=== PATIENT | female | born 1965 | race Caucasian/White ===

== ENCOUNTER → 2017-06-02 | Outpatient (CLI) | payer MEDICARE, OTHER ==
--- NOTE | 2017-06-02 10:29 | US ---
EXAMINATION TYPE: US kidneys/renal and bladder DATE OF EXAM: 06/02/2017 COMPARISON: NONE CLINICAL HISTORY: N39.0 UTI. Patient stated prior renal stones with lithotripsy to right kidney; carmen rachna sleeve EXAM MEASUREMENTS: Right Kidney: 12.0 x 5.3 x 4.2 cm Left Kidney: 12.5 x 6.6 x 5.7 cm Post Void Residual Volume: 9.9 mL Right Kidney: hyperechoic cluster of calcifications with posterior shadowing seen mid medial = 0.5 x 0.4 x 0.4cm Left Kidney: No hydronephrosis or masses seen Bladder: wnl Bilateral Jets seen: Yes Normal Post Void Residual: Yes IMPRESSION: NONOBSTRUCTING RIGHT-SIDED NEPHROLITHIASIS.
== END | disposition home or self-care (01) ==
LOC: RADUSWWP 09:18
PROVIDERS: ATTEND Family Medicine
DX: N20.0 Calculus of kidney (principal); N39.0 Urinary tract infection, site not specified
CPT/HCPCS: 76770

== ENCOUNTER 2017-06-29 20:12 | Observation (INO) | payer MEDICARE, OTHER ==
[2017-06-29] MEDS ORDERED: SODIUM CHLORIDE 0.9% 1,000 ML IV STA ×2 (21:06)
--- NOTE | 2017-06-29 21:09 | ED ---
Syncope HPI - General Chief Complaint: Syncope Stated Complaint: Syncope Time Seen by Provider: 06/29/17 21:02 Source: patient Mode of arrival: ambulatory Limitations: no limitations - History of Present Illness Initial Comments: This 51-year-old white female presents with a complaint of 2 syncopal episodes. She apparently was at a meeting [employer]. She went to stand up and apparently fell back down. She did land on her sacrum and is complaining of some pain into this area. She was out for short period of time. There is no seizure activity. She denies any preceding symptoms. She denies any dizziness, palpitations, chest pain, or shortness of breath. She states that she may not be eating or drinking as much recently. She states that she had one similar incident last week. No other complaints or modifying factors. - Related Data Home Medications Medication Instructions Recorded Confirmed Acetaminophen-Codeine 300-30mg 1 tab PO BID 06/29/17 06/29/17 [Tylenol #3] Albuterol Inhaler [Ventolin Hfa 1 - 2 puff INHALATION RT-Q6H PRN 06/29/17 Inhaler] Amantadine HCl [Symmetrel] 100 mg PO BID 06/29/17 06/29/17 Brexpiprazole [Rexulti] 4 mg PO HS 06/29/17 06/29/17 Cariprazine HCl [Vraylar] 6 mg PO HS 06/29/17 06/29/17 Dextroamphetamine/Amphetamine 20 mg PO TID 06/29/17 06/29/17 [Adderall] Fluticasone/Salmeterol [Advair 1 puff INHALATION RT-BID 06/29/17 06/29/17 250-50 Diskus] Lidocaine 5% Patch [Lidoderm] 1 patch TRANSDERM BID 06/29/17 06/29/17 Lisinopril [Zestril] 20 mg PO DAILY 06/29/17 06/29/17 Oxybutynin Chloride 5 mg PO BID 06/29/17 06/29/17 Pantoprazole [Protonix] 40 mg PO DAILY 06/29/17 06/29/17 Pregabalin [Lyrica] 75 mg PO TID 06/29/17 06/29/17 clonazePAM [KlonoPIN] 1 mg PO DAILY 06/29/17 06/29/17 lamoTRIgine [LaMICtal] 200 mg PO DAILY 06/29/17 06/29/17 Allergies Allergy/AdvReac Type Severity Reaction Status Date / Time latex AdvReac Rash/Hives Verified 06/29/17 20:42 ziprasidone [From Geodon] AdvReac Swelling Verified 06/29/17 20:42 Review of Systems ROS Statement: Those systems with pertinent positive or pertinent negative responses have been documented in the HPI. ROS Other: All systems not noted in ROS Statement are negative. Past Medical History Past Medical History: Diabetes Mellitus, Hyperlipidemia, Hypertension History of Any Multi-Drug Resistant Organisms: None Reported Past Surgical History: Bariatric Surgery, Cholecystectomy, Tonsillectomy Additional Past Surgical History / Comment(s): three abortions, ortho surgery Past Psychological History: Anxiety, Bipolar, Schizoaffective Disorder Smoking Status: Current every day smoker Past Alcohol Use History: None Reported Past Drug Use History: None Reported General Exam - General Exam Comments Initial Comments: GENERAL: The patient is well nourished and well hydrated. VITAL SIGNS: Heart rate, blood pressure, respiratory rate reviewed as recorded in nurse's notes. EYES: Pupils are round and reactive. Extraocular movements are intact. No conjunctival / lid redness or swelling. ENT: No external evidence of injury, swelling, or ecchymosis. Airway is patent. Throat is clear. NECK: Nontender. No swelling or evidence of injury. No subcutaneous emphysema. Trachea is midline. No thyroid mass. HEART: Regular rate and rhythm. Good peripheral pulses. LUNGS/CHEST: Breath sounds clear and equal bilaterally. No rales, rhonchi, or wheezes. No ecchymosis, subcutaneous emphysema, or tenderness. ABDOMEN: Abdomen soft without tenderness. No palpable masses or organomegaly. No peritoneal signs. No abdominal wall swelling or ecchymosis. EXTREMITIES: No extremity tenderness. Normal muscle tone and function. There is mild tenderness over the sacrum and coccyx region. NEUROLOGIC: Sensation is grossly intact. Cranial nerve exam reveals face is symmetrical, tongue is midline, speech is clear. SKIN: No abrasions or ecchymosis is noted. No induration or masses noted. PSYCHIATRIC: Alert and oriented. Appropriate behavior and judgment. Limitations: no limitations Course Vital Signs 06/29/17 06/29/17 06/29/17 20:19 21:18 21:48 Temperature 97.9 F Pulse Rate 68 69 Pulse Rate [ 72 Sitting Brimmer Blocker] Pulse Rate [ 85 Standing Brimmer Blocker ] Pulse Rate [ 54 L Supine Brimmer Blocker] Respiratory 20 16 18 Rate Blood Pressure 94/54 102/62 Blood Pressure 90/51 [Left Arm Supine] Blood Pressure 113/62 [Sitting] Blood Pressure 119/67 [Standing] O2 Sat by Pulse 98 96 98 Oximetry Medical Decision Making - Medical Decision Making The patient was seen and examined. All diagnostics were reviewed. She is placed on rn cardiac rehab and no ectopy is identified. The EKG shows a normal sinus rhythm at a rate of [address]-T wave changes noted. The IN interval is 152, QRS duration is 86, and the QTc interval 399. She was given ample IV fluids. Her blood sugar was on the low end of normal and she does receive some food. The blood sugar was 71 on the labs. The remainder of labs are all essentially within normal limits except for mild leukocytosis. The patient had an x-ray of her sacrum and coccyx and this does not show any evidence of fracture. She was watched on the rn cardiac rehab and her heart rate did show a sinus bradycardia at times down to a heart rate of 44. The orthostatic vital signs were negative. The urinalysis does show evidence of a urinary tract infection. Overall, the cause of her syncope is not definitively determined. It certainly may be related to some dehydration, urinary tract infection, some mild hypoglycemia, and bradycardia. It is felt as though she would require admission to the hospital. The case is discussed with internal medicine and they're agreeable to admission. - Lab Data Result diagrams: 06/29/17 20:33 06/29/17 20:33 Lab Results 06/29/17 06/29/17 06/29/17 Range/Units 20:33 20:33 20:33 WBC 10.8 H (3.8-10.6) k/uL RBC 4.38 (3.80-5.40) m/uL Hgb 13.8 (11.4-16.0) gm/dL Hct 42.3 (34.0-46.0) % MCV 96.7 (80.0-100.0) fL MCH 31.6 (25.0-35.0) pg MCHC 32.7 (31.0-37.0) g/dL RDW 13.7 (11.5-15.5) % Plt Count 193 (150-450) k/uL Neutrophils % 62 % Lymphocytes % 27 % Monocytes % 6 % Eosinophils % 3 % Basophils % 1 % Neutrophils # 6.7 (1.3-7.7) k/uL Lymphocytes # 3.0 (1.0-4.8) k/uL Monocytes # 0.7 (0-1.0) k/uL Eosinophils # 0.3 (0-0.7) k/uL Basophils # 0.1 (0-0.2) k/uL PT (9.0-12.0) sec INR (<1.2) APTT (22.0-30.0) sec Sodium 142 (137-145) mmol/L Potassium 3.8 (3.5-5.1) mmol/L Chloride 106 (98-107) mmol/L Carbon Dioxide 26 (22-30) mmol/L Anion Gap 10 mmol/L BUN 10 (7-17) mg/dL Creatinine 0.95 (0.52-1.04) mg/dL Est GFR (MDRD) Af Amer >60 (>60 ml/min/1.73 sqM) Est GFR (MDRD) Non-Af >60 (>60 ml/min/1.73 sqM) Glucose 72 L (74-99) mg/dL POC Glucose (mg/dL) (75-99) mg/dL POC Glu Forest Aide ID Calcium 9.6 (8.4-10.2) mg/dL Total Bilirubin 0.5 (0.2-1.3) mg/dL AST 19 (14-36) U/L ALT 28 (9-52) U/L Alkaline Phosphatase 90 (38-126) U/L Total Creatine Kinase 65 (30-135) U/L CK-MB (CK-2) 1.2 (0.0-2.4) ng/mL CK-MB (CK-2) Rel Index 1.8 Troponin I <0.012 (0.000-0.034) ng/mL Total Protein 7.0 (6.3-8.2) g/dL Albumin 4.1 (3.5-5.0) g/dL Urine Color Urine Appearance (Clear) Urine pH (5.0-8.0) Ur Specific [place] (1.001-1.035) Urine Protein (Negative) Urine Glucose (UA) (Negative) Urine Ketones (Negative) Urine Blood (Negative) Urine Nitrite (Negative) Urine Bilirubin (Negative) Urine Urobilinogen (<2.0) mg/dL Ur Leukocyte Esterase (Negative) Urine RBC (0-5) /hpf Urine WBC (0-5) /hpf Ur Squamous Epith Cells (0-4) /hpf Urine Bacteria (None) /hpf Urine Mucus (None) /hpf 06/29/17 06/29/17 06/29/17 Range/Units 20:33 21:17 21:45 WBC (3.8-10.6) k/uL RBC (3.80-5.40) m/uL Hgb (11.4-16.0) gm/dL Hct (34.0-46.0) % MCV (80.0-100.0) fL MCH (25.0-35.0) pg MCHC (31.0-37.0) g/dL RDW (11.5-15.5) % Plt Count (150-450) k/uL Neutrophils % % Lymphocytes % % Monocytes % % Eosinophils % % Basophils % % Neutrophils # (1.3-7.7) k/uL Lymphocytes # (1.0-4.8) k/uL Monocytes # (0-1.0) k/uL Eosinophils # (0-0.7) k/uL Basophils # (0-0.2) k/uL PT 10.9 (9.0-12.0) sec INR 1.1 (<1.2) APTT 22.8 (22.0-30.0) sec Sodium (137-145) mmol/L Potassium (3.5-5.1) mmol/L Chloride (98-107) mmol/L Carbon Dioxide (22-30) mmol/L Anion Gap mmol/L BUN (7-17) mg/dL Creatinine (0.52-1.04) mg/dL Est GFR (MDRD) Af Amer (>60 ml/min/1.73 sqM) Est GFR (MDRD) Non-Af (>60 ml/min/1.73 sqM) Glucose (74-99) mg/dL POC Glucose (mg/dL) 81 (75-99) mg/dL POC Glu Forest Aide ID Teena, Susan Calcium (8.4-10.2) mg/dL Total Bilirubin (0.2-1.3) mg/dL AST (14-36) U/L ALT (9-52) U/L Alkaline Phosphatase (38-126) U/L Total Creatine Kinase (30-135) U/L CK-MB (CK-2) (0.0-2.4) ng/mL CK-MB (CK-2) Rel Index Troponin I (0.000-0.034) ng/mL Total Protein (6.3-8.2) g/dL Albumin (3.5-5.0) g/dL Urine Color Yellow Urine Appearance Cloudy H (Clear) Urine pH 7.0 (5.0-8.0) Ur Specific [place] 1.020 (1.001-1.035) Urine Protein Trace H (Negative) Urine Glucose (UA) Negative (Negative) Urine Ketones Negative (Negative) Urine Blood Negative (Negative) Urine Nitrite Positive H (Negative) Urine Bilirubin Negative (Negative) Urine Urobilinogen <2.0 (<2.0) mg/dL Ur Leukocyte Esterase Large H (Negative) Urine RBC 2 (0-5) /hpf Urine WBC 32 H (0-5) /hpf Ur Squamous Epith Cells 2 (0-4) /hpf Urine Bacteria Many H (None) /hpf Urine Mucus Moderate H (None) /hpf Disposition Clinical Impression: Syncope, Coccyx contusion, Leukocytosis, Dehydration, UTI (urinary tract infection), Bradycardia Disposition: ADMITTED IP TO THIS [facility] Condition: Fair Time of Disposition: 23:25 Decision Date: 06/29/17 Decision Time: 23:25
[2017-06-29 21:19] LABS: Glucose,Whole Blood 81 mg/dL (75-99)
--- NOTE | 2017-06-29 21:36 | XR ---
EXAMINATION TYPE: XR sacrum coccyx DATE OF EXAM: 06/29/2017 COMPARISON: NONE HISTORY: Pain TECHNIQUE: 3 views FINDINGS: IUD is noted. Sacrum and coccyx segments have normal alignment. I see no fracture. Sacroili ac joints appear normal. There are numerous phleboliths in the pelvis. IMPRESSION: Normal sacrum and coccyx.
[2017-06-29 21:40] LABS: Basophils # (A) 0.1 k/uL (0-0.2); Basophils % (A) 1 %; CH 32.8; CHCM 34.1; Eosinophils # (A) 0.3 k/uL (0-0.7); Eosinophils % (A) 3 %; HCT 42.3 % (34.0-46.0); HDW 2.16; HGB 13.8 gm/dL (11.4-16.0); Luc # (Auto) 0.13; Luc % (Auto) 1; Lymphocytes % (A) 27 %; MCH 31.6 pg (25.0-35.0); MCHC 32.7 g/dL (31.0-37.0); MCV 96.7 fL (80.0-100.0); Monocytes # (A) 0.7 k/uL (0-1.0); Monocytes % (A) 6 %; Neutrophils # (A) 6.7 k/uL (1.3-7.7); Neutrophils % (A) 62 %; RBC 4.38 m/uL (3.80-5.40); RDW 13.7 % (11.5-15.5); WBC 10.8 k/uL (3.8-10.6); WBC (Perox) 11.38
[2017-06-29 21:49] LABS: INR 1.1 (<1.2); Partial Thromboplastin Time 22.8 sec (22.0-30.0); Prothrombin Time 10.9 sec (9.0-12.0)
[2017-06-29 22:06] LABS: ALT 28 U/L (9-52); AST 19 U/L (14-36); Alkaline Phosphatase 90 U/L (38-126); Anion Gap 10 mmol/L; Blood Urea Nitrogen 10 mg/dL (7-17); Calcium 9.6 mg/dL (8.4-10.2); Carbon Dioxide 26 mmol/L (22-30); Chloride 106 mmol/L (98-107); Glucose 72 mg/dL (74-99); Non-African American GFR(MDRD) >60 (>60 ml/min/1.73 sqM); Potassium 3.8 mmol/L (3.5-5.1); Sodium 142 mmol/L (137-145); Total Bilirubin 0.5 mg/dL (0.2-1.3)
[2017-06-29 22:08] LABS: Appearance,Urine Cloudy (Clear); Bacteria,Urine Many /hpf; Bilirubin,Urine Negative (Negative); Glucose,Urine (UA) Negative (Negative); Ketones,Urine Negative (Negative); Leukocyte Esterase,Urine Large (Negative); Mucus,Urine Moderate /hpf; Nitrite,Urine Positive (Negative); Particle Count 148903; Protein,Urine Trace (Negative); RBC,Urine 2 /hpf (0-5); Squamous Epithelial Cell,Urine 2 /hpf (0-4); UA Billing (MACRO vs. MICRO) MICRO; Urobilinogen,Urine <2.0 mg/dL (<2.0); WBC,Urine 32 /hpf (0-5)
[2017-06-29 22:11] LABS: Creatine Kinase 65 U/L (30-135)
[2017-06-29 22:22] LABS: Creatine Kinase MB 1.2 ng/mL (0.0-2.4); Troponin I <0.012 ng/mL (0.000-0.034)
[2017-06-29] MEDS ORDERED: ACETAMINOPHEN TAB 325 MG TAB PO PRN (23:26)
[2017-06-29] MEDS ORDERED: NALOXONE 0.4 MG/ML 1 ML VIAL IV PRN (23:26)
[2017-06-29] MEDS ORDERED: ONDANSETRON 4 MG/2 ML VIAL IVP PRN (23:26)
[2017-06-29] MEDS ORDERED: ALBUTEROL NEBULIZED 2.5 MG/3 ML INHALATION PRN (23:30)
[2017-06-29] MEDS: KETOROLAC 30 MG/ML 1 ML VIAL IVP PRN (23:35)
[2017-06-30 00:45] VITALS: RESP 18
[2017-06-30 01:08] VITALS: BMI 34.7
[2017-06-30] MEDS ORDERED: Acetaminophen-Codeine 300-30mg TAB PO PRN (01:22)
[2017-06-30] MEDS ORDERED: clonazePAM 1 MG TAB PO SCH ×2 (01:27→09:00)
[2017-06-30 06:44] LABS: Glucose,Whole Blood 94 mg/dL (75-99)
[2017-06-30] MEDS ORDERED: SYMBICORT 80-4.5 MCG INHALER INHALATION SCH (08:00)
[2017-06-30 08:20] VITALS: BP 142/75; TEMP 97.7
[2017-06-30 08:44] VITALS: PULSE 76
[2017-06-30] MEDS ORDERED: NICOTINE 21MG/24HR PATCH TRANSDERM SCH (09:00)
[2017-06-30] MEDS ORDERED: LIDOCAINE 5% PATCH TOPICAL SCH (09:00)
[2017-06-30] MEDS ORDERED: LISINOPRIL 20 MG TAB PO SCH (09:00)
[2017-06-30] MEDS ORDERED: ENOXAPARIN 40 MG/0.4 ML SYRINGE SQ SCH (09:00)
[2017-06-30] MEDS ORDERED: PREGABALIN 75 MG CAP PO SCH (09:00)
[2017-06-30] MEDS ORDERED: OXYBUTYNIN CHLORIDE 5 MG TAB PO SCH (09:00)
[2017-06-30] MEDS ORDERED: AMANTADINE HCL 100 MG CAP PO SCH (09:00)
[2017-06-30] MEDS ORDERED: Acetaminophen-Codeine 300-30mg TAB PO SCH (09:00)
[2017-06-30] MEDS ORDERED: lamoTRIgine 100 MG TAB PO SCH (09:00)
[2017-06-30] MEDS ORDERED: NON-FORMULARY DRUG (Dextroamphetamine/Amphetamine [Adderall] 20 MG) PO SCH (09:00)
[2017-06-30] MEDS ORDERED: PANTOPRAZOLE 40 MG/10 ML VIAL IV SCH (09:00)
[2017-06-30] MEDS ORDERED: GABAPENTIN 400 MG CAP PO SCH (09:00)
[2017-06-30 09:14] LABS: Creatine Kinase 49 U/L (30-135)
[2017-06-30 09:28] LABS: Creatine Kinase MB 0.9 ng/mL (0.0-2.4); Troponin I <0.012 ng/mL (0.000-0.034)
--- NOTE | 2017-06-30 10:04 | P.CRDCN ---
History of Present Illness History of present illness: Patient admitted with 2 brief episodes of syncope consistent with vasovagal syncope. Very brief episodes. No preceding symptoms no chest discomfort. Following that she was a bit nauseous she has been worked up at [facility] in the past. She has had tilt table tests performed. In addition mild resting bradycardia while sleeping at 40 beats a minute is noted. 12-lead ECG is normal White count was mildly elevated. Left lites are normal. BUN/creatinine is normal. 2 troponins are normal. ECG shows normal ST segments normal DE narrow QRS Impression Likely vasovagal spells History of hypertension, on Zestril Plan TSH level Patient may go home from a cardiac standpoint once occurred cardiac enzymes normal Follow with Dr. Simms about 6 weeks Please see full dictation by nurse practitioner Past Medical History Past Medical History: Diabetes Mellitus, Hyperlipidemia, Hypertension History of Any Multi-Drug Resistant Organisms: None Reported Past Surgical History: Bariatric Surgery, Cholecystectomy, Tonsillectomy Additional Past Surgical History / Comment(s): three abortions, ortho surgery Past Psychological History: Anxiety, Bipolar, Schizoaffective Disorder Smoking Status: Current every day smoker Past Alcohol Use History: None Reported Past Drug Use History: None Reported Medications and Allergies Home Medications Medication Instructions Recorded Confirmed Type Acetaminophen-Codeine 300-30mg 1 tab PO BID 06/29/17 06/29/17 History [Tylenol #3] Albuterol Inhaler [Ventolin Hfa 1 - 2 puff INHALATION RT-Q6H PRN 06/29/17 History Inhaler] Amantadine HCl [Symmetrel] 100 mg PO BID 06/29/17 06/29/17 History Brexpiprazole [Rexulti] 4 mg PO HS 06/29/17 06/29/17 History Cariprazine HCl [Vraylar] 6 mg PO HS 06/29/17 06/29/17 History Dextroamphetamine/Amphetamine 20 mg PO TID 06/29/17 06/29/17 History [Adderall] Fluticasone/Salmeterol [Advair 1 puff INHALATION RT-BID 06/29/17 06/29/17 History 250-50 Diskus] Lidocaine 5% Patch [Lidoderm] 1 patch TRANSDERM BID 06/29/17 06/29/17 History Lisinopril [Zestril] 20 mg PO DAILY 06/29/17 06/29/17 History Oxybutynin Chloride 5 mg PO BID 06/29/17 06/29/17 History Pantoprazole [Protonix] 40 mg PO DAILY 06/29/17 06/29/17 History Pregabalin [Lyrica] 75 mg PO TID 06/29/17 06/29/17 History clonazePAM [KlonoPIN] 1 mg PO DAILY 06/29/17 06/29/17 History lamoTRIgine [LaMICtal] 200 mg PO DAILY 06/29/17 06/29/17 History Gabapentin [Neurontin] 400 mg PO TID 06/30/17 06/30/17 History Allergies Allergy/AdvReac Type Severity Reaction Status Date / Time latex AdvReac Rash/Hives Verified 06/29/17 20:42 ziprasidone [From Geodon] AdvReac Swelling Verified 06/29/17 20:42 Physical Exam Vitals: Vital Signs Temp Pulse Pulse Pulse Pulse Pulse Resp 06/30/17 08:43 76 06/30/17 08:35 68 06/30/17 08:00 97.7 F 65 18 06/30/17 04:06 98.1 F 68 18 06/30/17 04:00 68 18 06/30/17 01:41 18 06/30/17 00:41 97.8 F 69 18 06/29/17 23:31 69 16 06/29/17 21:48 72 85 54 L 18 06/29/17 21:18 69 16 06/29/17 20:19 97.9 F 68 20 BP BP BP BP BP Pulse Ox 06/30/17 08:43 06/30/17 08:35 06/30/17 08:00 142/75 95 06/30/17 04:06 119/59 96 06/30/17 04:00 06/30/17 01:41 06/30/17 00:41 144/76 99 06/29/17 23:31 119/51 99 06/29/17 21:48 90/51 113/62 119/67 98 06/29/17 21:18 102/62 96 06/29/17 20:19 94/54 98 Intake and Output 06/29/17 06/30/17 06/30/17 22:59 06:59 14:59 Other: # Voids 1 Weight 100.698 kg 100.7 kg Results 06/29/17 20:33 06/29/17 20:33 Cardiac Enzymes 06/29/17 06/29/17 06/30/17 Range/Units 20:33 20:33 07:53 AST 19 (14-36) U/L CK-MB (CK-2) 1.2 0.9 (0.0-2.4) ng/mL Troponin I <0.012 <0.012 (0.000-0.034) ng/mL Coagulation 06/29/17 Range/Units 20:33 PT 10.9 (9.0-12.0) sec APTT 22.8 (22.0-30.0) sec CBC 06/29/17 Range/Units 20:33 WBC 10.8 H (3.8-10.6) k/uL RBC 4.38 (3.80-5.40) m/uL Hgb 13.8 (11.4-16.0) gm/dL Hct 42.3 (34.0-46.0) % Plt Count 193 (150-450) k/uL Comprehensive Metabolic Panel 06/29/17 Range/Units 20:33 Sodium 142 (137-145) mmol/L Potassium 3.8 (3.5-5.1) mmol/L Chloride 106 (98-107) mmol/L Carbon Dioxide 26 (22-30) mmol/L BUN 10 (7-17) mg/dL Creatinine 0.95 (0.52-1.04) mg/dL Glucose 72 L (74-99) mg/dL Calcium 9.6 (8.4-10.2) mg/dL AST 19 (14-36) U/L ALT 28 (9-52) U/L Alkaline Phosphatase 90 (38-126) U/L Total Protein 7.0 (6.3-8.2) g/dL Albumin 4.1 (3.5-5.0) g/dL Current Medications Generic Name Dose Route Start Last Admin Trade Name Freq PRN Reason Stop Dose Admin Acetaminophen 650 mg 06/29/17 23:26 Tylenol Tab PO Q6HR PRN Mild Pain or Fever > 100.5 Acetaminophen/Codeine Phosphate 1 each 06/30/17 01:22 06/30/17 02:19 Tylenol #3 PO 1 each BID PRN Administration Pain Albuterol Sulfate 2.5 mg 06/29/17 23:30 06/30/17 08:34 Ventolin Nebulized INHALATION 2.5 mg RT-Q6H PRN Administration Shortness Of Breath Amantadine HCl 100 mg 06/30/17 09:00 Symmetrel PO BID [facility] Budesonide/Formoterol Fumarate 2 puff 06/30/17 08:00 06/30/17 08:37 Symbicort 80-4.5 Mcg Inhaler INHALATION 2 puff RT-BID [facility] Administration Clonazepam 1 mg 06/30/17 01:27 06/30/17 02:19 Klonopin PO 1 mg HS [facility] Administration Enoxaparin Sodium 40 mg 06/30/17 09:00 Lovenox SQ DAILY [facility] Gabapentin 400 mg 06/30/17 09:00 Neurontin PO TID [facility] Ceftriaxone Sodium 1,000 mg/ 50 mls @ 100 mls/hr 06/30/17 22:00 Sodium Chloride IVPB Q24H [facility] Ketorolac Tromethamine 30 mg 06/29/17 23:26 06/29/17 23:35 Toradol IVP 07/04/17 23:27 30 mg Q6HR PRN Administration Moderate Pain Lamotrigine 200 mg 06/30/17 09:00 Lamictal PO DAILY [facility] Lidocaine 1 patch 06/30/17 09:00 Lidoderm TOPICAL BID [facility] Lisinopril 20 mg 06/30/17 09:00 Zestril PO DAILY [facility] Naloxone HCl 0.2 mg 06/29/17 23:26 Narcan IV Q2M PRN Opioid Reversal Nicotine 1 patch 06/30/17 09:00 Habitrol 21mg/24hr Patch TRANSDERM DAILY [facility] Non-Formulary Medication 4 mg 06/30/17 21:00 Brexpiprazole [Rexulti] PO HS [facility] Non-Formulary Medication 6 mg 06/30/17 21:00 Cariprazine Hcl [Vraylar] PO HS [facility] Ondansetron HCl 4 mg 06/29/17 23:26 Zofran IVP Q8HR PRN Nausea And Vomiting Oxybutynin Chloride 5 mg 06/30/17 09:00 Ditropan PO BID [facility] Pantoprazole Sodium 40 mg 06/30/17 09:00 Protonix IV DAILY [facility] Pregabalin 75 mg 06/30/17 09:00 Lyrica PO TID PATRICK Intake and Output 06/29/17 06/30/17 06/30/17 22:59 06:59 14:59 Other: # Voids 1 Weight 100.698 kg 100.7 kg 06/29/17 20:33 06/29/17 20:33
--- NOTE | 2017-06-30 10:44 | P.CRDCN ---
History of Present Illness Consult date: 06/30/17 History of present illness: This is a 51-year-old female. Past medical history significant for hypertension. Patient presents to the hospital status post syncopal episode. She states she was standing up to give a speech at [facility]. She became very anxious and jittery. She also states she hadn't eaten or drank anything all day. Upon finishing her speech she was trying to sit down and she momentarily lost consciousness. This episode was very brief in nature she had no preceding symptoms of chest discomfort, shortness of breath, dizziness, palpitations, diaphoresis or nausea. Once she woke up she was mildly diaphoretic and nauseous. She states she's been worked up for similar episodes at [facility] in the past with a tilt table test. Telemetry tracings overnight reveal sinus mechanism with heart rate between 50s and 70s. Blood pressure on admission 94/ 54 with heart rate 68. Orthostatics in ED positive for postural changes with blood pressure increasing with movement to standing. Blood pressure this morning 142/75 prior to medication administration. Troponin negative 2. She is a current every day smoker approximately 6-10 cigarettes per day 30 years. 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 She denies alcohol use. She has never seen a immigration attorney for any reason , denies CAD or DE. Review of Systems Extensive review of systems performed, negative except mentioned in HPI. Past Medical History Past Medical History: Diabetes Mellitus, Hyperlipidemia, Hypertension History of Any Multi-Drug Resistant Organisms: None Reported Past Surgical History: Bariatric Surgery, Cholecystectomy, Tonsillectomy Additional Past Surgical History / Comment(s): three abortions, ortho surgery Past Psychological History: Anxiety, Bipolar, Schizoaffective Disorder Smoking Status: Current every day smoker Past Alcohol Use History: None Reported Past Drug Use History: None Reported Medications and Allergies Home Medications Medication Instructions Recorded Confirmed Type Acetaminophen-Codeine 300-30mg 1 tab PO BID 06/29/17 06/29/17 History [Tylenol #3] Albuterol Inhaler [Ventolin Hfa 1 - 2 puff INHALATION RT-Q6H PRN 06/29/17 History Inhaler] Amantadine HCl [Symmetrel] 100 mg PO BID 06/29/17 06/29/17 History Brexpiprazole [Rexulti] 4 mg PO HS 06/29/17 06/29/17 History Cariprazine HCl [Vraylar] 6 mg PO HS 06/29/17 06/29/17 History Dextroamphetamine/Amphetamine 20 mg PO TID 06/29/17 06/29/17 History [Adderall] Fluticasone/Salmeterol [Advair 1 puff INHALATION RT-BID 06/29/17 06/29/17 History 250-50 Diskus] Lidocaine 5% Patch [Lidoderm] 1 patch TRANSDERM BID 06/29/17 06/29/17 History Lisinopril [Zestril] 20 mg PO DAILY 06/29/17 06/29/17 History Oxybutynin Chloride 5 mg PO BID 06/29/17 06/29/17 History Pantoprazole [Protonix] 40 mg PO DAILY 06/29/17 06/29/17 History Pregabalin [Lyrica] 75 mg PO TID 06/29/17 06/29/17 History clonazePAM [KlonoPIN] 1 mg PO DAILY 06/29/17 06/29/17 History lamoTRIgine [LaMICtal] 200 mg PO DAILY 06/29/17 06/29/17 History Gabapentin [Neurontin] 400 mg PO TID 06/30/17 06/30/17 History Allergies Allergy/AdvReac Type Severity Reaction Status Date / Time latex AdvReac Rash/Hives Verified 06/29/17 20:42 ziprasidone [From Geodon] AdvReac Swelling Verified 06/29/17 20:42 Physical Exam Vitals: Vital Signs Temp Pulse Pulse Pulse Pulse Pulse Resp 06/30/17 08:43 76 06/30/17 08:35 68 06/30/17 08:00 97.7 F 65 18 06/30/17 04:06 98.1 F 68 18 06/30/17 04:00 68 18 06/30/17 01:41 18 06/30/17 00:41 97.8 F 69 18 06/29/17 23:31 69 16 06/29/17 21:48 72 85 54 L 18 06/29/17 21:18 69 16 06/29/17 20:19 97.9 F 68 20 BP BP BP BP BP Pulse Ox 06/30/17 08:43 06/30/17 08:35 06/30/17 08:00 142/75 95 06/30/17 04:06 119/59 96 06/30/17 04:00 06/30/17 01:41 06/30/17 00:41 144/76 99 06/29/17 23:31 119/51 99 06/29/17 21:48 90/51 113/62 119/67 98 06/29/17 21:18 102/62 96 06/29/17 20:19 94/54 98 Intake and Output 06/29/17 06/30/17 06/30/17 22:59 06:59 14:59 Other: # Voids 1 Weight 100.698 kg 100.7 kg GENERAL: This is a 51-year-old female in no apparent distress at the time of my examination. HEENT: Head is atraumatic, normocephalic. Pupils are equal, round. Sclerae anicteric. Conjunctivae are clear. Mucous membranes of the mouth are moist. Neck is supple. There is no jugular venous distention. No carotid bruit is heard. LUNGS: Clear to auscultation no wheezes, rales or rhonchi. No chest wall tenderness is noted on palpation or with deep breathing. HEART: Regular rate and rhythm without murmurs, rubs or gallops. S1 and S2 heard. ABDOMEN: Soft, nontender. Bowel sounds are heard. No organomegaly noted. EXTREMITIES: 2+ peripheral pulses with no evidence of peripheral edema and no calf tenderness noted. NEUROLOGIC: Patient is awake, alert and oriented x3. Results 06/29/17 20:33 06/29/17 20:33 Cardiac Enzymes 06/29/17 06/29/17 06/30/17 Range/Units 20:33 20:33 07:53 AST 19 (14-36) U/L CK-MB (CK-2) 1.2 0.9 (0.0-2.4) ng/mL Troponin I <0.012 <0.012 (0.000-0.034) ng/mL Coagulation 06/29/17 Range/Units 20:33 PT 10.9 (9.0-12.0) sec APTT 22.8 (22.0-30.0) sec CBC 06/29/17 Range/Units 20:33 WBC 10.8 H (3.8-10.6) k/uL RBC 4.38 (3.80-5.40) m/uL Hgb 13.8 (11.4-16.0) gm/dL Hct 42.3 (34.0-46.0) % Plt Count 193 (150-450) k/uL Comprehensive Metabolic Panel 06/29/17 Range/Units 20:33 Sodium 142 (137-145) mmol/L Potassium 3.8 (3.5-5.1) mmol/L Chloride 106 (98-107) mmol/L Carbon Dioxide 26 (22-30) mmol/L BUN 10 (7-17) mg/dL Creatinine 0.95 (0.52-1.04) mg/dL Glucose 72 L (74-99) mg/dL Calcium 9.6 (8.4-10.2) mg/dL AST 19 (14-36) U/L ALT 28 (9-52) U/L Alkaline Phosphatase 90 (38-126) U/L Total Protein 7.0 (6.3-8.2) g/dL Albumin 4.1 (3.5-5.0) g/dL Current Medications Generic Name Dose Route Start Last Admin Trade Name Freq PRN Reason Stop Dose Admin Acetaminophen 650 mg 06/29/17 23:26 Tylenol Tab PO Q6HR PRN Mild Pain or Fever > 100.5 Acetaminophen/Codeine Phosphate 1 each 06/30/17 01:22 06/30/17 02:19 Tylenol #3 PO 1 each BID PRN Administration Pain Albuterol Sulfate 2.5 mg 06/29/17 23:30 06/30/17 08:34 Ventolin Nebulized INHALATION 2.5 mg RT-Q6H PRN Administration Shortness Of Breath Amantadine HCl 100 mg 06/30/17 09:00 Symmetrel PO BID PATRICK Budesonide/Formoterol Fumarate 2 puff 06/30/17 08:00 06/30/17 08:37 Symbicort 80-4.5 Mcg Inhaler INHALATION 2 puff RT-BID PATRICK Administration Clonazepam 1 mg 06/30/17 01:27 06/30/17 02:19 Klonopin PO 1 mg HS PATRICK Administration Enoxaparin Sodium 40 mg 06/30/17 09:00 Lovenox SQ DAILY [facility] Gabapentin 400 mg 06/30/17 09:00 Neurontin PO TID PATRICK Ceftriaxone Sodium 1,000 mg/ 50 mls @ 100 mls/hr 06/30/17 22:00 Sodium Chloride IVPB Q24H PATRICK Ketorolac Tromethamine 30 mg 06/29/17 23:26 06/29/17 23:35 Toradol IVP 07/04/17 23:27 30 mg Q6HR PRN Administration Moderate Pain Lamotrigine 200 mg 06/30/17 09:00 Lamictal PO DAILY [facility] Lidocaine 1 patch 06/30/17 09:00 Lidoderm TOPICAL BID PATRICK Lisinopril 20 mg 06/30/17 09:00 Zestril PO DAILY PATRICK Naloxone HCl 0.2 mg 06/29/17 23:26 Narcan IV Q2M PRN Opioid Reversal Nicotine 1 patch 06/30/17 09:00 Habitrol 21mg/24hr Patch TRANSDERM DAILY PATRICK Non-Formulary Medication 4 mg 06/30/17 21:00 Brexpiprazole [Rexulti] PO HS PATRICK Non-Formulary Medication 6 mg 06/30/17 21:00 Cariprazine Hcl [Vraylar] PO HS PATRICK Ondansetron HCl 4 mg 06/29/17 23:26 Zofran IVP Q8HR PRN Nausea And Vomiting Oxybutynin Chloride 5 mg 06/30/17 09:00 Ditropan PO BID PATRICK Pantoprazole Sodium 40 mg 06/30/17 09:00 Protonix IV DAILY PATRICK Pregabalin 75 mg 06/30/17 09:00 Lyrica PO TID PATRICK Intake and Output 06/29/17 06/30/17 06/30/17 22:59 06:59 14:59 Other: # Voids 1 Weight 100.698 kg 100.7 kg 06/29/17 20:33 06/29/17 20:33 EKG Interpretations (text) EKG reveals sinus mechanism with nonspecific T-wave abnormality. Assessment and Plan Plan: ASSESSMENT 1. Vasovagal episode 2. Essential hypertension PLAN Check TSH; From cardiac perspective she may go home wto follow up with Dr. Roy in 6 weeks. Nurse Practitioner note has been reviewed, I agree with a documented findings and plan of care. Patient was seen and examined.
[2017-06-30] MEDS: KETOROLAC 30 MG/ML 1 ML VIAL IVP PRN (11:03)
--- NOTE | 2017-06-30 11:55 | P.DS ---
Providers Date of admission: 06/29/17 23:26 Attending physician: Jamil Geller Consults: 06/29/17 23:27 Consult Physician Urgent Consulting Provider: Chato Larson Consult Reason/Comments: bradycardia Do you want consulting provider notified?: Yes Primary care physician: Lexy Munozrecht [facility] Course: Please refer to my HPI Patient Condition at Discharge: Fair Plan - Discharge Summary New Discharge Prescriptions: New Ciprofloxacin HCl [Cipro] 500 mg PO Q12HR #6 tablet Continue lamoTRIgine [LaMICtal] 200 mg PO DAILY Dextroamphetamine/Amphetamine [Adderall] 20 mg PO TID Brexpiprazole [Rexulti] 4 mg PO HS Pantoprazole [Protonix] 40 mg PO DAILY Oxybutynin Chloride 5 mg PO BID Acetaminophen-Codeine 300-30mg [Tylenol w/codeine #3] 1 tab PO BID Pregabalin [Lyrica] 75 mg PO TID Lidocaine 5% Patch [Lidoderm 5% Patch] 1 patch TRANSDERM BID Amantadine HCl [Symmetrel] 100 mg PO BID clonazePAM [KlonoPIN] 1 mg PO DAILY Fluticasone/Salmeterol [Advair 250-50 Diskus] 1 puff INHALATION RT-BID Albuterol Inhaler [Ventolin Hfa Inhaler] 1 - 2 puff INHALATION RT-Q6H PRN PRN Reason: Shortness Of Breath Cariprazine HCl [Vraylar] 6 mg PO HS Gabapentin [Neurontin] 400 mg PO TID Changed Lisinopril [Zestril] 10 mg PO DAILY #0 Discharge Medication List Acetaminophen-Codeine 300-30mg [Tylenol w/codeine #3] 1 tab PO BID 06/29/17 [ History] Albuterol Inhaler [Ventolin Hfa Inhaler] 1 - 2 puff INHALATION RT-Q6H PRN [History] Amantadine HCl [Symmetrel] 100 mg PO BID 06/29/17 [History] Brexpiprazole [Rexulti] 4 mg PO HS 06/29/17 [History] Cariprazine HCl [Vraylar] 6 mg PO HS 06/29/17 [History] Dextroamphetamine/Amphetamine [Adderall] 20 mg PO TID 06/29/17 [History] Fluticasone/Salmeterol [Advair 250-50 Diskus] 1 puff INHALATION RT-BID 06/29/17 [History] Lidocaine 5% Patch [Lidoderm 5% Patch] 1 patch TRANSDERM BID 06/29/17 [History] Oxybutynin Chloride 5 mg PO BID 06/29/17 [History] Pantoprazole [Protonix] 40 mg PO DAILY 06/29/17 [History] Pregabalin [Lyrica] 75 mg PO TID 06/29/17 [History] clonazePAM [KlonoPIN] 1 mg PO DAILY 06/29/17 [History] lamoTRIgine [LaMICtal] 200 mg PO DAILY 06/29/17 [History] Ciprofloxacin HCl [Cipro] 500 mg PO Q12HR #6 tablet 06/30/17 [Rx] Gabapentin [Neurontin] 400 mg PO TID 06/30/17 [History] Lisinopril [Zestril] 10 mg PO DAILY #0 06/30/17 [Rx]
--- NOTE | 2017-06-30 11:55 | P.HPIM ---
History of Present Illness This is a 51-year-old female. Past medical history significant for hypertension. Patient presents to the hospital status post syncopal episode. She states she was standing up to give a speech at [facility]. She became very anxious and jittery. She also states she hadn't eaten or drank anything all day. Upon finishing her speech she was trying to sit down and she momentarily lost consciousness. This episode was very brief in nature she had no preceding symptoms of chest discomfort, shortness of breath, dizziness, palpitations, diaphoresis or nausea. Once she woke up she was mildly diaphoretic and nauseous. She states she's been worked up for similar episodes at [facility] in the past with a tilt table test. Telemetry tracings overnight reveal sinus mechanism with heart rate between 50s and 70s. Patient had positive orthostatic vitals. Considering her low blood pressure and positive orthostatic vitals and cutting down his lisinopril. Patient is not clear in her history of dysuria or urinary frequency though she does have abnormal uterine because of which I am discharging her on 3 more days of ciprofloxacin patient received a couple days of ceftriaxone here. Review of Systems REVIEW OF SYSTEMS: CONSTITUTIONAL: No fever, no malaise, no fatigue. HEENT: No recent visual problems or hearing problems. Denied any sore throat. CARDIOVASCULAR: No chest pain, orthopnea, PND, no palpitations. PULMONARY: No shortness of breath, no cough, no hemoptysis. GASTROINTESTINAL: No diarrhea, no nausea, no vomiting, no abdominal pain. Normoactive bowel sounds. NEUROLOGICAL: No headaches, no weakness, no numbness. HEMATOLOGICAL: Denies any bleeding or petechiae. GENITOURINARY: Denies any burning micturition, frequency, or urgency. MUSCULOSKELETAL/RHEUMATOLOGICAL: Denies any joint pain, swelling, or any muscle pain. ENDOCRINE: Denies any polyuria or polydipsia. The rest of the 14-point review of systems is negative. Past Medical History Past Medical History: Diabetes Mellitus, Hyperlipidemia, Hypertension History of Any Multi-Drug Resistant Organisms: None Reported Past Surgical History: Bariatric Surgery, Cholecystectomy, Tonsillectomy Additional Past Surgical History / Comment(s): three abortions, ortho surgery Past Psychological History: Anxiety, Bipolar, Schizoaffective Disorder Smoking Status: Current every day smoker Past Alcohol Use History: None Reported Past Drug Use History: None Reported Medications and Allergies Home Medications Medication Instructions Recorded Confirmed Type Acetaminophen-Codeine 300-30mg 1 tab PO BID 06/29/17 06/29/17 History [Tylenol #3] Albuterol Inhaler [Ventolin Hfa 1 - 2 puff INHALATION RT-Q6H PRN 06/29/17 History Inhaler] Amantadine HCl [Symmetrel] 100 mg PO BID 06/29/17 06/29/17 History Brexpiprazole [Rexulti] 4 mg PO HS 06/29/17 06/29/17 History Cariprazine HCl [Vraylar] 6 mg PO HS 06/29/17 06/29/17 History Dextroamphetamine/Amphetamine 20 mg PO TID 06/29/17 06/29/17 History [Adderall] Fluticasone/Salmeterol [Advair 1 puff INHALATION RT-BID 06/29/17 06/29/17 History 250-50 Diskus] Lidocaine 5% Patch [Lidoderm] 1 patch TRANSDERM BID 06/29/17 06/29/17 History Lisinopril [Zestril] 20 mg PO DAILY 06/29/17 06/29/17 History Oxybutynin Chloride 5 mg PO BID 06/29/17 06/29/17 History Pantoprazole [Protonix] 40 mg PO DAILY 06/29/17 06/29/17 History Pregabalin [Lyrica] 75 mg PO TID 06/29/17 06/29/17 History clonazePAM [KlonoPIN] 1 mg PO DAILY 06/29/17 06/29/17 History lamoTRIgine [LaMICtal] 200 mg PO DAILY 06/29/17 06/29/17 History Gabapentin [Neurontin] 400 mg PO TID 06/30/17 06/30/17 History Allergies Allergy/AdvReac Type Severity Reaction Status Date / Time latex AdvReac Rash/Hives Verified 06/29/17 20:42 ziprasidone [From Geodon] AdvReac Swelling Verified 06/29/17 20:42 Physical Exam Vitals: Vital Signs Temp Pulse Pulse Pulse Pulse Pulse Resp 06/30/17 08:43 76 06/30/17 08:35 68 06/30/17 08:00 97.7 F 65 18 06/30/17 04:06 98.1 F 68 18 06/30/17 04:00 68 18 06/30/17 01:41 18 06/30/17 00:41 97.8 F 69 18 06/29/17 23:31 69 16 06/29/17 21:48 72 85 54 L 18 06/29/17 21:18 69 16 06/29/17 20:19 97.9 F 68 20 BP BP BP BP BP Pulse Ox 06/30/17 08:43 06/30/17 08:35 06/30/17 08:00 142/75 95 06/30/17 04:06 119/59 96 06/30/17 04:00 06/30/17 01:41 06/30/17 00:41 144/76 99 06/29/17 23:31 119/51 99 06/29/17 21:48 90/51 113/62 119/67 98 06/29/17 21:18 102/62 96 06/29/17 20:19 94/54 98 Intake and Output 06/29/17 06/30/17 06/30/17 22:59 06:59 14:59 Other: # Voids 1 Weight 100.698 kg 100.7 kg PHYSICAL EXAMINATION: GENERAL: The patient is alert and oriented x3, not in any acute distress. Well developed, well nourished. HEENT: Pupils are round and equally reacting to light. EOMI. No scleral icterus. No conjunctival pallor. Normocephalic, atraumatic. No pharyngeal erythema. No thyromegaly. CARDIOVASCULAR: S1 and S2 present. No murmurs, rubs, or gallops. PULMONARY: Chest is clear to auscultation, no wheezing or crackles. ABDOMEN: Soft, nontender, nondistended, normoactive bowel sounds. No palpable organomegaly. MUSCULOSKELETAL: No joint swelling or deformity. EXTREMITIES: No cyanosis, clubbing, or pedal edema. NEUROLOGICAL: Gross neurological examination did not reveal any focal deficits. SKIN: No rashes. Results CBC & Chem 7: 06/29/17 20:33 06/29/17 20:33 Labs: Abnormal Lab Results - Last 24 Hours (Table) 06/29/17 06/29/17 06/29/17 Range/Units 20:33 20:33 21:45 WBC 10.8 H (3.8-10.6) k/uL Glucose 72 L (74-99) mg/dL Urine Appearance Cloudy H (Clear) Urine Protein Trace H (Negative) Urine Nitrite Positive H (Negative) Ur Leukocyte Esterase Large H (Negative) Urine WBC 32 H (0-5) /hpf Urine Bacteria Many H (None) /hpf Urine Mucus Moderate H (None) /hpf Thrombosis Risk Factor Assmnt - Choose All That Apply Each Factor Represents 1 point: Age 41-60 years Thrombosis Risk Factor Assessment Total Risk Factor Score: 1 Thrombosis Risk Factor Assessment Level: Low Risk Assessment and Plan Plan: #1 syncope: Possibly vasovagal patient was evaluated in the past with tilt table testing. And the patient's has positive orthostatic vitals and low blood pressure during the hospital physician because of which I'm cutting down the lisinopril to half. #2 possibility of urinary tract infection: Patient received 2 days of ceftriaxone will be discharged on 3 more days of ciprofloxacin and blood urine cultures are still pending. #3 type 2 diabetes mellitus: Patient can you her home regimen #4 hyperlipidemia #5 hypertension
--- NOTE | 2017-06-30 12:34 | ECHOF ---
Referral Reason:syncope MEASUREMENTS -------- HEIGHT: 170.2 cm WEIGHT: 100.7 kg BP: 119/50 RVIDd: 2.5 cm (< 3.3) IVSd: 1.1 cm (0.6 - 1.1) LVIDd: 4.5 cm (3.9 - 5.3) LVPWd: 1.1 cm (0.6 - 1.1) IVSs: 1.2 cm LVIDs: 3.9 cm LVPWs: 1.4 cm Ao Diam: 3.2 cm (2.0 - 3.7) AV Cusp: 2.1 cm (1.5 - 2.6) LA Diam: 3.3 cm (2.7 - 3.8) MV EXCURSION: 15.618 mm (> 18.000) MV EF SLOPE: 91 mm/s (70 - 150) EPSS: 0.3 cm MV E Mino: 0.92 m/s MV DecT: 176 ms MV A Mino: 0.72 m/s MV E/A Ratio: 1.28 FINDINGS -------- Sinus rhythm. This was a technically adequate study. The left ventricular size is normal. Left ventricular wall thickness is normal. Overall left ventricular systolic function is normal with, an EF between 55 - 60 %. The right ventricle is normal in size. Normal LA size by volume 22+/-6 ml/m2. The right atrial size is normal. The aortic valve is trileaflet, and appears structurally normal. No aortic stenosis or regurgitation. Mild mitral regurgitation is present. Mild tricuspid regurgitation present. There is no evidence of pulmonary hypertension. The right ventricular systolic pressure, as measured by Doppler, is {RVSP}. There is no pulmonic regurgitation present. The aortic root size is normal. There is no pericardial effusion. CONCLUSIONS -------- 1. The left ventricular size is normal. 2. The aortic root size is normal. 3. There is no pericardial effusion. 4. Left ventricular wall thickness is normal. 5. Overall left ventricular systolic function is normal with, an EF between 55 - 60 %. 6. The aortic valve is trileaflet, and appears structurally normal. No aortic stenosis or regurgitation. 7. Mild mitral regurgitation is present. 8. Mild tricuspid regurgitation present. 9. There is no evidence of pulmonary hypertension. 10. The right ventricular systolic pressure, as measured by Doppler, is {RVSP}. 11. There is no pulmonic regurgitation present. FLUE CLEANER: Elva Damon RDCS
[2017-06-30] MEDS ORDERED: CARIPRAZINE HCL 6 MG PO SCH (21:00)
[2017-06-30] MEDS ORDERED: BREXPIPRAZOLE 4 MG PO SCH (21:00)
== END 2017-06-30 12:05 | disposition left against medical advice (07) ==
LOC: EC 20:12 → 3OBS 23:26
PROVIDERS: ADMIT Hospitalist; ATTEND Hospitalist
DX: R55 Syncope and collapse (principal); E11.9 Type 2 diabetes mellitus without complications; E78.5 Hyperlipidemia, unspecified; I10 Essential (primary) hypertension; R11.0 Nausea; R61 Generalized hyperhidrosis; E16.2 Hypoglycemia, unspecified; R00.1 Bradycardia, unspecified; D72.829 Elevated white blood cell count, unspecified; S30.0XXA Contusion of lower back and pelvis, initial encounter; E86.0 Dehydration; F25.9 Schizoaffective disorder, unspecified; F31.9 Bipolar disorder, unspecified; F41.9 Anxiety disorder, unspecified; Z79.899 Other long term (current) drug therapy; Z79.891 Long term (current) use of opiate analgesic; Z88.8 Allergy status to other drugs, medicaments and biological substances; Z91.040 Latex allergy status; F17.210 Nicotine dependence, cigarettes, uncomplicated; W18.30XA Fall on same level, unspecified, initial encounter
CPT/HCPCS: 36415; 72220; 80053; 81001; 82550; 82553; 84443; 84484; 85025; 85610; 85730; 87040; 93005; 93306; 94640; 96361; 96365; 96372; 96375; 96376; 99285

== ENCOUNTER 2017-12-12 10:56 | Emergency (ER) | payer MEDICARE, OTHER ==
[2017-12-12 11:00] VITALS: TEMP 98
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
--- NOTE | 2017-12-12 11:22 | XR ---
EXAMINATION TYPE: XR foot complete RT DATE OF EXAM: 12/12/2017 CLINICAL HISTORY: Stopping injury with pain. TECHNIQUE: Frontal, lateral, and oblique images of the right foot are obtained. COMPARISON: None FINDINGS: There is no acute fracture/dislocation evident in the right foot. Marked flexion in the t oes limits evaluation at this level. The joint spaces in the right foot appear within normal limits. There is tiny superior spur and moderate size inferior calcaneal spur. The overlying soft tissue appe ars unremarkable. IMPRESSION: There is no acute fracture or dislocation in the right foot.
[2017-12-12] MEDS ORDERED: ACET/COD 300 MG/30 MG STARTER PACK 6 TAB BTL PO STA (12:10)
[2017-12-12] MEDS ORDERED: FLUCONAZOLE 150 MG TAB PO STA (13:00)
[2017-12-12 13:12] VITALS: BP 127/81; PULSE 76; RESP 16
== END 2017-12-12 13:13 | disposition home or self-care (01) ==
LOC: EC 10:56
DX: M79.671 Pain in right foot (principal); I10 Essential (primary) hypertension; F25.0 Schizoaffective disorder, bipolar type; F17.200 Nicotine dependence, unspecified, uncomplicated; Z79.52 Long term (current) use of systemic steroids; Z79.899 Other long term (current) drug therapy; Z91.040 Latex allergy status; Z88.8 Allergy status to other drugs, medicaments and biological substances
CPT/HCPCS: 99283

== ENCOUNTER → 2018-04-22 | Outpatient (CLI) | payer MEDICARE, OTHER ==
--- NOTE | 2018-04-22 09:02 | MR ---
EXAMINATION TYPE: MR lumbar spine wo con DATE OF EXAM: 04/22/2018 COMPARISON: None HISTORY: Low back pain TECHNIQUE: Multiplanar, multisequence images of the lumbar spine were acquired. FINDINGS: The vertebral bodies of the lumbar spine maintain normal vertebral body heights. There is a very mild anterolisthesis of L4 on L5 without appreciable pars interarticularis defects. There is a T1/T2 hyperintense vertebral body hemangioma of L1, a benign finding. Conus medullaris terminates at L1-L2 and is unremarkable. No suspicious epidural fluid collection is seen. L1-L2: Normal disc appearance without desiccation. No herniation, protrusion or disc bulging. No ca nal stenosis is present. Foramina are patent bilaterally. L2-L3: There is disc desiccation and a right eccentric broad-based disc bulge. This results in mild r ight-sided neural foraminal narrowing. Spinal canal and left neural foramen are patent. L3-L4: There is a small broad-based disc bulge resulting in minimal bilateral neural foraminal narrow ing in combination with very mild facet arthropathy. No spinal canal stenosis. L4-L5: Again there is a very mild anterolisthesis of L4 on L5 (grade 1) that results in disc uncoveri ng. There is also a broad-based disc bulge, facet arthropathy and ligamentum flavum buckling resultin g in mild bilateral neural foraminal narrowing and mild spinal canal stenosis. L5-S1: There is a broad-based disc bulge, slightly right eccentric creating minimal bilateral neural foraminal narrowing without spinal canal stenosis. IMPRESSION: 1. Very mild anterolisthesis of L4 on L5 (grade 1) in combination with degenerative disc disease and facet arthropathy creating mild bilateral neural foraminal narrowing. These findings in combination w ith focal ligamentum flavum buckling create mild spinal canal stenosis. 2. Multilevel mild degenerative disc disease resulting in multilevel mild in minimal neural foraminal narrowing as described above. No other levels of spinal canal stenosis.
[2018-04-22 10:31] LABS: Calcium 9.2 mg/dL (8.4-10.2); Magnesium 1.8 mg/dL (1.6-2.3)
[2018-04-22 17:22] LABS: Hemoglobin A1C 5.3 % (4.0-6.0)
[2018-04-24 10:06] LABS: Vitamin B1 46 ug/L (38-122)
[2018-04-26 08:43] LABS: Vitamin E (Alpha Tocopherol) 929 ug/dL (500-1800)
[2018-04-28 12:26] LABS: Nicotinuric Acid None Detected
== END | disposition home or self-care (01) ==
LOC: RADMRIMAIN 06:54
PROVIDERS: ATTEND Psychiatry & Neurology Neurology
DX: M48.061 Spinal stenosis, lumbar region without neurogenic claudication (principal); M99.73 Connective tissue and disc stenosis of intervertebral foramina of lumbar region; M43.16 Spondylolisthesis, lumbar region; M51.36 Other intervertebral disc degeneration, lumbar region; M46.86 Other specified inflammatory spondylopathies, lumbar region; M24.28 Disorder of ligament, vertebrae; Z88.8 Allergy status to other drugs, medicaments and biological substances; Z79.899 Other long term (current) drug therapy; Z91.040 Latex allergy status
CPT/HCPCS: 36415; 72148; 82306; 82310; 82550; 83036; 83519; 83735; 84207; 84425; 84446; 84590; 84591; 84597

== ENCOUNTER 2018-04-24 14:06 | Emergency (ER) | payer MEDICARE, OTHER ==
[2018-04-24 14:12] VITALS: RESP 16
[2018-04-24] MEDS ORDERED: SODIUM CHLORIDE 0.9% 1,000 ML IV STA (15:16)
[2018-04-24] MEDS ORDERED: ONDANSETRON 4 MG/2 ML VIAL IVP STA (15:16)
[2018-04-24 15:17] LABS: Amphetamine Screen,Urine Not Detected (NotDetected); Barbiturate Screen,Urine Not Detected (NotDetected); Benzodiazepines Screen,Urine Not Detected (NotDetected); Cocaine Screen,Urine Not Detected (NotDetected); Methadone Screen, Urine Not Detected (NotDetected); Opiate Screen,Urine Not Detected (NotDetected); Oxycodone Screen, Urine Not Detected (NotDetected); Phencyclidine Screen,Urine Not Detected (NotDetected); Tricyclic Antidepressant,Urine Not Detected (NotDetected); Urn Cannabinoid Scrn Detected (NotDetected)
[2018-04-24 16:33] LABS: Basophils # (A) 0.1 k/uL (0-0.2); Basophils % (A) 1 %; Eosinophils # (A) 0.3 k/uL (0-0.7); Eosinophils % (A) 3 %; HCT 41.9 % (34.0-46.0); HGB 13.9 gm/dL (11.4-16.0); Lymphocytes # (A) 2.4 k/uL (1.0-4.8); Lymphocytes % (A) 21 %; MCH 31.7 pg (25.0-35.0); MCHC 33.3 g/dL (31.0-37.0); MCV 95.1 fL (80.0-100.0); Mean Platelet Volume 7.5; Monocytes # (A) 0.5 k/uL (0-1.0); Monocytes % (A) 5 %; Neutrophils # (A) 8.2 k/uL (1.3-7.7); Neutrophils % (A) 70 %; Platelet Count 214 k/uL (150-450); RDW 12.5 % (11.5-15.5); WBC 11.6 k/uL (3.8-10.6)
[2018-04-24 16:48] LABS: ALT 26 U/L (9-52); AST 21 U/L (14-36); Alkaline Phosphatase 75 U/L (38-126); Amylase 47 U/L (30-110); Anion Gap 6 mmol/L; Blood Urea Nitrogen 15 mg/dL (7-17); Calcium 9.4 mg/dL (8.4-10.2); Carbon Dioxide 26 mmol/L (22-30); Chloride 112 mmol/L (98-107); Glucose 79 mg/dL (74-99); Lipase 22 U/L (23-300); Potassium 4.4 mmol/L (3.5-5.1); Sodium 144 mmol/L (137-145); Total Bilirubin 0.3 mg/dL (0.2-1.3); Total Protein 6.5 g/dL (6.3-8.2)
[2018-04-24 16:48] LABS: Appearance,Urine Cloudy (Clear); Bacteria,Urine Occasional /hpf; Bilirubin,Urine Negative (Negative); Blood,Urine Negative (Negative); Color,Urine Yellow; Glucose,Urine (UA) Negative (Negative); Ketones,Urine Negative (Negative); Leukocyte Esterase,Urine Large (Negative); Mucus,Urine Rare /hpf; Nitrite,Urine Positive (Negative); PH, Urine 6.5 (5.0-8.0); Protein,Urine Negative (Negative); RBC,Urine 4 /hpf (0-5); Specific Gravity,Urine 1.015 (1.001-1.035); Squamous Epithelial Cell,Urine 1 /hpf (0-4); Urobilinogen,Urine <2.0 mg/dL (<2.0); WBC,Urine 53 /hpf (0-5)
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
[2018-04-24] MEDS ORDERED: SULFAMETH-TMP DS STARTER PACK 2 TAB BTL PO STA (17:22)
[2018-04-24 17:33] VITALS: BP 138/94; PULSE 78; TEMP 98
== END 2018-04-24 17:32 | disposition home or self-care (01) ==
LOC: EC 14:06
DX: N39.0 Urinary tract infection, site not specified (principal); R11.10 Vomiting, unspecified; F12.90 Cannabis use, unspecified, uncomplicated; R53.83 Other fatigue; I10 Essential (primary) hypertension; F31.9 Bipolar disorder, unspecified; F41.9 Anxiety disorder, unspecified; F17.200 Nicotine dependence, unspecified, uncomplicated; Z79.899 Other long term (current) drug therapy; Z88.8 Allergy status to other drugs, medicaments and biological substances; Z91.040 Latex allergy status; Z90.49 Acquired absence of other specified parts of digestive tract; Z98.84 Bariatric surgery status
CPT/HCPCS: 36415; 80053; 82150; 83690; 85025; 81001; 80306; 87086; 99284; 96374; 96361; J2405; 87077; 87186

== ENCOUNTER 2018-04-30 20:34 | Emergency (ER) | payer MEDICARE, OTHER ==
[2018-04-30 20:58] VITALS: RESP 18
[2018-04-30 22:21] VITALS: BP 138/82; PULSE 77; TEMP 98.6
--- NOTE | 2018-04-30 22:24 | ED ---
General Adult HPI - General Chief complaint: Recheck/Abnormal Lab/Rx Stated complaint: Back Pain Time Seen by Provider: 04/30/18 21:00 Source: EMS Mode of arrival: EMS Limitations: no limitations - History of Present Illness Initial comments: This patient is a 52-year-old woman who presents to be evaluated for pain at her postsurgical site. She states that yesterday she had a nerve stimulator implanted at her low back. She is not able to recall the name of the physician. She states that today the upper portion of the dressing became nonadherent and when she touched the area she was feeling some sharp poking pain. She phoned the behavioral health consultant coverage and was told to try turning the nerve stimulator off. She did that and did not notice difference. She then was advised to come here to be evaluated. The patient describes sharp pain when she touches the area like she is being poked with something. The patient denies any systemic symptoms, including no fever or chills, no dyspnea or pain almost touching the area area she has not noticed any palpitations. -: hour(s) Location: back Radiation: non-radiation Quality: sharp Consistency: intermittent Improves with: none Worsens with: other (Palpation) Associated Symptoms: denies other symptoms Treatments Prior to Arrival: none - Related Data Home Medications Medication Instructions Recorded Confirmed Albuterol Inhaler [Ventolin Hfa 1 - 2 puff INHALATION RT-Q6H PRN 06/29/17 Inhaler] Brexpiprazole [Rexulti] 4 mg PO HS 06/29/17 04/30/18 Cariprazine HCl [Vraylar] 6 mg PO HS 06/29/17 04/30/18 Pantoprazole [Protonix] 40 mg PO HS 06/29/17 04/30/18 Pregabalin [Lyrica] 75 mg PO TID 06/29/17 04/30/18 clonazePAM [KlonoPIN] 1 mg PO HS 06/29/17 04/30/18 lamoTRIgine [LaMICtal] 200 mg PO HS 06/29/17 04/30/18 Lisinopril [Zestril] 10 mg PO HS 12/12/17 04/30/18 Acetaminophen-Codeine 300-30mg 1 tab PO BID PRN 04/30/18 04/30/18 [Tylenol #3] Amantadine HCl [Symmetrel] 100 mg PO BID 04/30/18 04/30/18 Budesonide [Pulmicort Flexhaler] 1 puff INHALATION RT-BID 04/30/18 04/30/18 Dextroamphetamine/Amphetamine 20 mg PO TID 04/30/18 04/30/18 [Adderall] Fenofibrate 54 mg PO DAILY 04/30/18 04/30/18 Lidocaine [Lidoderm 5% Patch] 1 patch TRANSDERM DAILY 04/30/18 04/30/18 Oxybutynin Chloride [Ditropan] 5 mg PO BID 04/30/18 04/30/18 Vitamin D 00131u Liq 50,000 units PO Q7D 04/30/18 04/30/18 Allergies Allergy/AdvReac Type Severity Reaction Status Date / Time latex AdvReac Rash/Hives Verified 04/30/18 21:01 ziprasidone [From Geodon] AdvReac Swelling Verified 04/30/18 21:01 Review of Systems ROS Statement: Those systems with pertinent positive or pertinent negative responses have been documented in the HPI. ROS Other: All systems not noted in ROS Statement are negative. Constitutional: Denies: fever, chills, weakness Respiratory: Denies: cough, dyspnea Cardiovascular: Denies: chest pain, palpitations Gastrointestinal: Denies: abdominal pain, vomiting, diarrhea Genitourinary: Denies: dysuria Musculoskeletal: Reports: as per HPI, back pain (Chronic low back pain) Skin: Denies: rash, lesions Neurological: Denies: headache, weakness, numbness, paresthesias Past Medical History Past Medical History: Diabetes Mellitus, Hyperlipidemia, Hypertension Additional Past Medical History / Comment(s): chronic back pain History of Any Multi-Drug Resistant Organisms: None Reported Past Surgical History: Bariatric Surgery, Cholecystectomy, Tonsillectomy Additional Past Surgical History / Comment(s): three abortions, ortho surgery Past Psychological History: Anxiety, Bipolar, Schizoaffective Disorder Smoking Status: Current every day smoker Past Alcohol Use History: None Reported Past Drug Use History: None Reported General Exam Limitations: no limitations General appearance: alert, in no apparent distress Head exam: Present: atraumatic, normocephalic Respiratory exam: Present: normal lung sounds bilaterally. Absent: respiratory distress, wheezes, rales, rhonchi, stridor Cardiovascular Exam: Present: regular rate, normal rhythm Back exam: Absent: CVA tenderness (R), CVA tenderness (L), vertebral tenderness Neurological exam: Present: alert, normal gait, reflexes normal. Absent: motor sensory deficit Skin exam: Present: warm, dry, intact, normal color, other (Inspection of the patient's postsurgical site does reveal that there appears to be the end of the suture that is causing the sharp poking sensation patient touches that area. There does not appear to be any evidence of infection at the postsurgical site.) . Absent: rash Course Vital Signs 04/30/18 04/30/18 20:49 22:20 Temperature 98.7 F 98.6 F Pulse Rate 83 77 Respiratory 18 18 Rate Blood Pressure 155/80 138/82 O2 Sat by Pulse 97 99 Oximetry Medical Decision Making - Medical Decision Making Given that the patient has occlusive postsurgical dressing, that we are not able to supply here in the emergency department, the existing dressing was reinforced with our tape, and the patient was given Velcro binder to wear over the dressing to further secure it. Patient given post surgical infection warnings. Disposition Clinical Impression: Encounter for post surgical wound check Disposition: HOME SELF-CARE Condition: Good Instructions: Surgical Site Infections (ED) Is patient prescribed a controlled substance at d/c from ED?: No Referrals: [facility] [Primary Care Provider] - 1-2 days
== END 2018-04-30 22:51 | disposition home or self-care (01) ==
LOC: EC 20:34
DX: Z47.89 Encounter for other orthopedic aftercare (principal); E78.5 Hyperlipidemia, unspecified; I10 Essential (primary) hypertension; F41.9 Anxiety disorder, unspecified; F31.9 Bipolar disorder, unspecified; F25.9 Schizoaffective disorder, unspecified; F17.200 Nicotine dependence, unspecified, uncomplicated; Z79.51 Long term (current) use of inhaled steroids; Z79.899 Other long term (current) drug therapy; Z88.8 Allergy status to other drugs, medicaments and biological substances; Z91.040 Latex allergy status
CPT/HCPCS: 99283

== ENCOUNTER 2018-05-02 11:43 | Emergency (ER) | payer MEDICARE, OTHER ==
[2018-05-02 11:53] VITALS: BP 114/56; PULSE 70; RESP 20; TEMP 98.2
[2018-05-02] MEDS ORDERED: KETOROLAC 30 MG/ML 1 ML VIAL IVP STA (12:16)
--- NOTE | 2018-05-02 12:19 | ED ---
Back Pain HPI - General Chief Complaint: Back Pain/Injury Stated Complaint: back pain-post op Time Seen by Provider: 05/02/18 12:04 Source: patient Limitations: no limitations - History of Present Illness Initial Comments: 52-year-old female patient presented to the emergency department today for evaluation of left-sided low back pain. Patient does have a history of chronic low back pain and did have a spine stimulator surgically placed on 04/29/2018. Patient states the stimulator is working well on the right side however does not working on the left side. Patient denies any change to her usual back pain. Denies any radiation of the pain down her leg. Denies any numbness or tingling. Denies any loss of bowel or bladder control. Denies any saddle anesthesia. Patient denies any fever or chills. Patient denies any recent rash , shortness breath, chest pain, abdominal pain, nausea, vomiting, diarrhea, constipation, dizziness, weakness, hematuria, dysuria, urinary urgency, urinary frequency, headache, visual changes, or any other complaints. - Related Data Home Medications Medication Instructions Recorded Confirmed Albuterol Inhaler [Ventolin Hfa 1 - 2 puff INHALATION RT-Q6H PRN 06/29/17 Inhaler] Brexpiprazole [Rexulti] 4 mg PO HS 06/29/17 04/30/18 Cariprazine HCl [Vraylar] 6 mg PO HS 06/29/17 04/30/18 Pantoprazole [Protonix] 40 mg PO HS 06/29/17 04/30/18 Pregabalin [Lyrica] 75 mg PO TID 06/29/17 04/30/18 clonazePAM [KlonoPIN] 1 mg PO HS 06/29/17 04/30/18 lamoTRIgine [LaMICtal] 200 mg PO HS 06/29/17 04/30/18 Lisinopril [Zestril] 10 mg PO HS 12/12/17 04/30/18 Acetaminophen-Codeine 300-30mg 1 tab PO BID PRN 04/30/18 04/30/18 [Tylenol #3] Amantadine HCl [Symmetrel] 100 mg PO BID 04/30/18 04/30/18 Budesonide [Pulmicort Flexhaler] 1 puff INHALATION RT-BID 04/30/18 04/30/18 Dextroamphetamine/Amphetamine 20 mg PO TID 04/30/18 04/30/18 [Adderall] Fenofibrate 54 mg PO DAILY 04/30/18 04/30/18 Lidocaine [Lidoderm 5% Patch] 1 patch TRANSDERM DAILY 04/30/18 04/30/18 Oxybutynin Chloride [Ditropan] 5 mg PO BID 04/30/18 04/30/18 Vitamin D [id number] Liq 50,000 units PO Q7D 04/30/18 04/30/18 Previous Rx's Medication Instructions Recorded Ibuprofen [Motrin] 600 mg PO Q8HR PRN #30 tab 05/02/18 Allergies Allergy/AdvReac Type Severity Reaction Status Date / Time latex AdvReac Rash/Hives Verified 05/02/18 11:53 ziprasidone [From Geodon] AdvReac Swelling Verified 05/02/18 11:53 Review of Systems ROS Statement: Those systems with pertinent positive or pertinent negative responses have been documented in the HPI. ROS Other: All systems not noted in ROS Statement are negative. Past Medical History Past Medical History: Diabetes Mellitus, Hyperlipidemia, Hypertension Additional Past Medical History / Comment(s): chronic back pain History of Any Multi-Drug Resistant Organisms: None Reported Past Surgical History: Back Surgery, Bariatric Surgery, Cholecystectomy, Tonsillectomy Additional Past Surgical History / Comment(s): three abortions, ortho surgery Past Psychological History: Anxiety, Bipolar, Schizoaffective Disorder Smoking Status: Current every day smoker Past Alcohol Use History: None Reported Past Drug Use History: None Reported General Exam Limitations: no limitations General appearance: alert, in no apparent distress, other (This is a well- developed, well-nourished adult female patient in no acute distress. Vital signs upon presentation are temperature 98.2F, pulse 70, respirations 20, blood pressure 114/56, pulse ox 96% on room air.) Eye exam: Present: normal appearance, PERRL, EOMI. Absent: scleral icterus, conjunctival injection, periorbital swelling ENT exam: Present: normal exam, normal oropharynx, mucous membranes moist Respiratory exam: Present: normal lung sounds bilaterally. Absent: respiratory distress, wheezes, rales, rhonchi, stridor Cardiovascular Exam: Present: regular rate, normal rhythm, normal heart sounds. Absent: systolic murmur, diastolic murmur, rubs, gallop, clicks GI/Abdominal exam: Present: soft, normal bowel sounds. Absent: distended, tenderness, guarding, rebound, rigid Back exam: Present: normal inspection, other (Patient has dressing noted to low back. No drainage noted.) Neurological exam: Present: alert, oriented X3, CN II-XII intact Psychiatric exam: Present: normal affect, normal mood Skin exam: Present: warm, dry, intact, normal color. Absent: rash Course Vital Signs 05/02/18 11:50 Temperature 98.2 F Pulse Rate 70 Respiratory 20 Rate Blood Pressure 114/56 O2 Sat by Pulse 96 Oximetry Medical Decision Making - Medical Decision Making 52-year-old female patient who underwent implantation of a spine stimulator on 04/29/2018 presented to the emergency department stay for complaints of left lower back pain. Physical examination is unremarkable. Patient is neurologically intact. She does have an appointment with Dr. Byrd tomorrow to discuss her pain symptoms and her concerns about her stimulator. She is urinating without difficulty having normal bowel movements. She has no numbness or tingling in the lower extremities. She was given 4 mg of morphine via EMS and did have a slight improvement of her symptoms. We will administer Toradol here in the department. She'll be given a prescription for ibuprofen. Return parameters discussed in detail. She verbalizes understanding and agrees with this plan. Disposition Clinical Impression: Low back pain Disposition: HOME SELF-CARE Condition: Good Instructions: Acute Low Back Pain (ED) Additional Instructions: Follow-up with Dr. Byrd for recheck as soon as possible. Take medications as directed. Return here immediately for any new, worsening, or concerning symptoms. Prescriptions: Ibuprofen [Motrin] 600 mg PO Q8HR PRN #30 tab PRN Reason: Pain Is patient prescribed a controlled substance at d/c from ED?: No Referrals: [facility] [Primary Care Provider] - 1-2 days Time of Disposition: 12:18
== END 2018-05-02 12:35 | disposition home or self-care (01) ==
LOC: EC 11:43
DX: M54.5 Low back pain (principal); E78.5 Hyperlipidemia, unspecified; I10 Essential (primary) hypertension; F31.9 Bipolar disorder, unspecified; F41.9 Anxiety disorder, unspecified; F17.200 Nicotine dependence, unspecified, uncomplicated; Z79.51 Long term (current) use of inhaled steroids; Z79.899 Other long term (current) drug therapy; Z88.8 Allergy status to other drugs, medicaments and biological substances; Z91.040 Latex allergy status; Z96.89 Presence of other specified functional implants
CPT/HCPCS: 99284; 96374; J1885

== ENCOUNTER 2018-07-17 10:05 | Emergency (ER) | payer MEDICARE, OTHER ==
[2018-07-17 10:18] VITALS: TEMP 98.1
--- NOTE | 2018-07-17 10:48 | ED ---
General Adult HPI - General Chief complaint: Psychiatric Symptoms Stated complaint: Depression Time Seen by Provider: 07/17/18 10:20 Source: patient, RN notes reviewed, old records reviewed Mode of arrival: ambulatory Limitations: no limitations - History of Present Illness Initial comments: 52-year-old female with known psychiatric disease presents for evaluation of suicidal ideation and hallucination. Patient plans to overdose on pills or alcohol. She has history of bipolar disease and falls with psychiatry out of town. She is quite tearful during my initial history and physical exam. She denies any ingestion this morning, no self-harm. She has been admitted for psychiatric reasons in the past. No physical complaints. - Related Data Home Medications Medication Instructions Recorded Confirmed Albuterol Inhaler [Ventolin Hfa 1 - 2 puff INHALATION RT-Q6H PRN 06/29/17 Inhaler] Brexpiprazole [Rexulti] 4 mg PO HS 06/29/17 07/17/18 Cariprazine HCl [Vraylar] 6 mg PO HS 06/29/17 07/17/18 Pregabalin [Lyrica] 75 mg PO TID 06/29/17 07/17/18 clonazePAM [KlonoPIN] 1 mg PO DAILY 06/29/17 07/17/18 lamoTRIgine [LaMICtal] 200 mg PO DAILY 06/29/17 07/17/18 Lisinopril [Zestril] 10 mg PO DAILY 12/12/17 07/17/18 Acetaminophen-Codeine 300-30mg 1 tab PO BID PRN 04/30/18 07/17/18 [Tylenol #3] Amantadine HCl [Symmetrel] 100 mg PO BID 04/30/18 07/17/18 Budesonide [Pulmicort Flexhaler] 1 puff INHALATION RT-BID 04/30/18 07/17/18 Dextroamphetamine/Amphetamine 20 mg PO TID 04/30/18 07/17/18 [Adderall] Fenofibrate 54 mg PO DAILY 04/30/18 07/17/18 Lidocaine [Lidoderm 5% Patch] 1 patch TRANSDERM DAILY 04/30/18 07/17/18 Oxybutynin Chloride [Ditropan] 5 mg PO BID 04/30/18 07/17/18 Beclomethasone Dipropionate [Qvar 1 puff INHALATION RT-DAILY 07/17/18 07/17/18 80 mcg] Ergocalciferol (Vitamin D2) 50,000 unit PO Q14D 07/17/18 07/17/18 [Vitamin D2] Allergies Allergy/AdvReac Type Severity Reaction Status Date / Time latex AdvReac Rash/Hives Verified 07/17/18 11:44 ziprasidone [From Geodon] AdvReac Swelling Verified 07/17/18 11:44 Review of Systems ROS Statement: Those systems with pertinent positive or pertinent negative responses have been documented in the HPI. ROS Other: All systems not noted in ROS Statement are negative. Past Medical History Past Medical History: Diabetes Mellitus, Hyperlipidemia, Hypertension Additional Past Medical History / Comment(s): chronic back pain History of Any Multi-Drug Resistant Organisms: None Reported Past Surgical History: Back Surgery, Bariatric Surgery, Section, Cholecystectomy, Tonsillectomy Additional Past Surgical History / Comment(s): three abortions, ortho surgery Past Psychological History: ADD/ADHD, Anxiety, Bipolar, Schizoaffective Disorder Smoking Status: Current every day smoker Past Alcohol Use History: None Reported Past Drug Use History: Marijuana General Exam Limitations: no limitations General appearance: alert, in no apparent distress Head exam: Present: atraumatic, normocephalic Eye exam: Present: normal appearance, PERRL ENT exam: Present: normal exam Neck exam: Present: normal inspection. Absent: tenderness, meningismus Respiratory exam: Present: normal lung sounds bilaterally. Absent: respiratory distress, wheezes Cardiovascular Exam: Present: regular rate, normal rhythm GI/Abdominal exam: Present: soft. Absent: distended, tenderness Extremities exam: Present: normal inspection, normal capillary refill. Absent: pedal edema Neurological exam: Present: alert, oriented X3, CN II-XII intact. Absent: motor sensory deficit Psychiatric exam: Present: depressed, suicidal ideation Skin exam: Present: warm, dry, intact. Absent: cyanosis, diaphoretic Course Vital Signs 07/17/18 10:15 Temperature 98.1 F Pulse Rate 81 Respiratory 16 Rate Blood Pressure 117/69 O2 Sat by Pulse 99 Oximetry Medical Decision Making - Medical Decision Making Patient presenting with suicidal ideation. Patient does have long history of both psychiatric illness as well as substance abuse. She is medically cleared and evaluated by EPS in the emergency department. On reevaluation she is denying any suicidal ideation. She states she just had a meltdown and needed to talk. She has good outpatient follow-up with [facility] and an appointment on the of this month. She is no longer suicidal and is eager for discharge. - Lab Data Lab Results 07/17/18 Range/Units 10:55 Urine Opiates Screen Not Detected (NotDetected) Ur Oxycodone Screen Not Detected (NotDetected) Urine Methadone Screen Not Detected (NotDetected) Ur Propoxyphene Screen Not Detected (NotDetected) Ur Barbiturates Screen Not Detected (NotDetected) U Tricyclic Antidepress Not Detected (NotDetected) Ur Phencyclidine Scrn Not Detected (NotDetected) Ur Amphetamines Screen Not Detected (NotDetected) U Methamphetamines Scrn Not Detected (NotDetected) U Benzodiazepines Scrn Not Detected (NotDetected) Urine Cocaine Screen Not Detected (NotDetected) U Marijuana (THC) Screen Detected H (NotDetected) Disposition Clinical Impression: Depression Disposition: HOME SELF-CARE Condition: Good Instructions: Depression (ED) Additional Instructions: Please follow up with community mental health. Is patient prescribed a controlled substance at d/c from ED?: No Referrals: None,Stated [Primary Care Provider] - 1-2 days Time of Disposition: 12:30
[2018-07-17 11:17] LABS: Cocaine Screen,Urine Not Detected (NotDetected); Opiate Screen,Urine Not Detected (NotDetected); Phencyclidine Screen,Urine Not Detected (NotDetected); Urn Cannabinoid Scrn Detected (NotDetected)
[2018-07-17 11:18] LABS: Amphetamine Screen,Urine Not Detected (NotDetected); Barbiturate Screen,Urine Not Detected (NotDetected); Benzodiazepines Screen,Urine Not Detected (NotDetected); Methadone Screen, Urine Not Detected (NotDetected); Oxycodone Screen, Urine Not Detected (NotDetected); Tricyclic Antidepressant,Urine Not Detected (NotDetected)
[2018-07-17 12:48] VITALS: BP 153/79; PULSE 68; RESP 18
== END 2018-07-17 12:48 | disposition home or self-care (01) ==
LOC: EC 10:05
DX: F32.9 Major depressive disorder, single episode, unspecified (principal); R45.851 Suicidal ideations; E78.5 Hyperlipidemia, unspecified; I10 Essential (primary) hypertension; F90.9 Attention-deficit hyperactivity disorder, unspecified type; F41.9 Anxiety disorder, unspecified; F25.0 Schizoaffective disorder, bipolar type; F17.200 Nicotine dependence, unspecified, uncomplicated; Z79.51 Long term (current) use of inhaled steroids; Z79.899 Other long term (current) drug therapy; Z91.040 Latex allergy status; Z88.8 Allergy status to other drugs, medicaments and biological substances
CPT/HCPCS: 80306; 82075; 99284

== ENCOUNTER 2018-09-01 14:00 | Emergency (ER) | payer MEDICARE, OTHER ==
[2018-09-01 14:09] VITALS: RESP 18
[2018-09-01] MEDS ORDERED: KETOROLAC 60 MG/2 ML VIAL IM STA (14:25)
--- NOTE | 2018-09-01 14:25 | ED ---
General Adult HPI - General Chief complaint: Extremity Injury, Lower Stated complaint: injury toes Time Seen by Provider: 09/01/18 14:11 Source: patient, RN notes reviewed Mode of arrival: ambulatory Limitations: no limitations - History of Present Illness Initial comments: Patient is a 52-year-old female with history of hammer toes who presents the emergency department with complaints of right foot pain that started 2 days ago after she stubbed her toes (right foot). Patient denies any recent head trauma, loss of consciousness, fever, chills, shortness of breath, chest pain, back pain , abdominal pain, nausea or vomiting, numbness or tingling, headaches or visual changes, or any other complaints. - Related Data Home Medications Medication Instructions Recorded Confirmed Albuterol Inhaler [Ventolin Hfa 1 - 2 puff INHALATION RT-Q6H PRN 06/29/17 Inhaler] Brexpiprazole [Rexulti] 4 mg PO HS 06/29/17 07/17/18 Cariprazine HCl [Vraylar] 6 mg PO HS 06/29/17 07/17/18 Pregabalin [Lyrica] 75 mg PO TID 06/29/17 07/17/18 clonazePAM [KlonoPIN] 1 mg PO DAILY 06/29/17 07/17/18 lamoTRIgine [LaMICtal] 200 mg PO DAILY 06/29/17 07/17/18 Lisinopril [Zestril] 10 mg PO DAILY 12/12/17 07/17/18 Acetaminophen-Codeine 300-30mg 1 tab PO BID PRN 04/30/18 07/17/18 [Tylenol #3] Amantadine HCl [Symmetrel] 100 mg PO BID 04/30/18 07/17/18 Budesonide [Pulmicort Flexhaler] 1 puff INHALATION RT-BID 04/30/18 07/17/18 Dextroamphetamine/Amphetamine 20 mg PO TID 04/30/18 07/17/18 [Adderall] Fenofibrate 54 mg PO DAILY 04/30/18 07/17/18 Lidocaine [Lidoderm 5% Patch] 1 patch TRANSDERM DAILY 04/30/18 07/17/18 Oxybutynin Chloride [Ditropan] 5 mg PO BID 04/30/18 07/17/18 Beclomethasone Dipropionate [Qvar 1 puff INHALATION RT-DAILY 07/17/18 07/17/18 80 mcg] Ergocalciferol (Vitamin D2) 50,000 unit PO Q14D 07/17/18 07/17/18 [Vitamin D2] Previous Rx's Medication Instructions Recorded Acetaminophen Tab [Tylenol] 1,000 mg PO TID 5 Days tablet 09/01/18 Ibuprofen [Motrin] 600 mg PO Q6HR PRN #40 day 09/01/18 Allergies Allergy/AdvReac Type Severity Reaction Status Date / Time latex AdvReac Rash/Hives Verified 09/01/18 14:09 ziprasidone [From Geodon] AdvReac Swelling Verified 09/01/18 14:09 Review of Systems ROS Statement: Those systems with pertinent positive or pertinent negative responses have been documented in the HPI. ROS Other: All systems not noted in ROS Statement are negative. Past Medical History Past Medical History: Diabetes Mellitus, Hyperlipidemia, Hypertension Additional Past Medical History / Comment(s): chronic back pain History of Any Multi-Drug Resistant Organisms: None Reported Past Surgical History: Back Surgery, Bariatric Surgery, Section, Cholecystectomy, Tonsillectomy Additional Past Surgical History / Comment(s): three abortions, ortho surgery Past Psychological History: ADD/ADHD, Anxiety, Bipolar, Schizoaffective Disorder Smoking Status: Current every day smoker Past Alcohol Use History: None Reported Past Drug Use History: Marijuana General Exam Limitations: no limitations General appearance: alert, in no apparent distress Head exam: Present: atraumatic, normocephalic Eye exam: Present: normal appearance Respiratory exam: Present: normal lung sounds bilaterally Cardiovascular Exam: Present: regular rate, normal rhythm Extremities exam: Present: normal capillary refill, other (Small amount of bruising over dorsum of foot just proximal to toes. Limitation of right toes' range of motion. Tenderness over right toes.) Neurological exam: Present: alert, oriented X3 Skin exam: Present: warm, dry Course Vital Signs 09/01/18 09/01/18 14:07 15:51 Temperature 98.1 F 98.0 F Pulse Rate 70 78 Respiratory 18 18 Rate Blood Pressure 148/80 126/77 O2 Sat by Pulse 98 98 Oximetry Medical Decision Making - Medical Decision Making X-ray of the right foot reveals mildly displaced fracture at the neck of the proximal phalanx right fourth digit displacement estimated at 2 mm. Toes will be jose f taped. Orthopedic referral given. Case discussed in detail with attending physician Dr. Larose. Disposition Clinical Impression: Toe fracture, right Disposition: HOME SELF-CARE Condition: Good Instructions: Toe Fracture (ED) Additional Instructions: Follow-up with PCP in 2 days. Follow-up with orthopedics in 2 days. Return to emergency department if symptoms worsen or any other concerns. Prescriptions: Acetaminophen Tab [Tylenol] 1,000 mg PO TID 5 Days tablet Ibuprofen [Motrin] 600 mg PO Q6HR PRN #40 day PRN Reason: Pain Is patient prescribed a controlled substance at d/c from ED?: No Referrals: None,Stated [Primary Care Provider] - 1-2 days Angel Arguelles MD [STAFF PHYSICIAN] - 1-2 days Time of Disposition: 15:46
--- NOTE | 2018-09-01 14:59 | XR ---
EXAMINATION TYPE: XR foot complete RT DATE OF EXAM: 09/01/2018 CLINICAL HISTORY: pain TECHNIQUE: Frontal, lateral and oblique images of the right foot are obtained. COMPARISON: None. FINDINGS: Mildly displaced fracture at the neck of the proximal phalanx right fourth digit displaceme nt estimated at 2 mm. Mild soft tissue swelling. No additional fractures identified with certainty. T he joint spaces appear within normal limits. The overlying soft tissue appears unremarkable. IMPRESSION: Mildly displaced fracture at the neck of the proximal phalanx right fourth digit displacement estimat ed at 2 mm. ICD 10 closed FRACTURE, INITIAL EVALUATION
[2018-09-01 15:52] VITALS: BP 126/77; PULSE 78; TEMP 98
== END 2018-09-01 15:52 | disposition home or self-care (01) ==
LOC: EC 14:00
DX: S92.511A Displaced fracture of proximal phalanx of right lesser toe(s), initial encounter for closed fracture (principal); E78.5 Hyperlipidemia, unspecified; I10 Essential (primary) hypertension; E11.9 Type 2 diabetes mellitus without complications; G89.29 Other chronic pain; M20.40 Other hammer toe(s) (acquired), unspecified foot; F90.9 Attention-deficit hyperactivity disorder, unspecified type; F31.9 Bipolar disorder, unspecified; F41.9 Anxiety disorder, unspecified; F17.200 Nicotine dependence, unspecified, uncomplicated; Z88.8 Allergy status to other drugs, medicaments and biological substances; Z91.040 Latex allergy status; Z79.51 Long term (current) use of inhaled steroids; Z79.899 Other long term (current) drug therapy; X58.XXXA Exposure to other specified factors, initial encounter
CPT/HCPCS: 73630; 99283; J1885

== ENCOUNTER 2018-10-20 09:21 | Inpatient (IN) | payer MEDICARE, OTHER ==
--- NOTE | 2018-10-20 10:31 | ED ---
General Adult HPI - General Source: patient, RN notes reviewed Mode of arrival: wheelchair Limitations: no limitations <Arian Dolan - Last Filed: 10/20/18 13:46> <Darrell Pena - Last Filed: 10/20/18 13:50> - General Chief complaint: Fall Stated complaint: Fall-Hip Pain Time Seen by Provider: 10/20/18 09:43 - History of Present Illness Initial comments: Patient's a 53-year-old female presented to the emergency room today with a chief complaint of a slip and fall on the ice that occurred just prior to arrival. She states that she was walking outside when she slipped falling down landing on the left hip. She does admit to pain locally to this area. Denies any other injuries. Denies any head injury or loss conscious. Patient states that she is not on any blood thinners. Patient denies any recent fever, chills, shortness of breath, chest pain, back pain, abdominal pain, nausea or vomiting, numbness or tingling, headaches or visual changes, or any other complaints. ( Arian Dolan) - Related Data Home Medications Medication Instructions Recorded Confirmed Albuterol Inhaler [Ventolin Hfa 1 - 2 puff INHALATION RT-Q4H PRN 06/29/17 Inhaler] Brexpiprazole [Rexulti] 4 mg PO HS 06/29/17 10/20/18 Cariprazine HCl [Vraylar] 6 mg PO HS 06/29/17 10/20/18 Pregabalin [Lyrica] 75 mg PO BID 06/29/17 10/20/18 clonazePAM [KlonoPIN] 1 mg PO DAILY 06/29/17 10/20/18 lamoTRIgine [LaMICtal] 200 mg PO DAILY 06/29/17 10/20/18 Lisinopril [Zestril] 10 mg PO DAILY 12/12/17 10/20/18 Acetaminophen-Codeine 300-30mg 1 tab PO BID PRN 04/30/18 10/20/18 [Tylenol #3] Amantadine HCl [Symmetrel] 100 mg PO BID 04/30/18 10/20/18 Budesonide [Pulmicort Flexhaler] 1 puff INHALATION RT-BID 04/30/18 10/20/18 Dextroamphetamine/Amphetamine 20 mg PO TID 04/30/18 10/20/18 [Adderall] Fenofibrate 54 mg PO DAILY 04/30/18 10/20/18 Lidocaine [Lidoderm 5% Patch] 1 patch TRANSDERM DAILY 04/30/18 10/20/18 Oxybutynin Chloride [Ditropan] 5 mg PO BID 04/30/18 10/20/18 Beclomethasone Dipropionate [Qvar 1 puff INHALATION RT-DAILY 07/17/18 10/20/18 80 mcg] Ergocalciferol (Vitamin D2) 50,000 unit PO Q14D 07/17/18 10/20/18 [Vitamin D2] Acetaminophen with Codeine 1 tab PO BID PRN 10/20/18 10/20/18 [Tylenol w/codeine #4] Pantoprazole Sodium [Protonix] 40 mg PO DAILY 10/20/18 10/20/18 Allergies Allergy/AdvReac Type Severity Reaction Status Date / Time latex AdvReac Rash/Hives Verified 10/20/18 09:27 ziprasidone [From Geodon] AdvReac Swelling Verified 10/20/18 09:27 Review of Systems ROS Other: All systems not noted in ROS Statement are negative. <Arian Dolan - Last Filed: 10/20/18 13:46> ROS Other: All systems not noted in ROS Statement are negative. <Darrell Pena - Last Filed: 10/20/18 13:50> ROS Statement: Those systems with pertinent positive or pertinent negative responses have been documented in the HPI. Past Medical History Past Medical History: Diabetes Mellitus, Hyperlipidemia, Hypertension Additional Past Medical History / Comment(s): chronic back pain History of Any Multi-Drug Resistant Organisms: None Reported Past Surgical History: Bariatric Surgery, Section, Cholecystectomy, Tonsillectomy Additional Past Surgical History / Comment(s): three abortions, ortho surgery Past Psychological History: ADD/ADHD, Anxiety, Bipolar, Schizoaffective Disorder Smoking Status: Current every day smoker Past Alcohol Use History: None Reported Past Drug Use History: Marijuana <Arian Dolan - Last Filed: 10/20/18 13:46> General Exam Limitations: no limitations <Arian Dolan - Last Filed: 10/20/18 13:46> <Darrell Pena - Last Filed: 10/20/18 13:50> - General Exam Comments Initial Comments: General: The patient is awake and alert, in no distress, and does not appear acutely ill. Eye: Pupils are equal, round and reactive to light, extra-ocular movements are intact. No nystagmus. There is normal conjunctiva bilaterally. No signs of icterus. Ears, nose, mouth and throat: There are moist mucous membranes and no oral lesions. Neck: The neck is supple, there is no tenderness or JVD. Musculoskeletal: Patient has normal appearance of the left hip no obvious deformity. He is tender over the lateral aspect. Pain reproduced with movements. Sensation intact. Pulses equal bilaterally 2+. Neurological: A&O x 3. CN II-XII intact, There are no obvious motor or sensory deficits. Coordination appears grossly intact. Speech is normal. Skin: Skin is warm and dry and no rashes or lesions are noted. Psychiatric: Cooperative, appropriate mood & affect, normal judgment. (Arian Dolan) Course <Arian Dolan - Last Filed: 10/20/18 13:46> <Darrell Pena - Last Filed: 10/20/18 13:50> Vital Signs 10/20/18 09:23 Temperature 97.8 F Pulse Rate 89 Respiratory 18 Rate Blood Pressure 133/74 O2 Sat by Pulse 99 Oximetry - Reevaluation(s) Reevaluation #1: 10/20/18 13:49 PA supervision: I personally evaluate this case and did review the imaging. Patient did have evidence of a left hip fracture. I do agree with the assessment and plan. Patient will be admitted. (Darrell Pena) Medical Decision Making <Arian Dolan - Last Filed: 10/20/18 13:46> <Darrell Pena - Last Filed: 10/20/18 13:50> - Medical Decision Making Patient x-ray was reviewed and patient unable to bear weight head CT is obtained which did reveal possible fracture of the femoral head. Case discussed with orthopedic physician social worker assistant Simone bolye on-call who has reviewed the films and states they will accept admission under Dr. [place]. Request ordering MRI for better evaluation of the left hip. Patient is aware of the plan at this time. (Arian Dolan) Disposition Is patient prescribed a controlled substance at d/c from ED?: No Time of Disposition: 13:47 <Arian Dolan - Last Filed: 10/20/18 13:46> <Darrell Pena - Last Filed: 10/20/18 13:50> Clinical Impression: Hip fracture Disposition: ADMITTED IP TO THIS HOSP Condition: Good Referrals: [facility] [Primary Care Provider] - 1-2 days
[2018-10-20] MEDS ORDERED: KETOROLAC 60 MG/2 ML VIAL IM STA (10:57)
--- NOTE | 2018-10-20 11:05 | XR ---
EXAMINATION TYPE: XR Hip LT and AP Pelvis DATE OF EXAM: 10/20/2018 COMPARISON: None HISTORY: Left hip buttocks pain following slip and fall on ice TECHNIQUE: AP pelvis and 2 views left hip FINDINGS: Femoral heads articulate with the acetabulum. Symphysis pubis and sacroiliac joints are nor mal. No acute fractures are evident. Normal bowel gas is present. Femoral head articulates with the acetabulum. No acute fractures are evident. IMPRESSION: 1. Normal left hip and AP pelvis
--- NOTE | 2018-10-20 11:56 | CT ---
EXAMINATION TYPE: CT hip LT wo con DATE OF EXAM: 10/20/2018 COMPARISON: Plain film same date HISTORY: Fall, left hip pain CT DLP: 725.1 mGycm Automated exposure control for dose reduction was used. Helical acquisition through the left hip. Cor onal and sagittal reconstructions, three-dimensional reconstructions on an alternate workstation FINDINGS: Joint spaces and alignment are maintained. There is a lucency seen on coronal image 35 along the phys is, Sclerotic focus within the acetabular roof likely represents bone island. No evident joint effusi on. Air noted within the endometrium, punctate focus. No free fluid within the pelvis. IMPRESSION: CANNOT EXCLUDE A NONDISPLACED FRACTURE, RECOMMEND CORRELATION WITH MRI
[2018-10-20] MEDS ORDERED: NALOXONE 0.4 MG/ML 1 ML VIAL IV PRN (13:48)
[2018-10-20] MEDS ORDERED: ONDANSETRON 4 MG/2 ML VIAL IVP PRN (13:48)
[2018-10-20] MEDS ORDERED: SODIUM CHLORIDE 0.9% 1,000 ML IV ONE (13:48)
[2018-10-20 14:48] LABS: Basophils % (A) 1 %; Eosinophils # (A) 0.5 k/uL (0-0.7); Eosinophils % (A) 6 %; HCT 38.3 % (34.0-46.0); Lymphocytes # (A) 2.1 k/uL (1.0-4.8); Lymphocytes % (A) 28 %; MCH 32.2 pg (25.0-35.0); MCV 94.6 fL (80.0-100.0); Mean Platelet Volume 7.2; Monocytes # (A) 0.3 k/uL (0-1.0); Monocytes % (A) 5 %; Neutrophils # (A) 4.5 k/uL (1.3-7.7); Neutrophils % (A) 60 %; Platelet Count 182 k/uL (150-450); RBC 4.05 m/uL (3.80-5.40); RDW 12.5 % (11.5-15.5); WBC 7.6 k/uL (3.8-10.6)
[2018-10-20 14:50] LABS: Amorphous Sediment,Urine Rare /hpf; Appearance,Urine Cloudy (Clear); Bacteria,Urine Many /hpf; Bilirubin,Urine Negative (Negative); Blood,Urine Small (Negative); Calcium Oxalate Crystals,Urine Moderate /hpf; Color,Urine Yellow; Glucose,Urine (UA) Negative (Negative); Ketones,Urine Trace (Negative); Leukocyte Esterase,Urine Moderate (Negative); Mucus,Urine Moderate /hpf; Nitrite,Urine Positive (Negative); PH, Urine 5.5 (5.0-8.0); Protein,Urine 1+ (Negative); RBC,Urine 4 /hpf (0-5); Specific Gravity,Urine 1.027 (1.001-1.035); Squamous Epithelial Cell,Urine 19 /hpf (0-4); Urobilinogen,Urine <2.0 mg/dL (<2.0)
[2018-10-20] MEDS: LORazepam 2 MG/ML INJ IV PRN ×2 (14:53→23:44)
[2018-10-20 14:55] LABS: INR 0.9 (<1.2); Prothrombin Time 10.2 sec (9.0-12.0)
[2018-10-20 14:57] LABS: Anion Gap 4 mmol/L; Blood Urea Nitrogen 18 mg/dL (7-17); Calcium 9.4 mg/dL (8.4-10.2); Carbon Dioxide 26 mmol/L (22-30); Chloride 115 mmol/L (98-107); Glucose 87 mg/dL (74-99); Potassium 3.9 mmol/L (3.5-5.1); Sodium 145 mmol/L (137-145)
--- NOTE | 2018-10-20 15:46 | P.HPIM ---
History of Present Illness H&P Date: 10/20/18 Chief Complaint: left femoral fracture 53-year-old female with PMH of diabetes mellitus, hypertension, hyperlipidemia, ADHD, bipolar and schizoaffective disorder presents the ED after suffering a mechanical fall. Patient states that she had a slip and fall near her [employer], landing on her left hip. Patient complains of pain over the lateral aspect of the left buttock. Patient reports the pain to be 10 out of 10 in severity, relieved with Toradol given in the ED. She denies any numbness, bladder or bowel incontinence, saddle anesthesia. She denies any headaches, lower extremity edema, nausea, vomiting, fever, chest pain , shortness of breath, changes in urination or bowel habits. Patient reports good exercise tolerance. She swims 4 times a week and goes to the gym 3 times a week. Patient reports being able to walk 2 miles before feeling short of breath. She denies any orthopnea or PND. Of note, patient does report a chronic cough, associated with smoking cigarettes. Patient reports smoking 1 pack of cigarettes daily since the age of 14. She admits to smoking marijuana 1 week ago, denies any other illicit drug use. She denies alcohol use. In the ED, CBC was unremarkable. Coagulation panel was negative. CMP showed a chloride of 115, BUN of 18. Urinalysis was dirty. CT of the hip cannot exclude a nondisplaced fracture. Patient is admitted for further workup of left hip pain, orthopedic surgeries on consult. Review of Systems All systems: negative Past Medical History Past Medical History: Diabetes Mellitus, Hyperlipidemia, Hypertension Additional Past Medical History / Comment(s): Chronic back pain, pt states she is no longer diabetic since wt loss, has hepatitis C antibodies, UTI. History of Any Multi-Drug Resistant Organisms: None Reported Past Surgical History: Bariatric Surgery, Section, Cholecystectomy, Tonsillectomy Additional Past Surgical History / Comment(s): three abortions, ortho surgery Past Anesthesia/Blood Transfusion Reactions: No Reported Reaction Smoking Status: Current every day smoker - Past Family History Father History Unknown: Yes Additional Family Medical History / Comment(s): Patient is adopted Mother History Unknown: Yes Additional Family Medical History / Comment(s): Pt is adopted. Medications and Allergies Home Medications Medication Instructions Recorded Confirmed Type Albuterol Inhaler [Ventolin Hfa 1 - 2 puff INHALATION RT-Q4H PRN 06/29/17 History Inhaler] Brexpiprazole [Rexulti] 4 mg PO HS 06/29/17 10/20/18 History Cariprazine HCl [Vraylar] 6 mg PO HS 06/29/17 10/20/18 History Pregabalin [Lyrica] 75 mg PO BID 06/29/17 10/20/18 History clonazePAM [KlonoPIN] 1 mg PO DAILY 06/29/17 10/20/18 History lamoTRIgine [LaMICtal] 200 mg PO DAILY 06/29/17 10/20/18 History Lisinopril [Zestril] 10 mg PO DAILY 12/12/17 10/20/18 History Acetaminophen-Codeine 300-30mg 1 tab PO BID PRN 04/30/18 10/20/18 History [Tylenol #3] Amantadine HCl [Symmetrel] 100 mg PO BID 04/30/18 10/20/18 History Budesonide [Pulmicort Flexhaler] 1 puff INHALATION RT-BID 04/30/18 10/20/18 History Dextroamphetamine/Amphetamine 20 mg PO TID 04/30/18 10/20/18 History [Adderall] Fenofibrate 54 mg PO DAILY 04/30/18 10/20/18 History Lidocaine [Lidoderm 5% Patch] 1 patch TRANSDERM DAILY 04/30/18 10/20/18 History Oxybutynin Chloride [Ditropan] 5 mg PO BID 04/30/18 10/20/18 History Beclomethasone Dipropionate [Qvar 1 puff INHALATION RT-DAILY 07/17/18 10/20/18 History 80 mcg] Ergocalciferol (Vitamin D2) 50,000 unit PO Q14D 07/17/18 10/20/18 History [Vitamin D2] Acetaminophen with Codeine 1 tab PO BID PRN 10/20/18 10/20/18 History [Tylenol w/codeine #4] Pantoprazole Sodium [Protonix] 40 mg PO DAILY 10/20/18 10/20/18 History Allergies Allergy/AdvReac Type Severity Reaction Status Date / Time latex AdvReac Rash/Hives Verified 10/20/18 09:27 ziprasidone [From Geodon] AdvReac Swelling Verified 10/20/18 09:27 Physical Exam Vitals: Vital Signs Temp Pulse Pulse Resp BP BP Pulse Ox 10/20/18 15:05 98.2 F 66 18 158/97 98 10/20/18 14:38 72 18 154/72 100 10/20/18 09:23 97.8 F 89 18 133/74 99 Intake and Output 10/20/18 10/20/18 10/20/18 06:59 14:59 22:59 Other: Weight 88.451 kg General: [non toxic], [no distress], [appears at stated age] Derm: [warm], [dry] Head: [atraumatic], [normocephalic], [symmetric] Eyes: [EOMI], [no lid lag], [anicteric sclera] Mouth: [no lip lesion], [mucus membranes moist] Cardiovascular: [S1S2 reg], [no murmur], [2+ DP pulses bilaterally] Lungs: [CTA bilateral], [no rhonchi, no rales] , [no accessory muscle use] Abdominal: [soft], [ nontender to palpation], [no guarding], [no appreciable organomegaly] Ext: [no gross muscle atrophy], [no edema], [no contractures], [left hip lateral tenderness to palpation with limited range of motion due to pain] Neuro: [no focal neuro deficits], [strength and sensation intact in bilateral lower extremities] Psych: [Alert], [oriented], [appropriate affect] Results CBC & Chem 7: 10/20/18 14:35 10/20/18 14:35 Labs: Abnormal Lab Results - Last 24 Hours (Table) 10/20/18 10/20/18 Range/Units 14:35 14:35 Chloride 115 H (98-107) mmol/L BUN 18 H (7-17) mg/dL Urine Appearance Cloudy H (Clear) Urine Protein 1+ H (Negative) Urine Ketones Trace H (Negative) Urine Blood Small H (Negative) Urine Nitrite Positive H (Negative) Ur Leukocyte Esterase Moderate H (Negative) Urine WBC 67 H (0-5) /hpf Ur Squamous Epith Cells 19 H (0-4) /hpf Calcium Oxalate Crystal Moderate H (None) /hpf Amorphous Sediment Rare H (None) /hpf Urine Bacteria Many H (None) /hpf Urine Mucus Moderate H (None) /hpf Thrombosis Risk Factor Assmnt - Choose All That Apply Any of the Below Risk Factors Present?: Yes Each Factor Represents 1 point: Age 41-60 years, Medical pt on bed rest, Obesity (BMI >25) Other Risk Factors: Yes Each Risk Factor Represents 2 Points: Patient confined to bed Other congenital or acquired thrombophilia - If yes, enter type in comment: No Each Risk Factor Represents 5 Points: Hip, pelvis, or leg fracture (< 1 month) Thrombosis Risk Factor Assessment Total Risk Factor Score: 10 Thrombosis Risk Factor Assessment Level: High Risk Assessment and Plan Assessment: Assessment and Plan 1. Left hip pain 2. Presumed COPD 3. Hypertension 4. Hyperlipidemia 5. ADHD/bipolar/schizoaffective/anxiety 1. Given history of physical exam, likely fracture of the femoral head. CT of the left hip cannot exclude fracture.pain management with Toradol 30 mg IV every 6 hours as needed, morphine 4 mg IV every 4 hours as needed for severe pain. Weight bearing as per Ortho recommendations. Plans for OR tomorrow, nothing by mouth after midnight. We will follow orthopedic, PT and OT recommendations. Follow-up MRI of the hip. 2. DuoNeb 4 times a day as needed for shortness of breath or wheezing. 3. BP 158/97. We will resume lisinopril 10 mg by mouth daily. HEART healthy diet. Monitor vitals, adjust medications as necessary. 4. Resume home medication Fenofibrate 54 mg by mouth daily. 5. Resume home medications Brexpiprazole, Cariprazine, Dextroamphetamine and Ativan as needed for anxiety. Patient has good exercise tolerance, recent echo from 2017 shows EF of 55-60% with normal wall motion. She does have some risk of surgery due to her history of smoking. Escamilla score is 0. Patient is cleared for surgery from a medical perspective. Thank you for the consult, please call with additional questions. We'll continue to follow patient.
--- NOTE | 2018-10-20 16:02 | P.CNOR ---
History of Present Illness - [facility] Consult date: 10/20/18 Consult reason: joint pain (Left lateral/posterior hip pain) History of present illness: The patient's a 53-year-old female who is a community ambulator presents after falling today slipping in a [employer] parking lot landing on her left side. She was brought to the hospital with severe pain. She denies loss of consciousness. Review of Systems Musculoskeletal: left: hip pain Past Medical History Past Medical History: Diabetes Mellitus, Hyperlipidemia, Hypertension Additional Past Medical History / Comment(s): Chronic back pain, pt states she is no longer diabetic since wt loss, has hepatitis C antibodies, UTI. History of Any Multi-Drug Resistant Organisms: None Reported Past Surgical History: Bariatric Surgery, Section, Cholecystectomy, Tonsillectomy Additional Past Surgical History / Comment(s): three abortions, ortho surgery Past Anesthesia/Blood Transfusion Reactions: No Reported Reaction Smoking Status: Current every day smoker - Past Family History Father History Unknown: Yes Additional Family Medical History / Comment(s): Patient is adopted Mother History Unknown: Yes Additional Family Medical History / Comment(s): Pt is adopted. Medications and Allergies Home Medications Medication Instructions Recorded Confirmed Type Albuterol Inhaler [Ventolin Hfa 1 - 2 puff INHALATION RT-Q4H PRN 06/29/17 History Inhaler] Brexpiprazole [Rexulti] 4 mg PO HS 06/29/17 10/20/18 History Cariprazine HCl [Vraylar] 6 mg PO HS 06/29/17 10/20/18 History Pregabalin [Lyrica] 75 mg PO BID 06/29/17 10/20/18 History clonazePAM [KlonoPIN] 1 mg PO DAILY 06/29/17 10/20/18 History lamoTRIgine [LaMICtal] 200 mg PO DAILY 06/29/17 10/20/18 History Lisinopril [Zestril] 10 mg PO DAILY 12/12/17 10/20/18 History Acetaminophen-Codeine 300-30mg 1 tab PO BID PRN 04/30/18 10/20/18 History [Tylenol #3] Amantadine HCl [Symmetrel] 100 mg PO BID 04/30/18 10/20/18 History Budesonide [Pulmicort Flexhaler] 1 puff INHALATION RT-BID 04/30/18 10/20/18 History Dextroamphetamine/Amphetamine 20 mg PO TID 04/30/18 10/20/18 History [Adderall] Fenofibrate 54 mg PO DAILY 04/30/18 10/20/18 History Lidocaine [Lidoderm 5% Patch] 1 patch TRANSDERM DAILY 04/30/18 10/20/18 History Oxybutynin Chloride [Ditropan] 5 mg PO BID 04/30/18 10/20/18 History Beclomethasone Dipropionate [Qvar 1 puff INHALATION RT-DAILY 07/17/18 10/20/18 History 80 mcg] Ergocalciferol (Vitamin D2) 50,000 unit PO Q14D 07/17/18 10/20/18 History [Vitamin D2] Acetaminophen with Codeine 1 tab PO BID PRN 10/20/18 10/20/18 History [Tylenol w/codeine #4] Pantoprazole Sodium [Protonix] 40 mg PO DAILY 10/20/18 10/20/18 History Allergies Allergy/AdvReac Type Severity Reaction Status Date / Time latex AdvReac Rash/Hives Verified 10/20/18 09:27 ziprasidone [From Geodon] AdvReac Swelling Verified 10/20/18 09:27 Physical Examination - Hip left Gait: other Tenderness with palpation: posterior, lateral ROM: extension: 0 degrees ROM: flexion: 90 degrees ROM: abduction: 45 degrees ROM: adduction: 20 degrees ROM: internal rotation: 15 degrees ROM: external rotation: 60 degrees Crepitus with motion: No Strength: extension: 5/5 Strength: flexion: 5/5 Strength: abduction: 5/5 Tests: impingement tests: negative (Painless logroll left hip, tender lower lumbar spine) Results - Labs Labs: Abnormal Lab Results - Last 24 Hours (Table) 10/20/18 10/20/18 Range/Units 14:35 14:35 Chloride 115 H (98-107) mmol/L BUN 18 H (7-17) mg/dL Urine Appearance Cloudy H (Clear) Urine Protein 1+ H (Negative) Urine Ketones Trace H (Negative) Urine Blood Small H (Negative) Urine Nitrite Positive H (Negative) Ur Leukocyte Esterase Moderate H (Negative) Urine WBC 67 H (0-5) /hpf Ur Squamous Epith Cells 19 H (0-4) /hpf Calcium Oxalate Crystal Moderate H (None) /hpf Amorphous Sediment Rare H (None) /hpf Urine Bacteria Many H (None) /hpf Urine Mucus Moderate H (None) /hpf H & H 10/20/18 Range/Units 14:35 Hgb 13.0 (11.4-16.0) gm/dL Hct 38.3 (34.0-46.0) % Coagulation 10/20/18 Range/Units 14:35 INR 0.9 (<1.2) Result Diagrams: 10/20/18 14:35 10/20/18 14:35 - Diagnostic results Hip x-ray: image reviewed (No definite displaced fracture) Hip CT: image reviewed (Questionable lucency femoral head, no displaced fracture ) Assessment and Plan Assessment: Status post fall with left hip contusion, possible occult femoral head fracture Plan: We will obtain an MRI to clearly define the osseous abnormality. We'll make further recommendations pending those results.
[2018-10-20] MEDS: NON-FORMULARY DRUG (Dextroamphetamine/Amphetamine [Adderall] 20 MG) PO SCH ×2 (16:42→20:17)
[2018-10-20] MEDS: KETOROLAC 30 MG/ML 1 ML VIAL IVP SCH ×2 (17:30→23:31)
--- NOTE | 2018-10-20 18:24 | MR ---
EXAMINATION TYPE: MR hip LT wo con DATE OF EXAM: 10/20/2018 COMPARISON: None HISTORY: Lt hip pain S/P fall this morning Standard multiplanar, multisequence MRI departmental protocol Multiplanar, multisequence images of the left hip were acquired. FINDINGS: The pelvic ring appears intact. Proximal femurs and hip joints are intact. There is no sign of hip dysplasia. There is normal amount of synovial fluid at the hip joints. Sacroiliac joints appe ar intact. There is no evidence of a pelvic mass. I see no free fluid in the pelvis. I see no evidenc e of bone edema. The acetabula appear intact. IMPRESSION: Negative MR scan of the pelvis and left hip. No evidence of hip dysplasia or avascular necrosis. No f racture.
[2018-10-20] MEDS: MORPHINE SULFATE 4 MG/ML SYRINGE IV PRN ×2 (18:26→23:31)
[2018-10-20] MEDS: OXYBUTYNIN CHLORIDE 5 MG TAB PO SCH (20:13)
[2018-10-20] MEDS: AMANTADINE HCL 100 MG CAP PO SCH (20:13)
[2018-10-20 20:21] VITALS: RESP 16
[2018-10-20] MEDS: IPRATROPIUM-ALBUTEROL 3 ML NEB INHALATION PRN (20:50)
[2018-10-20] MEDS ORDERED: CARIPRAZINE HCL 6 MG PO SCH (21:00)
[2018-10-20] MEDS ORDERED: clonazePAM 1 MG TAB PO SCH (21:00)
[2018-10-20] MEDS ORDERED: BREXPIPRAZOLE 4 MG PO SCH (21:00)
[2018-10-20] MEDS ORDERED: MELATONIN 3 MG TABLET PO SCH (23:30)
[2018-10-21] MEDS: MORPHINE SULFATE 4 MG/ML SYRINGE IV PRN ×2 (03:31→08:36)
[2018-10-21] MEDS: IPRATROPIUM-ALBUTEROL 3 ML NEB INHALATION PRN ×2 (03:53→07:14)
[2018-10-21] MEDS: LORazepam 2 MG/ML INJ IV PRN ×2 (04:57→11:53)
[2018-10-21] MEDS: KETOROLAC 30 MG/ML 1 ML VIAL IVP SCH ×2 (05:29→11:53)
[2018-10-21 07:25] VITALS: PULSE 68
[2018-10-21] MEDS ORDERED: PANTOPRAZOLE 40 MG TABLET PO SCH (07:30)
[2018-10-21 07:49] LABS: Basophils % (A) 1 %; Eosinophils # (A) 0.4 k/uL (0-0.7); Eosinophils % (A) 7 %; HCT 35.1 % (34.0-46.0); HGB 10.8 gm/dL (11.4-16.0); Lymphocytes # (A) 1.9 k/uL (1.0-4.8); Lymphocytes % (A) 37 %; MCHC 30.9 g/dL (31.0-37.0); MCV 97.2 fL (80.0-100.0); Mean Platelet Volume 6.8; Monocytes # (A) 0.3 k/uL (0-1.0); Monocytes % (A) 6 %; Neutrophils # (A) 2.4 k/uL (1.3-7.7); Neutrophils % (A) 48 %; Platelet Count 155 k/uL (150-450); RBC 3.61 m/uL (3.80-5.40); RDW 12.5 % (11.5-15.5); WBC 5.1 k/uL (3.8-10.6)
[2018-10-21 08:05] LABS: Anion Gap 6 mmol/L; Blood Urea Nitrogen 17 mg/dL (7-17); Calcium 8.9 mg/dL (8.4-10.2); Carbon Dioxide 26 mmol/L (22-30); Chloride 113 mmol/L (98-107); Glucose 87 mg/dL (74-99); Potassium 3.6 mmol/L (3.5-5.1); Sodium 145 mmol/L (137-145)
[2018-10-21] MEDS: NON-FORMULARY DRUG (Dextroamphetamine/Amphetamine [Adderall] 20 MG) PO SCH (08:28)
[2018-10-21] MEDS: OXYBUTYNIN CHLORIDE 5 MG TAB PO SCH (08:36)
[2018-10-21] MEDS: AMANTADINE HCL 100 MG CAP PO SCH (08:36)
[2018-10-21 08:49] VITALS: BP 140/76; TEMP 98
[2018-10-21] MEDS ORDERED: FENOFIBRATE 54 MG TAB PO SCH (09:00)
[2018-10-21] MEDS ORDERED: lamoTRIgine 100 MG TAB PO SCH (09:00)
[2018-10-21] MEDS ORDERED: LISINOPRIL 10 MG TAB PO SCH (09:00)
--- NOTE | 2018-10-21 10:42 | P.PN ---
Subjective Progress Note Date: 10/21/18 Principal diagnosis: Left hip contusion, s/p fall Patient evaluated today at bedside, resting comfortably. She has no new acute complaints. Objective - Vital Signs Vital signs: Vital Signs Temp 98.0 F 10/21/18 08:48 Pulse 68 10/21/18 08:48 Resp 16 10/21/18 08:48 BP 140/76 10/21/18 08:48 Pulse Ox 100 10/21/18 08:48 Intake & Output 10/20/18 10/21/18 10/21/18 18:59 06:59 18:59 Intake Total 600 1200 Balance 600 1200 Weight 88.451 kg Intake: Intake, IV Titration 1200 Amount Sodium Chloride 0.9% 1, 1200 000 ml @ 75 mls/hr IV . [id number] Rx#:[id number] Oral 600 Other: # Voids 1 3 - Exam Left lower extremity: No obvious open lesions, areas of ecchymosis or soft tissue swelling present around the left hip region She's tender over the greater trochanter with palpation Internal and external rotation of the hip reproduces no pain She is able to straight leg raise Sensory exam light touch extremities intact, dorsal pedis pulses 2+. - Labs CBC & Chem 7: 10/21/18 07:08 10/21/18 07:08 Labs: Abnormal Lab Results - Last 24 Hours (Table) 10/20/18 10/20/18 10/21/18 Range/Units 14:35 14:35 07:08 RBC 3.61 L (3.80-5.40) m/uL Hgb 10.8 L (11.4-16.0) gm/dL MCHC 30.9 L (31.0-37.0) g/dL Chloride 115 H (98-107) mmol/L BUN 18 H (7-17) mg/dL Urine Appearance Cloudy H (Clear) Urine Protein 1+ H (Negative) Urine Ketones Trace H (Negative) Urine Blood Small H (Negative) Urine Nitrite Positive H (Negative) Ur Leukocyte Esterase Moderate H (Negative) Urine WBC 67 H (0-5) /hpf Ur Squamous Epith Cells 19 H (0-4) /hpf Calcium Oxalate Crystal Moderate H (None) /hpf Amorphous Sediment Rare H (None) /hpf Urine Bacteria Many H (None) /hpf Urine Mucus Moderate H (None) /hpf 10/21/18 Range/Units 07:08 RBC (3.80-5.40) m/uL Hgb (11.4-16.0) gm/dL MCHC (31.0-37.0) g/dL Chloride 113 H (98-107) mmol/L BUN (7-17) mg/dL Urine Appearance (Clear) Urine Protein (Negative) Urine Ketones (Negative) Urine Blood (Negative) Urine Nitrite (Negative) Ur Leukocyte Esterase (Negative) Urine WBC (0-5) /hpf Ur Squamous Epith Cells (0-4) /hpf Calcium Oxalate Crystal (None) /hpf Amorphous Sediment (None) /hpf Urine Bacteria (None) /hpf Urine Mucus (None) /hpf Microbiology - Last 24 Hours (Table) 10/20/18 14:35 Urine Culture - Preliminary Urine,Voided Assessment and Plan Plan: Assessment: 1. Left hip contusion 2. Status post fall Plan: I was able to discuss the MRI results and other imaging studies might 10 Dr. [place], no evidence of fracture involving the left hip at this time. No orthopedic surgical intervention needed Recommend conservative management, anti-inflammatory medication as needed Physical therapy evaluation, utilize a walker for aid Medical recommendations Discharge planning: An orthopedic standpoint patient is stable for discharge, we will be signing outpatient at this time Time with Patient: Less than 30
--- NOTE | 2018-10-21 10:55 | P.DS ---
Providers Date of admission: 10/20/18 13:49 Expected date of discharge: 10/21/18 Attending physician: Anibal Canada Consults: 10/20/18 13:51 Consult Physician Stat Consulting Provider: Jessica Mac Consult Reason/Comments: Medical clearance Do you want consulting provider notified?: Yes Primary care physician: [facility] Hospital Course: 53-year-old female with PMH of diabetes mellitus, hypertension, hyperlipidemia, ADHD, bipolar and schizoaffective disorder presents the ED after suffering a mechanical fall. Patient states that she had a slip and fall near her mus[employer], landing on her left hip. Patient complains of pain over the lateral aspect of the left buttock. Patient reports the pain to be 10 out of 10 in severity, relieved with Toradol given in the ED. She denies any numbness, bladder or bowel incontinence, saddle anesthesia. She denies any headaches, lower extremity edema, nausea, vomiting, fever, chest pain , shortness of breath, changes in urination or bowel habits. Patient reports good exercise tolerance. She swims 4 times a week and goes to the gym 3 times a week. Patient reports being able to walk 2 miles before feeling short of breath. She denies any orthopnea or PND. Of note, patient does report a chronic cough, associated with smoking cigarettes. Patient reports smoking 1 pack of cigarettes daily since the age of 14. She admits to smoking marijuana 1 week ago, denies any other illicit drug use. She denies alcohol use. In the ED, CBC was unremarkable. Coagulation panel was negative. CMP showed a chloride of 115, BUN of 18. Urinalysis was dirty. CT of the hip cannot exclude a nondisplaced fracture. Patient is admitted for further workup of left hip pain, orthopedic surgeries on consult. Her hip pain was treated with Toradol 30 iv every 6 hours as needed. Orthopedic surgery was consulted and recommended MRI of the hip. MRI of the hip excluded fracture. PT and OT evaluated the patient and cleared her for discharge. Otherwise, her home medications were resumed for hypertension, hyperlipidemia, ADHD, bipolar disorder, schizoaffective disorder and anxiety disorder. Patient seen and examined prior to discharge. No acute events overnight. Patient continues to report left hip pain. Pain is alleviated with Toradol injections. Seen ambulating with PT with assist of a walker. General: [non toxic], [no distress], [appears at stated age] Derm: [warm], [dry] Head: [atraumatic], [normocephalic], [symmetric] Eyes: [EOMI], [no lid lag], [anicteric sclera] Mouth: [no lip lesion], [mucus membranes moist] Cardiovascular: [S1S2 reg], [no murmur], [2+ DP pulses bilaterally] Lungs: [CTA bilateral], [no rhonchi, no rales] , [no accessory muscle use] Abdominal: [soft], [ nontender to palpation], [no guarding], [no appreciable organomegaly] Ext: [no gross muscle atrophy], [no edema], [no contractures], [left hip lateral tenderness to palpation with limited range of motion due to pain] Neuro: [no focal neuro deficits], [strength and sensation intact in bilateral lower extremities] Psych: [Alert], [oriented], [appropriate affect] Assessment and Plan 1. Left hip pain 2. Presumed COPD 3. Hypertension 4. Hyperlipidemia 5. ADHD/bipolar/schizoaffective/anxiety 1. Given history of physical exam, likely fracture of the femoral head. CT of the left hip cannot exclude fracture.pain management with Toradol 30 mg IV every 6 hours as needed, morphine 4 mg IV every 4 hours as needed for severe pain. Weight bearing as per Ortho recommendations. MRI of the hip excluded fracture. We will follow orthopedic, PT and OT recommendations. 2. DuoNeb 4 times a day as needed for shortness of breath or wheezing. 3. BP 140/76. We will resume lisinopril 10 mg by mouth daily. HEART healthy diet. Monitor vitals, adjust medications as necessary. 4. Resume home medication Fenofibrate 54 mg by mouth daily. 5. Resume home medications Brexpiprazole, Cariprazine, Dextroamphetamine and Ativan as needed for anxiety. MRI of the hip excludes fracture as a cause of left hip pain. She is being evaluated by orthopedic surgery and cleared for discharge. She has been evaluated by physical therapy and seen ambulating with assist for rolling walker. She is likely to be discharged today. Pertinent Studies: Hip CT MRI at Patient Condition at Discharge: Good Plan - Discharge Summary Discharge Rx Participant: No New Discharge Prescriptions: New Acetaminophen with Codeine [Tylenol w/codeine #3] 1 tab PO Q6H PRN #8 tab PRN Reason: Pain Continue lamoTRIgine [LaMICtal] 200 mg PO DAILY Brexpiprazole [Rexulti] 4 mg PO HS Pregabalin [Lyrica] 75 mg PO BID clonazePAM [KlonoPIN] 1 mg PO DAILY Albuterol Inhaler [Ventolin Hfa Inhaler] 1 - 2 puff INHALATION RT-Q4H PRN PRN Reason: Shortness Of Breath Cariprazine HCl [Vraylar] 6 mg PO HS Lisinopril [Zestril] 10 mg PO DAILY Dextroamphetamine/Amphetamine [Adderall] 20 mg PO TID Amantadine HCl [Symmetrel] 100 mg PO BID Oxybutynin Chloride [Ditropan] 5 mg PO BID Budesonide [Pulmicort Flexhaler] 1 puff INHALATION RT-BID Lidocaine [Lidoderm 5% Patch] 1 patch TRANSDERM DAILY Fenofibrate 54 mg PO DAILY Acetaminophen-Codeine 300-30mg [Tylenol w/codeine #3] 1 tab PO BID PRN PRN Reason: Pain Beclomethasone Dipropionate [Qvar 80 mcg] 1 puff INHALATION RT-DAILY Ergocalciferol (Vitamin D2) [Vitamin D2] 50,000 unit PO Q14D Acetaminophen with Codeine [Tylenol w/codeine #4] 1 tab PO BID PRN PRN Reason: Pain Pantoprazole Sodium [Protonix] 40 mg PO DAILY Discharge Medication List Albuterol Inhaler [Ventolin Hfa Inhaler] 1 - 2 puff INHALATION RT-Q4H PRN [History] Brexpiprazole [Rexulti] 4 mg PO HS 06/29/17 [History] Cariprazine HCl [Vraylar] 6 mg PO HS 06/29/17 [History] Pregabalin [Lyrica] 75 mg PO BID 06/29/17 [History] clonazePAM [KlonoPIN] 1 mg PO DAILY 06/29/17 [History] lamoTRIgine [LaMICtal] 200 mg PO DAILY 06/29/17 [History] Lisinopril [Zestril] 10 mg PO DAILY 12/12/17 [History] Acetaminophen-Codeine 300-30mg [Tylenol w/codeine #3] 1 tab PO BID PRN 04/30/18 [History] Amantadine HCl [Symmetrel] 100 mg PO BID 04/30/18 [History] Budesonide [Pulmicort Flexhaler] 1 puff INHALATION RT-BID 04/30/18 [History] Dextroamphetamine/Amphetamine [Adderall] 20 mg PO TID 04/30/18 [History] Fenofibrate 54 mg PO DAILY 04/30/18 [History] Lidocaine [Lidoderm 5% Patch] 1 patch TRANSDERM DAILY 04/30/18 [History] Oxybutynin Chloride [Ditropan] 5 mg PO BID 04/30/18 [History] Beclomethasone Dipropionate [Qvar 80 mcg] 1 puff INHALATION RT-DAILY 07/17/18 [ History] Ergocalciferol (Vitamin D2) [Vitamin D2] 50,000 unit PO Q14D 07/17/18 [History] Acetaminophen with Codeine [Tylenol w/codeine #4] 1 tab PO BID PRN 10/20/18 [ History] Pantoprazole Sodium [Protonix] 40 mg PO DAILY 10/20/18 [History] Acetaminophen with Codeine [Tylenol w/codeine #3] 1 tab PO Q6H PRN #8 tab [Rx] Follow up Appointment(s)/Referral(s): [facility] [Primary Care Provider] - 1-2 days Anibal Canada MD [STAFF PHYSICIAN] - 1 Week Activity/Diet/Wound Care/Special Instructions: Diet: Diabetic diet. Patient was advised follow-up with her primary care provider within 1-2 days of discharge. Patient was advised follow-up with orthopedic surgery within 1 week of discharge. Discharge Disposition: HOME SELF-CARE
--- NOTE | 2018-10-22 12:01 | CDI ---
Documentation Clarification Form Date: 10/22/18 From: Mare Rodney Dayana Aruna, Practice Business Asst Hours-8:30 am & 5 pm Emma Admit Date: 10/20/2018 1:49:00 PM Patient Name: Sarah Medellin Visit Number: [id number] Discharge Date: 10/21/2018 2:38:00 PM ATTENTION: The Clinical Documentation Specialists (CDI) and [facility] Coding Staff appreciate your assistance in clarifying documentation. Please respond to the clarification below the line at the bottom and electronically sign. The CDI & [facility] Coding staff will review the response and follow-up if needed. Please note: Queries are made part of the Legal Health Record. If you have any questions, please contact the author of this message via ITS. Dr. Eduar Alvarez Documentation states: urinalyysis dirty History/Risk Factors: Hx of UTI's Clinical indicators: Abnormal UA & C/S): UA- cloudy, 1+ protein, trace ketones, nitrite positive, moderate leukocyte esterase, WBC 67, many bacteria; preliminary urine culture - gram neg bacilli >100,000 cfu/ml Treatment: no antibiotics prescribed Clinical significance of diagnostic testing and treatment CANNOT be assumed or coded without physician documentation of significance if any. Please clarify what abnormal laboratory signifies: Infectious process, please specify Abnormal Lab Value Unable to determine Other, please specify This is asymptomatic bacteruria. Patient was not symptomatic. No treatment necessary. MTDD
== END 2018-10-21 14:38 | disposition home or self-care (01) | DRG 605 ==
LOC: EC 09:21 → 4SSUR 13:49
PROVIDERS: ADMIT Orthopaedic Surgery; ATTEND Orthopaedic Surgery
DX: S70.02XA Contusion of left hip, initial encounter (principal); F25.9 Schizoaffective disorder, unspecified; E11.9 Type 2 diabetes mellitus without complications; I10 Essential (primary) hypertension; J44.9 Chronic obstructive pulmonary disease, unspecified; F31.9 Bipolar disorder, unspecified; F41.9 Anxiety disorder, unspecified; F90.9 Attention-deficit hyperactivity disorder, unspecified type; E78.5 Hyperlipidemia, unspecified; M54.9 Dorsalgia, unspecified; G89.29 Other chronic pain; R82.71 Bacteriuria; F17.210 Nicotine dependence, cigarettes, uncomplicated; Z71.6 Tobacco abuse counseling; Z79.51 Long term (current) use of inhaled steroids; Z79.899 Other long term (current) drug therapy; Z90.49 Acquired absence of other specified parts of digestive tract; Z98.84 Bariatric surgery status; Z87.440 Personal history of urinary (tract) infections; Z98.891 History of uterine scar from previous surgery; Z88.8 Allergy status to other drugs, medicaments and biological substances; Z91.040 Latex allergy status; W00.0XXA Fall on same level due to ice and snow, initial encounter; Y93.01 Activity, walking, marching and hiking; Y92.480 Sidewalk as the place of occurrence of the external cause
CPT/HCPCS: 73502; 80048; 81001; 85025; 85610; 87077; 87086; 87186; 93005; 94640; 96372; 96374; 99285

== ENCOUNTER 2019-03-05 04:45 | Emergency (ER) | payer MEDICARE, OTHER ==
[2019-03-05 04:59] VITALS: RESP 18; TEMP 97.7
[2019-03-05] MEDS ORDERED: AZITHROMYCIN 250 MG TAB PO STA (05:47)
[2019-03-05] MEDS ORDERED: cefTRIAXone 250 MG VIAL IM STA (05:47)
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
[2019-03-05] MEDS ORDERED: FLUCONAZOLE 150 MG TAB PO STA (06:37)
[2019-03-05 07:10] VITALS: BP 125/100; PULSE 66
--- NOTE | 2019-03-07 06:13 | CDI ---
Documentation Clarification OP Dear Adair PALOMINO MD Please do addendum to ED report for missing HPI and Physical examination. Thank you, Rebecca Najera Math And Science Division Chair If you have any questions, please contact Gasoline Engine Inspector at [phone] [facility]
[2019-03-07 13:11] LABS: HIV 1 AB Non-Reactive (Non-Reactive); HIV AB P24 Non-Reactive (Non-Reactive); HIV P24 AG Non-Reactive (Non-Reactive)
[2019-03-07 14:09] LABS: C. trachomatis,PCR Negative (Neg,Equiv); Chlamydia trachomatis Source Vagina; N. gonorrhoeae,PCR Negative (Neg,Equiv); Neisseria Source Vagina
== END 2019-03-05 07:09 | disposition home or self-care (01) ==
LOC: EC 04:45
DX: N89.8 Other specified noninflammatory disorders of vagina (principal); R30.0 Dysuria; L29.8 Other pruritus; R10.2 Pelvic and perineal pain; E78.5 Hyperlipidemia, unspecified; I10 Essential (primary) hypertension; F90.9 Attention-deficit hyperactivity disorder, unspecified type; F25.0 Schizoaffective disorder, bipolar type; F41.9 Anxiety disorder, unspecified; F17.200 Nicotine dependence, unspecified, uncomplicated; Z87.440 Personal history of urinary (tract) infections; Z90.49 Acquired absence of other specified parts of digestive tract; Z98.84 Bariatric surgery status; Z79.51 Long term (current) use of inhaled steroids; Z79.899 Other long term (current) drug therapy; Z91.040 Latex allergy status; Z88.8 Allergy status to other drugs, medicaments and biological substances
CPT/HCPCS: 36415; 87491; 87591; 87390; 99284; 96372; J0696

== ENCOUNTER 2019-03-12 18:39 | Emergency (ER) | payer MEDICARE, OTHER ==
[2019-03-12 18:53] VITALS: BP 116/57; PULSE 69; RESP 16; TEMP 97.5
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
--- NOTE | 2019-03-12 19:39 | XR ---
EXAMINATION TYPE: XR wrist complete LT DATE OF EXAM: 03/12/2019 COMPARISON: NONE HISTORY: Pain TECHNIQUE: 4 views FINDINGS: I see no fracture nor dislocation. Joint spaces are normal. Carpal bones are intact. IMPRESSION: Negative left wrist exam.
== END 2019-03-12 20:06 | disposition home or self-care (01) ==
LOC: EC 18:39
DX: S60.212A Contusion of left wrist, initial encounter (principal); I10 Essential (primary) hypertension; F90.9 Attention-deficit hyperactivity disorder, unspecified type; F41.9 Anxiety disorder, unspecified; F25.0 Schizoaffective disorder, bipolar type; F17.200 Nicotine dependence, unspecified, uncomplicated; Z79.51 Long term (current) use of inhaled steroids; Z79.899 Other long term (current) drug therapy; Z88.8 Allergy status to other drugs, medicaments and biological substances; Z91.040 Latex allergy status; Z98.84 Bariatric surgery status; Y08.89XA Assault by other specified means, initial encounter
CPT/HCPCS: 99283

== ENCOUNTER 2019-06-03 11:52 | Emergency (ER) | payer MEDICARE, OTHER ==
[2019-06-03 12:08] VITALS: BP 111/75; PULSE 61; RESP 18; TEMP 98.6
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
--- NOTE | 2019-06-03 13:15 | XR ---
EXAMINATION TYPE: XR foot complete RT DATE OF EXAM: 06/03/2019 COMPARISON: NONE HISTORY: Pain TECHNIQUE: Three views are submitted. FINDINGS: The osseous structures are intact. There is no acute fracture or dislocation. Arthropathy of the f irst MTP. Large plantar calcaneal spur. IMPRESSION: 1. No acute fracture or dislocation. If symptoms persist, follow-up exam in 7 to 10 days could be ob tained.
== END 2019-06-03 13:29 | disposition home or self-care (01) ==
LOC: EC 11:52
DX: S90.31XA Contusion of right foot, initial encounter (principal); E78.5 Hyperlipidemia, unspecified; I10 Essential (primary) hypertension; F31.9 Bipolar disorder, unspecified; F25.9 Schizoaffective disorder, unspecified; G89.29 Other chronic pain; M54.9 Dorsalgia, unspecified; F41.9 Anxiety disorder, unspecified; F17.200 Nicotine dependence, unspecified, uncomplicated; Z79.899 Other long term (current) drug therapy; Z88.8 Allergy status to other drugs, medicaments and biological substances; Z91.040 Latex allergy status; W31.89XA Contact with other specified machinery, initial encounter
CPT/HCPCS: 99283

== ENCOUNTER 2019-10-20 13:38 | Emergency (ER) | payer MEDICARE, OTHER ==
[2019-10-20] MEDS ORDERED: ALPRAZolam 0.25 MG TAB PO STA ×2 (14:14→20:41)
[2019-10-20 14:26] LABS: Appearance,Urine Cloudy (Clear); Bacteria,Urine Moderate /hpf; Bilirubin,Urine Negative (Negative); Blood,Urine Negative (Negative); Color,Urine Yellow; Glucose,Urine (UA) Negative (Negative); Ketones,Urine Trace (Negative); Leukocyte Esterase,Urine Moderate (Negative); Mucus,Urine Moderate /hpf; Nitrite,Urine Negative (Negative); Protein,Urine 1+ (Negative); Specific Gravity,Urine 1.024 (1.001-1.035); Squamous Epithelial Cell,Urine 27 /hpf (0-4); WBC,Urine 30 /hpf (0-5)
[2019-10-20 14:32] LABS: Amphetamine Screen,Urine Not Detected (NotDetected); Barbiturate Screen,Urine Not Detected (NotDetected); Benzodiazepines Screen,Urine Detected (NotDetected); Cocaine Screen,Urine Not Detected (NotDetected); Methadone Screen, Urine Not Detected (NotDetected); Opiate Screen,Urine Not Detected (NotDetected); Oxycodone Screen, Urine Not Detected (NotDetected); Phencyclidine Screen,Urine Not Detected (NotDetected); Tricyclic Antidepressant,Urine Detected (NotDetected); Urn Cannabinoid Scrn Detected (NotDetected)
--- NOTE | 2019-10-20 15:06 | ED ---
Psych HPI - General Source: patient, RN notes reviewed Mode of arrival: ambulatory - History of Present Illness MD Complaint: suicidal ideation, feels depressed, other <Darrell Pena - Last Filed: 10/20/19 16:59> <Ulises Caro - Last Filed: 10/20/19 19:44> - General Chief Complaint: Psychiatric Symptoms Stated Complaint: Mental health Time Seen by Provider: 10/20/19 13:57 - History of Present Illness Initial Comments: Subjective 54-year-old female history depression and anxiety who presents today with complaints of feeling suicidal and feeling very depressed especially over last couple days. She also is very anxious. She has no specific plan that she admits to me. This time she is afraid that she will hurt herself. No drugs or alcohol since she has used marijuana last couple days. (Darrell Pena) - Related Data Home Medications Medication Instructions Recorded Confirmed Albuterol Inhaler [Ventolin Hfa 2 puff INHALATION RT-QID 06/29/17 10/20/19 Inhaler] Lisinopril [Zestril] 10 mg PO DAILY 12/12/17 10/20/19 Dextroamphetamine/Amphetamine 20 mg PO TID 04/30/18 10/20/19 [Adderall] Lidocaine [Lidoderm 5% Patch] 1 patch TRANSDERM DAILY 04/30/18 10/20/19 Brexpiprazole [Rexulti] 4 mg PO HS 10/20/19 10/20/19 Doxepin HCl [SINEquan] 100 mg PO HS 10/20/19 10/20/19 Fenofibrate Nanocrystallized 145 mg PO DAILY 10/20/19 10/20/19 [Tricor] Naltrexone HCl [Revia] 25 mg PO DAILY 10/20/19 10/20/19 OXcarbazepine [Trileptal] 600 mg PO HS 10/20/19 10/20/19 Sertraline [Zoloft] 50 mg PO DAILY 10/20/19 10/20/19 Umeclidinium [employer] [Incruse 1 puff INHALATION RT-DAILY 10/20/19 10/20/19 Ellipta] clonazePAM 0.5 mg PO TID 10/20/19 10/20/19 lamoTRIgine [LaMICtal Xr] 600 mg PO HS 10/20/19 10/20/19 Allergies Allergy/AdvReac Type Severity Reaction Status Date / Time latex AdvReac Rash/Hives Verified 10/20/19 16:55 ziprasidone [From Geodon] AdvReac Swelling Verified 10/20/19 16:55 Review of Systems ROS Other: All systems not noted in ROS Statement are negative. <Darrell Pena - Last Filed: 10/20/19 16:59> ROS Other: All systems not noted in ROS Statement are negative. <Ulises Caro - Last Filed: 10/20/19 19:44> ROS Statement: Those systems with pertinent positive or pertinent negative responses have been documented in the HPI. Past Medical History Past Medical History: Diabetes Mellitus, Hyperlipidemia, Hypertension Additional Past Medical History / Comment(s): Chronic back pain, pt states she is no longer diabetic since wt loss, has hepatitis C antibodies, UTI. History of Any Multi-Drug Resistant Organisms: None Reported Past Surgical History: Bariatric Surgery, Section, Cholecystectomy, Tonsillectomy Additional Past Surgical History / Comment(s): three abortions, ortho surgery Past Anesthesia/Blood Transfusion Reactions: No Reported Reaction Past Psychological History: ADD/ADHD, Anxiety, Bipolar, Schizoaffective Disorder Smoking Status: Current every day smoker Past Alcohol Use History: None Reported Past Drug Use History: Marijuana - Past Family History Father History Unknown: Yes Additional Family Medical History / Comment(s): Patient is adopted Mother History Unknown: Yes Additional Family Medical History / Comment(s): Pt is adopted. <Darrell Pena - Last Filed: 10/20/19 16:59> General Exam Limitations: no limitations General appearance: alert, anxious, in distress Head exam: Present: atraumatic, normocephalic, normal inspection Eye exam: Present: PERRL, EOMI, other (Injected conjunctiva). Absent: scleral icterus, conjunctival injection, periorbital swelling ENT exam: Present: normal exam, mucous membranes moist Neck exam: Present: normal inspection. Absent: tenderness, meningismus, lymphadenopathy Respiratory exam: Present: normal lung sounds bilaterally. Absent: respiratory distress, wheezes, rales, rhonchi, stridor Cardiovascular Exam: Present: regular rate, normal rhythm, normal heart sounds. Absent: systolic murmur, diastolic murmur, rubs, gallop, clicks GI/Abdominal exam: Present: soft, normal bowel sounds. Absent: distended, tenderness, guarding, rebound, rigid Extremities exam: Present: normal inspection, full ROM, normal capillary refill. Absent: tenderness, pedal edema, joint swelling, calf tenderness Back exam: Present: normal inspection Neurological exam: Present: alert, oriented X3, CN II-XII intact Psychiatric exam: Present: depressed, anxious, suicidal ideation Skin exam: Present: warm, dry, intact, normal color. Absent: rash <Darrell Pena - Last Filed: 10/20/19 16:59> - General Exam Comments Initial Comments: This a well-developed well-nourished awake alert oriented 3 female who is tear ful during the examination. (Darrell Pena) Course <Darrell Pena - Last Filed: 10/20/19 16:59> Vital Signs 10/20/19 13:40 Temperature 97.9 F Pulse Rate 85 Respiratory 20 Rate Blood Pressure 143/99 O2 Sat by Pulse 99 Oximetry - Reevaluation(s) Reevaluation #1: 10/20/19 16:59 The patient's care is endorsed to Dr. Caro and her shift change. Patient is evaluation is pending (Darrell Pena) Medical Decision Making - Lab Data Lab Results 10/20/19 10/20/19 Range/Units 13:54 13:54 Urine Color Yellow Urine Appearance Cloudy H (Clear) Urine pH 6.0 (5.0-8.0) Ur Specific [place] 1.024 (1.001-1.035) Urine Protein 1+ H (Negative) Urine Glucose (UA) Negative (Negative) Urine Ketones Trace H (Negative) Urine Blood Negative (Negative) Urine Nitrite Negative (Negative) Urine Bilirubin Negative (Negative) Urine Urobilinogen 2.0 (<2.0) mg/dL Ur Leukocyte Esterase Moderate H (Negative) Urine WBC 30 H (0-5) /hpf Ur Squamous Epith Cells 27 H (0-4) /hpf Urine Bacteria Moderate H (None) /hpf Urine Mucus Moderate H (None) /hpf Urine HCG, Qual Not Detected (Not Detectd) Urine Opiates Screen Not Detected (NotDetected) Ur Oxycodone Screen Not Detected (NotDetected) Urine Methadone Screen Not Detected (NotDetected) Ur Propoxyphene Screen Not Detected (NotDetected) Ur Barbiturates Screen Not Detected (NotDetected) U Tricyclic Antidepress Detected H (NotDetected) Ur Phencyclidine Scrn Not Detected (NotDetected) Ur Amphetamines Screen Not Detected (NotDetected) U Methamphetamines Scrn Not Detected (NotDetected) U Benzodiazepines Scrn Detected H (NotDetected) Urine Cocaine Screen Not Detected (NotDetected) U Marijuana (THC) Screen Detected H (NotDetected) Disposition <Darrell Pena - Last Filed: 10/20/19 16:59> Time of Disposition: 19:43 <Ulises Caro - Last Filed: 10/20/19 19:44> Clinical Impression: Psychosis Disposition: TRANSFER TO PSYCH HOSP/UNIT Condition: Fair Referrals: [facility] [Primary Care Provider] - 1-2 days
[2019-10-20 20:52] VITALS: RESP 16
[2019-10-20 20:57] VITALS: BP 136/69; PULSE 81; TEMP 98
== END 2019-10-20 20:56 ==
LOC: EC 13:38
DX: F29 Unspecified psychosis not due to a substance or known physiological condition (principal); E11.9 Type 2 diabetes mellitus without complications; I10 Essential (primary) hypertension; E78.5 Hyperlipidemia, unspecified; F90.9 Attention-deficit hyperactivity disorder, unspecified type; F41.9 Anxiety disorder, unspecified; F31.9 Bipolar disorder, unspecified; F17.200 Nicotine dependence, unspecified, uncomplicated; Z79.899 Other long term (current) drug therapy; Z91.040 Latex allergy status; Z88.8 Allergy status to other drugs, medicaments and biological substances; Z98.84 Bariatric surgery status
CPT/HCPCS: 80306; 81001; 81025; 82075; 99285

== ENCOUNTER 2020-01-21 12:04 | Emergency (ER) | payer MEDICARE, OTHER ==
[2020-01-21 12:08] VITALS: BP 109/77; PULSE 99; RESP 18; TEMP 97.9
[2020-01-21] MEDS ORDERED: IBUPROFEN 600 MG TAB PO STA (12:32)
--- NOTE | 2020-01-21 12:39 | ED ---
Lower Extremity Injury HPI - General Chief Complaint: Extremity Injury, Lower Stated Complaint: knee pain Time Seen by Provider: 01/21/20 12:17 Source: patient Mode of arrival: wheelchair Limitations: physical limitation - History of Present Illness Initial Comments: Patient is a 54-year-old female, well-known to the ER, presenting to the emergency Department with complaints of right knee pain 3 weeks. Patient states she does not remember a particular injury. Patient states that she no she did not fall. She denies any previous surgeries or injuries to this right knee. Patient states it hurts on the front and the back of her knee and increases pain with knee flexion. She does have a knee brace on right now. She denies any numbness and tingling into her extremity. She denies fever, chills. She denies history of blood clots. She has no other complaints at this time. Upon arrival to the ER her vitals are stable. - Related Data Home Medications Medication Instructions Recorded Confirmed Albuterol Inhaler (Bulk) [Ventolin 2 puff INHALATION RT-QID 06/29/17 10/20/19 Hfa Inhaler (Bulk)] Lisinopril [Zestril] 10 mg PO DAILY 12/12/17 10/20/19 Dextroamphetamine/Amphetamine 20 mg PO TID 04/30/18 10/20/19 [Adderall] Lidocaine [Lidoderm 5% Patch] 1 patch TRANSDERM DAILY 04/30/18 10/20/19 Brexpiprazole [Rexulti] 4 mg PO HS 10/20/19 10/20/19 Doxepin HCl [SINEquan] 100 mg PO HS 10/20/19 10/20/19 Fenofibrate Nanocrystallized 145 mg PO DAILY 10/20/19 10/20/19 [Tricor] Naltrexone HCl [Revia] 25 mg PO DAILY 10/20/19 10/20/19 OXcarbazepine [Trileptal] 600 mg PO HS 10/20/19 10/20/19 Sertraline [Zoloft] 50 mg PO DAILY 10/20/19 10/20/19 Umeclidinium [place] [Incruse 1 puff INHALATION RT-DAILY 10/20/19 10/20/19 Ellipta] clonazePAM 0.5 mg PO TID 10/20/19 10/20/19 lamoTRIgine [LaMICtal Xr] 600 mg PO HS 10/20/19 10/20/19 Previous Rx's Medication Instructions Recorded Ibuprofen [Motrin] 600 mg PO Q8HR PRN #30 tab 01/21/20 Allergies Allergy/AdvReac Type Severity Reaction Status Date / Time latex AdvReac Rash/Hives Verified 01/21/20 12:08 ziprasidone [From Geodon] AdvReac Swelling Verified 01/21/20 12:08 Review of Systems ROS Statement: Those systems with pertinent positive or pertinent negative responses have been documented in the HPI. ROS Other: All systems not noted in ROS Statement are negative. Past Medical History Past Medical History: Diabetes Mellitus, Hyperlipidemia, Hypertension Additional Past Medical History / Comment(s): Chronic back pain, pt states she is no longer diabetic since wt loss, has hepatitis C antibodies, UTI. History of Any Multi-Drug Resistant Organisms: None Reported Past Surgical History: Bariatric Surgery, Section, Cholecystectomy, Tonsillectomy Additional Past Surgical History / Comment(s): three abortions, ortho surgery Past Anesthesia/Blood Transfusion Reactions: No Reported Reaction Past Psychological History: ADD/ADHD, Anxiety, Bipolar, Schizoaffective Disorder Smoking Status: Current every day smoker Past Alcohol Use History: None Reported Past Drug Use History: Marijuana - Past Family History Father History Unknown: Yes Additional Family Medical History / Comment(s): Patient is adopted Mother History Unknown: Yes Additional Family Medical History / Comment(s): Pt is adopted. General Exam - General Exam Comments Initial Comments: GENERAL: Well-appearing, well-nourished and in no acute distress. HEAD: Atraumatic, normocephalic. EYES: Pupils equal round and reactive to light, extraocular movements intact, sclera anicteric, conjunctiva are normal. ENT: TMs normal, nares patent, oropharynx clear without exudates. Moist mucous membranes. NECK: Normal range of motion, supple without lymphadenopathy or JVD. LUNGS: Breath sounds clear to auscultation bilaterally and equal. No wheezes rales or rhonchi. HEART: Regular rate and rhythm without murmurs, rubs or gallops. ABDOMEN: Soft, nontender, normoactive bowel sounds. No guarding, no rebound. No masses appreciated. : Deferred EXTREMITIES: Patient has pain with palpation of the anterior and posterior right knee. She is increased pain with knee flexion. There is no erythema or pain into her calf. She is neurovascular intact. No clubbing or cyanosis. NEUROLOGICAL: Normal speech, PSYCH: Normal mood, normal affect. SKIN: Warm, Dry, normal turgor, no rashes or lesions noted. Limitations: physical limitation Course Vital Signs 01/21/20 12:05 Temperature 97.9 F Pulse Rate 99 Respiratory 18 Rate Blood Pressure 109/77 O2 Sat by Pulse 98 Oximetry Medical Decision Making - Medical Decision Making Patient is a 54-year-old female presenting with right knee pain 3 weeks. She does not recall certain injury. She does have some mild tenderness and swelling on exam. No signs of infection, no concern for blood clot. X-rays of the right knee reveal osteoarthritic changes, small effusion suprapatella. No other acute findings. I discussed with patient that she is to continue with ice, elevation. She may follow up with orthopedics if this is not improved. Patient is in agreement with this plan of care. She is requesting a prescription for ibuprofen. She is stable for discharge. Return parameters as with the patient and she verbalized understanding. Disposition Clinical Impression: Right knee pain Disposition: HOME SELF-CARE Condition: Stable Instructions (If sedation given, give patient instructions): Knee Pain (ED) Additional Instructions: Please return to the Emergency Department if symptoms worsen or any other concerns. Continue with anti-inflammatory, ice, elevation for swelling and pain control. Follow up with orthopedics if symptoms persist. Prescriptions: Ibuprofen [Motrin] 600 mg PO Q8HR PRN #30 tab PRN Reason: Pain Is patient prescribed a controlled substance at d/c from ED?: No Referrals: [facility] [Primary Care Provider] - 1-2 days
--- NOTE | 2020-01-21 12:53 | XR ---
EXAMINATION TYPE: XR knee complete RT , 3 VIEWS DATE OF EXAM ORDERED: 01/21/2020 HISTORY: pain, swelling. COMPARISON: None. FINDINGS: There is mild medial joint space loss. There is minor peaking of intercondylar spines. The re is remodeling change in the patellofemoral joint. Fullness in the suprapatellar region is suggesti ve of pleural effusion. No fracture or dislocation is seen. IMPRESSION: 1. NO ACUTE OSSEOUS LESION. 2. MILD CHANGES OF OSTEOARTHRITIS. 3. I CANNOT EXCLUDE A SMALL JOINT EFFUSION.
== END 2020-01-21 13:07 | disposition home or self-care (01) ==
LOC: EC 12:04
DX: M17.11 Unilateral primary osteoarthritis, right knee (principal); E78.5 Hyperlipidemia, unspecified; I10 Essential (primary) hypertension; F90.9 Attention-deficit hyperactivity disorder, unspecified type; F41.9 Anxiety disorder, unspecified; F25.0 Schizoaffective disorder, bipolar type; F17.200 Nicotine dependence, unspecified, uncomplicated; Z79.899 Other long term (current) drug therapy; Z91.040 Latex allergy status; Z88.8 Allergy status to other drugs, medicaments and biological substances
CPT/HCPCS: 99283

== ENCOUNTER 2020-07-04 15:20 | Emergency (ER) | payer MEDICARE, OTHER ==
[2020-07-04] MEDS ORDERED: KETOROLAC 15 MG/ML 1 ML VIAL IM STA (16:01)
[2020-07-04] MEDS ORDERED: ORPHENADRINE 30 MG/ML 2 ML VIAL IM STA (16:01)
--- NOTE | 2020-07-04 16:28 | ED ---
Upper Extremity HPI - General Source: patient, RN notes reviewed, old records reviewed Mode of arrival: ambulatory Limitations: no limitations <Lyn Gonzales - Last Filed: 07/04/20 17:35> <Soledad Castro - Last Filed: 07/05/20 00:02> - General Chief Complaint: Extremity Injury, Upper Stated Complaint: RIGHT ARM PAIN Time Seen by Provider: 07/04/20 15:43 - History of Present Illness Initial Comments: 54-year-old female presents today with right shoulder pain. She reports she's had chronic shoulder pain is present and steroid shots. Patient states that the pain today with after receiving a flu shot in the arm.Patient denies any recent fever, chills, shortness of breath, chest pain, back pain, abdominal pain, nausea vomiting, numbness or tingling, dysuria or hematuria, constipation or diarrhea, headaches or visual changes, or any other current symptoms (Lyn Gonzales) - Related Data Home Medications Medication Instructions Recorded Confirmed Albuterol Inhaler (Mhu) [Ventolin 2 puff INHALATION RT-QID 06/29/17 10/20/19 Hfa Inhaler (Mhu)] lisinopriL [Zestril] 10 mg PO DAILY 12/12/17 10/20/19 Dextroamphetamine/Amphetamine 20 mg PO TID 04/30/18 10/20/19 [Adderall] Lidocaine [Lidoderm 5% Patch] 1 patch TRANSDERM DAILY 04/30/18 10/20/19 Brexpiprazole [Rexulti] 4 mg PO HS 10/20/19 10/20/19 Doxepin HCl [SINEquan] 100 mg PO HS 10/20/19 10/20/19 Fenofibrate Nanocrystallized 145 mg PO DAILY 10/20/19 10/20/19 [Tricor] Naltrexone HCl [Revia] 25 mg PO DAILY 10/20/19 10/20/19 OXcarbazepine [Trileptal] 600 mg PO HS 10/20/19 10/20/19 Sertraline [Zoloft] 50 mg PO DAILY 10/20/19 10/20/19 Umeclidinium [place] [Incruse 1 puff INHALATION RT-DAILY 10/20/19 10/20/19 Ellipta] clonazePAM 0.5 mg PO TID 10/20/19 10/20/19 lamoTRIgine [LaMICtal Xr] 600 mg PO HS 10/20/19 10/20/19 Previous Rx's Medication Instructions Recorded Ibuprofen [Motrin] 600 mg PO Q8HR PRN #30 tab 01/21/20 Orphenadrine [Norflex] 100 mg PO Q12H #10 tablet.er 07/04/20 Allergies Allergy/AdvReac Type Severity Reaction Status Date / Time latex AdvReac Rash/Hives Verified 07/04/20 15:24 ziprasidone [From Geodon] AdvReac Swelling Verified 07/04/20 15:24 Review of Systems ROS Other: All systems not noted in ROS Statement are negative. <Lyn Gonzales - Last Filed: 07/04/20 17:35> ROS Other: All systems not noted in ROS Statement are negative. <Soledad Castro - Last Filed: 07/05/20 00:02> ROS Statement: Those systems with pertinent positive or pertinent negative responses have been documented in the HPI. Past Medical History Past Medical History: Diabetes Mellitus, Hyperlipidemia, Hypertension Additional Past Medical History / Comment(s): Chronic back pain, pt states she is no longer diabetic since wt loss, has hepatitis C antibodies, UTI. History of Any Multi-Drug Resistant Organisms: None Reported Past Surgical History: Bariatric Surgery, Section, Cholecystectomy, Tonsillectomy Additional Past Surgical History / Comment(s): three abortions, ortho surgery Past Anesthesia/Blood Transfusion Reactions: No Reported Reaction Past Psychological History: ADD/ADHD, Anxiety, Bipolar, Schizoaffective Disorder Smoking Status: Current every day smoker Past Alcohol Use History: None Reported Past Drug Use History: Marijuana - Past Family History Father History Unknown: Yes Additional Family Medical History / Comment(s): Patient is adopted Mother History Unknown: Yes Additional Family Medical History / Comment(s): Pt is adopted. <Lyn Gonzales - Last Filed: 07/04/20 17:35> General Exam Limitations: no limitations General appearance: alert, in no apparent distress Head exam: Present: atraumatic, normocephalic, normal inspection Eye exam: Present: normal appearance, PERRL, EOMI. Absent: scleral icterus, conjunctival injection, periorbital swelling ENT exam: Present: normal exam, mucous membranes moist Neck exam: Present: normal inspection. Absent: tenderness, meningismus, lymphadenopathy Respiratory exam: Present: normal lung sounds bilaterally. Absent: respiratory distress, wheezes, rales, rhonchi, stridor Cardiovascular Exam: Present: regular rate, normal rhythm, normal heart sounds. Absent: systolic murmur, diastolic murmur, rubs, gallop, clicks GI/Abdominal exam: Present: soft, normal bowel sounds. Absent: distended, tenderness, guarding, rebound, rigid Extremities exam: Present: normal inspection, other (Right shoulder is reviewed and shows no erythemaand swelling. Patient has pain with range motion of abduction of the arm. No elbow or wrist pain. Capillary refills less than 2 seconds.) Back exam: Present: normal inspection Neurological exam: Present: alert, oriented X3, CN II-XII intact <Lyn Gonzales - Last Filed: 07/04/20 17:35> - General Exam Comments Initial Comments: Alert and oriented. 54-year-old female. No distress. (Lyn Gonzales) Course Vital Signs 07/04/20 07/04/20 15:22 16:48 Temperature 97.7 F 98 F Pulse Rate 94 82 Respiratory 20 14 Rate Blood Pressure 136/81 118/69 O2 Sat by Pulse 100 98 Oximetry Medical Decision Making - Radiology Data Radiology results: report reviewed <Lyn Gonzales - Last Filed: 07/04/20 17:35> <Soledad Castro - Last Filed: 07/05/20 00:02> - Medical Decision Making Patient's-year-old feel presents for shortness today with right shoulder pain with range of motion. He reports symptoms seemed to occur after getting her flu shot. She is no erythema swelling or redness to the arm. X-ray shows no evidence of fracture soft tissue air. Patient has improvement after IM Norflex and Toradol the other arm. Patient advised to continue plantar medicine. She does have an upcoming appointment with orthopedic due to chronic shoulder pain. Patient is history plan will apply. (Lyn Gonzales) I was available for consultation in the emergency department. The history and physical exam were done by the midlevel provider. I was not consulted for this patients care. Chart was dictated using [employer] dictation software. Attempts were made to correct any dictation errors however some typographical errors may persist. Patient was seen during a [facility] of emergency due to the Covid-19 pandemic. (Soledad Castro) - Radiology Data Negative right shoulder exam (Lyn Gonzales) Disposition Is patient prescribed a controlled substance at d/c from ED?: No Time of Disposition: 17:36 <Lyn Gonzales - Last Filed: 07/04/20 17:35> <Soledad Castro - Last Filed: 07/05/20 00:02> Clinical Impression: Right arm pain, Shoulder strain Disposition: HOME SELF-CARE Condition: Good Instructions (If sedation given, give patient instructions): Shoulder Sprain (ED) Additional Instructions: Please use medication as discussed. Please follow up with family doctor if symptoms have not improved over the next two days. Please return to the emergency room if your symptoms increase or worsen or for any other concerns. Prescriptions: Orphenadrine [Norflex] 100 mg PO Q12H #10 tablet.er Referrals: [facility] [Primary Care Provider] - 1-2 days
[2020-07-04 16:50] VITALS: BP 118/69; PULSE 82; RESP 14; TEMP 98
--- NOTE | 2020-07-04 17:17 | XR ---
EXAMINATION TYPE: XR shoulder complete RT DATE OF EXAM: 07/04/2020 COMPARISON: NONE HISTORY: Shoulder pain TECHNIQUE: 3 views FINDINGS: I see no fracture nor dislocation. Joint spaces are normal. Soft tissues appear normal. IMPRESSION: Negative right shoulder exam.
== END 2020-07-04 17:53 | disposition home or self-care (01) ==
LOC: EC 15:20
DX: S46.911A Strain of unspecified muscle, fascia and tendon at shoulder and upper arm level, right arm, initial encounter (principal); M79.601 Pain in right arm; I10 Essential (primary) hypertension; E78.5 Hyperlipidemia, unspecified; F41.9 Anxiety disorder, unspecified; F90.9 Attention-deficit hyperactivity disorder, unspecified type; F31.9 Bipolar disorder, unspecified; F25.9 Schizoaffective disorder, unspecified; F17.200 Nicotine dependence, unspecified, uncomplicated; Z79.899 Other long term (current) drug therapy; Z91.040 Latex allergy status; Z88.8 Allergy status to other drugs, medicaments and biological substances; X58.XXXA Exposure to other specified factors, initial encounter
CPT/HCPCS: 73030; 99284; 96372 ×2; J2360; J1885

== ENCOUNTER 2020-09-09 07:04 | Emergency (ER) | payer MEDICARE, OTHER ==
[2020-09-09 07:14] VITALS: BP 98/66; PULSE 69; RESP 18; TEMP 98.9
[2020-09-09] MEDS ORDERED: AZITHROMYCIN 250 MG TAB PO STA (07:37)
[2020-09-09] MEDS ORDERED: cefTRIAXone 250 MG VIAL IM STA (07:37)
--- NOTE | 2020-09-09 07:41 | ED ---
Female Urogenital HPI - General Chief complaint: Urogenital Stated complaint: urogenital Time Seen by Provider: 09/09/20 07:23 Source: patient, RN notes reviewed Mode of arrival: ambulatory Limitations: no limitations - History of Present Illness Initial comments: 54-year-old female presents emergency Department with chief complaint of vaginal itching. Patient states that she was recently treated for bacterial vaginosis and her symptoms have returned. Patient states that she was told it could be from her toys she states that she has cleaned and boil all of her toys. Patient states that she does not want exam states that she just wants to be treated for possible STDs, nitro vaginosis. Patient is also struggle with these infections. She has no dysuria no hematuria no flank pain. Patient states she did have recent intercourse and which she states her condom broke complaints when symptoms started. - Related Data Home Medications Medication Instructions Recorded Confirmed Albuterol Inhaler (Mhu) [Ventolin 2 puff INHALATION RT-QID 06/29/17 10/20/19 Hfa Inhaler (Mhu)] lisinopriL [Zestril] 10 mg PO DAILY 12/12/17 10/20/19 Dextroamphetamine/Amphetamine 20 mg PO TID 04/30/18 10/20/19 [Adderall] Lidocaine [Lidoderm 5% Patch] 1 patch TRANSDERM DAILY 04/30/18 10/20/19 Brexpiprazole [Rexulti] 4 mg PO HS 10/20/19 10/20/19 Doxepin HCl [SINEquan] 100 mg PO HS 10/20/19 10/20/19 Fenofibrate Nanocrystallized 145 mg PO DAILY 10/20/19 10/20/19 [Tricor] Naltrexone HCl [Revia] 25 mg PO DAILY 10/20/19 10/20/19 OXcarbazepine [Trileptal] 600 mg PO HS 10/20/19 10/20/19 Sertraline [Zoloft] 50 mg PO DAILY 10/20/19 10/20/19 Umeclidinium [place] [Incruse 1 puff INHALATION RT-DAILY 10/20/19 10/20/19 Ellipta] clonazePAM 0.5 mg PO TID 10/20/19 10/20/19 lamoTRIgine [LaMICtal Xr] 600 mg PO HS 10/20/19 10/20/19 Previous Rx's Medication Instructions Recorded Ibuprofen [Motrin] 600 mg PO Q8HR PRN #30 tab 01/21/20 Orphenadrine [Norflex] 100 mg PO Q12H #10 tablet.er 07/04/20 Fluconazole [Diflucan] 150 mg PO ONCE #4 tab 09/09/20 metroNIDAZOLE [Flagyl] 500 mg PO TID #21 tab 09/09/20 Allergies Allergy/AdvReac Type Severity Reaction Status Date / Time latex AdvReac Rash/Hives Verified 09/09/20 07:14 ziprasidone [From Geodon] AdvReac Swelling Verified 09/09/20 07:14 Review of Systems ROS Statement: Those systems with pertinent positive or pertinent negative responses have been documented in the HPI. ROS Other: All systems not noted in ROS Statement are negative. Past Medical History Past Medical History: Diabetes Mellitus, Hyperlipidemia, Hypertension Additional Past Medical History / Comment(s): Chronic back pain, has hepatitis C antibodies, UTI. History of Any Multi-Drug Resistant Organisms: None Reported Past Surgical History: Bariatric Surgery, Section, Cholecystectomy, Tonsillectomy Additional Past Surgical History / Comment(s): three abortions, ortho surgery Past Anesthesia/Blood Transfusion Reactions: No Reported Reaction Past Psychological History: ADD/ADHD, Anxiety, Bipolar, Schizoaffective Disorder Smoking Status: Current every day smoker Past Alcohol Use History: None Reported Past Drug Use History: Marijuana - Past Family History Father History Unknown: Yes Additional Family Medical History / Comment(s): Patient is adopted Mother History Unknown: Yes Additional Family Medical History / Comment(s): Pt is adopted. General Exam Limitations: no limitations General appearance: alert, in no apparent distress Head exam: Present: atraumatic, normocephalic, normal inspection Eye exam: Present: normal appearance, PERRL, EOMI. Absent: scleral icterus, conjunctival injection, periorbital swelling ENT exam: Present: normal exam, normal oropharynx, mucous membranes moist Neck exam: Present: normal inspection, full ROM. Absent: tenderness, meningismus, lymphadenopathy Respiratory exam: Present: normal lung sounds bilaterally. Absent: respiratory distress, wheezes, rales, rhonchi, stridor Cardiovascular Exam: Present: regular rate, normal rhythm, normal heart sounds. Absent: systolic murmur, diastolic murmur, rubs, gallop, clicks GI/Abdominal exam: Present: soft, normal bowel sounds. Absent: distended, tenderness, guarding, rebound, rigid Course Vital Signs 09/09/20 07:12 Temperature 98.9 F Pulse Rate 69 Respiratory 18 Rate Blood Pressure 98/66 Medical Decision Making - Medical Decision Making Patient refuses pelvic exam patient is requesting be treated for bacterial vaginosis, STDs. Patient provided Rocephin, Cipro, Flagyl and Diflucan. Patient will follow-up with PCP and return for any worsening symptoms. Disposition Clinical Impression: Vaginal Discharge, Vaginal itching Disposition: HOME SELF-CARE Condition: Stable Instructions (If sedation given, give patient instructions): Bacterial Vaginosis (ED) Additional Instructions: Please return to the Emergency Department if symptoms worsen or any other concerns. Prescriptions: Fluconazole [Diflucan] 150 mg PO ONCE #4 tab metroNIDAZOLE [Flagyl] 500 mg PO TID #21 tab Is patient prescribed a controlled substance at d/c from ED?: No Referrals: [facility] [Primary Care Provider] - 1-2 days Time of Disposition: 07:41
== END 2020-09-09 08:03 | disposition home or self-care (01) ==
LOC: EC 07:04
DX: N89.8 Other specified noninflammatory disorders of vagina (principal); L29.8 Other pruritus; I10 Essential (primary) hypertension; E78.5 Hyperlipidemia, unspecified; F90.9 Attention-deficit hyperactivity disorder, unspecified type; F41.9 Anxiety disorder, unspecified; F31.9 Bipolar disorder, unspecified; F25.9 Schizoaffective disorder, unspecified; F17.200 Nicotine dependence, unspecified, uncomplicated; Z79.899 Other long term (current) drug therapy; Z91.040 Latex allergy status; Z88.8 Allergy status to other drugs, medicaments and biological substances
CPT/HCPCS: 99283 ×2; 96372 ×2; J0696

== ENCOUNTER → 2020-09-11 | Outpatient (CLI) | payer MEDICARE, OTHER ==
[2020-09-11 16:57] LABS: Basophils % (A) 1 %; Eosinophils # (A) 0.4 k/uL (0-0.7); Eosinophils % (A) 5 %; HGB 11.6 gm/dL (11.4-16.0); Lymphocytes # (A) 2.1 k/uL (1.0-4.8); Lymphocytes % (A) 28 %; MCH 31.5 pg (25.0-35.0); MCHC 32.3 g/dL (31.0-37.0); MCV 97.6 fL (80.0-100.0); Mean Platelet Volume 7.6; Monocytes # (A) 0.3 k/uL (0-1.0); Monocytes % (A) 4 %; Neutrophils # (A) 4.7 k/uL (1.3-7.7); Neutrophils % (A) 61 %; Platelet Count 227 k/uL (150-450); RBC 3.69 m/uL (3.80-5.40); RDW 13.4 % (11.5-15.5); WBC 7.7 k/uL (3.8-10.6)
[2020-09-12 04:58] LABS: African American GFR (CKD) 85.2 (60.0-200.0); Albumin 4.4 g/dL (3.80-4.90); Albumin/Globulin Ratio 2.1 (1.60-3.17); Anion Gap 6.9 mmol/L (4.00-12.00); BUN/Creat Ratio 12.22 Ratio (12.00-20.00); Calcium 9.5 mg/dL (8.7-10.3); Carbon Dioxide 24.1 mmol/L (21.6-31.8); Globulin 2.1 g/dL (1.6-3.3); Non-African American GFR(CKD) 73.5 (60.0-200.0); Potassium 3.9 mmol/L (3.5-5.5); Total Bilirubin 0.1 mg/dL (0.2-1.2); Total Protein 6.5 g/dL (6.2-8.2)
== END | disposition home or self-care (01) ==
LOC: LABWHC1 16:18
PROVIDERS: ATTEND Nurse Practitioner
DX: Z01.818 Encounter for other preprocedural examination (principal)
CPT/HCPCS: 36415; 80053; 85025; 93005

== ENCOUNTER 2020-09-14 05:35 | Day surgery (SDC) | payer MEDICARE, OTHER ==
[2020-09-12 10:13] VITALS: BMI 26.9
--- NOTE | 2020-09-13 09:46 | HP ---
HISTORY AND PHYSICAL CHIEF COMPLAINT: Right shoulder pain. HISTORY OF PRESENT ILLNESS: Patient is a 54-year-old right-hand female on disability, who presents with progressive right shoulder pain for the past year. She is having pain with overhead use and at night. She notes at times this can be quite severe. She has tried medications, therapy, home exercises, and a previous cortisone injection along with a Medrol Dosepak without much relief. She notes the pain limits her normal function and activities. PAST MEDICAL HISTORY: Significant for asthma, depression, hypertension, and drug addiction. PAST SURGICAL HISTORY: Significant for gastric bypass, cholecystectomy, section, and tonsillectomy. CURRENT MEDICATIONS: Adderall, Ditropan, Klonopin, Lamictal, Lidoderm patch, lisinopril, Lyrica, Pulmicort, Protonix, Ventolin, Suboxone, and ibuprofen. She has allergies to GEODON and LASIX. FAMILY HISTORY: Unknown. SOCIAL HISTORY: Significant for 1/4 pack per day tobacco use. 16 POINT REVIEW OF SYSTEMS: Otherwise reviewed and is noncontributory. PHYSICAL EXAMINATION: On examination, the patient is approximately 5 foot 7, 187 pounds of endomorphic habitus. HEENT: Exam is nonfocal. NECK: Supple. On examination of the right shoulder, she is tender about the anterior subacromial space. She has mild subacromial crepitus. Active range of motion, forward elevation 145 degrees, external rotation with arm at side 60 degrees, internal rotation to T11. Motor strength 5-/5 for abduction and external rotation. Impingement test, NEER test, and Speed test are positive. Her distal neurovascular exam appears intact in the right upper extremity. Previous MRI report 07/25/2020 of the right shoulder shows a supraspinatus tear along the bursal surface. Mild glenohumeral joint narrowing is noted. There is increased signal involving the superior labrum at the biceps anchor. IMPRESSION: 1. Right shoulder impingement with symptomatic rotator cuff tear. 2. Right proximal bicipital tendinosis. 3. History of chemical dependency. RECOMMENDATIONS: I talked to the patient at length regarding her condition and treatment options. At this point, she remains quite symptomatic despite previous extensive conservative measures. After thorough discussion, she has to proceed with surgery. We will plan to proceed with arthroscopic evaluation of the right shoulder with probable subacromial decompression, possible rotator cuff debridement versus repair, possible biceps tenotomy, in addition to possible distal clavicular resection. Risks and benefits were discussed at length in layman's terms. We will likely perform that as an outpatient procedure. MMODL / IJN: [id number] /
[2020-09-14] MEDS ORDERED: MIDAZOLAM 2 MG/2 ML VIAL IV PRN (06:00)
[2020-09-14] MEDS ORDERED: ONDANSETRON 4 MG/2 ML VIAL IVP ONE (06:00)
[2020-09-14] MEDS ORDERED: HYDROmorphone 0.5 MG/0.5 ML SYRINGE IVP PRN (06:00)
[2020-09-14] MEDS ORDERED: DEXAMETHASONE SOD PHOSPHATE 4 MG/ML 1 ML VIAL IV ONE (06:00)
[2020-09-14] MEDS ORDERED: LACTATED RINGERS 1,000 ML IV SCH (06:00)
[2020-09-14 06:49] LABS: Glucose,Whole Blood 89 mg/dL (75-99)
[2020-09-14] MEDS ORDERED: LIDOCAINE 1% (10MG/ML) FOR IV START SQ ONE (06:49)
[2020-09-14] MEDS ORDERED: MIDAZOLAM 2 MG/2 ML VIAL IV ONE (07:33)
[2020-09-14] MEDS ORDERED: LIDOCAINE 1% INJ 10MG/ML (20 ML MDV) ONE (07:52)
[2020-09-14] MEDS ORDERED: SUCCINYLCHOLINE CHLORIDE 100 MG/5 ML SYR IV ONE (07:52)
[2020-09-14] MEDS ORDERED: ROPIVACAINE 5 MG/ML 30 ML VIAL ONE (07:52)
[2020-09-14] MEDS ORDERED: PROPOFOL 10 MG/ML 20 ML VIAL IV ONE (07:52)
[2020-09-14] MEDS ORDERED: fentaNYL (PF) 50 MCG/ML 2 ML AMP ONE (07:52)
[2020-09-14] MEDS ORDERED: DEXAMETHASONE SOD PHOSPHATE 4 MG/ML 1 ML VIAL ONE (07:52)
[2020-09-14] MEDS ORDERED: EPINEPHrine (PF) 1 ML in SODIUM CHLORIDE 0.9% IRRIGATIO 3,000 ML IRRIGATION ONE ×8 (08:24)
--- NOTE | 2020-09-14 09:13 | P.ANPRN ---
Procedure Note - Anesthesia - Nerve Block Performed Right Interscalene Time Out Performed: Yes (07:32) Date of Procedure: 09/14/20 Procedure Start Time: :32 Procedure Stop Time: :47 Location of Patient: PreOp Indication: Acute Post-Operative Pain, Requested by Surgeon Sedation Type: Sedate with meaningful contact maintained Preparation: Sterile Prep Position: Supine Catheter: None Needle Types: Pajunk Needle Gauge: Other (see comment) (22g) Ultrasound used to visualize needle placement: Yes Ultrasound used to observe medication spread: Yes Injectate: 0.5% Ropivacaine (see comment for volume) (15cc + [id number]) Blood Aspirated: No Pain Paresthesia on Injection Noted: No Resistance on Injection: Normal Image Stored and Saved: Yes Events: Uneventful and Well Tolerated
--- NOTE | 2020-09-14 09:34 | P.OP ---
Date of Procedure: 09/14/20 Preoperative Diagnosis: Right shoulder symptomatic rotator cuff tear Postoperative Diagnosis: 3 cm rotator cuff tear/type II superior labral tear/biceps tendinosis/acromioclavicular joint arthritis Procedure(s) Performed: Right shoulder arthroscopic subacromial decompression/rotator cuff repair/biceps tenotomy/distal clavicular resection. Implants: Arthrex 4.75 mm swivel lock anchor 4 Anesthesia: LIDIAA, regional Surgeon: Anibal Canada Bicycle I Assembler #1: Simone Cardenas Estimated Blood Loss (ml): 10 Pathology: none sent Condition: stable Disposition: PACU Indications for Procedure: The patient is a 54-year-old female presents with progressive right shoulder pain despite conservative measures. A discussion of the risks and benefits of operative intervention versus continued conservative measures was made with patient. She opted to proceed with surgery. Operative risks to include infection, neurovascular injury, development of blood clots, possible tendon rerupture, possible need for subsequent procedures was discussed. Informed consent was obtained. Operative Findings: As below Description of Procedure: The patient was brought to the operating room, and after induction of general anesthesia was placed in a beachchair position. A preoperative interscalene block was placed for postoperative analgesia. I examined the right shoulder. There was no gross block to passive motion or gross glenohumeral instability. The right upper extremity was prepped and draped in normal fashion. The bony outlines the acromion, distal clavicle, and coracoid process were outlined with a skin marker. The glenohumeral joint was inflated with 50 mL of saline utilizing a spinal needle from posterior approach. A posterior portal was made through a 5 mm skin incision 1 cm medial and inferior to the posterior lateral border time. A blunt trocar was used to easily into the joint. Diagnostic arthroscopy was performed. An anterior portal was made just lateral to the co racoid process entering the joint above the subscapularis tendon. The subscapularis tendon appeared to be intact. Anterior labrum was intact. The inferior recess was inspected. The posterior labrum was intact. The superior labrum was inspected and a type II SLAP tear was noted. The biceps was released from the superior labrum with electrocautery and allowed to retract the bicipital groove. The superior labrum was debrided back to stable base. On inspection the rotator cuff, a full-thickness tear involving the posterior portion the supraspinatus and the infraspinatus was noted measuring 3 cm. There was minimal retraction. A lateral portal was made 2 centimeters inferior to the anterior lateral border of the acromion. The rotator cuff was then mobilized with a traction suture. This was then easily brought back to the greater tuberosity. The soft tissue on the undersurface of the acromion was debrided with a motorized shaver and electrocautery clearly defining the anterior medial and lateral borders as well as the distal clavicle. An anterior inferior acromioplasty was performed with a motorized gela starting anterolateral, then extending this posteriorly, then extending this medially. I converted to a flat acromion and this was verified in the posterior and lateral viewing portals. The distal 4 mm of the clavicle was resected with a motorized gela. The rotator cuff was inspected from the bursal surface. Again a 3 cm minimally retracted tear involving the supraspinatus and infraspinatus was noted. This is easily mobilized back to the greater tuberosity. The greater tuberosity was lightly decorticating with a shaver down to a bleeding bony surface. An accessory superior lateral portals made just off the lateral edge of the acromion for anchor placement. 2 anchors were then placed just off the articular surface with the appropriate starting awl. 4.75 mm anchors preloaded with #2 fiber tape were placed. Good purchase was obtained. These fiber tapes were then passed the rotator cuff with a scorpion suture passer. A lateral row was created crisscrossing these tapes. 4.75 mm swivel lock anchors x2 were placed laterally. Good purchase was obtained. Final arthroscopic view showed adequate compression at the footprint. The arthroscope was then removed. The portals were closed with simple 3-0 nylon sutures. A sterile dressing was applied in addition to an abductor brace. The patient was then awoken from general anesthesia and transferred to recovery room in good condition. Blood loss was estimated at 10 mL. No complications were incurred. Sponge and needle counts were correct in the case. Robe CHAUDHARI assisted and the major components of the case to include arm positioning, anchor placement, and rotator cuff repair.
[2020-09-14 09:40] VITALS: TEMP 97
[2020-09-14 09:52] VITALS: RESP 16
[2020-09-14] MEDS ORDERED: KETOROLAC 15 MG/ML 1 ML VIAL IVP ONE (10:00)
[2020-09-14] MEDS ORDERED: fentaNYL (PF) 50 MCG/ML 2 ML AMP IVP ONE (10:03)
[2020-09-14] MEDS ORDERED: LACTATED RINGERS 1,000 ML IV ONE (10:20)
[2020-09-14 10:42] VITALS: BP 124/83; PULSE 65
== END 2020-09-14 11:46 | disposition home or self-care (01) ==
LOC: OR 05:35
PROVIDERS: ATTEND Orthopaedic Surgery
DX: M75.101 Unspecified rotator cuff tear or rupture of right shoulder, not specified as traumatic (principal); S43.431A Superior glenoid labrum lesion of right shoulder, initial encounter; M75.21 Bicipital tendinitis, right shoulder; M19.011 Primary osteoarthritis, right shoulder; Z91.040 Latex allergy status; Z88.8 Allergy status to other drugs, medicaments and biological substances; I10 Essential (primary) hypertension; E78.5 Hyperlipidemia, unspecified; F17.210 Nicotine dependence, cigarettes, uncomplicated; E11.9 Type 2 diabetes mellitus without complications; K21.9 Gastro-esophageal reflux disease without esophagitis; Z79.51 Long term (current) use of inhaled steroids; Z79.899 Other long term (current) drug therapy; Z86.19 Personal history of other infectious and parasitic diseases; J44.9 Chronic obstructive pulmonary disease, unspecified; F31.9 Bipolar disorder, unspecified; F43.10 Post-traumatic stress disorder, unspecified; E55.9 Vitamin D deficiency, unspecified; G25.81 Restless legs syndrome; Z87.442 Personal history of urinary calculi; Z98.891 History of uterine scar from previous surgery; Z90.49 Acquired absence of other specified parts of digestive tract; Z98.84 Bariatric surgery status; Z98.890 Other specified postprocedural states
CPT/HCPCS: 64415; 76942; 29824; 29826; 29827; C1713 ×2; C1894; J2250; J1100; J0690; J2405; J0171; J2001; J3010; J2795; J1885; J0330; J2704

== ENCOUNTER 2020-12-01 11:51 | Emergency (ER) | payer MEDICARE, OTHER ==
[2020-12-01 12:01] VITALS: BP 148/84; PULSE 56; RESP 18; TEMP 98.1
[2020-12-01] MEDS ORDERED: SODIUM CHLORIDE 0.9% 500 ML 500 ML IV STA (12:18)
[2020-12-01] MEDS ORDERED: DEXAMETHASONE SOD PHOSPHATE 10 MG/ML 1 ML VIAL IV STA (12:19)
[2020-12-01] MEDS ORDERED: KETOROLAC 15 MG/ML 1 ML VIAL IVP STA (12:19)
[2020-12-01] MEDS ORDERED: diphenhydrAMINE 50 MG/ML 1 ML VIAL IVP STA (12:19)
[2020-12-01] MEDS ORDERED: METOCLOPRAMIDE 5 MG/ML 2 ML VIAL IVP STA (12:19)
[2020-12-01] MEDS ORDERED: MAGNESIUM SULFATE-D5W PMX 1 GM in DEXTROSE/WATER 1 100ML.BAG IVPB ONE (12:19)
--- NOTE | 2020-12-01 12:24 | ED ---
General Adult HPI - General Chief complaint: Nausea/Vomiting/Diarrhea Stated complaint: fever/diarrhea/headache Time Seen by Provider: 12/01/20 12:05 Source: patient Mode of arrival: ambulatory Limitations: no limitations - History of Present Illness Initial comments: 55-year-old female with history of dm, hep c, htn, hld who presents to the ED for headache, diarrhea and subjective fevers. Patient reports that she started feeling ill on . Began having a nonproductive cough with chills and occipital headache. States that she has complete amnesia to all the events that happened yesterday. Has a poor appetite. Admits to diarrhea - has had 4 episodes of loose, brown stool today. Denies black or bloody stool. No sick contacts with similar symptoms. Admits to loss of sense of smell and is concerned for Covid. Denies any chest pain or shortness of breath. No concern for . No abnormal vaginal bleeding or discharge. No changes in her urination. No neck stiffness. States she never took her temp. Has taken 2 Motr in, last of which was . No other alleviating, precipitating or modifying factors. - Related Data Home Medications Medication Instructions Recorded Confirmed lisinopriL [Zestril] 10 mg PO HS 12/12/17 12/01/20 Dextroamphetamine/Amphetamine 20 mg PO TID 04/30/18 12/01/20 [Adderall] Brexpiprazole [Rexulti] 4 mg PO HS 10/20/19 12/01/20 Doxepin HCl [SINEquan] 100 mg PO HS 10/20/19 12/01/20 OXcarbazepine [Trileptal] 600 mg PO HS 10/20/19 12/01/20 Umeclidinium [place] [Incruse 1 puff INHALATION RT-DAILY 10/20/19 12/01/20 Ellipta] clonazePAM 0.5 mg PO TID PRN 10/20/19 12/01/20 lamoTRIgine [LaMICtal Xr] 600 mg PO HS 10/20/19 12/01/20 Budesonide [Pulmicort Flexhaler] 2 puff INHALATION RT-BID 09/12/20 12/01/20 Buprenorphine HCl/Naloxone HCl 1 film SL TID 09/12/20 12/01/20 [Suboxone 8 mg-2 mg Sl Film] Cholecalciferol (Vitamin D3) 125 mcg PO Q14D 09/12/20 12/01/20 [Vitamin D3] Fenofibrate 54 mg PO HS 09/12/20 12/01/20 Ibuprofen [Motrin] 600 mg PO Q8HR PRN 09/12/20 12/01/20 Lidocaine 5% Patch [Lidoderm] 1 patch TOPICAL Q12HR 09/12/20 12/01/20 Nystatin 100,000 Unit/gm Powd 1 applic TOPICAL DAILY PRN 09/12/20 12/01/20 [Mycostatin Powder] Oxybutynin Chloride [Ditropan] 5 mg PO HS 09/12/20 12/01/20 Pantoprazole [Protonix] 40 mg PO HS PRN 09/12/20 12/01/20 Triamcinolone Acetonide 1 applic TOPICAL DAILY PRN 09/12/20 12/01/20 [Triamcinolone Acetonide 0.025%] Albuterol Sulfate [Ventolin HFA] 1 - 2 puff INHALATION RT-Q6H PRN 12/01/20 12/01/20 Allergies Allergy/AdvReac Type Severity Reaction Status Date / Time latex AdvReac Rash/Hives Verified 12/01/20 12:57 ziprasidone [From Geodon] AdvReac tongue Verified 12/01/20 12:57 Swelling, facial drooping Review of Systems ROS Statement: Those systems with pertinent positive or pertinent negative responses have been documented in the HPI. ROS Other: All systems not noted in ROS Statement are negative. Past Medical History Past Medical History: Diabetes Mellitus, Hyperlipidemia, Hypertension Additional Past Medical History / Comment(s): Chronic back pain, has hepatitis C antibodies, UTI. History of Any Multi-Drug Resistant Organisms: None Reported Past Surgical History: Bariatric Surgery, Section, Cholecystectomy, Tonsillectomy Additional Past Surgical History / Comment(s): three abortions, ortho surgery, rt arm Past Anesthesia/Blood Transfusion Reactions: No Reported Reaction Past Psychological History: ADD/ADHD, Anxiety, Bipolar, Schizoaffective Disorder Smoking Status: Current every day smoker Past Alcohol Use History: None Reported Past Drug Use History: Marijuana - Past Family History Father History Unknown: Yes Additional Family Medical History / Comment(s): Patient is adopted Mother History Unknown: Yes Additional Family Medical History / Comment(s): Pt is adopted. General Exam Limitations: no limitations General appearance: alert, in no apparent distress Head exam: Present: atraumatic, normocephalic, normal inspection Eye exam: Present: normal appearance, PERRL, EOMI. Absent: scleral icterus, conjunctival injection, periorbital swelling ENT exam: Present: normal exam, mucous membranes moist Neck exam: Present: normal inspection. Absent: tenderness, meningismus, lymphadenopathy Respiratory exam: Present: normal lung sounds bilaterally. Absent: respiratory distress, wheezes, rales, rhonchi, stridor Cardiovascular Exam: Present: regular rate, normal rhythm, normal heart sounds. Absent: systolic murmur, diastolic murmur, rubs, gallop, clicks GI/Abdominal exam: Present: soft, normal bowel sounds. Absent: distended, te nderness, guarding, rebound, rigid Extremities exam: Present: normal inspection, full ROM, normal capillary refill. Absent: tenderness, pedal edema, joint swelling, calf tenderness Back exam: Present: normal inspection Neurological exam: Present: alert, oriented X3, CN II-XII intact Psychiatric exam: Present: normal affect, normal mood Skin exam: Present: warm, dry, intact, normal color. Absent: rash Course Vital Signs 12/01/20 12/01/20 11:58 14:00 Temperature 98.1 F 98.1 F Pulse Rate 56 L 56 L Respiratory 18 18 Rate Blood Pressure 148/84 148/84 Medical Decision Making - Medical Decision Making Upon arrival patient was placed into room 6. A thorough history and physical exam was performed. IV is established. Patient was given 1 g of magnesium, 10 mg of Reglan, 25 mg of Benadryl, 10 mg of Decadron and 15 mg of Toradol. Laboratory studies were conducted and reviewed. Coronavirus is negative. CT of the patient's brain demonstrates no acute intracranial process. Results are discussed the patient. She is reevaluated and reports improvement in her symptoms. At this time the patient be discharged home. Take Motrin Tylenol alternating for fever and pain. Follow-up with her doctor in 2-4 days. Return to the emergency room for any new or worsening symptoms. Patient was in agreement with this plan and was discharged in stable condition - Lab Data Result diagrams: 12/01/20 12:49 02/27/21 12:49 Lab Results 12/01/20 12/01/20 12/01/20 Range/Units 12:49 12:49 12:49 WBC 9.1 (3.8-10.6) k/uL RBC 4.38 (3.80-5.40) m/uL Hgb 14.4 (11.4-16.0) gm/dL Hct 41.5 (34.0-46.0) % MCV 94.6 (80.0-100.0) fL MCH 32.8 (25.0-35.0) pg MCHC 34.7 (31.0-37.0) g/dL RDW 12.3 (11.5-15.5) % Plt Count 241 (150-450) k/uL MPV 7.5 Neutrophils % 75 % Lymphocytes % 17 % Monocytes % 4 % Eosinophils % 4 % Basophils % 0 % Neutrophils # 6.8 (1.3-7.7) k/uL Lymphocytes # 1.5 (1.0-4.8) k/uL Monocytes # 0.4 (0-1.0) k/uL Eosinophils # 0.3 (0-0.7) k/uL Basophils # 0.0 (0-0.2) k/uL Sodium 139 (137-145) mmol/L Potassium 3.5 (3.5-5.1) mmol/L Chloride 108 H (98-107) mmol/L Carbon Dioxide 21 L (22-30) mmol/L Anion Gap 10 mmol/L BUN 14 (7-17) mg/dL Creatinine 0.63 (0.52-1.04) mg/dL Est GFR (CKD-EPI)AfAm >90 (>60 ml/min/1.73 sqM) Est GFR (CKD-EPI)NonAf >90 (>60 ml/min/1.73 sqM) Glucose 134 H (74-99) mg/dL Calcium 9.8 (8.4-10.2) mg/dL Total Bilirubin 0.5 (0.2-1.3) mg/dL AST 20 (14-36) U/L ALT 8 (4-34) U/L Alkaline Phosphatase 55 (38-126) U/L Total Protein 7.6 (6.3-8.2) g/dL Albumin 4.5 (3.5-5.0) g/dL Coronavirus (PCR) Not Detected (Not Detectd) Disposition Clinical Impression: Diarrhea, Headache Disposition: HOME SELF-CARE Condition: Stable Instructions (If sedation given, give patient instructions): Acute Headache (ED), Acute Diarrhea (ED) Additional Instructions: Please follow up with your primary care doctor. Take Motrin and Tylenol alternating for pain control. Return to the emergency room for any new worsening symptoms Is patient prescribed a controlled substance at d/c from ED?: No Referrals: [facility] [Primary Care Provider] - 1-2 days Time of Disposition: 13:43
[2020-12-01 12:56] LABS: Basophils % (A) 0 %; Eosinophils # (A) 0.3 k/uL (0-0.7); Eosinophils % (A) 4 %; HCT 41.5 % (34.0-46.0); HGB 14.4 gm/dL (11.4-16.0); Lymphocytes # (A) 1.5 k/uL (1.0-4.8); Lymphocytes % (A) 17 %; MCH 32.8 pg (25.0-35.0); MCHC 34.7 g/dL (31.0-37.0); MCV 94.6 fL (80.0-100.0); Mean Platelet Volume 7.5; Monocytes # (A) 0.4 k/uL (0-1.0); Monocytes % (A) 4 %; Neutrophils # (A) 6.8 k/uL (1.3-7.7); Neutrophils % (A) 75 %; Platelet Count 241 k/uL (150-450); RBC 4.38 m/uL (3.80-5.40); RDW 12.3 % (11.5-15.5); WBC 9.1 k/uL (3.8-10.6)
[2020-12-01 13:07] LABS: ALT 8 U/L (4-34); AST 20 U/L (14-36); African American GFR (CKD) >90 (>60 ml/min/1.73 sqM); Albumin 4.5 g/dL (3.5-5.0); Alkaline Phosphatase 55 U/L (38-126); Anion Gap 10 mmol/L; Blood Urea Nitrogen 14 mg/dL (7-17); Calcium 9.8 mg/dL (8.4-10.2); Carbon Dioxide 21 mmol/L (22-30); Chloride 108 mmol/L (98-107); Glucose 134 mg/dL (74-99); Non-African American GFR(CKD) >90 (>60 ml/min/1.73 sqM); Potassium 3.5 mmol/L (3.5-5.1); Sodium 139 mmol/L (137-145); Total Bilirubin 0.5 mg/dL (0.2-1.3); Total Protein 7.6 g/dL (6.3-8.2)
--- NOTE | 2020-12-01 13:15 | CT ---
EXAMINATION TYPE: CT brain wo con DATE OF EXAM: 12/01/2020 HISTORY: Headache, amnesia CT DLP: 1082.4 mGycm. Automated Exposure Control for Dose Reduction was Utilized. TECHNIQUE: CT scan of the head is performed without contrast. COMPARISON: None. FINDINGS: There is no acute intracranial hemorrhage or midline shift identified. Mild superior cere bral atrophy. No hydrocephalus. [place]-white matter differentiation maintained. Nasal septum deviated to right of midline. The globes are intact and the visualized sinuses are clear. IMPRESSION: No acute intracranial hemorrhage or midline shift.
== END 2020-12-01 14:21 | disposition home or self-care (01) ==
LOC: EC 11:51
DX: R19.7 Diarrhea, unspecified (principal); R51.9 Headache, unspecified; R50.9 Fever, unspecified; I10 Essential (primary) hypertension; E78.5 Hyperlipidemia, unspecified; F90.9 Attention-deficit hyperactivity disorder, unspecified type; F41.9 Anxiety disorder, unspecified; F31.9 Bipolar disorder, unspecified; F25.9 Schizoaffective disorder, unspecified; F17.200 Nicotine dependence, unspecified, uncomplicated; Z20.822 Contact with and (suspected) exposure to COVID-19; Z79.899 Other long term (current) drug therapy; Z79.51 Long term (current) use of inhaled steroids; Z91.040 Latex allergy status; Z88.8 Allergy status to other drugs, medicaments and biological substances; Z98.84 Bariatric surgery status; Z90.49 Acquired absence of other specified parts of digestive tract
CPT/HCPCS: 36415; 80053; 85025; 87635; 70450; 99284; 96365; 96375 ×4; J1200; J1100; J2765; J3475; J1885

== ENCOUNTER 2021-01-11 17:14 | Emergency (ER) | payer MEDICARE, OTHER ==
[2021-01-11 17:28] VITALS: BP 111/73; PULSE 76; RESP 20; TEMP 98.5
[2021-01-11] MEDS ORDERED: KETOROLAC 15 MG/ML 1 ML VIAL IM STA (18:14)
[2021-01-11] MEDS ORDERED: ACET/COD 300 MG/30 MG STARTER PACK 6 TAB BTL PO STA (18:15)
[2021-01-11] MEDS ORDERED: HYDROcodone/APAP 10-325MG 1 EACH TAB PO ONE (18:15)
--- NOTE | 2021-01-11 18:58 | XR ---
EXAMINATION TYPE: XR Hip Complete RT DATE OF EXAM: 01/11/2021 COMPARISON: None HISTORY: Pain TECHNIQUE: Two-view right hip FINDINGS: There is narrowing of the joint space. No acute fracture or dislocation is evident. Follow up exams can be performed 7-10 days from acute trauma for continued pain IMPRESSION: 1. Normal two-view right hip
--- NOTE | 2021-01-11 18:59 | XR ---
EXAMINATION TYPE: XR lumbar spine 2 or 3V DATE OF EXAM: 01/11/2021 COMPARISON: None HISTORY: Pain TECHNIQUE: 5V lumbar spine FINDINGS: There are 5 lumbar-type vertebral bodies. Pedicles are intact. Side bending is towards the left. Vertebral body alignment is unremarkable in the sagittal plane. Disc heights appear preserved. Vertebral body heights are preserved. IMPRESSION: 1. Mild side bending towards the left can be positional. 2. Otherwise Normal 5 view lumbar spine
--- NOTE | 2021-01-11 19:15 | ED ---
Lower Extremity Injury HPI - General Chief Complaint: Extremity Injury, Lower Stated Complaint: Hip pain Time Seen by Provider: 01/11/21 17:48 Source: patient Mode of arrival: wheelchair Limitations: no limitations - History of Present Illness Initial Comments: 55-year-old male presenting for right hip pain. Patient states that she struggles with right hip pain chronically and is currently seeing an on site services specialist for this. Patient states she is supposed to have a steroid injection. Patient states that she has had low back pain rating down the right buttock to the lower leg. She denies any falls trauma she denies current IV drug use fevers, severe back pain, loss of sensation or weakness of the extremity. Denies loss of bowel or bladder control. Denies difficulty ambulating. patient states she cannot wait for the appointmnent and needs something for pain now - Related Data Home Medications Medication Instructions Recorded Confirmed lisinopriL [Zestril] 10 mg PO HS 12/12/17 12/01/20 Dextroamphetamine/Amphetamine 20 mg PO TID 04/30/18 12/01/20 [Adderall] Brexpiprazole [Rexulti] 4 mg PO HS 10/20/19 12/01/20 Doxepin HCl [SINEquan] 100 mg PO HS 10/20/19 12/01/20 OXcarbazepine [Trileptal] 600 mg PO HS 10/20/19 12/01/20 Umeclidinium [place] [Incruse 1 puff INHALATION RT-DAILY 10/20/19 12/01/20 Ellipta] clonazePAM 0.5 mg PO TID PRN 10/20/19 12/01/20 lamoTRIgine [LaMICtal Xr] 600 mg PO HS 10/20/19 12/01/20 Budesonide [Pulmicort Flexhaler] 2 puff INHALATION RT-BID 09/12/20 12/01/20 Buprenorphine HCl/Naloxone HCl 1 film SL TID 09/12/20 12/01/20 [Suboxone 8 mg-2 mg Sl Film] Cholecalciferol (Vitamin D3) 125 mcg PO Q14D 09/12/20 12/01/20 [Vitamin D3] Fenofibrate 54 mg PO HS 09/12/20 12/01/20 Ibuprofen [Motrin] 600 mg PO Q8HR PRN 09/12/20 12/01/20 Lidocaine 5% Patch [Lidoderm] 1 patch TOPICAL Q12HR 09/12/20 12/01/20 Nystatin 100,000 Unit/gm Powd 1 applic TOPICAL DAILY PRN 09/12/20 12/01/20 [Mycostatin Powder] Oxybutynin Chloride [Ditropan] 5 mg PO HS 09/12/20 12/01/20 Pantoprazole [Protonix] 40 mg PO HS PRN 09/12/20 12/01/20 Triamcinolone Acetonide 1 applic TOPICAL DAILY PRN 09/12/20 12/01/20 [Triamcinolone Acetonide 0.025%] Albuterol Sulfate [Ventolin HFA] 1 - 2 puff INHALATION RT-Q6H PRN 12/01/20 12/01/20 Allergies Allergy/AdvReac Type Severity Reaction Status Date / Time latex AdvReac Rash/Hives Verified 01/11/21 17:28 ziprasidone [From Geodon] AdvReac tongue Verified 01/11/21 17:28 Swelling, facial drooping Review of Systems ROS Statement: Those systems with pertinent positive or pertinent negative responses have been documented in the HPI. ROS Other: All systems not noted in ROS Statement are negative. Past Medical History Past Medical History: Diabetes Mellitus, Hyperlipidemia, Hypertension Additional Past Medical History / Comment(s): Chronic back pain, has hepatitis C antibodies, UTI. History of Any Multi-Drug Resistant Organisms: None Reported Past Surgical History: Bariatric Surgery, Section, Cholecystectomy, Tonsillectomy Additional Past Surgical History / Comment(s): three abortions, ortho surgery, rt arm Past Anesthesia/Blood Transfusion Reactions: No Reported Reaction Past Psychological History: ADD/ADHD, Anxiety, Bipolar, Schizoaffective Disorder Smoking Status: Current every day smoker Past Alcohol Use History: None Reported Past Drug Use History: Marijuana - Past Family History Father History Unknown: Yes Additional Family Medical History / Comment(s): Patient is adopted Mother History Unknown: Yes Additional Family Medical History / Comment(s): Pt is adopted. General Exam - General Exam Comments Initial Comments: General: The patient is awake and alert, in no distress Eye: +3 mm pupils are equal, round and reactive to light, extra-ocular movements are intact. No nystagmus. There is normal conjunctiva bilaterally. No signs of icterus. Ears, nose, mouth and throat: There are moist mucous membranes and no oral lesions. Neck: The neck is supple, there is no tenderness or JVD. Cardiovascular: There is a regular rate and rhythm. No murmur, rub or gallop is appreciated. Respiratory: Lungs are clear to auscultation, respirations are non-labored, breath sounds are equal. No wheezes, stridor, rales, or rhonchi. Gastrointestinal: Soft, non-distended, non-tender abdomen without masses or organomegaly noted. There is no rebound or guarding present. Musculoskeletal: Normal back inspection. Normal ROM of LE b/l. No midline tenderness with patient of the cervical thoracic or lumbar spine. Positive right straight leg raise. Strength 5/5 of the lower extremities equal comparison bilaterally. Sensation intact of the lower extremity is equal comparison bilaterally including the saddle region. radial and DP pulses equal bilaterally 2+. Neurological: A&O x 3. CN II-XII intact, There are no obvious motor or sensory deficits. Coordination appears grossly intact. Speech is normal. Skin: Skin is warm and dry and no rashes or lesions are noted. Psychiatric: Cooperative, appropriate mood & affect, normal judgment. Limitations: no limitations Course Vital Signs 01/11/21 17:25 Temperature 98.5 F Pulse Rate 76 Respiratory 20 Rate Blood Pressure 111/73 O2 Sat by Pulse 100 Oximetry Medical Decision Making - Medical Decision Making XR (-) for acute process. chronic pain. patient has outpatient f/u. no alarming features. patient given symptomatic control and discharged appearing well, she is ambulatory. Disposition Clinical Impression: Hip pain, Right hip pain, Low back pain Disposition: HOME SELF-CARE Condition: Good Instructions (If sedation given, give patient instructions): Lumbar Radiculopathy (ED) Is patient prescribed a controlled substance at d/c from ED?: No Referrals: [facility] [Primary Care Provider] - 1-2 days Time of Disposition: 19:15
== END 2021-01-11 19:21 | disposition home or self-care (01) ==
LOC: EC 17:14
DX: M25.551 Pain in right hip (principal); M54.5 Low back pain; E11.9 Type 2 diabetes mellitus without complications; E78.5 Hyperlipidemia, unspecified; I10 Essential (primary) hypertension; F41.9 Anxiety disorder, unspecified; F90.9 Attention-deficit hyperactivity disorder, unspecified type; F25.9 Schizoaffective disorder, unspecified; F31.9 Bipolar disorder, unspecified; F17.200 Nicotine dependence, unspecified, uncomplicated; F12.90 Cannabis use, unspecified, uncomplicated; Z79.899 Other long term (current) drug therapy
CPT/HCPCS: 72100; 73502; 99283; 96372; J1885

== ENCOUNTER 2021-01-14 20:20 | Emergency (ER) | payer MEDICARE, OTHER ==
[2021-01-14 21:04] VITALS: BP 142/90; PULSE 82; RESP 18; TEMP 98.4
[2021-01-14] MEDS ORDERED: KETOROLAC 15 MG/ML 1 ML VIAL IM STA (22:55)
[2021-01-14] MEDS ORDERED: IBUPROFEN 600 MG STARTER PACK 4 TAB BTL PO STA (22:55)
[2021-01-14] MEDS ORDERED: ACET/COD 300 MG/30 MG STARTER PACK 6 TAB BTL PO STA (22:55)
[2021-01-14] MEDS ORDERED: dexAMETHasone 2 MG TAB PO STA (22:57)
--- NOTE | 2021-01-14 22:58 | ED ---
Extremity Problem HPI - General Chief complaint: Extremity Problem,Nontraumatic Stated complaint: Hip pain,Revisit Time Seen by Provider: 01/14/21 22:22 Source: patient, RN notes reviewed, old records reviewed Mode of arrival: ambulatory Limitations: no limitations - History of Present Illness Initial comments: This is a 35-year-old female DF for evaluation of hip pain. Patient follow-up with orthopedics for evaluation of causes of hip pain. Patient does have thickened hip pain. Patient has no recent trauma no fevers. She is able to ambulate will she does have significant pain. Management MD Complaint: extremity pain, joint swelling -: days(s) Location: right -: Yes arthralgia Radiation: proximal Severity scale (1-10): 7 Quality: aching Consistency: constant Improves with: nothing Worsens with: nothing Associated Symptoms: denies other symptoms - Related Data Home Medications Medication Instructions Recorded Confirmed lisinopriL [Zestril] 10 mg PO HS 12/12/17 12/01/20 Dextroamphetamine/Amphetamine 20 mg PO TID 04/30/18 12/01/20 [Adderall] Brexpiprazole [Rexulti] 4 mg PO HS 10/20/19 12/01/20 Doxepin HCl [SINEquan] 100 mg PO HS 10/20/19 12/01/20 OXcarbazepine [Trileptal] 600 mg PO HS 10/20/19 12/01/20 Umeclidinium [place] [Incruse 1 puff INHALATION RT-DAILY 10/20/19 12/01/20 Ellipta] clonazePAM 0.5 mg PO TID PRN 10/20/19 12/01/20 lamoTRIgine [LaMICtal Xr] 600 mg PO HS 10/20/19 12/01/20 Budesonide [Pulmicort Flexhaler] 2 puff INHALATION RT-BID 09/12/20 12/01/20 Buprenorphine HCl/Naloxone HCl 1 film SL TID 09/12/20 12/01/20 [Suboxone 8 mg-2 mg Sl Film] Cholecalciferol (Vitamin D3) 125 mcg PO Q14D 09/12/20 12/01/20 [Vitamin D3] Fenofibrate 54 mg PO HS 09/12/20 12/01/20 Ibuprofen [Motrin] 600 mg PO Q8HR PRN 09/12/20 12/01/20 Lidocaine 5% Patch [Lidoderm] 1 patch TOPICAL Q12HR 09/12/20 12/01/20 Nystatin 100,000 Unit/gm Powd 1 applic TOPICAL DAILY PRN 09/12/20 12/01/20 [Mycostatin Powder] Oxybutynin Chloride [Ditropan] 5 mg PO HS 09/12/20 12/01/20 Pantoprazole [Protonix] 40 mg PO HS PRN 09/12/20 12/01/20 Triamcinolone Acetonide 1 applic TOPICAL DAILY PRN 09/12/20 12/01/20 [Triamcinolone Acetonide 0.025%] Albuterol Sulfate [Ventolin HFA] 1 - 2 puff INHALATION RT-Q6H PRN 12/01/20 12/01/20 Allergies Allergy/AdvReac Type Severity Reaction Status Date / Time latex AdvReac Rash/Hives Verified 01/14/21 21:04 ziprasidone [From Geodon] AdvReac tongue Verified 01/14/21 21:04 Swelling, facial drooping Review of Systems ROS Statement: Those systems with pertinent positive or pertinent negative responses have been documented in the HPI. ROS Other: All systems not noted in ROS Statement are negative. Past Medical History Past Medical History: Diabetes Mellitus, Hyperlipidemia, Hypertension Additional Past Medical History / Comment(s): Chronic back pain, has hepatitis C antibodies, UTI. History of Any Multi-Drug Resistant Organisms: None Reported Past Surgical History: Bariatric Surgery, Section, Cholecystectomy, Tonsillectomy Additional Past Surgical History / Comment(s): three abortions, ortho surgery, rt arm Past Anesthesia/Blood Transfusion Reactions: No Reported Reaction Past Psychological History: ADD/ADHD, Anxiety, Bipolar, Schizoaffective Disorder Smoking Status: Current every day smoker Past Alcohol Use History: None Reported Past Drug Use History: Marijuana - Past Family History Father History Unknown: Yes Additional Family Medical History / Comment(s): Patient is adopted Mother History Unknown: Yes Additional Family Medical History / Comment(s): Pt is adopted. General Exam Limitations: no limitations General appearance: alert, in no apparent distress Head exam: Present: atraumatic, normocephalic, normal inspection Eye exam: Present: normal appearance, PERRL, EOMI. Absent: scleral icterus, conjunctival injection, periorbital swelling ENT exam: Present: normal exam, mucous membranes moist Neck exam: Present: normal inspection. Absent: tenderness, meningismus, lymphadenopathy Respiratory exam: Present: normal lung sounds bilaterally. Absent: respiratory distress, wheezes, rales, rhonchi, stridor Cardiovascular Exam: Present: regular rate, normal rhythm, normal heart sounds. Absent: systolic murmur, diastolic murmur, rubs, gallop, clicks GI/Abdominal exam: Present: soft, normal bowel sounds. Absent: distended, tenderness, guarding, rebound, rigid Extremities exam: Present: normal inspection, full ROM, normal capillary refill. Absent: tenderness, pedal edema, joint swelling, calf tenderness Back exam: Present: normal inspection Neurological exam: Present: alert, oriented X3, CN II-XII intact Psychiatric exam: Present: normal affect, normal mood Skin exam: Present: warm, dry, intact, normal color. Absent: rash Course Vital Signs 01/14/21 21:00 Temperature 98.4 F Pulse Rate 82 Respiratory 18 Rate Blood Pressure 142/90 O2 Sat by Pulse 98 Oximetry - Reevaluation(s) Reevaluation #1: Medical record is reviewed Patient symptoms are significantly improved here in the emergency department Patient family informed of results, questions answered Medical Decision Making - Medical Decision Making 55 female DF for evaluation of hip pain. Patient's the pain is improved here in the ER she can be discharged home Disposition Clinical Impression: Low back pain, Hip pain, Right hip pain Disposition: HOME SELF-CARE Condition: Good Instructions (If sedation given, give patient instructions): Lumbar Radiculopathy (ED) Is patient prescribed a controlled substance at d/c from ED?: No Referrals: [facility] [Primary Care Provider] - 1-2 days
[2021-01-14] MEDS ORDERED: LIDOCAINE 5% PATCH TOPICAL STA (23:13)
[2021-01-15] MEDS ORDERED: LIDOCAINE 5% PATCH TOPICAL SCH (09:00)
== END 2021-01-14 23:26 | disposition home or self-care (01) ==
LOC: EC 20:20
DX: M25.551 Pain in right hip (principal); M54.5 Low back pain; E11.9 Type 2 diabetes mellitus without complications; E78.5 Hyperlipidemia, unspecified; I10 Essential (primary) hypertension; F25.9 Schizoaffective disorder, unspecified; F17.200 Nicotine dependence, unspecified, uncomplicated; F12.90 Cannabis use, unspecified, uncomplicated
CPT/HCPCS: 99283; 96372; J8540; J1885

== ENCOUNTER 2021-01-31 10:15 | Emergency (ER) | payer MEDICARE, OTHER ==
[2021-01-31 10:25] VITALS: BP 135/88; PULSE 80; RESP 18; TEMP 98
[2021-01-31] MEDS ORDERED: KETOROLAC 15 MG/ML 1 ML VIAL IM STA (10:34)
[2021-01-31] MEDS ORDERED: ACET/COD 300 MG/30 MG STARTER PACK 6 TAB BTL PO STA (10:34)
[2021-01-31] MEDS ORDERED: CYCLOBENZAPRINE 10 MG TAB PO STA (10:34)
--- NOTE | 2021-01-31 10:37 | ED ---
Back Pain [facility] - General Chief Complaint: Back Pain/Injury Stated Complaint: back pain Time Seen by Provider: 01/31/21 10:26 Source: patient Limitations: no limitations - History of Present Illness Initial Comments: 55-year-old female with history of chronic back pain presents to emergency Department with a chief complaint of back pain. Patient reports she has seen an control specialist recommended that she sees a occupancy specialist. Patient reports this is a chronic back pain that she used to take Suboxone for but has not taken it about 1 month ago. Patient reports her typical lumbosacral pain with radiation along the posterior aspect of her right lower extremity to the popliteal region. She reports taking Tylenol or Motrin home with no significant improvement in symptoms. Patient is asking for recommendations for control specialist. She denies any saddle anesthesia, urinary retention with overflow incontinence or bowel incontinence. No injuries to the back - Related Data Home Medications Medication Instructions Recorded Confirmed lisinopriL [Zestril] 10 mg PO HS 12/12/17 12/01/20 Dextroamphetamine/Amphetamine 20 mg PO TID 04/30/18 12/01/20 [Adderall] Brexpiprazole [Rexulti] 4 mg PO HS 10/20/19 12/01/20 Doxepin HCl [SINEquan] 100 mg PO HS 10/20/19 12/01/20 OXcarbazepine [Trileptal] 600 mg PO HS 10/20/19 12/01/20 Umeclidinium [place] [Incruse 1 puff INHALATION RT-DAILY 10/20/19 12/01/20 Ellipta] clonazePAM 0.5 mg PO TID PRN 10/20/19 12/01/20 lamoTRIgine [LaMICtal Xr] 600 mg PO HS 10/20/19 12/01/20 Budesonide [Pulmicort Flexhaler] 2 puff INHALATION RT-BID 09/12/20 12/01/20 Buprenorphine HCl/Naloxone HCl 1 film SL TID 09/12/20 12/01/20 [Suboxone 8 mg-2 mg Sl Film] Cholecalciferol (Vitamin D3) 125 mcg PO Q14D 09/12/20 12/01/20 [Vitamin D3] Fenofibrate 54 mg PO HS 09/12/20 12/01/20 Ibuprofen [Motrin] 600 mg PO Q8HR PRN 09/12/20 12/01/20 Lidocaine 5% Patch [Lidoderm] 1 patch TOPICAL Q12HR 09/12/20 12/01/20 Nystatin 100,000 Unit/gm Powd 1 applic TOPICAL DAILY PRN 09/12/20 12/01/20 [Mycostatin Powder] Oxybutynin Chloride [Ditropan] 5 mg PO HS 09/12/20 12/01/20 Pantoprazole [Protonix] 40 mg PO HS PRN 09/12/20 12/01/20 Triamcinolone Acetonide 1 applic TOPICAL DAILY PRN 09/12/20 12/01/20 [Triamcinolone Acetonide 0.025%] Albuterol Sulfate [Ventolin HFA] 1 - 2 puff INHALATION RT-Q6H PRN 12/01/20 12/01/20 Previous Rx's Medication Instructions Recorded Cyclobenzaprine [Flexeril] 5 mg PO TID PRN #15 tablet 01/31/21 Allergies Allergy/AdvReac Type Severity Reaction Status Date / Time latex AdvReac Rash/Hives Verified 01/31/21 10:24 ziprasidone [From Geodon] AdvReac tongue Verified 01/31/21 10:24 Swelling, facial drooping Review of Systems ROS Statement: Those systems with pertinent positive or pertinent negative responses have been documented in the HPI. ROS Other: All systems not noted in ROS Statement are negative. Past Medical History Past Medical History: Diabetes Mellitus, Hyperlipidemia, Hypertension Additional Past Medical History / Comment(s): Chronic back pain, has hepatitis C antibodies, UTI. History of Any Multi-Drug Resistant Organisms: None Reported Past Surgical History: Bariatric Surgery, Section, Cholecystectomy, Tonsillectomy Additional Past Surgical History / Comment(s): three abortions, ortho surgery, rt arm Past Anesthesia/Blood Transfusion Reactions: No Reported Reaction Past Psychological History: ADD/ADHD, Anxiety, Bipolar, Schizoaffective Disorder Smoking Status: Current every day smoker Past Alcohol Use History: None Reported Past Drug Use History: Marijuana - Past Family History Father History Unknown: Yes Additional Family Medical History / Comment(s): Patient is adopted Mother History Unknown: Yes Additional Family Medical History / Comment(s): Pt is adopted. General Exam Limitations: no limitations General appearance: alert, in no apparent distress Head exam: Present: atraumatic, normocephalic, normal inspection Eye exam: Present: normal appearance, PERRL, EOMI Pupils: Present: normal accommodation ENT exam: Present: normal exam, normal oropharynx, mucous membranes moist Neck exam: Present: normal inspection, full ROM. Absent: tenderness, meningismus Respiratory exam: Present: normal lung sounds bilaterally. Absent: respiratory distress, wheezes, rales, rhonchi, stridor Cardiovascular Exam: Present: regular rate, normal rhythm, normal heart sounds. Absent: systolic murmur, diastolic murmur GI/Abdominal exam: Present: soft. Absent: distended, tenderness, guarding Extremities exam: Present: normal inspection, full ROM, normal capillary refill. Absent: tenderness, pedal edema, joint swelling Back exam: Present: normal inspection, full ROM, tenderness (Tenderness in the lumbosacral region), paraspinal tenderness, vertebral tenderness. Absent: CVA tenderness (R), CVA tenderness (L) Neurological exam: Present: alert, oriented X3 Psychiatric exam: Present: normal affect, normal mood Skin exam: Present: warm, dry, intact, normal color Course Vital Signs 01/31/21 10:19 Temperature 98 F Pulse Rate 80 Respiratory 18 Rate Blood Pressure 135/88 O2 Sat by Pulse 100 Oximetry Medical Decision Making - Medical Decision Making 55-year-old female with history of chronic back pain presents emergency Department with a chief complaint of back pain. On physical examination, lumbosacral tenderness in the paraspinal mid vertebral region with some radiation to the right lower extremity. Sciatica type symptoms. No concern for cauda equina at this time. Patient was given Flexeril and Toradol in emergency department. She will be discharged with Tylenol 3. I gave her multiple rec ommendations for control specialist. Strict return parameters were thoroughly discussed the patient was understanding and agreeable. Case discussed with Disposition Clinical Impression: Strain of lumbar region, Low back pain Disposition: HOME SELF-CARE Condition: Stable Instructions (If sedation given, give patient instructions): Acute Low Back Pain (ED) Additional Instructions: Please return to the Emergency Department if symptoms worsen or any other concerns. Follow-up with control specialist Prescriptions: Cyclobenzaprine [Flexeril] 5 mg PO TID PRN #15 tablet PRN Reason: Muscle Spasm Is patient prescribed a controlled substance at d/c from ED?: No Referrals: [facility] [Primary Care Provider] - 1-2 days Abisai Moreau DO [Doctor of Osteopathic Medicine] - 1-2 days William Trent DO [Doctor of Osteopathic Medicine] - 1-2 days Time of Disposition: 10:37
== END 2021-01-31 10:49 | disposition home or self-care (01) ==
LOC: EC 10:15
DX: S39.012A Strain of muscle, fascia and tendon of lower back, initial encounter (principal); E11.9 Type 2 diabetes mellitus without complications; E78.5 Hyperlipidemia, unspecified; I10 Essential (primary) hypertension; F25.9 Schizoaffective disorder, unspecified; F17.200 Nicotine dependence, unspecified, uncomplicated; F12.90 Cannabis use, unspecified, uncomplicated; Z90.09 Acquired absence of other part of head and neck; Z90.49 Acquired absence of other specified parts of digestive tract; X58.XXXA Exposure to other specified factors, initial encounter
CPT/HCPCS: 99283; 96372; J1885

== ENCOUNTER 2021-03-30 14:54 | Emergency (ER) | payer MEDICARE, OTHER ==
[2021-03-30 15:08] VITALS: BP 107/75; PULSE 97; RESP 18; TEMP 98.4
--- NOTE | 2021-03-30 15:25 | ED ---
General Adult HPI - General Chief complaint: Skin/Abscess/Foreign Body Stated complaint: L hand bug bite Time Seen by Provider: 03/30/21 15:12 Source: patient, RN notes reviewed, old records reviewed Mode of arrival: ambulatory Limitations: no limitations - History of Present Illness Initial comments: 55-year-old female presenting for evaluation of pain and swelling in the left hand. Patient believes she may have had a bug bite on the dorsal surface of her hand. She's had some purulent drainage and surrounding erythema and pain over the past 2 days. No constitutional symptoms, no fever. Previous history of diabetes but is not currently being treated after having weight loss surgery. No IV drug use. - Related Data Home Medications Medication Instructions Recorded Confirmed lisinopriL [Zestril] 10 mg PO HS 12/12/17 12/01/20 Dextroamphetamine/Amphetamine 20 mg PO TID 04/30/18 12/01/20 [Adderall] Brexpiprazole [Rexulti] 4 mg PO HS 10/20/19 12/01/20 Doxepin HCl [SINEquan] 100 mg PO HS 10/20/19 12/01/20 OXcarbazepine [Trileptal] 600 mg PO HS 10/20/19 12/01/20 Umeclidinium [place] [Incruse 1 puff INHALATION RT-DAILY 10/20/19 12/01/20 Ellipta] clonazePAM 0.5 mg PO TID PRN 10/20/19 12/01/20 lamoTRIgine [LaMICtal Xr] 600 mg PO HS 10/20/19 12/01/20 Budesonide [Pulmicort Flexhaler] 2 puff INHALATION RT-BID 09/12/20 12/01/20 Buprenorphine HCl/Naloxone HCl 1 film SL TID 09/12/20 12/01/20 [Suboxone 8 mg-2 mg Sl Film] Cholecalciferol (Vitamin D3) 125 mcg PO Q14D 09/12/20 12/01/20 [Vitamin D3] Fenofibrate 54 mg PO HS 09/12/20 12/01/20 Ibuprofen [Motrin] 600 mg PO Q8HR PRN 09/12/20 12/01/20 Lidocaine 5% Patch [Lidoderm] 1 patch TOPICAL Q12HR 09/12/20 12/01/20 Nystatin 100,000 Unit/gm Powd 1 applic TOPICAL DAILY PRN 09/12/20 12/01/20 [Mycostatin Powder] Oxybutynin Chloride [Ditropan] 5 mg PO HS 09/12/20 12/01/20 Pantoprazole [Protonix] 40 mg PO HS PRN 09/12/20 12/01/20 Triamcinolone Acetonide 1 applic TOPICAL DAILY PRN 09/12/20 12/01/20 [Triamcinolone Acetonide 0.025%] Albuterol Sulfate [Ventolin HFA] 1 - 2 puff INHALATION RT-Q6H PRN 12/01/20 12/01/20 Previous Rx's Medication Instructions Recorded Cyclobenzaprine [Flexeril] 5 mg PO TID PRN #15 tablet 01/31/21 Cephalexin [Keflex] 500 mg PO Q12HR 10 Days #40 cap 03/30/21 Sulfamethox-Tmp 800-160Mg [Bactrim 1 tab PO Q12HR 10 Days #20 tab 03/30/21 DS 800-160 mg] Allergies Allergy/AdvReac Type Severity Reaction Status Date / Time latex AdvReac Rash/Hives Verified 03/30/21 15:08 ziprasidone [From Geodon] AdvReac tongue Verified 03/30/21 15:08 Swelling, facial drooping Review of Systems ROS Statement: Those systems with pertinent positive or pertinent negative responses have been documented in the HPI. ROS Other: All systems not noted in ROS Statement are negative. Past Medical History Past Medical History: Diabetes Mellitus, Hyperlipidemia, Hypertension Additional Past Medical History / Comment(s): Chronic back pain, has hepatitis C antibodies, UTI. History of Any Multi-Drug Resistant Organisms: None Reported Past Surgical History: Bariatric Surgery, Section, Cholecystectomy, Tonsillectomy Additional Past Surgical History / Comment(s): three abortions, ortho surgery, rt arm Past Anesthesia/Blood Transfusion Reactions: No Reported Reaction Past Psychological History: ADD/ADHD, Anxiety, Bipolar, Schizoaffective Disorder Smoking Status: Current every day smoker Past Alcohol Use History: None Reported Past Drug Use History: Marijuana - Past Family History Father History Unknown: Yes Additional Family Medical History / Comment(s): Patient is adopted Mother History Unknown: Yes Additional Family Medical History / Comment(s): Pt is adopted. General Exam Limitations: no limitations General appearance: alert, in no apparent distress Head exam: Present: atraumatic, normocephalic Eye exam: Present: normal appearance, PERRL ENT exam: Present: normal exam Neck exam: Present: normal inspection. Absent: tenderness, meningismus Respiratory exam: Present: normal lung sounds bilaterally. Absent: respiratory distress, wheezes Cardiovascular Exam: Present: regular rate, normal rhythm GI/Abdominal exam: Present: soft. Absent: distended Extremities exam: Present: other (Left hand. There is a draining abscess on the dorsal surface of the hand with approximately 1.5 cm of surrounding induration. No central fluctuance. Minimal surrounding cellulitis. Range of motion of the digits is within normal limits. No erythema into the arm.) Course Vital Signs 03/30/21 15:03 Temperature 98.4 F Pulse Rate 97 Respiratory 18 Rate Blood Pressure 107/75 O2 Sat by Pulse 98 Oximetry Medical Decision Making - Medical Decision Making 55-year-old female with abscess on the dorsum of the left hand with minimal surrounding cellulitis. This is draining purulent material which is sent for culture. Does not require incision and drainage at this time. Patient started antibiotics. She will apply warm compresses keep the site clean and dry. There is no sign of a extensor cellulitis or tendinitis at this time. Disposition Clinical Impression: Abscess Disposition: HOME SELF-CARE Condition: Good Instructions (If sedation given, give patient instructions): Abscess (ED) Prescriptions: Sulfamethox-Tmp 800-160Mg [Bactrim DS 800-160 mg] 1 tab PO Q12HR 10 Days #20 tab Cephalexin [Keflex] 500 mg PO Q12HR 10 Days #40 cap Is patient prescribed a controlled substance at d/c from ED?: No Referrals: [facility] [Primary Care Provider] - 1-2 days Time of Disposition: 15:25
== END 2021-03-30 15:33 | disposition home or self-care (01) ==
LOC: EC 14:54
DX: L02.512 Cutaneous abscess of left hand (principal); E11.9 Type 2 diabetes mellitus without complications; I10 Essential (primary) hypertension; E78.5 Hyperlipidemia, unspecified; F41.9 Anxiety disorder, unspecified; F31.9 Bipolar disorder, unspecified; F25.9 Schizoaffective disorder, unspecified; F90.9 Attention-deficit hyperactivity disorder, unspecified type; F17.200 Nicotine dependence, unspecified, uncomplicated; F12.90 Cannabis use, unspecified, uncomplicated; B95.62 Methicillin resistant Staphylococcus aureus infection as the cause of diseases classified elsewhere; Z87.440 Personal history of urinary (tract) infections; Z79.1 Long term (current) use of non-steroidal anti-inflammatories (NSAID); Z79.51 Long term (current) use of inhaled steroids
CPT/HCPCS: 87070; 87077; 87186; 87205; 99282

== ENCOUNTER 2021-04-03 17:19 | Emergency (ER) | payer MEDICARE, OTHER ==
[2021-04-03 17:53] VITALS: BP 131/86; PULSE 90; RESP 16; TEMP 98.2
--- NOTE | 2021-04-03 19:07 | ED ---
Wound/Laceration HPI - General Chief Complaint: Wound/Laceration Stated Complaint: revisit/hand skin issues Time Seen by Provider: 04/03/21 18:41 Source: patient Mode of arrival: ambulatory Limitations: no limitations - History of Present Illness Initial Comments: 55-year-old female was seen and evaluated earlier this week for a suspected spider bite was diagnosed with MRSA skin infection. Was prescribed Bactrim. Was contacted by the nurse to confirm that she had MRSA. Patient became very anxious states she does not know of MRSA is, was told she is very contagious is concerned that this is going to spread all over her body. - Related Data Home Medications Medication Instructions Recorded Confirmed lisinopriL [Zestril] 10 mg PO HS 12/12/17 12/01/20 Dextroamphetamine/Amphetamine 20 mg PO TID 04/30/18 12/01/20 [Adderall] Brexpiprazole [Rexulti] 4 mg PO HS 10/20/19 12/01/20 Doxepin HCl [SINEquan] 100 mg PO HS 10/20/19 12/01/20 OXcarbazepine [Trileptal] 600 mg PO HS 10/20/19 12/01/20 Umeclidinium [place] [Incruse 1 puff INHALATION RT-DAILY 10/20/19 12/01/20 Ellipta] clonazePAM 0.5 mg PO TID PRN 10/20/19 12/01/20 lamoTRIgine [LaMICtal Xr] 600 mg PO HS 10/20/19 12/01/20 Budesonide [Pulmicort Flexhaler] 2 puff INHALATION RT-BID 09/12/20 12/01/20 Buprenorphine HCl/Naloxone HCl 1 film SL TID 09/12/20 12/01/20 [Suboxone 8 mg-2 mg Sl Film] Cholecalciferol (Vitamin D3) 125 mcg PO Q14D 09/12/20 12/01/20 [Vitamin D3] Fenofibrate 54 mg PO HS 09/12/20 12/01/20 Ibuprofen [Motrin] 600 mg PO Q8HR PRN 09/12/20 12/01/20 Lidocaine 5% Patch [Lidoderm] 1 patch TOPICAL Q12HR 09/12/20 12/01/20 Nystatin 100,000 Unit/gm Powd 1 applic TOPICAL DAILY PRN 09/12/20 12/01/20 [Mycostatin Powder] Oxybutynin Chloride [Ditropan] 5 mg PO HS 09/12/20 12/01/20 Pantoprazole [Protonix] 40 mg PO HS PRN 09/12/20 12/01/20 Triamcinolone Acetonide 1 applic TOPICAL DAILY PRN 09/12/20 12/01/20 [Triamcinolone Acetonide 0.025%] Albuterol Sulfate [Ventolin HFA] 1 - 2 puff INHALATION RT-Q6H PRN 12/01/20 12/01/20 Previous Rx's Medication Instructions Recorded Cyclobenzaprine [Flexeril] 5 mg PO TID PRN #15 tablet 01/31/21 Cephalexin [Keflex] 500 mg PO Q12HR 10 Days #40 cap 03/30/21 Sulfamethox-Tmp 800-160Mg [Bactrim 1 tab PO Q12HR 10 Days #20 tab 03/30/21 DS 800-160 mg] Allergies Allergy/AdvReac Type Severity Reaction Status Date / Time latex AdvReac Rash/Hives Verified 04/03/21 17:53 ziprasidone [From Geodon] AdvReac tongue Verified 04/03/21 17:53 Swelling, facial drooping Review of Systems ROS Statement: Those systems with pertinent positive or pertinent negative responses have been documented in the HPI. ROS Other: All systems not noted in ROS Statement are negative. Past Medical History Past Medical History: Diabetes Mellitus, Hyperlipidemia, Hypertension Additional Past Medical History / Comment(s): Chronic back pain, has hepatitis C antibodies, UTI. History of Any Multi-Drug Resistant Organisms: MRSA Date of last positivie culture/infection: 03/30/21 MDRO Source:: Left Hand Past Surgical History: Bariatric Surgery, Section, Cholecystectomy, Tonsillectomy Additional Past Surgical History / Comment(s): three abortions, ortho surgery, rt arm Past Anesthesia/Blood Transfusion Reactions: No Reported Reaction Past Psychological History: ADD/ADHD, Anxiety, Bipolar, Schizoaffective Disorder Smoking Status: Current every day smoker Past Alcohol Use History: None Reported Past Drug Use History: Marijuana - Past Family History Father History Unknown: Yes Additional Family Medical History / Comment(s): Patient is adopted Mother History Unknown: Yes Additional Family Medical History / Comment(s): Pt is adopted. General Exam - General Exam Comments Initial Comments: Physical Exam GENERAL: Patient is well-developed and well-nourished. Patient is nontoxic and well-hydrated and is in no distress. HENT: Normocephalic, Atraumatic. EYES: PERRL, EOMI PULMONARY: Unlabored respirations. CARDIOVASCULAR: RRR Warm and well perfused extremities ABDOMEN: Non-distended SKIN: Well-healing open ulceration on the left wrist, approximately 6-7 mm in diameter, consistent with MRSA infection : Deferred NEUROLOGIC: Alert and oriented Normal speech Normal gait MUSCULOSKELETAL: Moving all extremities with no apparent injury PSYCHIATRIC: Anxious, tearful Limitations: no limitations Course Vital Signs 04/03/21 17:51 Temperature 98.2 F Pulse Rate 90 Respiratory 16 Rate Blood Pressure 131/86 O2 Sat by Pulse 98 Oximetry Medical Decision Making - Medical Decision Making The patient was seen and evaluated, history is obtained from the patient 55-year-old female very anxious and tearful, states she doesn't know what it means to have MRSA, concerned that it will spread all over her body wasn't certain what she should do to prevent this Wound care was discussed and patient was discharged home to continue her Bactrim and follow with primary care Disposition Clinical Impression: MRSA (methicillin resistant staph aureus) culture positive Disposition: HOME SELF-CARE Condition: Stable Instructions (If sedation given, give patient instructions): MRSA (Methicillin- Resistant Staphylococcus Aureus) (ED) Is patient prescribed a controlled substance at d/c from ED?: No Referrals: [facility] [Primary Care Provider] - 1-2 days
== END 2021-04-03 19:51 | disposition home or self-care (01) ==
LOC: EC 17:19
DX: A49.02 Methicillin resistant Staphylococcus aureus infection, unspecified site (principal); E11.9 Type 2 diabetes mellitus without complications; I10 Essential (primary) hypertension; E78.5 Hyperlipidemia, unspecified; F31.9 Bipolar disorder, unspecified; F41.9 Anxiety disorder, unspecified; F25.9 Schizoaffective disorder, unspecified; F90.9 Attention-deficit hyperactivity disorder, unspecified type; F17.200 Nicotine dependence, unspecified, uncomplicated; F12.90 Cannabis use, unspecified, uncomplicated; Z79.1 Long term (current) use of non-steroidal anti-inflammatories (NSAID); Z79.51 Long term (current) use of inhaled steroids; Z79.899 Other long term (current) drug therapy
CPT/HCPCS: 99283

== ENCOUNTER 2021-05-26 00:43 | Emergency (ER) | payer MEDICARE, OTHER ==
[2021-05-26 01:12] VITALS: BP 125/75; PULSE 75; RESP 18; TEMP 98.2
--- NOTE | 2021-05-26 01:42 | ED ---
Female Urogenital HPI - General Chief complaint: Urogenital Stated complaint: Urogenital Time Seen by Provider: 05/26/21 01:13 Source: patient, RN notes reviewed Mode of arrival: ambulatory - History of Present Illness Initial comments: Patient is a 55-year-old female that presents to the emergency department complaining of an excessively moist groin/vagina. She notes that she called her primary care complaining of a fungal infection so they prescribed her Bactrim. She notes that she's taken a few days worth but it is still getting moist. She notes that she recently just found out masturbation was incompletely freaked her out. She was just concerned that it might not be a fungal infection. She was otherwise a healthy 55-year-old female in no apparent distress or pain. She denied any chest pain shortness breath headache nausea vomiting diarrhea constipation fever fatigue chills. - Related Data Home Medications Medication Instructions Recorded Confirmed lisinopriL [Zestril] 10 mg PO HS 12/12/17 12/01/20 Dextroamphetamine/Amphetamine 20 mg PO TID 04/30/18 12/01/20 [Adderall] Brexpiprazole [Rexulti] 4 mg PO HS 10/20/19 12/01/20 Doxepin HCl [SINEquan] 100 mg PO HS 10/20/19 12/01/20 OXcarbazepine [Trileptal] 600 mg PO HS 10/20/19 12/01/20 Umeclidinium [place] [Incruse 1 puff INHALATION RT-DAILY 10/20/19 12/01/20 Ellipta] clonazePAM 0.5 mg PO TID PRN 10/20/19 12/01/20 lamoTRIgine [LaMICtal Xr] 600 mg PO HS 10/20/19 12/01/20 Budesonide [Pulmicort Flexhaler] 2 puff INHALATION RT-BID 09/12/20 12/01/20 Buprenorphine HCl/Naloxone HCl 1 film SL TID 09/12/20 12/01/20 [Suboxone 8 mg-2 mg Sl Film] Cholecalciferol (Vitamin D3) 125 mcg PO Q14D 09/12/20 12/01/20 [Vitamin D3] Fenofibrate 54 mg PO HS 09/12/20 12/01/20 Ibuprofen [Motrin] 600 mg PO Q8HR PRN 09/12/20 12/01/20 Lidocaine 5% Patch [Lidoderm] 1 patch TOPICAL Q12HR 09/12/20 12/01/20 Nystatin 100,000 Unit/gm Powd 1 applic TOPICAL DAILY PRN 09/12/20 12/01/20 [Mycostatin Powder] Oxybutynin Chloride [Ditropan] 5 mg PO HS 09/12/20 12/01/20 Pantoprazole [Protonix] 40 mg PO HS PRN 09/12/20 12/01/20 Triamcinolone Acetonide 1 applic TOPICAL DAILY PRN 09/12/20 12/01/20 [Triamcinolone Acetonide 0.025%] Albuterol Sulfate [Ventolin HFA] 1 - 2 puff INHALATION RT-Q6H PRN 12/01/20 12/01/20 Previous Rx's Medication Instructions Recorded Cyclobenzaprine [Flexeril] 5 mg PO TID PRN #15 tablet 01/31/21 Cephalexin [Keflex] 500 mg PO Q12HR 10 Days #40 cap 03/30/21 Sulfamethox-Tmp 800-160Mg [Bactrim 1 tab PO Q12HR 10 Days #20 tab 03/30/21 DS 800-160 mg] Fluconazole [Diflucan] 150 mg PO ONCE 1 Days #1 tab 05/26/21 Allergies Allergy/AdvReac Type Severity Reaction Status Date / Time latex AdvReac Rash/Hives Verified 05/26/21 01:12 ziprasidone [From Geodon] AdvReac tongue Verified 05/26/21 01:12 Swelling, facial drooping Review of Systems ROS Statement: Those systems with pertinent positive or pertinent negative responses have been documented in the HPI. ROS Other: All systems not noted in ROS Statement are negative. Past Medical History Past Medical History: Diabetes Mellitus, Hyperlipidemia, Hypertension Additional Past Medical History / Comment(s): Chronic back pain, has hepatitis C antibodies, UTI. History of Any Multi-Drug Resistant Organisms: MRSA Date of last positivie culture/infection: 03/30/21 MDRO Source:: Left Hand Past Surgical History: Bariatric Surgery, Section, Cholecystectomy, Tonsillectomy Additional Past Surgical History / Comment(s): three abortions, ortho surgery, rt arm Past Anesthesia/Blood Transfusion Reactions: No Reported Reaction Past Psychological History: ADD/ADHD, Anxiety, Bipolar, Schizoaffective Disorder Smoking Status: Current every day smoker Past Alcohol Use History: None Reported Past Drug Use History: Marijuana - Past Family History Father History Unknown: Yes Additional Family Medical History / Comment(s): Patient is adopted Mother History Unknown: Yes Additional Family Medical History / Comment(s): Pt is adopted. General Exam General appearance: alert, in no apparent distress Head exam: Present: atraumatic, normocephalic, normal inspection Eye exam: Present: normal appearance, PERRL, EOMI. Absent: scleral icterus, conjunctival injection, periorbital swelling Neck exam: Present: normal inspection Respiratory exam: Present: normal lung sounds bilaterally. Absent: respiratory distress, wheezes, rales, rhonchi, stridor Cardiovascular Exam: Present: regular rate, normal rhythm, normal heart sounds. Absent: systolic murmur, diastolic murmur, rubs, gallop, clicks GI/Abdominal exam: Present: soft, normal bowel sounds. Absent: distended, tenderness, guarding, rebound, rigid External exam: Present: normal external exam. Absent: erythema, swelling, lesions, lacerations, ecchymosis Extremities exam: Present: normal inspection, full ROM, normal capillary refill. Absent: tenderness, pedal edema, joint swelling, calf tenderness Neurological exam: Present: alert, oriented X3 Psychiatric exam: Present: normal affect, normal mood Skin exam: Present: warm, dry, intact, normal color. Absent: rash Course Vital Signs 05/26/21 01:08 Temperature 98.2 F Pulse Rate 75 Respiratory 18 Rate Blood Pressure 125/75 O2 Sat by Pulse 97 Oximetry Medical Decision Making - Medical Decision Making 55-year-old female that wanted to get reevaluated for fungal infection, Upon physical exam and inspection there was no discharge or follow odor, patient was mildly sweaty. Patient was sent fluconazole to her pharmacy. Case discussed with Dr. Carter, patient discharge home. Disposition Clinical Impression: Candidiasis of genitalia in female Disposition: HOME SELF-CARE Condition: Stable Instructions (If sedation given, give patient instructions): Yeast Infection (ED) Additional Instructions: Please return to the Emergency Department if symptoms worsen or any other concerns. Prescriptions: Fluconazole [Diflucan] 150 mg PO ONCE 1 Days #1 tab Is patient prescribed a controlled substance at d/c from ED?: No Referrals: [facility] [Primary Care Provider] - 1-2 days Time of Disposition: 01:42
== END 2021-05-26 02:04 | disposition home or self-care (01) ==
LOC: EC 00:43
DX: B37.3 Candidiasis of vulva and vagina (principal); I10 Essential (primary) hypertension; E11.9 Type 2 diabetes mellitus without complications; E78.5 Hyperlipidemia, unspecified; F17.200 Nicotine dependence, unspecified, uncomplicated; F90.9 Attention-deficit hyperactivity disorder, unspecified type; F41.9 Anxiety disorder, unspecified; F31.9 Bipolar disorder, unspecified; F20.9 Schizophrenia, unspecified; F12.90 Cannabis use, unspecified, uncomplicated; Z90.49 Acquired absence of other specified parts of digestive tract; Z90.89 Acquired absence of other organs; Z98.84 Bariatric surgery status; Z87.440 Personal history of urinary (tract) infections; Z91.040 Latex allergy status
CPT/HCPCS: 99283

== ENCOUNTER 2021-06-18 19:39 | Emergency (ER) | payer MEDICARE, OTHER ==
--- NOTE | 2021-06-18 20:25 | ED ---
General Adult HPI - General Chief complaint: Urogenital Stated complaint: Female Time Seen by Provider: 06/18/21 19:51 Source: patient Mode of arrival: ambulatory Limitations: no limitations - History of Present Illness Initial comments: 55 year-old female patient presents to the emergency department for evaluation of heavy vaginal discharge for the last month. States that she did do a douch with water and peroxide yesterday and symptoms continued today. States she has had problems with yeast infections in the past but this is different. She denies any itching to the genitalia. States the discharge is yellowish. Denies any recent sexual activity. States she had pelvic exam at her doctors office one month ago. Patient admits that she recently started masturbating for the first time. She denies pelvic pain. Denies any fever or chills. Denies hematuria, dysuria, urinary urgency, or urinary frequency. Denies chance of . - Related Data Home Medications Medication Instructions Recorded Confirmed lisinopriL [Zestril] 10 mg PO HS 12/12/17 12/01/20 Dextroamphetamine/Amphetamine 20 mg PO TID 04/30/18 12/01/20 [Adderall] Brexpiprazole [Rexulti] 4 mg PO HS 10/20/19 12/01/20 Doxepin HCl [SINEquan] 100 mg PO HS 10/20/19 12/01/20 OXcarbazepine [Trileptal] 600 mg PO HS 10/20/19 12/01/20 Umeclidinium [place] [Incruse 1 puff INHALATION RT-DAILY 10/20/19 12/01/20 Ellipta] clonazePAM 0.5 mg PO TID PRN 10/20/19 12/01/20 lamoTRIgine [LaMICtal Xr] 600 mg PO HS 10/20/19 12/01/20 Budesonide [Pulmicort Flexhaler] 2 puff INHALATION RT-BID 09/12/20 12/01/20 Buprenorphine HCl/Naloxone HCl 1 film SL TID 09/12/20 12/01/20 [Suboxone 8 mg-2 mg Sl Film] Cholecalciferol (Vitamin D3) 125 mcg PO Q14D 09/12/20 12/01/20 [Vitamin D3] Fenofibrate 54 mg PO HS 09/12/20 12/01/20 Ibuprofen [Motrin] 600 mg PO Q8HR PRN 09/12/20 12/01/20 Lidocaine 5% Patch [Lidoderm] 1 patch TOPICAL Q12HR 09/12/20 12/01/20 Nystatin 100,000 Unit/gm Powd 1 applic TOPICAL DAILY PRN 09/12/20 12/01/20 [Mycostatin Powder] Oxybutynin Chloride [Ditropan] 5 mg PO HS 09/12/20 12/01/20 Pantoprazole [Protonix] 40 mg PO HS PRN 09/12/20 12/01/20 Triamcinolone Acetonide 1 applic TOPICAL DAILY PRN 09/12/20 12/01/20 [Triamcinolone Acetonide 0.025%] Albuterol Sulfate [Ventolin HFA] 1 - 2 puff INHALATION RT-Q6H PRN 12/01/20 12/01/20 Previous Rx's Medication Instructions Recorded Cyclobenzaprine [Flexeril] 5 mg PO TID PRN #15 tablet 01/31/21 Cephalexin [Keflex] 500 mg PO Q12HR 10 Days #40 cap 03/30/21 Sulfamethox-Tmp 800-160Mg [Bactrim 1 tab PO Q12HR 10 Days #20 tab 03/30/21 DS 800-160 mg] Fluconazole [Diflucan] 150 mg PO ONCE 1 Days #1 tab 05/26/21 Fluconazole [Diflucan] 150 mg PO ONCE 1 Days #1 tab 05/26/21 Cephalexin [Keflex] 500 mg PO Q6H #28 cap 06/18/21 Fluconazole [Diflucan] 150 mg PO ONCE #2 tab 06/18/21 Allergies Allergy/AdvReac Type Severity Reaction Status Date / Time latex AdvReac Rash/Hives Verified 06/18/21 19:50 ziprasidone [From Geodon] AdvReac tongue Verified 06/18/21 19:50 Swelling, facial drooping Review of Systems ROS Statement: Those systems with pertinent positive or pertinent negative responses have been documented in the HPI. ROS Other: All systems not noted in ROS Statement are negative. Past Medical History Past Medical History: Diabetes Mellitus, Hyperlipidemia, Hypertension Additional Past Medical History / Comment(s): Chronic back pain, has hepatitis C antibodies, UTI. History of Any Multi-Drug Resistant Organisms: MRSA Date of last positivie culture/infection: 03/30/21 MDRO Source:: Left Hand Past Surgical History: Bariatric Surgery, Section, Cholecystectomy, Tonsillectomy Additional Past Surgical History / Comment(s): three abortions, ortho surgery, rt arm Past Anesthesia/Blood Transfusion Reactions: No Reported Reaction Past Psychological History: ADD/ADHD, Anxiety, Bipolar, Schizoaffective Disorder Smoking Status: Current every day smoker Past Alcohol Use History: None Reported Past Drug Use History: Marijuana - Past Family History Father History Unknown: Yes Additional Family Medical History / Comment(s): Patient is adopted Mother History Unknown: Yes Additional Family Medical History / Comment(s): Pt is adopted. General Exam Limitations: no limitations General appearance: alert, in no apparent distress, other (This is a well- developed, well-nourished adult female patient in no acute distress. Vital signs upon presentation temperature 98.0F, pulse 75, respirations 20, blood pressure 125/57, pulse ox 98% on room air.) ENT exam: Present: normal exam, normal oropharynx, mucous membranes moist Respiratory exam: Present: normal lung sounds bilaterally. Absent: respiratory distress, wheezes, rales, rhonchi, stridor Cardiovascular Exam: Present: regular rate, normal rhythm, normal heart sounds. Absent: systolic murmur, diastolic murmur, rubs, gallop, clicks GI/Abdominal exam: Present: soft, normal bowel sounds. Absent: distended, tenderness, guarding, rebound, rigid Neurological exam: Present: alert, oriented X3, CN II-XII intact Psychiatric exam: Present: normal affect, normal mood Skin exam: Present: warm, dry, intact, normal color. Absent: rash Course Vital Signs 06/18/21 06/18/21 19:45 21:20 Temperature 98.0 F 98.7 F Pulse Rate 75 63 Respiratory 20 18 Rate Blood Pressure 125/57 111/59 O2 Sat by Pulse 98 100 Oximetry Medical Decision Making - Medical Decision Making 55-year-old female patient presented to the emergency department today for evaluation of vaginal discharge. No itching, no burning, no pelvic pain. She is afebrile. Urinalysis showed positive urinary tract infection Did send genital culture. She will be treated for bacterial vaginosis with flagyl. She denies concern for STI as she is not currently sexually active and was tested 1.5 months ago. She'll be discharged home. She is given single dose of Flagyl for possibility of bacterial vaginosis. Start on Keflex for UTI. Primary care physician for recheck in 1-2 days. Return parameters were discussed in detail and she verbalizes understanding and agrees with this plan. My attending is Dr. Caro. - Lab Data Lab Results 06/18/21 Range/Units 20:20 Urine Color Yellow Urine Appearance Turbid H (Clear) Urine pH 7.0 (5.0-8.0) Ur Specific [place] 1.018 (1.001-1.035) Urine Protein 1+ H (Negative) Urine Glucose (UA) Negative (Negative) Urine Ketones Negative (Negative) Urine Blood Small H (Negative) Urine Nitrite Negative (Negative) Urine Bilirubin Negative (Negative) Urine Urobilinogen <2.0 (<2.0) mg/dL Ur Leukocyte Esterase Large H (Negative) Urine RBC 138 H (0-5) /hpf Urine WBC >182 H (0-5) /hpf Urine WBC Clumps Moderate H (None) /hpf Ur Squamous Epith Cells 6 H (0-4) /hpf Urine Bacteria Occasional H (None) /hpf Disposition Clinical Impression: UTI (urinary tract infection), Bacterial vaginosis Disposition: HOME SELF-CARE Condition: Good Instructions (If sedation given, give patient instructions): Bacterial Vaginosis (ED), Urinary Tract Infection in Women (ED) Additional Instructions: Follow-up with your primary care physician for recheck in 1-2 days. Return to the emergency department for any new, worsening, or concerning symptoms. Prescriptions: Fluconazole [Diflucan] 150 mg PO ONCE #2 tab Cephalexin [Keflex] 500 mg PO Q6H #28 cap Is patient prescribed a controlled substance at d/c from ED?: No Referrals: [facility] [Primary Care Provider] - 1-2 days Time of Disposition: 20:56
[2021-06-18 20:44] LABS: Appearance,Urine Turbid (Clear); Bacteria,Urine Occasional /hpf; Bilirubin,Urine Negative (Negative); Blood,Urine Small (Negative); Color,Urine Yellow; Glucose,Urine (UA) Negative (Negative); Ketones,Urine Negative (Negative); Leukocyte Esterase,Urine Large (Negative); Nitrite,Urine Negative (Negative); Protein,Urine 1+ (Negative); RBC,Urine 138 /hpf (0-5); Specific Gravity,Urine 1.018 (1.001-1.035); Squamous Epithelial Cell,Urine 6 /hpf (0-4); Urobilinogen,Urine <2.0 mg/dL (<2.0); WBC,Urine >182 /hpf (0-5)
[2021-06-18] MEDS ORDERED: metroNIDAZOLE 500 MG TAB PO STA ×2 (20:51→20:54)
[2021-06-18] MEDS ORDERED: CEPHALEXIN 500 MG CAP PO STA (20:51)
[2021-06-18 21:21] VITALS: BP 111/59; PULSE 63; RESP 18; TEMP 98.7
== END 2021-06-18 21:30 | disposition home or self-care (01) ==
LOC: EC 19:39
DX: N39.0 Urinary tract infection, site not specified (principal); N76.0 Acute vaginitis; I10 Essential (primary) hypertension; E78.5 Hyperlipidemia, unspecified; E11.9 Type 2 diabetes mellitus without complications; F31.9 Bipolar disorder, unspecified; F41.9 Anxiety disorder, unspecified; F25.9 Schizoaffective disorder, unspecified; F17.200 Nicotine dependence, unspecified, uncomplicated; F12.90 Cannabis use, unspecified, uncomplicated
CPT/HCPCS: 81001; 87070; 87086; 99283

== ENCOUNTER → 2021-06-24 | Outpatient (CLI) | payer MEDICARE, OTHER ==
--- NOTE | 2021-06-24 14:00 | MR ---
EXAMINATION TYPE: MR lumbar spine wo con DATE OF EXAM: 06/24/2021 1:16 PM COMPARISON: 04/22/2018 HISTORY: Lower back pain Multiplanar, MultiSpin echo imaging of the lumbar spine was performed. L1-L2: Normal disc appearance without desiccation. No herniation, protrusion or disc bulging. No ca nal stenosis is present. Foramina are patent bilaterally. L2-L3: Normal disc appearance without desiccation. No herniation, protrusion or disc bulging. No ca nal stenosis is present. Foramina are patent bilaterally. L3-L4: Normal disc appearance without desiccation. No herniation, protrusion or disc bulging. No ca nal stenosis is present. Foramina are patent bilaterally. L4-L5: Mild decreased signal ossified compatible degenerative disc disease. Mild posterior disc bulge with mild effacement ventral thecal sac. No evidence for central stenosis or disc herniation. Facet joint arthropathy with mild left-sided foraminal encroachment. L5-S1: Moderate decreased signal loss of height. There is right paracentral subligamentous disc herni ation measuring approximately 1.1 x 5.7 cm. There is resultant right lateral recess stenosis and righ t foraminal encroachment. No evidence for central stenosis. Lumbar segments are intact. No paraspinal masses are identified. Conus medullaris has a normal appe arance. IMPRESSION: 1. Degenerative disc disease as noted. 2. Interval development of right paracentral disc herniation at L5-S1 with right lateral recess steno sis and right-sided foraminal encroachment. See above
== END | disposition home or self-care (01) ==
LOC: RADMRIMAIN 11:39
PROVIDERS: ATTEND Orthopaedic Surgery
DX: M51.27 Other intervertebral disc displacement, lumbosacral region (principal); M51.36 Other intervertebral disc degeneration, lumbar region; M99.73 Connective tissue and disc stenosis of intervertebral foramina of lumbar region
CPT/HCPCS: 72148

== ENCOUNTER 2021-06-25 10:55 | Emergency (ER) | payer MEDICARE, OTHER ==
[2021-06-25 11:09] VITALS: TEMP 97.8
[2021-06-25] MEDS ORDERED: SODIUM CHLORIDE 0.9% 500 ML 500 ML IV STA (11:54)
--- NOTE | 2021-06-25 11:59 | ED ---
General Adult HPI - General Chief complaint: Syncope Stated complaint: Syncope Time Seen by Provider: 06/25/21 11:00 Source: patient, EMS, RN notes reviewed, old records reviewed Mode of arrival: EMS - History of Present Illness Initial comments: This a 55-year-old female who presents to the emergency room complaining that she got up and went to walk across her living room she got lightheaded and she states breathing went kind of black out when she fell she hit her head up ag ainst a radiator and she immediately woke up. Patient also complains of some left anterior chest pain with palpation or deep breathing. Patient states this wasn't there prior to the fall. Patient denies any neck pain patient denies numbness or weakness. Patient states she also has some posterior right shoulder pain but she has full range of motion. Patient denies any shortness of breath or difficulty breathing. Patient denies any chest pain at rest. Patient denies any abdominal pain patient denies any back pain patient denies any lower extremity pain. - Related Data Home Medications Medication Instructions Recorded Confirmed lisinopriL [Zestril] 10 mg PO HS 12/12/17 06/25/21 Dextroamphetamine/Amphetamine 20 mg PO TID 04/30/18 06/25/21 [Adderall] Doxepin HCl [SINEquan] 100 mg PO HS 10/20/19 06/25/21 OXcarbazepine [Trileptal] 600 mg PO HS 10/20/19 06/25/21 clonazePAM 0.5 mg PO TID PRN 10/20/19 06/25/21 lamoTRIgine [LaMICtal Xr] 600 mg PO HS 10/20/19 06/25/21 Budesonide [Pulmicort Flexhaler] 2 puff INHALATION RT-BID 09/12/20 06/25/21 Buprenorphine HCl/Naloxone HCl 1 film SL TID 09/12/20 06/25/21 [Suboxone 8 mg-2 mg Sl Film] Cholecalciferol (Vitamin D3) 125 mcg PO DAILY 09/12/20 06/25/21 [Vitamin D3] Nystatin 100,000 Unit/gm Powd 1 applic TOPICAL DAILY PRN 09/12/20 06/25/21 [Mycostatin Powder] Pantoprazole [Protonix] 40 mg PO HS PRN 09/12/20 06/25/21 Albuterol Sulfate [Ventolin HFA] 1 - 2 puff INHALATION RT-Q6H PRN 12/01/20 06/25/21 Gabapentin [Neurontin] 300 mg PO TID 06/25/21 06/25/21 Naproxen 500 mg PO BID PRN 06/25/21 06/25/21 Previous Rx's Medication Instructions Recorded Cyclobenzaprine [Flexeril] 5 mg PO TID PRN #15 tablet 01/31/21 Cephalexin [Keflex] 500 mg PO Q6H #28 cap 06/18/21 Allergies Allergy/AdvReac Type Severity Reaction Status Date / Time latex Allergy Rash/Hives Verified 06/25/21 12:47 ziprasidone [From Geodon] Allergy tongue Verified 06/25/21 12:47 Swelling, facial drooping Review of Systems ROS Statement: Those systems with pertinent positive or pertinent negative responses have been documented in the HPI. ROS Other: All systems not noted in ROS Statement are negative. Past Medical History Past Medical History: Diabetes Mellitus, Hyperlipidemia, Hypertension Additional Past Medical History / Comment(s): Chronic back pain, has hepatitis C antibodies, UTI. History of Any Multi-Drug Resistant Organisms: MRSA Date of last positivie culture/infection: 03/30/21 MDRO Source:: Left Hand Past Surgical History: Bariatric Surgery, Section, Cholecystectomy, Tonsillectomy Additional Past Surgical History / Comment(s): three abortions, ortho surgery, rt arm Past Anesthesia/Blood Transfusion Reactions: No Reported Reaction Past Psychological History: ADD/ADHD, Anxiety, Bipolar, Schizoaffective Disorder Smoking Status: Current every day smoker Past Alcohol Use History: None Reported Past Drug Use History: Marijuana - Past Family History Father History Unknown: Yes Additional Family Medical History / Comment(s): Patient is adopted Mother History Unknown: Yes Additional Family Medical History / Comment(s): Pt is adopted. General Exam - General Exam Comments Initial Comments: GENERAL: Patient is well-developed and well-nourished. Patient is nontoxic and well-hydrated and is in mild distress. ENT: Neck is soft and supple. No significant lymphadenopathy is noted. Oropharynx is clear. Moist mucous membranes. Neck has full range of motion without eliciting any pain. I cannot find any area of tenderness on the scalp or neck patient has no abrasion or hematoma. EYES: The sclera were anicteric and conjunctiva were pink and moist. Extraocular movements were intact and pupils were equal round and reactive to light. Eyelids were unremarkable. PULMONARY: Unlabored respirations. Good breath sounds bilaterally. No audible rales rhonchi or wheezing was noted. CARDIOVASCULAR: There is a regular rate and rhythm without any murmurs gallops or rubs. Patient has reproducible chest pain at the mid left chest area. ABDOMEN: Soft and nontender with normal bowel sounds. SKIN: Skin is clear with no lesions or rashes and otherwise unremarkable. NEUROLOGIC: Patient is alert and oriented x3. Cranial nerves II through XII are grossly intact. Motor and sensory are also intact. Normal speech, volume and content. Symmetrical smile. MUSCULOSKELETAL: Normal extremities with adequate strength and full range of motion. LYMPHATICS: No significant lymphadenopathy is noted PSYCHIATRIC: Patient seems mildly anxious Course Vital Signs 06/25/21 06/25/21 06/25/21 11:02 11:09 12:52 Temperature 97.8 F Pulse Rate 61 65 56 L Respiratory 18 18 18 Rate Blood Pressure 126/72 155/91 130/85 Blood Pressure [Sitting] Blood Pressure [Standing] Blood Pressure [Supine] O2 Sat by Pulse 100 100 100 Oximetry 06/25/21 12:54 Temperature Pulse Rate Respiratory 18 Rate Blood Pressure Blood Pressure 155/91 [Sitting] Blood Pressure 130/83 [Standing] Blood Pressure 150/86 [Supine] O2 Sat by Pulse 100 Oximetry Medical Decision Making - Medical Decision Making EKG shows a sinus bradycardia 54 bpm [place] interval is 168 QRSs 84 QT interval 416 QTC is 394. Patient's EKG shows no ST segment elevation or depression. Patient admitted that she has not been eating or drinking lately and so she may be dehydrated. - Lab Data Result diagrams: 06/25/21 11:59 06/25/21 11:59 Lab Results 06/25/21 06/25/21 06/25/21 Range/Units 11:59 11:59 11:59 WBC 5.9 (3.8-10.6) k/uL RBC 3.63 L (3.80-5.40) m/uL Hgb 11.8 (11.4-16.0) gm/dL Hct 36.2 (34.0-46.0) % MCV 99.7 (80.0-100.0) fL MCH 32.4 (25.0-35.0) pg MCHC 32.5 (31.0-37.0) g/dL RDW 12.9 (11.5-15.5) % Plt Count 224 (150-450) k/uL MPV 7.6 Neutrophils % 54 % Lymphocytes % 34 % Monocytes % 4 % Eosinophils % 6 % Basophils % 1 % Neutrophils # 3.2 (1.3-7.7) k/uL Lymphocytes # 2.0 (1.0-4.8) k/uL Monocytes # 0.2 (0-1.0) k/uL Eosinophils # 0.3 (0-0.7) k/uL Basophils # 0.1 (0-0.2) k/uL PT 10.5 (9.0-12.0) sec INR 1.0 (<1.2) APTT 22.3 (22.0-30.0) sec Sodium 140 (137-145) mmol/L Potassium 3.9 (3.5-5.1) mmol/L Chloride 109 H (98-107) mmol/L Carbon Dioxide 25 (22-30) mmol/L Anion Gap 6 mmol/L BUN 16 (7-17) mg/dL Creatinine 0.68 (0.52-1.04) mg/dL Est GFR (CKD-EPI)AfAm >90 (>60 ml/min/1.73 sqM) Est GFR (CKD-EPI)NonAf >90 (>60 ml/min/1.73 sqM) Glucose 80 (74-99) mg/dL Calcium 9.2 (8.4-10.2) mg/dL Magnesium 1.6 (1.6-2.3) mg/dL Total Bilirubin 0.3 (0.2-1.3) mg/dL AST 21 (14-36) U/L ALT 9 (4-34) U/L Alkaline Phosphatase 45 (38-126) U/L Troponin I (0.000-0.034) ng/mL Total Protein 6.4 (6.3-8.2) g/dL Albumin 3.7 (3.5-5.0) g/dL 06/25/21 Range/Units 11:59 WBC (3.8-10.6) k/uL RBC (3.80-5.40) m/uL Hgb (11.4-16.0) gm/dL Hct (34.0-46.0) % MCV (80.0-100.0) fL MCH (25.0-35.0) pg MCHC (31.0-37.0) g/dL RDW (11.5-15.5) % Plt Count (150-450) k/uL MPV Neutrophils % % Lymphocytes % % Monocytes % % Eosinophils % % Basophils % % Neutrophils # (1.3-7.7) k/uL Lymphocytes # (1.0-4.8) k/uL Monocytes # (0-1.0) k/uL Eosinophils # (0-0.7) k/uL Basophils # (0-0.2) k/uL PT (9.0-12.0) sec INR (<1.2) APTT (22.0-30.0) sec Sodium (137-145) mmol/L Potassium (3.5-5.1) mmol/L Chloride (98-107) mmol/L Carbon Dioxide (22-30) mmol/L Anion Gap mmol/L BUN (7-17) mg/dL Creatinine (0.52-1.04) mg/dL Est GFR (CKD-EPI)AfAm (>60 ml/min/1.73 sqM) Est GFR (CKD-EPI)NonAf (>60 ml/min/1.73 sqM) Glucose (74-99) mg/dL Calcium (8.4-10.2) mg/dL Magnesium (1.6-2.3) mg/dL Total Bilirubin (0.2-1.3) mg/dL AST (14-36) U/L ALT (4-34) U/L Alkaline Phosphatase (38-126) U/L Troponin I <0.012 (0.000-0.034) ng/mL Total Protein (6.3-8.2) g/dL Albumin (3.5-5.0) g/dL Disposition Clinical Impression: Near syncope, Scalp contusion, Chest wall contusion Disposition: HOME SELF-CARE Condition: Good Instructions (If sedation given, give patient instructions): Near Syncope (ED), Scalp Contusion in Adults (ED) Is patient prescribed a controlled substance at d/c from ED?: No [facility] [Primary Care Provider] - 1-2 days Time of Disposition: 14:14
[2021-06-25 12:17] LABS: Basophils # (A) 0.1 k/uL (0-0.2); Basophils % (A) 1 %; Eosinophils # (A) 0.3 k/uL (0-0.7); Eosinophils % (A) 6 %; HCT 36.2 % (34.0-46.0); HGB 11.8 gm/dL (11.4-16.0); Lymphocytes % (A) 34 %; MCH 32.4 pg (25.0-35.0); MCHC 32.5 g/dL (31.0-37.0); MCV 99.7 fL (80.0-100.0); Mean Platelet Volume 7.6; Monocytes # (A) 0.2 k/uL (0-1.0); Monocytes % (A) 4 %; Neutrophils # (A) 3.2 k/uL (1.3-7.7); Neutrophils % (A) 54 %; Platelet Count 224 k/uL (150-450); RBC 3.63 m/uL (3.80-5.40); RDW 12.9 % (11.5-15.5); WBC 5.9 k/uL (3.8-10.6)
[2021-06-25 12:25] LABS: Partial Thromboplastin Time 22.3 sec (22.0-30.0); Prothrombin Time 10.5 sec (9.0-12.0)
[2021-06-25 12:31] LABS: ALT 9 U/L (4-34); AST 21 U/L (14-36); African American GFR (CKD) >90 (>60 ml/min/1.73 sqM); Albumin 3.7 g/dL (3.5-5.0); Alkaline Phosphatase 45 U/L (38-126); Anion Gap 6 mmol/L; Blood Urea Nitrogen 16 mg/dL (7-17); Calcium 9.2 mg/dL (8.4-10.2); Carbon Dioxide 25 mmol/L (22-30); Chloride 109 mmol/L (98-107); Glucose 80 mg/dL (74-99); Magnesium 1.6 mg/dL (1.6-2.3); Non-African American GFR(CKD) >90 (>60 ml/min/1.73 sqM); Potassium 3.9 mmol/L (3.5-5.1); Sodium 140 mmol/L (137-145); Total Bilirubin 0.3 mg/dL (0.2-1.3); Total Protein 6.4 g/dL (6.3-8.2)
--- NOTE | 2021-06-25 12:34 | CT ---
EXAMINATION TYPE: CT brain cspine wo con DATE OF EXAM: 06/25/2021 COMPARISON: CT brain December 01, 2020 HISTORY: Syncope and fall injury with headache and neck pain CT DLP: 1287.8 mGycm. Automated Exposure Control for Dose Reduction was Utilized. TECHNIQUE: CT scan of the head and cervical spine are performed without contrast. FINDINGS: There is no acute intracranial hemorrhage or midline shift identified. Mild CSF prominen ce over bilateral high frontal lobes redemonstrated. The ventricles and sulci are within normal limit s in size for patient's age and stable. The calvarium is intact. The globes are intact and the visua lized sinuses are clear. Cervical spine is visualized in its entirety from C1 through upper thoracic levels and demonstrates s atisfactory alignment without evidence of acute fracture or dislocation. Prevertebral soft tissue ap pears within normal limits. The C1-C2 articulation is within normal limits on the coronal images. V ertebral body heights and disc space heights are maintained. Spinal canal is preserved. Axial images appear within normal limits. Thyroid gland is normal in size. Lung apices are clear. IMPRESSION: 1. There is no acute fracture or dislocation evident in the cervical spine. 2. No acute intracranial hemorrhage, mass effect, or midline shift is seen.
--- NOTE | 2021-06-25 12:57 | XR ---
EXAMINATION TYPE: XR chest 2V DATE OF EXAM: 06/25/2021 COMPARISON: NONE TECHNIQUE: PA and lateral views submitted. HISTORY: Chest pain FINDINGS: The lungs are clear and there is no pneumothorax, pleural effusion, or focal pneumonia. Hypertrophi c and degenerative change of the spine. No overt failure. Heart size normal. IMPRESSION: 1. No acute process.
[2021-06-25 14:29] VITALS: BP 130/97; PULSE 64; RESP 16
== END 2021-06-25 14:29 | disposition home or self-care (01) ==
LOC: EC 10:55
DX: R55 Syncope and collapse (principal); S20.212A Contusion of left front wall of thorax, initial encounter; S00.03XA Contusion of scalp, initial encounter; E11.9 Type 2 diabetes mellitus without complications; I10 Essential (primary) hypertension; E78.5 Hyperlipidemia, unspecified; F31.9 Bipolar disorder, unspecified; F25.9 Schizoaffective disorder, unspecified; F41.9 Anxiety disorder, unspecified; F90.9 Attention-deficit hyperactivity disorder, unspecified type; F17.200 Nicotine dependence, unspecified, uncomplicated; F12.90 Cannabis use, unspecified, uncomplicated; Z79.51 Long term (current) use of inhaled steroids; Z79.1 Long term (current) use of non-steroidal anti-inflammatories (NSAID); Z79.899 Other long term (current) drug therapy; W18.39XA Other fall on same level, initial encounter; W22.8XXA Striking against or struck by other objects, initial encounter
CPT/HCPCS: 36415; 70450; 71046; 72125; 80053; 83735; 84484; 85025; 85610; 85730; 93005; 96360; 96361; 99285

== ENCOUNTER 2021-07-24 13:44 | Emergency (ER) | payer MEDICARE, OTHER ==
[2021-07-24 13:51] VITALS: BP 132/80; PULSE 75; RESP 20; TEMP 98.3
--- NOTE | 2021-07-24 14:28 | ED ---
General Adult HPI - General Chief complaint: Eye Problems Stated complaint: Change in Vision Time Seen by Provider: 07/24/21 13:45 Source: patient, EMS, RN notes reviewed, old records reviewed Mode of arrival: EMS Limitations: no limitations - History of Present Illness Initial comments: This is a 55-year-old female who presents emergency department stating she has a black spot in the visual field of her right eye is in the lateral aspect of her visual field she states when she looks straight ahead she can see in her periphery and she keeps thinking it is a bug and she is swabbed bed a few times. Patient states his been ongoing for a month and states that it occurred after she had fallen a month ago and hit her head in the right occipital region. Patient denies any headache patient denies any numbness weakness. Patient denies any blurred vision. Patient denies any other problems at this time. - Related Data Home Medications Medication Instructions Recorded Confirmed lisinopriL [Zestril] 10 mg PO HS 12/12/17 07/24/21 Dextroamphetamine/Amphetamine 20 mg PO TID 04/30/18 07/24/21 [Adderall] Doxepin HCl [SINEquan] 100 mg PO HS 10/20/19 07/24/21 OXcarbazepine [Trileptal] 600 mg PO HS 10/20/19 07/24/21 clonazePAM 0.5 mg PO TID PRN 10/20/19 07/24/21 lamoTRIgine [LaMICtal Xr] 600 mg PO HS 10/20/19 07/24/21 Buprenorphine HCl/Naloxone HCl 1 film SL TID 09/12/20 07/24/21 [Suboxone 8 mg-2 mg Sl Film] Nystatin 100,000 Unit/gm Powd 1 applic TOPICAL DAILY PRN 09/12/20 07/24/21 [Mycostatin Powder] Albuterol Sulfate [Ventolin HFA] 1 - 2 puff INHALATION RT-Q6H PRN 12/01/20 07/24/21 Naproxen 500 mg PO BID PRN 06/25/21 07/24/21 Triamcinolone 0.1% Cream [Kenalog 1 applicatio TOPICAL DAILY 07/24/21 07/24/21 0.1% Cream] Previous Rx's Medication Instructions Recorded Cyclobenzaprine [Flexeril] 5 mg PO TID PRN #15 tablet 01/31/21 Allergies Allergy/AdvReac Type Severity Reaction Status Date / Time latex Allergy Rash/Hives Verified 07/24/21 14:50 ziprasidone [From Geodon] Allergy tongue Verified 07/24/21 14:50 Swelling, facial drooping Review of Systems ROS Statement: Those systems with pertinent positive or pertinent negative responses have been documented in the HPI. ROS Other: All systems not noted in ROS Statement are negative. Past Medical History Past Medical History: Diabetes Mellitus, Hyperlipidemia, Hypertension Additional Past Medical History / Comment(s): Chronic back pain, has hepatitis C antibodies, UTI. History of Any Multi-Drug Resistant Organisms: MRSA Date of last positivie culture/infection: 03/30/21 MDRO Source:: Left Hand Past Surgical History: Bariatric Surgery, Section, Cholecystectomy, Tonsillectomy Additional Past Surgical History / Comment(s): three abortions, ortho surgery, rt arm Past Anesthesia/Blood Transfusion Reactions: No Reported Reaction Past Psychological History: ADD/ADHD, Anxiety, Bipolar, Schizoaffective Disorder Smoking Status: Current every day smoker Past Alcohol Use History: None Reported Past Drug Use History: Marijuana - Past Family History Father History Unknown: Yes Additional Family Medical History / Comment(s): Patient is adopted Mother History Unknown: Yes Additional Family Medical History / Comment(s): Pt is adopted. General Exam - General Exam Comments Initial Comments: GENERAL: Patient is well-developed and well-nourished. Patient is nontoxic and well- hydrated and is in mild distress. ENT: Neck is soft and supple. No significant lymphadenopathy is noted. Oropharynx is clear. Moist mucous membranes. Neck has full range of motion without eliciting any pain. EYES: The sclera were anicteric and conjunctiva were pink and moist. Extraocular movements were intact and pupils were equal round and reactive to light. Eyelids were unremarkable. Normal visual rand PULMONARY: Unlabored respirations. Good breath sounds bilaterally. No audible rales rhonchi or wheezing was noted. CARDIOVASCULAR: There is a regular rate and rhythm without any murmurs gallops or rubs. SKIN: Skin is clear with no lesions or rashes and otherwise unremarkable. NEUROLOGIC: Patient is alert and oriented x3. Cranial nerves II through XII are grossly intact. Motor and sensory are also intact. Normal speech, volume and content. Symmetrical smile. MUSCULOSKELETAL: Normal extremities with adequate strength and full range of motion. LYMPHATICS: No significant lymphadenopathy is noted PSYCHIATRIC: Normal psychiatric evaluation. Limitations: no limitations Course Vital Signs 07/24/21 13:46 Temperature 98.3 F Pulse Rate 75 Respiratory 20 Rate Blood Pressure 132/80 O2 Sat by Pulse 100 Oximetry Medical Decision Making - Medical Decision Making I spoke with Dr. Kody Gates will see the patient about 10 AM. Patient states that the symptoms she is having been ongoing for a month and they're been no worsening symptoms. Disposition Clinical Impression: Visual floaters Disposition: HOME SELF-CARE Condition: Good Instructions (If sedation given, give patient instructions): Visual Floaters (ED) Additional Instructions: Patient should follow-up with Dr. Gates at 10 AM in the morning. Is patient prescribed a controlled substance at d/c from ED?: No Referrals: Abhilash Gates MD [STAFF PHYSICIAN] - 1-2 days Time of Disposition: 15:45
== END 2021-07-24 15:59 | disposition home or self-care (01) ==
LOC: EC 13:44
DX: H43.391 Other vitreous opacities, right eye (principal); E11.9 Type 2 diabetes mellitus without complications; I10 Essential (primary) hypertension; E78.5 Hyperlipidemia, unspecified; F31.9 Bipolar disorder, unspecified; F41.9 Anxiety disorder, unspecified; F90.9 Attention-deficit hyperactivity disorder, unspecified type; F25.9 Schizoaffective disorder, unspecified; F17.200 Nicotine dependence, unspecified, uncomplicated; F12.90 Cannabis use, unspecified, uncomplicated; Z79.51 Long term (current) use of inhaled steroids; Z79.1 Long term (current) use of non-steroidal anti-inflammatories (NSAID); Z79.899 Other long term (current) drug therapy
CPT/HCPCS: 99283

== ENCOUNTER 2021-09-24 07:12 | Day surgery (SDC) | payer MEDICARE, OTHER ==
[2021-09-20 14:08] VITALS: BMI 25.8
[2021-09-24 07:42] VITALS: RESP 16; TEMP 97.9
[2021-09-24] MEDS ORDERED: LACTATED RINGERS 1,000 ML IV ONE (07:47)
[2021-09-24] MEDS ORDERED: MIDAZOLAM 2 MG/2 ML VIAL IV ONE (08:06)
[2021-09-24] MEDS ORDERED: MIDAZOLAM 2 MG/2 ML VIAL ONE (08:21)
[2021-09-24] MEDS ORDERED: fentaNYL (PF) 50 MCG/ML 2 ML AMP ONE (08:21)
[2021-09-24] MEDS ORDERED: methylPREDNISolone ACETATE 40 MG/ML 1 ML VIAL ONE (08:21)
[2021-09-24] MEDS ORDERED: IOPAMIDOL M200 10 ML VIAL ONE (08:21)
[2021-09-24] MEDS ORDERED: LACTATED RINGERS 1,000 ML IV SCH (08:30)
--- NOTE | 2021-09-24 08:33 | P.PCN ---
Date of Procedure: 09/24/21 Description of Procedure: Procedure: 1. L4-L5 Epidural steroid injection under fluoroscopic guidance # 1/ , 2. Lumbar epidurogram PREOPERATIVE DIAGNOSIS: Lumbar degenerative disc disease, and Lumbar radiculopathy. POSTOPERATIVE DIAGNOSIS: Lumbar degenerative disc disease, and Lumbar radiculopathy. SURGEON: Jony Elliott ANESTHESIA: Local with 1% lidocaine, and IV sedation : Versed 2 mg +2 mg, and fentanyl 50 g EBL: None. Specimen removed: None Fluoroscopic image: saved to electronic medical records PROCEDURE INDICATION: The patient had history of Lumbar degenerative disc disease and Lumbar radiculopathy. Failed to conservative therapy. Presented for epidural steroid injection. PROCEDURE DESCRIPTION: The patient was seen and identified in the preoperative area. Risks, benefits, complications, and alternatives were discussed with the patient. The patient agreed to proceed with the procedure and signed the consent. IV was started, and vital signs were stable. Patient was taken to the procedure area, and time out was completed. The patient was placed in the prone position on procedure table and a pillow was placed under the abdomen to reduce lumbar lordosis. The lumbosacral area was prepped and draped in the usual sterile fashion. Critical pause was taken. Vital signs were closely monitored during the procedure. Using anterior-posterior fluoroscopy, the L4-L5 interlaminar space was identified, and skin and deeper tissues were localized with 1% lidocaine. Using anterior-posterior fluoroscopy, lateral fluoroscopy, and [id number] technique, a 20 gauge 3.5 Tuohy epidural needle entered the epidural space. After negative aspiration of CSF and blood with no paresthesias, 1 ml of [id number] contrast dye was injected and an excellent epidurogram was seen. Again after negative aspiration of CSF and blood with no paresthesias, 10 mL of block solution was injected into the epidural space. Block solution contained 80 mg of Depo-Medrol, and 9 mL of preservative-free normal saline. Needle was withdrawn intact, skin was cleansed, and bandages were applied. COMPLICATIONS: None. DISPOSITION / PLANS: The patient was placed in a supine position and transferred to the recovery area in a stable condition for observation. Patient was discha rged from the recovery room after meeting discharge criteria. Home discharge instructions given to the patient by the staff. The patient was reexamined prior to discharge. The patient will schedule a follow up in the clinic in 4 weeks.
[2021-09-24] MEDS ORDERED: IV FLUID CONTINUATION 600 ML IV ONE (08:40)
[2021-09-24 09:00] VITALS: BP 125/73; PULSE 79
--- NOTE | 2021-09-24 09:00 | FL ---
EXAMINATION TYPE: FL guided pain mgmt statistic DATE OF EXAM: 09/24/2021 HISTORY: Fluoroscopy time 4 seconds of fluoroscopy provided. IMPRESSION: 1. Fluoroscopy time.
== END 2021-09-24 09:12 | disposition home or self-care (01) ==
LOC: ORPAIN 07:12
DX: M51.26 Other intervertebral disc displacement, lumbar region (principal); M51.16 Intervertebral disc disorders with radiculopathy, lumbar region; I10 Essential (primary) hypertension; F41.9 Anxiety disorder, unspecified; Z90.49 Acquired absence of other specified parts of digestive tract; Z98.890 Other specified postprocedural states; Z98.84 Bariatric surgery status; Z78.0 Asymptomatic menopausal state; Z79.899 Other long term (current) drug therapy; Z88.5 Allergy status to narcotic agent; Z88.8 Allergy status to other drugs, medicaments and biological substances
CPT/HCPCS: 62323; J2250; J1030; J3010; Q9966

== ENCOUNTER → 2021-10-21 | Outpatient (CLI) | payer MEDICARE, OTHER ==
[2021-10-21 13:05] VITALS: BP 128/84; PULSE 77; RESP 18; TEMP 97.9
--- NOTE | 2021-10-21 13:31 | P.CON ---
Consult Note - . Consult date: 10/21/21 Assessment/Plan:: HISTORY OF PRESENT ILLNESS: 56 year old female as a referral from Dr Moreau presents today for a follow up of a LESI L4- L5 she completed on 09/24/21. States she had a LESI L4-L5 of which she received no pain relief. Pain is 10 /10 in the lower back, dull, achy in character and sharp/ shooting towards the hips bilaterally. States she has surgery scheduled immediately for her lumbar spine with hardware placement, though she did not provide further information other than she will see her orthopedic surgeon on 11/08/2021. Movement and palpation provokes pain. Relief with medications, rest and exercise. PMH: Asthma, Depression, HTN, ADD PSH: C- section, Cholycystectomy, Gastric Bypass, Tonsillectomy SH: Current tobacco user. On Suboxone currently. FH: Non contributory All: See list Meds: See list REVIEW OF ORGAN SYSTEMS: CONSTITUTIONAL: No fevers or chills. No recent weight loss. HEENT: No visual acuity loss, eye pain, difficulties with hearing. No nosebleeds. No difficulty swallowing. RESPIRATORY: Denies any troubles with breathing or dyspnea on exertion. CARDIOVASCULAR: Denies any chest pain, palpitations, or recent heart attacks. GASTROINTESTINAL: Denies fatty food intolerance. Has change in bowel habits and gas bloat. GENITOURINARY: Denies any blood in urine. Has increased urinary frequency. NEUROLOGICAL: + numbness and tingling along the distal extremities. No seizure disorders or headaches. MUSCULOSKELETAL: + back pain SKIN: No skin cancer. No rash. PSYCHIATRIC: Denies current depression or suicidal thoughts. ENDOCRINE: Denies current thyroid disorders. Denies any blood sugar glucose intolerance. HEME/LYMPHATIC: Denies any lumps and bumps around the neck. History of deep venous thrombosis. ALLERGY/IMMUNOLOGY: No immunoglobulin therapy. No immune deficiencies. BREAST: Denies current breast lumps, pain or nipple discharge. Physical Examinations : Constitutional : Cooperative , not in acute distress . HEENT: Neck supple. No Lymphadenopathy. Normal thyroid size . Eyes no ptosis , no icterus, no p hotophobia . Hearing intact. Normal oropharynx. No Thrush. Respiratory : Chest clear to auscultations bilaterally. No wheezing. No rhonchi. Cardiovascular : Regular rate and rhythm , S1 / S2. No S3 . No S4. Gastrointestinal : Abdomen soft. No tenderness. Bowel sounds x 4. No organomegaly . Genitourinary : Deferred. Neurologic : Cranial nerve II to XII intact. No focal neurological deficits. Psychiatric : alert & oriented x 3. Matching mood & appropriate affect. Judgment & insight intact. Lymphatic No Lymphadenopathy. Musculoskeletal : Cervical Spine Motor strength in the deltoid and biceps: Normal right side. Normal Left side Motor strength biceps and the wrist extensors: Normal right side . Normal left side Motor strength in the triceps muscle: Normal right side. Normal left side Deep tendon reflexes: Normal at the biceps. Normal at Brachioradialis. Normal at triceps Cervical facet loading test: positive bilaterally Spurling test: positive bilaterally Neck distraction test: positive bilaterally Christina sign: positive bilaterally Lumbar spine Motor strength lower extremities ,thigh and legs 5/5 Right side , 5/5 Left side Deep tendon reflexes : Normal Knee Jerk. Normal Ankle Jerk Lumbar facet Loading Test: positive Right / positive Left Range of motion of the lumbar spine Flexion 90 degrees, extension 10 degrees Straight Leg Raise test: Left/ Right positive at <30 degree Gloria test: positive right / positive left. Severe tenderness over the Sacroiliac joint on the Right / Left sides Gaenslen test: positive bilaterally Seated flexion test: positive bilaterally. Assessment/ Plan : Recommendation of 3 day supply of [place] and use of Aleve and topical Diclofenac gel, though pt left the facility before we could have pt sign the opioid agreement and collect urine for UDS. To follow up with Dr Moreau for upcoming surgery as scheduled I have spent greater than 50 minutes on patient care today. Dr Rivera was available by phone for the evaluation of this patient. The time was used to review the medical records including relevant urine studies and Prescription history (MAPs), review of the available imaging, evaluation and examination of the patient, coordination of care with the medical staff and if applicable referring physicians, as well as creation of the medical record PQRS Measure Charge Sheet Mode of Arrival: Ambulatory - Pain Location Back Non-Pharmacological Interventions: Chiropractic Treatment, Heat, Home Exercise, Ice, Stretching Pharmacological Interventions: Epidural, Topical Medication PQRS Narrative: Smoking Status Current every day smoker Blood Pressure 128/84 Pain Intensity [Back] 10 Scale Used Numeric (1 - 10) Hx Alcohol Use (MH) None in 22 yrs. Home Medications: Ambulatory Orders lisinopriL [Zestril] 10 mg PO HS 12/12/17 Doxepin HCl [SINEquan] 100 mg PO HS 10/20/19 OXcarbazepine [Trileptal] 600 mg PO HS 10/20/19 clonazePAM 0.5 mg PO TID PRN 10/20/19 lamoTRIgine [LaMICtal Xr] 600 mg PO HS 10/20/19 Nystatin 100,000 Unit/gm Powd [Mycostatin Powder] 1 applic TOPICAL DAILY PRN 09/12/20 Albuterol Sulfate [Ventolin HFA] 1 - 2 puff INHALATION RT-Q6H PRN 12/01/20 Triamcinolone 0.1% Cream [Kenalog 0.1% Cream] 1 applicatio TOPICAL DAILY 07/24/21 Fenofibrate 54 mg PO DAILY 10/18/21 Pantoprazole Sodium [Protonix] 40 mg PO DAILY 10/18/21
== END ==
LOC: PNWHC3 11:29
PROVIDERS: ATTEND Physician Assistant Medical
DX: M51.16 Intervertebral disc disorders with radiculopathy, lumbar region (principal); F17.200 Nicotine dependence, unspecified, uncomplicated; J45.909 Unspecified asthma, uncomplicated; F32.A Depression, unspecified; I10 Essential (primary) hypertension; F90.9 Attention-deficit hyperactivity disorder, unspecified type; Z91.040 Latex allergy status; Z88.6 Allergy status to analgesic agent
CPT/HCPCS: 99211

== ENCOUNTER → 2021-11-05 | Outpatient (CLI) | payer MEDICARE, OTHER | END | disposition home or self-care (01) | LOC: LABPAT 11:37 | PROVIDERS: ATTEND Orthopaedic Surgery | DX: Z01.812 Encounter for preprocedural laboratory examination (principal); Z22.322 Carrier or suspected carrier of Methicillin resistant Staphylococcus aureus; M43.16 Spondylolisthesis, lumbar region | CPT/HCPCS: 87070 ==

== ENCOUNTER 2021-11-15 11:21 | Inpatient (IN) | payer MEDICARE, OTHER ==
[2021-10-29 14:16] VITALS: BMI 25.2
--- NOTE | 2021-11-15 08:36 | P.HPOR ---
History of Present Illness H&P Date: 11/08/21 Chief Complaint: Low back pain, LE pain/radiculopathy, Weakness Date of :[birth year] R14Age: 55 year Height: 5'7" Weight: 170 lbs BP:132/87 BMI: 26.63 kg/m2 Occupation: Disabled VAS: 10 CHIEF COMPLAINT: Low back pain HISTORY: Xrays No new xrays taken today Trauma or injury No Work-Related No Pain description Aching, sharp. Location Diffuse Activity Modification Yes , unable to stand or weightbear for extended periods of time. Hand Dominance Right DOI: None DOS: Hx of cervical fusion done in 2016 but none regarding the lumbar spine. TREATMENTS COMPLETED: 6 weeks of PT completed? Yes Did it help? No Physician directed home exercise completed? yes, did not help. Medications yes List: Medrol Dose Wade, Gabapentin 300mg, Ibuprofen 600mg, Lyrica, Lidoderm 5% patches all without improvements to her symptoms. Currently taking Suboxone. Alternative interventions Chiropractic?: No Brace: No Injections Yes (L4-L5 CAROLE) How many: 1 Did it help: Exacerbated her symptoms. RFA: No SUBJECTIVE: Patient presents to the office for a pre-op review of the planned L4-S1 decompression and fusion. Since the time of the last appointment the patient reports that her symptoms have continued to persist and severely impact her daily functionality. She denies any improvements with all conservative treatm ents trailed thus far and is ready to proceed with the planned procedure. All risks and benefits are reviewed and she wishes to proceed. She continues to deny any bladder or bowel retention/incontinence, no perineal numbness/tingling, and ambulates without the use of any aids. HPI: The patient last presented to the office on 10/14/2021 for a recheck of her lumbar spine. She is currently in a lot of pain and miserable. She notes that her symptoms were exacerbated with the L4-L5 CAROLE obtained after the time of the last appointment. She notes that her symptoms are severe and she is unable to complete most of her daily functions due to the pain. Patient has worsened and failed all conservative treatments tried thus far. Patient does not report trying any new treatment modalities aside from the injection since the time of the last appointment. Otherwise she continues to deny any bladder or bowel issues, perineal numbness/tingling, and ambulates without the use of any aides. Ms. Nino Holland previously presented to the office on 08/12/2021 for a follow up evaluation of her low back. Since the time of the last appointment she notes continued pain across the low back that radiates into the bilateral hips. Overall her symptomology has not changed since the last appointment. At this time the patient denies any bladder or bowel issues, perineal numbness/tingling, and ambulates without the use of any aides. Ms. Nino Holland was last seen on 06/03/2021 regarding back pain. To review, at the patient's last appointment on 02/27/2021 she was given a script for PT, Medrol dose wade, Gabapentin, and health maintenance/home exercise programs. WIth all of this she notes that it has not improved her symptoms. She notes that her pain primarily comes with ambulating and sitting. But overall the pain will wax and wane without any specific movements that exacerbates her symptoms. Her pain is primarily located on the right side of the lumbar spine and it radiates down into the right lower extremity. The pain is quite severe and she notes that she is unable to complete many of her day-today functions due to this. She is ambulating without the use of any aides at this time Patient last presented on 02/27/2021 with back pain. Patient denied any specific injury. She stated that she has had low back for years that has increased the past 5 months. She reported low back pain that radiates down her right leg. She noted right hip pain. Patient denied any bowel or bladder incontinence. She denies any genital region numbness. Patient is taking Suboxone three times daily for pain. Patient is ambulating independently. The patients' past social, medical, family, surgical history, as well as review of systems, have been reviewed. Please refer to the Neurosurgery History and Physical form that has been scanned in to our electronic medical record system. 14 points review of systems completed and as stated in HPI, all other systems reviewed are negative. Review of Systems 14 points review of systems completed and as stated in HPI, all other systems reviewed are negative. All systems: negative Constitutional: Reports as per HPI Past Medical History Past Medical History: Diabetes Mellitus, GERD/Reflux, Hyperlipidemia, Hypertension, Liver Disease, Musculoskeletal Disorder Additional Past Medical History / Comment(s): Chronic back pain, has hepatitis C antibodies, had hepatitis B years ago, UTI. NEUROPATHY, no longer considered diabetic since weight loss, kidney stone in past History of Any Multi-Drug Resistant Organisms: MRSA Date of last positivie culture/infection: 03/30/21 MDRO Source:: Left Hand Past Surgical History: Bariatric Surgery, Section, Cholecystectomy, Orthopedic Surgery, Tonsillectomy Additional Past Surgical History / Comment(s): 2 abortions, ortho surgery rt arm, gastric sleeve, right shoulder surg. Past Anesthesia/Blood Transfusion Reactions: No Reported Reaction Smoking Status: Former smoker - Past Family History Father History Unknown: Yes Additional Family Medical History / Comment(s): Patient is adopted Mother History Unknown: Yes Additional Family Medical History / Comment(s): Pt is adopted. Medications and Allergies Home Medications Medication Instructions Recorded Confirmed Type lisinopriL [Zestril] 10 mg PO HS 12/12/17 10/28/21 History Doxepin HCl [SINEquan] 100 mg PO HS 10/20/19 10/28/21 History OXcarbazepine [Trileptal] 600 mg PO HS 10/20/19 10/28/21 History clonazePAM 0.5 mg PO TID PRN 10/20/19 10/28/21 History lamoTRIgine [LaMICtal Xr] 600 mg PO HS 10/20/19 10/28/21 History Nystatin 100,000 Unit/gm Powd 1 applic TOPICAL DAILY PRN 09/12/20 10/28/21 History [Mycostatin Powder] Albuterol Sulfate [Ventolin HFA] 1 - 2 puff INHALATION RT-Q6H PRN 12/01/20 10/28/21 History Fenofibrate 54 mg PO DAILY 10/18/21 10/28/21 History Pantoprazole Sodium [Protonix] 40 mg PO TID 10/18/21 10/28/21 History Buprenorphine HCl/Naloxone HCl 1 each SL TID 10/29/21 10/29/21 History [Suboxone 8 mg-2 mg Sl Film] Dextroamphetamine/Amphetamine 20 mg PO TID 10/29/21 10/29/21 History [Adderall] Diclofenac Sodium Gel [Voltaren 2 gm TOPICAL QID PRN 10/29/21 10/29/21 History Gel] Ketoconazole [Ketoconazole 2%] 1 applic TOPICAL DIRECTED PRN 10/29/21 10/29/21 History Naproxen 500 mg PO BID PRN 10/29/21 10/29/21 History Triamcinolone 0.1% Cream [Kenalog 1 applicatio TOPICAL BID PRN 10/29/21 10/29/21 History 0.1% Cream] Citalopram Hydrobromide [CeleXA] 10 mg PO HS 11/01/21 11/04/21 History Allergies Allergy/AdvReac Type Severity Reaction Status Date / Time latex Allergy Rash/Hives Verified 10/28/21 15:51 ziprasidone [From Geodon] Allergy tongue Verified 10/28/21 15:51 Swelling, facial drooping Physical Examination Osteopathic Statement: *. No significant issues noted on an osteopathic structural exam other than those noted in the History and Physical/Consult. PHYSICAL EXAMINATION: General: Awake, alert, appropriate for age, in no acute distress. HEENT: No unusual neck masses around region of lateral neck triangle, thyroid, supraclavicular groove Extremities: Skin warm and dry without acute lesions, coloration, temperature, skin intact, no tenderness or erythema Integument: Hairy patches: Absent Dorsal skin dimples: Absent Cafe au lait spots: Absent Surgical incisions: No Palpation: Please see Pain drawing on Intake sheet for further detail. Midline spinal tenderness: No E6 Paralumbar tenderness: No E6 Parathoracic tenderness: No E6 Buttocks tenderness: No E6 Special findings: No POSTURAL and MUSCULO-SKELETAL EVALUATION: Coronal Balance: NEUTRAL Recumbent testing: Patient is able to lay flat on back Sagittal Balance: NEUTRAL Shoulder Profile: LEVEL Pelvic Girdle: LEVEL Neck ROM: UNRESTRICTED Lumbar ROM: RESTRICTED Shoulder ROM: Symmetrical Hip ROM: Symmetrical Knee ROM: Symmetrical Hands: Normal appearance, symmetrical Feet: Normal appearance, Symmetrical VASCULAR STATUS : LEFT RIGHT Wrist Pulses INTACT INTACT Pedal Pulses (Dors. pedis & post.tibialis) INTACT INTACT Color NORMAL NORMAL Edema Absent Absent NEUROLOGIC EXAMINATION: Mental Status:Awake and alert, fully oriented, with normal attention, concentration and memory, and fluent, appropriate speech. Cranial Nerves: I: Olfactory not tested. II: Visual acuity normal, no visual field deficit noted with confrontation. III,IV: Normal pupillary reflexes & intact extraocular movements without nystagmus. V,: Intact symmetrical facial sensation. VII: Intact symmetrical facial motor movement VIII: Hearing intact. IX,X: Intact gag, swallow, & normal voice. XI: Sternocleidomastoid, trapezius function intact. XII: Tongue midline with normal movements. L'hermitte's Sign: Negative / absent Spurling'Sign: Absent bilaterally. Cubital percussion test: Absent bilaterally. Troy-Tinel sign - Carpal region: Absent bilaterally. Straight Leg Raising: Absent bilaterally. Crossed straight leg raise: negative O8 MOTOR EXAM (0-5/5, N/T) STRENGTH RIGHT LEFT Shoulder Abd (not part of the ALLISON score) 5 5 Elbow Flexors 5 5 Elbow Extensor 5 5 Wrist Dorsiflexors 5 5 Finger Abductor 5 5 Ambulance Operations Supervisor 5 5 Hip Flexor (Not part of ALLISON Motor score) 5 5 Knee Flexor 5 5 Knee Extensor 5 5 Ankle dorsiflexor 5 5 Ankle plantarflexion 4+ 4+ Extensor hallucis 5 5 REFLEXES(0-4/2, NT) RIGHT LEFT Upper Extremities 2 2 Lower Extremities 2 2 Pathological Reflexes RIGHT LEFT Herrera's Absent Absent Clonus Absent Absent Babinski Absent Absent # Indicates mechanical impairment Muscle appearance: Symmetrical, without signs of atrophy or dystrophy. Sensory system (0-4, N/T) Test type RU AMANDA RL LL Joint-Position 2 2 2 2 Vibration 2 2 2 2 Pain & LT sense 2 2 2 2 Dermatomal Deficit: None None L4-5 L4-S1 Gait and Functional Evaluation: Ambulatory aids: Independent Romberg's test: Intact bilaterally Toe heel walk / heel-toe walk intact while maintaining satisfactory balance? yes Squatting/straightening w/o assistance to a min of 60 degree knee flexion? yes Single leg stance: intact Trendelenburg sign negative bilaterally Hand and finger dexterity intact bilaterally? yes Disdiadochokinesis examination negative bilaterally? yes Results RADIOGRAPHIC STUDIES: XRay taken on 02/27/2021 of lumbar and pelvis was reviewed by Dr. Orourke and indicates: - L4-5 GI spondylolisthesis with no fracture. There is facet arthrosis noted at L4-S1. There is listhesis up to 6 mm with flexion. This reduces with extension. There is no other fracture or dislocation noted. Overall alignment maintained. AP pelvis show congruent FA joints as well as congruent pelvis w/o fracture. MRI scan from 06/24/2021 of Lumbar Spine: Grade I anteriorlisthesis of L4-5 with foraminal stenosis and mild central stenosis. Boggy and overgrown facets in this area. Disc height loss as well as ddd. L5-S1 small HNP noted centrally. severe stenosis noted. b/l foraminal stenosis related. There are boggy facets L4-5 and L5-S1 noted as well due to spondylotic changes. Spondylosis and facet arthrosis at this level as well. No fracture dislocation or other lesions noted Assessment and Plan Assessment: 1. L4-5 Grade 1 spondylolisthesis 2. Left lower extremity radiculopathy 3. L5-S1 LArge Herniated Nucleus Pulposus, severe stenosis with spondylosis Plan: Based on my findings I suggest the following course of action: 1.I discussed treatment options with the patient, including operative and non-operative options, and they have elected to proceed with the following surgical procedure: L4-S1 decompression and fusion The indications, risks, benefits, and alternatives to surgery were discussed with the patient at length. Specifically (but not limited to) the risks of infection, stiffness, recurrence of symptoms, need for revision surgery, local numbness, neurovascular injury, and blood clots were discussed. The patient's questions were answered. The decision to proceed was made. Consent will be obtained for the procedure.. She will follow with her current treatment team for clearances for surgery as well as labs, pre operative optimization as well. Spine Surgery Risk Review Sarah Holland is presenting for evaluation of lumbar pain with bilateral lower extremity radiculopathy . It was my pleasure to have seen and examined Sarah Holland. In our visit today we have had a chance to go over subjective complaints, physical examination findings and treatments including the natural course history without intervention and various interventional options. The patients imaging demonstrates xrays: L4-5 GI spondylolisthesis with no fracture. There is facet arthrosis noted at L4-S1. There is listhesis up to 6 mm with flexion. This reduces with extension. There is no other fracture or dislocation noted. Overall alignment maintained. AP pelvis show congruent FA joints as well as congruent pelvis w/o fracture. MRI: Grade I anteriorlisthesis of L4-5 with foraminal stenosis and mild central stenosis. Boggy and overgrown facets in this area. Disc height loss as well as ddd. L5-S1 small HNP noted centrally. severe stenosis noted. b/l foraminal stenosis related. There are boggy facets L4-5 and L5-S1 noted as well due to spondylotic changes. Spondylosis and facet arthrosis at this level as well. No fracture dislocation or other lesions noted. . On physical exam, Sarah Holland demonstrates bilateral lower extremity radiculopathy with weakness and L4-S1 dermatomal deficits. I have explained to the patient that as their condition progresses it will cause further neurological deficits and eventual paralysis. Based on the patients imaging, physical exam, and the rapid progression and disabling nature of their symptoms, at this time I recommend surgery in the form or a: L4-S1 decompression and fusion. I discussed the risk and benefits of this procedure at length with Sarah Holland. The patient agreed to considered pursuing the procedure abovementioned. Prior to surgery, she should follow up with her PCP (Cardio, ID, IM etc) for clearance. Questions were invited and answered, and the patient wishes to proceed as outlined below. Currently, I am recommendin.L4-S1 decompression and fusion 2.Follow up with PCP for surgical clearance 3.Review of surgical risks and benefits as well as an educational packet on the proposed surgical procedure. Risks: All surgical procedures come with inherent risks, including those related to positioning, anesthesia, intraoperative findings, and postoperative complications. It is important to understand that surgery does not come with any guarantee of a successful outcome as complications and adverse events are always possible. The patient was given a handout in office today discussing the surgical procedure and risks associated with the intervention, both of which were discussed with the patient. These risks include but are not limited to the following: * Experiencing same, different or even worse symptoms in back, neck, arms, or legs compared to before surgery. Requiring further surgery or other forms of treatment presently or at some time in the future at same or other levels of the intended spine surgery. On an extreme but fortunately relatively rare basis severe complication such as blindness, stroke, heart attack, temporary and/or permanent nerve injury, paralysis, coma, or may occur, sometimes without known explanation. Surgical complications may include but are not limited to risk of infection, fluid accumulation in the surgical dissection site, including a seroma or hematoma, that requires additional surgery, wound drainage, bleeding, new numbness or weakness, vision changes/loss, spinal fluid leakage, non-healing and/or infected incision, headaches, difficulty or inability to swallow, hoarseness, hemopneumothorax, pneumothorax, impotence, retrograde ejaculation, vaginal dryness; injury to nerves, spinal cord, blood vessels, lymphatics or other vital organs (i.e., bowel injury, injury to the great vessels); heterotopic bone formation; complications related to the hardware such as screws, rods, cages including misplaced hardware, device failure, instrumentation at the wrong spine level, hardware fracture/breakage, or hardware loosening; vertebral failure of the spinal column above or below the newly placed hardware; retained surgical instrumentations or devices and the need for further surgery. * Medical risks of the planned spine surgery include but are not limited to generalized Infections to the whole body or local areas outside of the surgical site (sepsis), heart attack, bleeding, anaphylaxis, meningitis, seizure, epilepsy, hearing loss, burn fontaine, laceration of the head or other areas of the body, bruising, hypersensitivity of the skin, bladder over distension; allergic reaction; shoulder injury related to positioning; fat, b lood and air clots to other areas of the body like heart, lungs, brain; failure of internal organs such as lungs, kidneys, liver and excessive bleeding. If blood transfusions are necessary, note that transfusions may cause intolerance reactions such as anaphylaxis or other complex reactions. Despite best efforts, the results of spine surgery might not heal in terms of bone, soft tissues such as skin, fascia, ligaments, and joints. Additionally, in order to achieve best possible results, spine surgery may be carried out beyond the initially planned levels and involve decompression, fusion including insertion of hardware at levels other than the original intended area of surgical interest change some portions of the procedure in order to ensure the best possible outcomes. With spine surgery and spinal fusion, there are different off label uses of instrumentation (devices, implants and hardware) as well as biological substances (bone morphogenic proteins, demineralized bone matrix) as well as using extra bone from allograft sources (i.e. cadaver bone) or autograft (iliac crest bone, ribs, or the spine itself). The patient has been given information about these practices and their inherent risks and benefits. [facility] is an educational center that serves as a training facility for PRESSFITTER and nursing students. Physician assistants are medically trained surgical providers who function in the outpatient, inpatient, and operating room setting under the direct supervision of the attending surgeon. [facility] has multiple operating rooms with single and overlapping rooms running daily. They currently function under the required guidelines as produced by the [facility] Finance Committee with regards to the overlapping rooms and will continue to comply with changes to this policy as they occur. The requirements include and are complied with as follows: (1) the critical portions of the overlapping rooms will not occur at the same time, (2) the attending physician will be physically present during the critical portions of the procedure and immediately available during the entire case, and (3) a back-up attending is designated should the primary attending not be immediately available. The patient has had a chance to review all the listed information, has been given print outs detailing this information, and has had all his/her questions answered to their satisfaction. It was my pleasure to have seen and examined Sarah Holland. In our visit today we have had a chance to go over my understanding of our patient's current condition, the natural course history without intervention and various interventional options. Questions were invited and answered, and the patient wishes to proceed as outlined above. I have seen and examined the patient for 25 minutes and we have spent more than 50% of the time in repeat and detailed counseling about the patient's condition, its natural course history with out and as much as can be predicted with surgery and re-review of various surgical treatment options. In conclusion, Sarah Holland requested we proceed with the above suggested surgery and are willing to accept risks and limitations of the suggested surgery as nature of the disease process and our best attempts at treatment for the condition. Thank you again for allowing us to be part of your patient's care. Please don't hesitate to contact me if you have any further questions. Signed and authenticated by: Abisai Moreau DO [facility] [address] [facility], [address] [address]
[~2021-11-15 11:21] MED LIST: ACETAMINOPHEN TAB 500 MG TAB PO PRN; DEXAMETHASONE SOD PHOSPHATE 4 MG/ML 1 ML VIAL IV ONE; GABAPENTIN 300 MG CAP PO PRN; ONDANSETRON 4 MG/2 ML VIAL IVP ONE; ONDANSETRON 4 MG/2 ML VIAL IVP PRN; TRANEXAMIC ACID 1,000 MG in SODIUM CHLORIDE 0.9% 100 ML IVPB PRN; VANCOMYCIN 1,000 MG in SODIUM CHLORIDE 0.9% 250 ML IVPB PRN
[2021-11-15] MEDS: LACTATED RINGERS 1,000 ML IV SCH (12:44)
[2021-11-15 12:50] LABS: Prothrombin Time 10.7 sec (9.0-12.0)
[2021-11-15] MEDS ORDERED: MIDAZOLAM 2 MG/2 ML VIAL IVP ONE (12:55)
[2021-11-15] MEDS ORDERED: LIDOCAINE 1% (10MG/ML) FOR IV START INTRADERMA ONE (12:55)
[2021-11-15] MEDS ORDERED: KETAMINE 10 MG/ML 20 ML VIAL ONE (14:08)
[2021-11-15] MEDS ORDERED: fentaNYL (PF) 50 MCG/ML 2 ML AMP ONE (14:08)
[2021-11-15] MEDS ORDERED: ONDANSETRON 4 MG/2 ML VIAL ONE (14:08)
[2021-11-15] MEDS ORDERED: SODIUM CHLORIDE 0.9% 100 ML BAG ONE (14:08)
[2021-11-15] MEDS ORDERED: MIDAZOLAM 2 MG/2 ML VIAL ONE (14:08)
[2021-11-15] MEDS ORDERED: GLYCOPYRROLATE 0.2 MG/ML 2 ML VIAL ONE (14:08)
[2021-11-15] MEDS ORDERED: LIDOCAINE 1% INJ 10MG/ML (20 ML MDV) ONE (14:08)
[2021-11-15] MEDS ORDERED: PHENYLEPHRINE-0.9% NACL SYG 1,000 MCG/10 ML SYRINGE ONE (14:08)
[2021-11-15] MEDS ORDERED: TRANEXAMIC ACID 1,000 MG/10 ML VIAL ONE (14:08)
[2021-11-15] MEDS ORDERED: SUCCINYLCHOLINE CHLORIDE 100 MG/5 ML SYR IV ONE (14:08)
[2021-11-15] MEDS ORDERED: ePHEDrine 50 MG/ML 1 ML VIAL ONE (14:08)
[2021-11-15] MEDS ORDERED: ROCURONIUM 10 MG/ML (5 ML VIAL) IV ONE (14:08)
[2021-11-15] MEDS ORDERED: PROPOFOL 10 MG/ML 20 ML VIAL IV ONE (14:08)
[2021-11-15] MEDS ORDERED: MINERAL OIL 1 APPLIC/ML OIL MISCELLANE ONE (15:03)
[2021-11-15] MEDS ORDERED: THROMBIN (BOVINE) 5,000 UNIT VIAL TOPICAL ONE (15:03)
[2021-11-15] MEDS ORDERED: ceFAZolin 3,000 MG in SODIUM CHLORIDE 0.9% IRRIGATIO 3,000 ML IRRIGATION ONE (15:03)
[2021-11-15] MEDS ORDERED: GELATIN SPONGE,ABSORB (LARGE) 1 EACH SPONGE TOPICAL ONE (15:03)
[2021-11-15] MEDS ORDERED: LACTATED RINGERS 1,000 ML IV ONE ×5 (16:20→19:20)
[2021-11-15] MEDS ORDERED: VANCOMYCIN 1,000 MG VIAL MISCELLANE ONE (16:37)
[2021-11-15] MEDS ORDERED: oxyCODONE-APAP 7.5-325MG 1 EACH TAB PO PRN (19:07)
[2021-11-15] MEDS: HYDROmorphone 0.5 MG/0.5 ML SYRINGE IVP PRN ×4 (19:08→19:43)
--- NOTE | 2021-11-15 19:20 | XR ---
Intraoperative fluoroscopic services were provided for internal fixation of a lower spine. Total fluo roscopy time is 5 minutes 23 seconds with a total of 2 submitted images to PACS. Please see the opera tive note for further details.
[2021-11-15] MEDS: GABAPENTIN 300 MG CAP PO SCH (23:11)
[2021-11-15] MEDS: HYDROmorphone 1 MG/ML 1 ML SYRINGE IVP PRN (23:12)
[2021-11-15] MEDS: lisinopriL 10 MG TAB PO SCH (23:40)
[2021-11-16] MEDS: ACETAMINOPHEN TAB 325 MG TAB PO SCH ×5 (00:35→23:26)
[2021-11-16] MEDS: CYCLOBENZAPRINE 5 MG TAB PO PRN ×2 (01:52→08:56)
[2021-11-16] MEDS ORDERED: ALBUTEROL NEBULIZED 2.5 MG/3 ML INHALATION PRN (02:05)
--- NOTE | 2021-11-16 02:07 | P.CONS ---
History of Present Illness - Reason for Consult Consult date: 11/16/21 - History of Present Illness Patient is a 56-year-old female with a PMH of type II DM, hypertension, hyperlipidemia, and GERD who was admitted for an elective L4 to S1 fusion. The patient underwent the procedure earlier today with no immediate postoperative complications and was seen in the surgical unit. She reported ongoing 9 out of 10 lower back pain but denied any additional complaints. Denied numbness or weakness. Denied cough, fever, chills, chest discomfort, shortness of breath. Denied nausea, vomiting, abdominal pain, diarrhea. Reports compliance with all her medications at home. Review of systems: Pertinent positives and negatives as discussed in HPI, a complete review of systems was performed and all other systems are negative. Physical examination: General: non toxic, no distress, appears at stated age, normal weight Derm: no unusual rashes/lesions no unusual ecchymoses, warm, dry Head: atraumatic, normocephalic, symmetric Eyes: EOMI, no lid lag, anicteric sclera, pupils equal round reactive to light ENT: Nose and ears atraumatic, no thrush, no pharyngeal erythema Neck: No thyromegaly, no cervical lymphadenopathy, trachea midline, supple Mouth: no lip lesion, mucus membranes moist Cardiovascular: S1S2 reg, no murmur, positive posterior tibial pulse bilateral, no edema, capillary refill less than 2 seconds Lungs: CTA bilateral, no rhonchi, no rales , no accessory muscle use Abdominal: soft, nontender to palpation, no guarding, no appreciable organomegaly, normal bowel sounds Ext: no gross muscle atrophy, muscle strength 5 out of 5 in bilateral upper extremities and distal bilateral lower extremities, proximal lower extremity strength not assessed, no contractures Neuro: CN II-XI grossly intact, light touch intact all 4 extremities, finger to nose within normal limits, Psych: Alert, oriented, appropriate affect Assessment/plan Chronic conditions: Hypertension, hyperlipidemia, type DM -Insulin sliding scale, blood glucose monitoring -Continue the remaining home medications Status post spinal fusion -Defer management including pain control to the primary surgery service We appreciate this opportunity to be involved in this patient's care. We will follow the patient with you. For any further questions, please not hesitate to contact the sound inpatient team. Past Medical History Past Medical History: Diabetes Mellitus, GERD/Reflux, Hyperlipidemia, Hypertension, Liver Disease, Musculoskeletal Disorder Additional Past Medical History / Comment(s): Chronic back pain, has hepatitis C antibodies, had hepatitis B years ago, UTI. NEUROPATHY, no longer considered diabetic since weight loss, kidney stone in past History of Any Multi-Drug Resistant Organisms: MRSA Year Discovered:: 03/30/21 MDRO Source:: Left Hand Past Surgical History: Bariatric Surgery, Section, Cholecystectomy, Orthopedic Surgery, Tonsillectomy Additional Past Surgical History / Comment(s): 2 abortions, ortho surgery rt arm, gastric sleeve, right shoulder surg. Past Anesthesia/Blood Transfusion Reactions: No Reported Reaction Smoking Status: Former smoker - Past Family History Father History Unknown: Yes Additional Family Medical History / Comment(s): Patient is adopted Mother History Unknown: Yes Additional Family Medical History / Comment(s): Pt is adopted. Medications and Allergies Home Medications Medication Instructions Recorded Confirmed Type lisinopriL [Zestril] 10 mg PO HS 12/12/17 10/28/21 History Doxepin HCl [SINEquan] 100 mg PO HS 10/20/19 11/15/21 History OXcarbazepine [Trileptal] 600 mg PO HS 10/20/19 10/28/21 History clonazePAM 0.5 mg PO TID PRN 10/20/19 11/15/21 History lamoTRIgine [LaMICtal Xr] 600 mg PO HS 10/20/19 10/28/21 History Nystatin 100,000 Unit/gm Powd 1 applic TOPICAL DAILY PRN 09/12/20 11/15/21 History [Mycostatin Powder] Albuterol Sulfate [Ventolin HFA] 1 - 2 puff INHALATION RT-Q6H PRN 12/01/20 11/15/21 History Fenofibrate 54 mg PO DAILY 10/18/21 11/15/21 History Pantoprazole Sodium [Protonix] 40 mg PO TID 10/18/21 11/15/21 History Buprenorphine HCl/Naloxone HCl 1 each SL TID 10/29/21 11/15/21 History [Suboxone 8 mg-2 mg Sl Film] Dextroamphetamine/Amphetamine 20 mg PO TID 10/29/21 11/15/21 History [Adderall] Diclofenac Sodium Gel [Voltaren 2 gm TOPICAL QID PRN 10/29/21 11/15/21 History Gel] Ketoconazole [Ketoconazole 2%] 1 applic TOPICAL DIRECTED PRN 10/29/21 11/15/21 History Naproxen 500 mg PO BID PRN 10/29/21 11/15/21 History Triamcinolone 0.1% Cream [Kenalog 1 applicatio TOPICAL BID PRN 10/29/21 11/15/21 History 0.1% Cream] Citalopram Hydrobromide [CeleXA] 10 mg PO HS 11/01/21 11/04/21 History Allergies Allergy/AdvReac Type Severity Reaction Status Date / Time latex Allergy Rash/Hives Verified 10/28/21 15:51 ziprasidone [From Geodon] Allergy tongue Verified 10/28/21 15:51 Swelling, facial drooping Physical Exam Vitals: Vital Signs Temp Pulse Pulse Resp BP BP Pulse Ox 11/15/21 20:10 72 16 147/70 100 11/15/21 19:55 82 16 156/70 99 11/15/21 19:40 78 20 175/70 97 11/15/21 19:25 81 18 169/85 100 11/15/21 19:10 81 20 155/72 100 11/15/21 18:55 97.1 F L 82 16 145/79 100 11/15/21 12:06 97.3 F L 63 18 110/59 98 Intake and Output 11/15/21 11/15/21 11/16/21 14:59 22:59 06:59 Intake Total 2250 2000 Output Total 500 Balance 2250 1501 Intake: IV 2250 2000 Output: Urine 425 Estimated Blood Loss 75 Other: Weight 72.5 kg
[2021-11-16] MEDS: LACTATED RINGERS 1,000 ML IV SCH (02:33)
[2021-11-16] MEDS: HYDROmorphone 1 MG/ML 1 ML SYRINGE IVP PRN ×6 (02:33→20:23)
[2021-11-16] MEDS: oxyCODONE-APAP 5-325MG 1 EACH TAB PO PRN ×2 (03:38→10:14)
[2021-11-16 06:58] LABS: Glucose,Whole Blood 95 mg/dL (75-99)
[2021-11-16] MEDS: GABAPENTIN 300 MG CAP PO SCH ×2 (07:30→20:24)
[2021-11-16] MEDS: PANTOPRAZOLE 40 MG TABLET PO SCH (07:31)
[2021-11-16] MEDS: FENOFIBRATE 54 MG TAB PO SCH (07:31)
[2021-11-16] MEDS: INSULIN ASPART (NovoLOG) 100 UNIT/ML VIAL SQ SCH ×4 (07:34→21:22)
[2021-11-16 09:24] LABS: Basophils # (A) 0.04 X 10*3/uL (0.00-0.10); Basophils % (A) 0.4 %; Eosinophils # (A) 0.02 X 10*3/uL (0.04-0.35); Eosinophils % (A) 0.2 %; HCT 32.6 % (37.2-46.3); Immature Grans, Automated 0.4 %; Lymphocytes % (A) 14.1 %; MCH 33.1 pg (27.0-32.0); MCHC 33.7 g/dL (32.0-37.0); MCV 98.2 fL (80.0-97.0); Mean Platelet Volume 10.9 fL (9.5-12.2); Monocytes # (A) 0.66 X 10*3/uL (0.20-1.00); Monocytes % (A) 5.8 %; NRBC Per 100 WBC 0 /100 WBCS (0.0-0.0); Neutrophils # (A) 8.98 X 10*3/uL (1.80-7.70); Neutrophils % (A) 79.1 %; Platelet Count 210 X 10*3/uL (140-440); RBC 3.32 X 10*6/uL (4.10-5.20); RDW 11.9 % (11.5-14.5); WBC 11.35 X 10*3/uL (4.50-10.00)
--- NOTE | 2021-11-16 10:26 | CT ---
EXAMINATION TYPE: CT lumbar spine wo con DATE OF EXAM: 11/16/2021 10:02 AM COMPARISON: None HISTORY: S/P L4-S1 TLIF CT DLP: 1152.6 mGycm Automated exposure control for dose reduction was used. Unenhanced CT of the lumbar spine was performed. Bone and soft tissue window settings are submitted as well as coronal and sagittal reconstructions. FINDINGS: Alignment: There are 5 lumbar type vertebral bodies within normal alignment. Bone: No evidence of fracture is identified. Fixation hardware at L4, L5 and S1 appears intact. Ther e is L3-L4 and L4-L5 disc spacers present. There has been a L5/S1 trish facetectomy on the right. Discs: T12-L1: No spinal canal or neural foraminal stenosis is identified. L1-L2: No spinal canal or neural foraminal stenosis is identified. L2-L3: No spinal canal or neural foraminal stenosis is identified. L3-L4: No spinal canal or neural foraminal stenosis is identified. L4-L5: No spinal canal or neural foraminal stenosis is identified. L5-S1: No spinal canal or neural foraminal stenosis is identified. Other: Postsurgical changes with skin jesse are noted within the back. IMPRESSION: 1. Surgical changes with fixation hardware in place, hardware appears intact. 2. Right L5/S1 trish facetectomy. 3. No evidence of spinal canal or neural foraminal stenosis within the limitations of this exam with streak artifact.
--- NOTE | 2021-11-16 11:04 | P.PN ---
Subjective Progress Note Date: 11/16/21 Principal diagnosis: Low back pain, radiculopathy, spondylolisthesis Patient seen and examined this morning she is doing fairly well she denies any radicular-type pains denies any numbness or tingling denies any pain in her genitals. She states that she has been doing well overnight however is somewhat painful in her back she has gotten up to the bathroom under her own power with a walker. She plans and walking today. She denies fevers chills shortness of breath or chest pain. The Alcazar has been discontinued and she is sitting up in bed. Objective - Vital Signs Vital signs: Vital Signs Temp 98.4 F 11/16/21 07:10 Pulse 61 11/16/21 07:10 Resp 16 11/16/21 07:10 BP 116/75 11/16/21 07:10 Pulse Ox 95 11/16/21 07:10 Intake & Output 11/15/21 11/16/21 11/16/21 18:59 06:59 18:59 Intake Total 3751 500 Output Total 300 1550 Balance 3451 -1050 Weight 72.5 kg 72.5 kg Intake: IV 3751 500 Output: Urine 225 1550 Estimated Blood Loss 75 - Exam Patient is alert and oriented 3 appears well-nourished well-hydrated is in no acute distress. They does not appear septic. On exam the patient has no t enderness to palpation of her thoracic or lumbar spine. There is no edema or ballottement sign. Lower extremities with 5 out of 5 strength in all major muscle groups Upper extremities show 5/5 strength in all major muscle groups. There is FROM that is painless of the b/l UE and LE in all major joints. They are intact to light touch sensation in L2 to S1 nerve distribution. Patient has palpable dorsalis pedis was posterior tibial pulses. Compartments are soft and compressible. Patient shows a negative Homans, Herrera's, negative Babinski's negative clonus bilaterally. negative straight leg raise bilaterally. No tensioning signs. Cranial nerves II through XII are grossly intact. Overall alignment is well-maintained in the sagittal coronal planes. Dressings are clean dry and intact no erythema or ecchymosis or edema - Constitutional General appearance: Present: cooperative - Labs CBC & Chem 7: 11/16/21 04:37 Labs: Abnormal Lab Results - Last 24 Hours (Table) 11/16/21 Range/Units 04:37 WBC 11.35 H (4.50-10.00) X 10*3/uL RBC 3.32 L (4.10-5.20) X 10*6/uL Hgb 11.0 L (12.0-15.0) g/dL Hct 32.6 L (37.2-46.3) % MCV 98.2 H (80.0-97.0) fL MCH 33.1 H (27.0-32.0) pg Immature Gran # 0.05 H (0.00-0.04) X 10*3/uL Neutrophils # 8.98 H (1.80-7.70) X 10*3/uL Eosinophils # 0.02 L (0.04-0.35) X 10*3/uL Assessment and Plan Assessment: 56-year-old female postop day 1 L4 to S1 MIS T LIF 1. L4-5 Grade 1 spondylolisthesis 2. Left lower extremity radiculopathy 3. L5-S1 LArge Herniated Nucleus Pulposus, severe stenosis with spondylosis Plan: -Appreciate informatics consultant and team management. -Activity: Ambulate QID, OOB all meals, up and about, limit lifting bending twisting to less than 5 lbs. Use walker or cane if needed for stability. -Daily PT/OT, increase ambulation strength and balance. -Brace when up and about, not needed in bed or chair -Pain control: Adequate at this time -Meds: reviewed will shuffle pain medications for better pain control -GI ppx: senna, Miralax -DC alcazar when up and about, bedside commode if needed -DVT PPX: OK to restart Heparin tonight -Hygiene: Shower today. Maintain dressing clean and dry. Meticulous cleaning after BMs away from incision site -Drains: Maintain for now. Record output -Encourage IS 10x/hr -Dispo: Pending
[2021-11-16 11:31] LABS: Glucose,Whole Blood 110 mg/dL (75-99)
[2021-11-16] MEDS: clonazePAM 0.5 MG TAB PO PRN ×2 (12:09→20:24)
[2021-11-16] MEDS: oxyCODONE-APAP 7.5-325MG 1 EACH TAB PO PRN ×3 (13:56→22:06)
[2021-11-16 16:51] LABS: Glucose,Whole Blood 110 mg/dL (75-99)
[2021-11-16] MEDS: CYCLOBENZAPRINE 10 MG TAB PO PRN (17:23)
[2021-11-16] MEDS: SENNOSIDES-DOCUSATE SODIUM 1 EACH TAB PO PRN (17:25)
[2021-11-16] MEDS: OXcarbazepine 300 MG TAB PO SCH (20:24)
[2021-11-16] MEDS: lisinopriL 10 MG TAB PO SCH (20:24)
[2021-11-16] MEDS: CITALOPRAM HYDROBROMIDE 10 MG TAB PO SCH (20:25)
[2021-11-16] MEDS: lamoTRIgine 100 MG TAB PO SCH (20:25)
[2021-11-16 21:17] LABS: Glucose,Whole Blood 113 mg/dL (75-99)
[2021-11-17] MEDS: CYCLOBENZAPRINE 10 MG TAB PO PRN ×3 (01:38→17:13)
[2021-11-17] MEDS: HYDROmorphone 1 MG/ML 1 ML SYRINGE IVP PRN ×7 (01:38→22:22)
[2021-11-17] MEDS: ACETAMINOPHEN TAB 325 MG TAB PO SCH ×3 (05:14→17:13)
[2021-11-17] MEDS: oxyCODONE-APAP 7.5-325MG 1 EACH TAB PO PRN ×3 (05:14→16:07)
[2021-11-17 07:07] LABS: Glucose,Whole Blood 111 mg/dL (75-99)
[2021-11-17] MEDS: INSULIN ASPART (NovoLOG) 100 UNIT/ML VIAL SQ SCH ×4 (07:32→20:36)
[2021-11-17] MEDS: PANTOPRAZOLE 40 MG TABLET PO SCH (07:35)
[2021-11-17] MEDS: clonazePAM 0.5 MG TAB PO PRN ×2 (07:35→16:07)
[2021-11-17] MEDS: SENNOSIDES-DOCUSATE SODIUM 1 EACH TAB PO PRN (07:35)
[2021-11-17] MEDS: GABAPENTIN 300 MG CAP PO SCH ×2 (07:35→20:35)
[2021-11-17] MEDS: FENOFIBRATE 54 MG TAB PO SCH (07:37)
[2021-11-17] MEDS: lamoTRIgine 100 MG TAB PO SCH ×2 (07:37→20:36)
--- NOTE | 2021-11-17 08:58 | FL ---
Fluoroscopy INDICATION: Pain FINDINGS: Fluoroscopy time: 4 minutes 9 seconds. Images obtained: 0. IMPRESSIONS: 1. Documentation of fluoroscopy.
--- NOTE | 2021-11-17 09:43 | P.PN ---
Subjective Progress Note Date: 11/17/21 Principal diagnosis: HPI: Patient is a 56-year-old female with a PMH of type II DM, hypertension, hyperlipidemia, and GERD who was admitted for an elective L4 to S1 fusion. The patient underwent the procedure earlier today with no immediate postoperative complications and was seen in the surgical unit. She reported ongoing 9 out of 10 lower back pain but denied any additional complaints. Denied numbness or weakness. Denied cough, fever, chills, chest discomfort, shortness of breath. Denied nausea, vomiting, abdominal pain, diarrhea. Reports compliance with all her medications at home. Interval history: Patient was examined at the bedside. She denies any chest pain or shortness breath. No acute changes overnight Objective - Vital Signs Vital signs: Vital Signs Temp 99.2 F 11/17/21 01:34 Pulse 83 11/17/21 01:34 Resp 17 11/17/21 01:34 BP 109/67 11/17/21 01:34 Pulse Ox 93 L 11/17/21 08:42 Intake & Output 11/16/21 11/17/21 11/17/21 18:59 06:59 18:59 Output Total 310 2100 Balance -310 -2100 Output: Urine 310 2100 Other: Voiding Method Indwelling Catheter Indwelling Catheter - Exam General: non toxic, no distress, appears at stated age Derm: warm, dry Head: atraumatic, normocephalic, symmetric Eyes: EOMI, no lid lag, anicteric sclera Mouth: no lip lesion, mucus membranes moist Cardiovascular: S1S2 reg, no murmur, positive posterior tibial pulse bilateral, Lungs: CTA bilateral, no rhonchi, no rales , no accessory muscle use Abdominal: soft, nontender to palpation, no guarding, no appreciable or ganomegaly Ext: no gross muscle atrophy, no edema, no contractures Neuro: CN II-XI grossly intact, no focal neuro deficits Psych: Alert, oriented, appropriate affect - Labs CBC & Chem 7: 11/16/21 04:37 Labs: Abnormal Lab Results - Last 24 Hours (Table) 11/16/21 11/16/21 11/16/21 Range/Units 11:30 16:50 21:10 POC Glucose (mg/dL) 110 H 110 H 113 H (75-99) mg/dL 11/17/21 Range/Units 07:05 POC Glucose (mg/dL) 111 H (75-99) mg/dL Assessment and Plan Assessment: #Status post L4-S1 spinal fusion -Pain management and DVT prophylaxis per primary team #Depression -Resume Celexa #Hypertension -Resume lisinopril #Hyperlipidemia -Resume fenofibrate #Questionable history of diabetes Type II DM -Patient is not on any home medication A1c is normal at 5.7
[2021-11-17 11:52] LABS: Glucose,Whole Blood 172 mg/dL (75-99)
[2021-11-17] MEDS: bisacodyL 5 MG TABLET.DR PO PRN (12:18)
--- NOTE | 2021-11-17 16:02 | P.PN ---
Subjective Progress Note Date: 11/17/21 Principal diagnosis: Low back pain, radiculopathy, spondylolisthesis Patient seen and examined she is doing well today she is sitting up in her chair. She complains of minimal pain at this time states that she has been getting better. Denies any fevers chills shortness of breath or chest pain at this time. Objective - Vital Signs Vital signs: Vital Signs Temp 98.2 F 11/17/21 13:30 Pulse 77 11/17/21 13:30 Resp 16 11/17/21 13:30 BP 94/57 11/17/21 13:30 Pulse Ox 96 11/17/21 13:30 Intake & Output 11/16/21 11/17/21 11/17/21 18:59 06:59 18:59 Output Total 310 2100 Balance -310 -2100 Output: Urine 310 2100 Other: Voiding Method Indwelling Catheter Indwelling Catheter Indwelling Catheter - Exam Exam repeated today no significant changes, changes noted below Patient is alert and oriented 3 appears well-nourished well-hydrated is in no acute distress. They does not appear septic. On exam the patient has no tenderness to palpation of her thoracic or lumbar spine. There is no edema or ballottement sign. Lower extremities with 5 out of 5 strength in all major muscle groups Upper extremities show 5/5 strength in all major muscle groups. There is FROM that is painless of the b/l UE and LE in all major joints. They are intact to light touch sensation in L2 to S1 nerve distribution. Patient has palpable dorsalis pedis was posterior tibial pulses. Compartments are soft and compressible. Patient shows a negative Homans, Herrera's, negative Babinski's negative clonus bilaterally. negative straight leg raise bilaterally. No tensioning signs. Cranial nerves II through XII are grossly intact. Overall alignment is well-maintained in the sagittal coronal planes. Dressings clean and dry mild spotting no erythema - Labs CBC & Chem 7: 11/16/21 04:37 Labs: Abnormal Lab Results - Last 24 Hours (Table) 11/16/21 11/16/21 11/17/21 Range/Units 16:50 21:10 07:05 POC Glucose (mg/dL) 110 H 113 H 111 H (75-99) mg/dL 11/17/21 Range/Units 11:51 POC Glucose (mg/dL) 172 H (75-99) mg/dL Assessment and Plan Assessment: 56-year-old female postop day 2 L4 to S1 MIS T LIF 1. L4-5 Grade 1 spondylolisthesis 2. Left lower extremity radiculopathy 3. L5-S1 LArge Herniated Nucleus Pulposus, severe stenosis with spondylosis Plan: -Appreciate information resource consultant and team management. -Activity: Ambulate QID, OOB all meals, up and about, limit lifting bending twisting to less than 5 lbs. Use walker or cane if needed for stability. -Daily PT/OT, increase ambulation strength and balance. -Brace when up and about, not needed in bed or chair -Pain control: Adequate at this time -Meds: reviewed will shuffle pain medications for better pain control -GI ppx: senna, Miralax -DC Noriega -DVT PPX: OK to restart Heparin tonight -Hygiene: Shower today. Maintain dressing clean and dry. Meticulous cleaning after BMs away from incision site -Encourage IS 10x/hr -Dispo: [facility] Thursday or Thursday
[2021-11-17 16:51] LABS: Glucose,Whole Blood 92 mg/dL (75-99)
[2021-11-17 20:24] LABS: Glucose,Whole Blood 116 mg/dL (75-99)
[2021-11-17] MEDS: OXcarbazepine 300 MG TAB PO SCH (20:36)
[2021-11-17] MEDS: lisinopriL 10 MG TAB PO SCH (20:50)
[2021-11-17] MEDS: CITALOPRAM HYDROBROMIDE 10 MG TAB PO SCH (21:55)
[2021-11-17] MEDS: DOXEPIN 25 MG CAP PO SCH (21:55)
[2021-11-18] MEDS: oxyCODONE-APAP 7.5-325MG 1 EACH TAB PO PRN ×3 (00:02→07:51)
[2021-11-18] MEDS: ACETAMINOPHEN TAB 325 MG TAB PO SCH ×4 (00:02→19:06)
[2021-11-18] MEDS: CYCLOBENZAPRINE 10 MG TAB PO PRN ×2 (00:03→07:51)
[2021-11-18] MEDS: HYDROmorphone 1 MG/ML 1 ML SYRINGE IVP PRN ×7 (02:04→21:13)
[2021-11-18] MEDS: clonazePAM 0.5 MG TAB PO PRN ×3 (04:03→19:14)
[2021-11-18 06:20] LABS: Glucose,Whole Blood 81 mg/dL (75-99)
[2021-11-18] MEDS: INSULIN ASPART (NovoLOG) 100 UNIT/ML VIAL SQ SCH ×4 (06:57→20:19)
[2021-11-18] MEDS: PANTOPRAZOLE 40 MG TABLET PO SCH (07:51)
[2021-11-18] MEDS: lamoTRIgine 100 MG TAB PO SCH ×2 (07:51→20:18)
[2021-11-18] MEDS: GABAPENTIN 300 MG CAP PO SCH ×2 (07:51→20:17)
[2021-11-18] MEDS: bisacodyL 5 MG TABLET.DR PO PRN (08:28)
[2021-11-18] MEDS: SENNOSIDES-DOCUSATE SODIUM 1 EACH TAB PO PRN (08:28)
[2021-11-18 09:05] LABS: Basophils # (A) 0.04 X 10*3/uL (0.00-0.10); Basophils % (A) 0.6 %; Eosinophils # (A) 0.15 X 10*3/uL (0.04-0.35); Eosinophils % (A) 2.3 %; HCT 31.4 % (37.2-46.3); HGB 10.1 g/dL (12.0-15.0); Immature Grans, Automated 0.3 %; Lymphocytes # (A) 1.14 X 10*3/uL (0.90-5.00); Lymphocytes % (A) 17.3 %; MCH 32.2 pg (27.0-32.0); MCHC 32.2 g/dL (32.0-37.0); Mean Platelet Volume 10.9 fL (9.5-12.2); Monocytes # (A) 0.54 X 10*3/uL (0.20-1.00); Monocytes % (A) 8.2 %; NRBC Per 100 WBC 0 /100 WBCS (0.0-0.0); Neutrophils % (A) 71.3 %; Platelet Count 167 X 10*3/uL (140-440); RBC 3.14 X 10*6/uL (4.10-5.20); RDW 11.7 % (11.5-14.5); WBC 6.59 X 10*3/uL (4.50-10.00)
[2021-11-18 09:15] LABS: African American GFR (CKD) 122.8 (60.0-200.0); Albumin 3.4 g/dL (3.8-4.9); Albumin/Globulin Ratio 1.72 (1.60-3.17); Anion Gap 8.6 mmol/L (10.00-18.00); BUN/Creat Ratio 15.31 Ratio (12.00-20.00); Blood Urea Nitrogen 8.5 mg/dL (9.0-27.0); Calcium 8.7 mg/dL (8.7-10.3); Carbon Dioxide 27.5 mmol/L (20.0-27.5); Potassium 3.6 mmol/L (3.5-5.5); Total Bilirubin 0.2 mg/dL (0.30-1.20); Total Protein 5.3 g/dL (6.2-8.2)
--- NOTE | 2021-11-18 09:20 | P.PN ---
Subjective Progress Note Date: 11/18/21 Principal diagnosis: Low back pain, radiculopathy, spondylolisthesis Patient seen and examined she is doing well she is standing up or noted over the bathroom during exam. States that she feels like she is ready to go to her rehab facility. She has no help at home and she is still needing help here to go to the bathroom and get about the room. She would need to go to rehab for these reasons. Her chills shortness of breath or chest pain she plays a little bit of hip pain denies any perineal numbness or tingling no radiculopathy at this time. Objective - Vital Signs Vital signs: Vital Signs Temp 98.4 F 11/18/21 01:46 Pulse 75 11/18/21 01:46 Resp 18 11/18/21 01:46 BP 107/67 11/18/21 01:46 Pulse Ox 95 11/18/21 01:46 Intake & Output 11/17/21 11/18/21 11/18/21 18:59 06:59 18:59 Other: Voiding Method Indwelling Catheter Bedpan # Voids 3 3 - Exam Exam repeated today changes noted below. She is doing fairly well she is up and walking about the room during exam Patient is alert and oriented 3 appears well-nourished well-hydrated is in no acute distress. They does not appear septic. On exam the patient has no tenderness to palpation of her thoracic or lumbar spine. There is no edema or ballottement sign. Lower extremities with 5 out of 5 strength in all major muscle groups Upper extremities show 5/5 strength in all major muscle groups. There is FROM that is painless of the b/l UE and LE in all major joints. They are intact to light touch sensation in L2 to S1 nerve distribution. Patient has palpable dorsalis pedis was posterior tibial pulses. Compartments are soft and compressible. Patient shows a negative Homans, Herrera's, negative Babinski's negative clonus bilaterally. negative straight leg raise bilaterally. No tensioning signs. Cranial nerves II through XII are grossly intact. Overall alignment is well-maintained in the sagittal coronal planes. Dressings clean and dry mild spotting no erythema - Labs CBC & Chem 7: 11/18/21 03:49 11/18/21 03:49 Labs: Abnormal Lab Results - Last 24 Hours (Table) 11/17/21 11/17/21 11/18/21 Range/Units 11:51 20:23 03:49 RBC 3.14 L (4.10-5.20) X 10*6/uL Hgb 10.1 L (12.0-15.0) g/dL Hct 31.4 L (37.2-46.3) % MCV 100.0 H (80.0-97.0) fL MCH 32.2 H (27.0-32.0) pg Anion Gap (10.00-18.00) mmol/L BUN (9.0-27.0) mg/dL POC Glucose (mg/dL) 172 H 116 H (75-99) mg/dL Total Bilirubin (0.30-1.20) mg/dL Total Protein (6.2-8.2) g/dL Albumin (3.8-4.9) g/dL 11/18/21 Range/Units 03:49 RBC (4.10-5.20) X 10*6/uL Hgb (12.0-15.0) g/dL Hct (37.2-46.3) % MCV (80.0-97.0) fL MCH (27.0-32.0) pg Anion Gap 8.60 L (10.00-18.00) mmol/L BUN 8.5 L (9.0-27.0) mg/dL POC Glucose (mg/dL) (75-99) mg/dL Total Bilirubin 0.20 L (0.30-1.20) mg/dL Total Protein 5.3 L (6.2-8.2) g/dL Albumin 3.4 L (3.8-4.9) g/dL Assessment and Plan Assessment: 56-year-old female postop day 3 L4 to S1 MIS T LIF 1. L4-5 Grade 1 spondylolisthesis 2. Left lower extremity radiculopathy 3. L5-S1 LArge Herniated Nucleus Pulposus, severe stenosis with spondylosis Plan: -Appreciate customer service consultant and team management. -Activity: Ambulate QID, OOB all meals, up and about, limit lifting bending t wisting to less than 5 lbs. Use walker or cane if needed for stability. -Daily PT/OT, increase ambulation strength and balance. -Brace when up and about, not needed in bed or chair -Pain control: Adequate at this time -Meds: reviewed will shuffle pain medications for better pain control -GI ppx: Vonda sewell -JAJA Noriega -DVT PPX: OK to restart Heparin tonight -Hygiene: Shower today. Maintain dressing clean and dry. Meticulous cleaning after BMs away from incision site -Encourage IS 10x/hr -Dispo: [facility] today versus tomorrow
--- NOTE | 2021-11-18 10:52 | P.OP ---
Date of Procedure: 11/15/21 Preoperative Diagnosis: 1. L4-5 spondylolisthesis Grade I 2. L4-5 stenosis 3. L5-S1 spondylosis with stenosis 4. L5-S1 large HNP with stenosis 5. LE radiculopathy 6. LE weakness Postoperative Diagnosis: 1. L4-5 spondylolisthesis Grade I 2. L4-5 stenosis 3. L5-S1 spondylosis with stenosis 4. L5-S1 large HNP with stenosis 5. LE radiculopathy 6. LE weakness Procedure(s) Performed: 1. L4-5 interbody fusion 2. L5-S1 interbody fusion 3. L4-S1 Segmental instrumentation 4. Use of intraoperative neuromonitoring 5. Interpretaion of intraoperative flouroscopy <1 hr Anesthesia: LIDIAA Surgeon: Abisai Moreau Animal Skinner #1: Shivam Pereyra (Was present and assisted in opening, dissection, placement of hardware and closure) Animal Skinner #2: Rea Tenorio (Was present as an observer) Estimated Blood Loss (ml): 75 IV fluids (ml): 2,000 Urine output (ml): 200 Pathology: none sent Condition: stable Disposition: PACU Indications for Procedure: Spine Surgery Risk Review Sarah Holland is a 56-year-old female presenting for evaluation of low back pain right lower extremity radiculopathy weakness. It was my pleasure to have seen and examined Sarah Holland. In our visit today we have had a chance to go over subjective complaints, physical examination findings and treatments including the natural course history without intervention and various interventional options. The patients imaging demonstrates L4-L5 grade 1 spondylolisthesis with moderate to severe stenosis along with L4 through S1 spondylosis L5-S1 herniated nucleus pulposus with severe stenosis. On physical exam, Sarah demonstrates right lower extremity radiculopathy with tensioning signs low back pain and mechanical low back pain difficulty with day-to-day activities secondary to pain. I have explained to the patient that as their condition progresses it will cause further neurological deficits and eventual paralysis. Based on the patients imaging, physical exam, and the rapid progression and disabling nature of their symptoms, at this time I recommend surgery in the form or a: L4 to S1 MIS TLIF I discussed the risk and benefits of this procedure at length with Sarah. The patient agreed to considered pursuing the procedure abovementioned. Prior to surgery, she should follow up with her PCP (Cardio, ID, IM etc) for clearance. Questions were invited and answered, and the patient wishes to proceed as outlined below. Currently, I am recommendin. Lumbar 4 to sacral 1 minimally invasive transforaminal lumbar interbody fusion 2. Follow up with PCP for surgical clearance 3. Review of surgical risks and benefits as well as an educational packet on the proposed surgical procedure. Risks: All surgical procedures come with inherent risks, including those related to positioning, anesthesia, intraoperative findings, and postoperative complications. It is important to understand that surgery does not come with any guarantee of a successful outcome as complications and adverse events are always possible. The patient was given a handout in office today discussing the surgical procedure and risks associated with the intervention, both of which were discussed with the patient. These risks include but are not limited to the following: * Experiencing same, different or even worse symptoms in back, neck, arms, or legs compared to before surgery. * Requiring further surgery or other forms of treatment presently or at some time in the future at same or other levels of the intended spine surgery. * On an extreme but fortunately relatively rare basis severe complication such as blindness, stroke, heart attack, temporary and/or permanent nerve injury, paralysis, coma, or may occur, sometimes without known explanation. * Surgical complications may include but are not limited to risk of infection, fluid accumulation in the surgical dissection site, including a seroma or hematoma, that requires additional surgery, wound drainage, bleeding, new numbness or weakness, vision changes/loss, spinal fluid leakage, non-healing and/or infected incision, headaches, difficulty or inability to swallow, hoarseness, hemopneumothorax, pneumothorax, impotence, retrograde ejaculation, vaginal dryness; injury to nerves, spinal cord, blood vessels, lymphatics or other vital organs (i.e., bowel injury, injury to the great vessels); heterotopic bone formation; complications related to the hardware such as screws, rods, cages including misplaced hardware, device failure, instrumentation at the wrong spine level, hardware fracture/breakage, or hardware loosening; vertebral failure of the spinal column above or below the newly placed hardware; retained surgical instrumentations or devices and the need for further surgery. * Medical risks of the planned spine surgery include but are not limited to generalized Infections to the whole body or local areas outside of the surgical site (sepsis), heart attack, bleeding, anaphylaxis, meningitis, seizure, epilepsy, hearing loss, burn fontaine, laceration of the head or other areas of the body, bruising, hypersensitivity of the skin, bladder over distension; allergic reaction; shoulder injury related to positioning; fat, blood and air clots to other areas of the body like heart, lungs, brain; failure of internal organs such as lungs, kidneys, liver and excessive bleeding. If blood transfusions are necessary, note that transfusions may cause intolerance reactions such as anaphylaxis or other complex reactions. * Despite best efforts, the results of spine surgery might not heal in terms of bone, soft tissues such as skin, fascia, ligaments, and joints. Additionally, in order to achieve best possible results, spine surgery may be carried out beyond the initially planned levels and involve decompression, fusion including insertion of hardware at levels other than the original intended area of surgical interest change some portions of the procedure in order to ensure the best possible outcomes. * With spine surgery and spinal fusion, there are different off label uses of instrumentation (devices, implants and hardware) as well as biological substances (bone morphogenic proteins, demineralized bone matrix) as well as using extra bone from allograft sources (i.e. cadaver bone) or autograft (iliac crest bone, ribs, or the spine itself). The patient has been given information about these practices and their inherent risks and benefits. The patient has had a chance to review all the listed information, has been given print outs detailing this information, and has had all his/her questions answered to their satisfaction. It was my pleasure to have seen and examined Sarah Holland. In our visit today we have had a chance to go over my understanding of our patient's current condition, the natural course history without intervention and various interventional options. Questions were invited and answered, and the patient wishes to proceed as outlined above. I have seen and examined the patient for 25 minutes and we have spent more than 50% of the time in repeat and detailed counseling about the patient's condition, its natural course history with out and as much as can be predicted with surgery and re-review of various surgical treatment options. In conclusion, Sarah Holland and requested we proceed with the above suggested surgery and are willing to accept risks and limitations of the suggested surgery as nature of the disease process and our best attempts at treatment for the condition. Thank you again for allowing us to be part of your patient's care. Please don't hesitate to contact me if you have any further questions. Signed and authenticated by: Abisai Pan [facility] [address] [place] [address] Description of Procedure: The patient was seen and examined in the preoperative area. All preoperative protocols were followed. Informed consent was obtained risks and benefits of the procedure were discussed at length. Risks including bleeding infection damage to the surrounding tissue and risk of reoperation were discussed with the patient. Risk of anesthesia up to and including was a discussed with the patient. These are outlined in the risk review. They were willing to accept these risks and all of the risks of surgery. The patient was given a weight- based dose of antibiotics in the form of 2 g Ancef. The patient was seen and evaluated by the anesthesia team who deemed them fit for surgery. The site was marked, the patient was willing to proceed with the procedure. The patient was transferred to the operative suite by the Department of anesthesia. They were then drifted off to sleep by the department anesthesia and GETA was performed. The patient tolerated this well. [Noriega catheter was placed by nursing staff, atraumatically]. Once confirmation of lines and ventilation the patient was transferred to a [prone Yang table very carefully]. All bony prominences including wrists, elbows, axilla, chest, hips, and thighs, and feet were padded very well. Special attention was paid to the genitalia and these were padded accordingly. SCDs were placed on bilateral lower extremities and were connected. Arms were well padded and placed [on arm boards up and out in the 90/90 position]. Once in position, again we confirmed good ventilation capabilities and that lines were running appropriately. The patient's lumbar spine was then exposed. 1010s were placed outlining the incision site. Standard alcohol was used to clean the incision site and allowed to dry. C-arm was used to biomark the patient and confirm level for incision which was marked with a skin marker. Operative briefing was performed with all teams and everyone in agreement to proceed. The patient was then prepped and draped in a normal sterile fashion. Timeout was then performed and all parties were in agreement with the procedure to be performed. X-ray was then used to once again targeted the right sided L5-S1 foramen SAP and IP. Skin incision was made paramedian and the introducer for the dilators was placed under fluoroscopic guidance we then placed this over the IP of L5 and the foramen. Sequential dilation take up to a 22 mm tube which is then measured. The tube was then placed under fluoroscopic guidance in AP and lateral. Once 2 was in position I we confirmed good position and locked to the table. Laminectomy was then performed over the IP of L5 which was identified. SAP of S1 was then identified as well. Then performed a facetectomy foraminotomy on the side opening up this area and revealing Kamdins triangle and the disc space. The exiting nerve root was protected. We accessed the disc space using a osteotome and then a Raptor followed by sequential shaving. Down-biting curet was used to reach midline and access further disc. Pituitary was used to remove disc material the endplates were scraped of any cartilage and removed any cartilage. AP lateral fluoroscopic guidance demonstrated centrally located within the disc space on AP as well as lateral anteriorly. We shaved until a 12 shaver which gave us good chatter and good decortication. There was good bleeding endplates. We then took autograft and allograft and placed it anteriorly within the disc space. Interbody fusion was then performed with an amplify cage which was impacted into place while protecting the exiting nerve root and the dura medially. This was impacted into place and then was expanded sequentially. Under lateral fluoroscopic guidance. We took an AP to confirm centrally within the disc space. Once we confirm this to continue with expansion then making sure that the disc. The cage was anteriorly within the disc space. Once the cage was expanded anteriorly as well as cranial caudal was locked into position with a screw. We then back filled the cage with autograft and DBM. We will perform meticulous hemostasis from this area with FloSeal and irrigated out the wound. The tube was removed under direct visualization. We then turned our attention to the L4 5 disc space on the right-hand side where we replaced the tube the initial dilator was placed and AP and lateral fluoroscopic imaging confirmed that was over the facet joints IP of L4. We then sequentially dilated up to 22 tube which was then measured and placed and secured to the table. AP and lateral fluoroscopic ends confirmed good placement of the tube without for myomectomy and identified the facet joints IP of L4 and ICP of L5. These were then removed and foraminotomies were his performed we then identified the dura and the nerve root in this area which were then protected. Then access the disc space using a osteotome and a Raptor. Sequential shaving was then performed up to a 12 shaver. AP and lateral fluoroscopic guidance to confirm centrally within the disc and anterior. Once adequate decortication been performed we used down-biting curet to remove any further cartilage and pituitary to remove further disc. We then scraped the endplates and confirmed good bleeding endplates. We then placed autograft and allograft anterior to the cage. We then selected cage and impacted into place while protecting the dura and exiting nerve root. Cage was impacted and was expanded it was confirmed to be anterior and centrally located. Once the disc was cage was completely expanded locked into position with a screw. We then back filled the cages autograft and DBM. Contiguous hemostasis was performed around the area we irrigated the wound thoroughly. The tube was then removed under direct vis ualization. We then moved on to targeting pedicles with Jamshidi we targeted the L4 pedicles bilaterally and AP and lateral fluoroscopic imaging. We then placed wires and removing Jamshidi's. We then perform this on the left-hand side at L5 the right-hand side of L5 pedicle was extremely small and would not take the Jamshidi and so we did not place a screw at this level. We then went to the S1 bilaterally and targeting pedicles with Jamshidi's and placed wires in the void. The AP and lateral fluoroscopic imaging then confirmed good placement of wires were then under lateral fluoroscopic guidance placed screws that were measured over these wires. Screws were then placed over the wires wires removed. The screw was backed the body. The screws were all tested then using intraoperative neuro monitoring and all tested above 20 mA. We then took AP and lateral fluoroscopic images confirmed good placement of screws. We then sized and selected rods. Rods were then placed subfascially and the setscrews placed we first placed set screws in S1 and L5 and then sequentially tightened and L4 to reduce the spondylolisthesis this allowed for good reduction of the lateral fluoroscopic guidance. All set screws were then final tightened into position broken and confirmed to be removed entirely. Then took final imaging which showed good reduction and good disc space uatsdin of height and alignment. The wounds were then copiously irrigated with normal sterile saline we then closed the fascia bilaterally with 0 Vicryl followed by 2-0 Vicryl in the subcu tissue followed by skin jesse. The wound edges approximated very well. The wounds were then cleaned and dressed sterilely with operative foam dressings The patient was transferred back to their hospital bed atraumatically. . Patient was then awakened and extubated by the department of anesthesia having tolerated the procedure very well with no complications. They were transferred to the postoperative care unit in stable condition.
[2021-11-18] MEDS: oxyCODONE-APAP 10-325MG 1 EACH TAB PO PRN ×3 (11:10→20:17)
[2021-11-18 11:15] LABS: Glucose,Whole Blood 179 mg/dL (75-99)
--- NOTE | 2021-11-18 11:19 | P.PN ---
Subjective Principal diagnosis: HPI: Patient is a 56-year-old female with a PMH of type II DM, hypertension, hyperlipidemia, and GERD who was admitted for an elective L4 to S1 fusion. The patient underwent the procedure earlier today with no immediate postoperative complications and was seen in the surgical unit. She reported ongoing 9 out of 10 lower back pain but denied any additional complaints. Denied numbness or weakness. Denied cough, fever, chills, chest discomfort, shortness of breath. Denied nausea, vomiting, abdominal pain, diarrhea. Reports compliance with all her medications at home. Interval history: Patient was examined at the bedside. She denies any chest pain or shortness breath. No acute changes overnight Objective - Vital Signs Vital signs: Vital Signs Temp 98.4 F 11/18/21 01:46 Pulse 75 11/18/21 01:46 Resp 18 11/18/21 01:46 BP 107/67 11/18/21 01:46 Pulse Ox 95 11/18/21 01:46 Intake & Output 11/17/21 11/18/21 11/18/21 18:59 06:59 18:59 Other: Voiding Method Indwelling Catheter Bedpan # Voids 3 3 - Exam General: non toxic, no distress, appears at stated age Derm: warm, dry Head: atraumatic, normocephalic, symmetric Eyes: EOMI, no lid lag, anicteric sclera Mouth: no lip lesion, mucus membranes moist Cardiovascular: S1S2 reg, no murmur, positive posterior tibial pulse bilateral, Lungs: CTA bilateral, no rhonchi, no rales , no accessory muscle use Abdominal: soft, nontender to palpation, no guarding, no appreciable organomegaly Ext: no gross muscle atrophy, no edema, no contractures Neuro: CN II-XI grossly intact, no focal neuro deficits Psych: Alert, oriented, appropriate affect - Labs CBC & Chem 7: 11/18/21 03:49 11/18/21 03:49 Labs: Abnormal Lab Results - Last 24 Hours (Table) 11/17/21 11/17/21 11/18/21 Range/Units 11:51 20:23 03:49 RBC 3.14 L (4.10-5.20) X 10*6/uL Hgb 10.1 L (12.0-15.0) g/dL Hct 31.4 L (37.2-46.3) % MCV 100.0 H (80.0-97.0) fL MCH 32.2 H (27.0-32.0) pg Anion Gap (10.00-18.00) mmol/L BUN (9.0-27.0) mg/dL POC Glucose (mg/dL) 172 H 116 H (75-99) mg/dL Total Bilirubin (0.30-1.20) mg/dL Total Protein (6.2-8.2) g/dL Albumin (3.8-4.9) g/dL 11/18/21 11/18/21 Range/Units 03:49 11:13 RBC (4.10-5.20) X 10*6/uL Hgb (12.0-15.0) g/dL Hct (37.2-46.3) % MCV (80.0-97.0) fL MCH (27.0-32.0) pg Anion Gap 8.60 L (10.00-18.00) mmol/L BUN 8.5 L (9.0-27.0) mg/dL POC Glucose (mg/dL) 179 H (75-99) mg/dL Total Bilirubin 0.20 L (0.30-1.20) mg/dL Total Protein 5.3 L (6.2-8.2) g/dL Albumin 3.4 L (3.8-4.9) g/dL Assessment and Plan Assessment: #Status post L4-S1 spinal fusion -Pain management and DVT prophylaxis per primary team #Depression -Resume Celexa #Hypertension -Resume lisinopril #Hyperlipidemia -Resume fenofibrate #Questionable history of diabetes Type II DM -Patient is not on any home medication A1c is normal at 5.7
[2021-11-18] MEDS: FENOFIBRATE 54 MG TAB PO SCH (12:34)
[2021-11-18 16:52] LABS: Glucose,Whole Blood 104 mg/dL (75-99)
[2021-11-18] MEDS: LACTATED RINGERS 1,000 ML IV SCH (19:05)
[2021-11-18] MEDS: lisinopriL 10 MG TAB PO SCH (20:18)
[2021-11-18] MEDS: DOXEPIN 25 MG CAP PO SCH (20:18)
[2021-11-18] MEDS: OXcarbazepine 300 MG TAB PO SCH (20:19)
[2021-11-18] MEDS: CITALOPRAM HYDROBROMIDE 10 MG TAB PO SCH (20:19)
[2021-11-18 21:00] LABS: Glucose,Whole Blood 178 mg/dL (75-99)
[2021-11-19] MEDS: HYDROmorphone 1 MG/ML 1 ML SYRINGE IVP PRN ×7 (00:53→19:18)
[2021-11-19] MEDS: oxyCODONE-APAP 10-325MG 1 EACH TAB PO PRN ×5 (02:45→18:12)
[2021-11-19 04:40] LABS: Appearance,Urine Cloudy (Clear); Bilirubin,Urine Negative (Negative); Blood,Urine Negative (Negative); Color,Urine Yellow; Glucose,Urine (UA) Negative (Negative); Ketones,Urine Negative (Negative); Leukocyte Esterase,Urine Large (Negative); Nitrite,Urine Negative (Negative); PH, Urine 6.5 (5.0-8.0); Protein,Urine Negative (Negative); Specific Gravity,Urine 1.018 (1.001-1.035); Urobilinogen,Urine <2.0 mg/dL (<2.0)
[2021-11-19 04:41] LABS: Bacteria,Urine Rare /hpf; Budding Yeast,Urine Occasional /hpf; Hyaline Casts,Urine 1 /lpf (0-2); Mucus,Urine Rare /hpf; RBC,Urine 15 /hpf (0-5); Squamous Epithelial Cell,Urine <1 /hpf (0-4); WBC,Urine >182 /hpf (0-5)
[2021-11-19] MEDS: CYCLOBENZAPRINE 10 MG TAB PO PRN ×3 (05:01→17:00)
[2021-11-19 07:01] LABS: Glucose,Whole Blood 95 mg/dL (75-99)
[2021-11-19] MEDS: INSULIN ASPART (NovoLOG) 100 UNIT/ML VIAL SQ SCH ×4 (07:03→19:36)
[2021-11-19] MEDS: clonazePAM 0.5 MG TAB PO PRN ×3 (07:05→21:00)
[2021-11-19] MEDS: GABAPENTIN 300 MG CAP PO SCH ×2 (08:20→21:00)
[2021-11-19] MEDS: PANTOPRAZOLE 40 MG TABLET PO SCH (08:21)
[2021-11-19] MEDS: FENOFIBRATE 54 MG TAB PO SCH (08:21)
[2021-11-19] MEDS: lamoTRIgine 100 MG TAB PO SCH ×2 (08:21→21:00)
--- NOTE | 2021-11-19 10:38 | P.PN ---
<Bandar Hatch - Last Filed: 11/19/21 15:20> Subjective Progress Note Date: 11/19/21 Hospital course: Patient is a pleasant 56-year-old female with a past medical history of hypertension, hyperlipidemia, type 2 diabetes mellitus diet controlled with most recent hemoglobin A1c of 5.4%, and GERD. She is currently admitted and underwent an elective L4 to S1 spinal fusion. Patient underwent surgical p rocedure with Dr. Moreau on 11/15/21. Patient currently admitted under orthospine team and we are following throughout hospitalization for continued medical management. Physical exam: Patient seen and fully evaluated at the bedside. Patient reports that she currently has a yeast infection with white thick vaginal discharge. Urinalysis did show findings concerning for UTI along with being positive for yeast, patient currently denies any urinary complaints including frequency, urgency, or dysuria. We will start patient on a three-day course of antibiotics secondary to recent surgery to ensure adequate treatment. Patient also started on Diflucan 150 mg every 72 hours 2 doses for treatment of yeast infection. Patient reports currently back pain rated 6 out of 10 at this current time. She is moving all extremities with equal and moderate strength showing no neurological deficits. Sensation remains intact. Patient denies experiencing any headache, lightheadedness, dizziness, chest pain, palpitations, shortness of breath, or experiencing any numbness/tingling/weakness in her extremities. Vital signs reviewed and stable. General: Nontoxic, no distress and appears stated age. Derm: Skin warm and dry, normal coloration for ethnicity. Dressing to mid lower back (lower lumbar/sacral spine region) is intact with no signs of drainage. No surrounding erythema. Head: Atraumatic, normocephalic and symmetric. Eyes: EOMs intact, no lid lag, and anicteric sclera Mouth: no lip lesions, mucus membranes moist Cardiovascular: regular rate and rhythm with normal S1S2, no murmur, positive posterior tibial pulses bilaterally, and cap refill < 2 seconds. Lungs: Respirations even, regular, and unlabored on room air. Lungs CTA bilaterally, no rhonchi, no rales, no wheezing, and no accessory muscle usage. Abdominal: soft, nontender to palpation, no guarding, no appreciable organomegaly Ext: ROM intact. No gross muscle atrophy, no edema, no contractures Neuro: Speech clear, face symmetrical and CN II-XII grossly intact with no noted focal neuro deficits Psych: Alert and oriented to person, place, time, and situation. Appropriate and pleasant affect. Assessment and Plan of Care: Status post L4 through S1 spinal fusion completed on 11/15/21 -Management per primary admitting orthospine surgery team including pain management, DVT prophylaxis, weightbearing, PT/OT, and postsurgical dressing changes. -Continue with safe and supportive care. -Fall precautions UTI -Follow up on urine culture. -Rocephin 1 g IVPB every 24 hours. Vulvovaginal candidiasis -Diflucan 150 mg by mouth every 72 hours 2 doses. Depression Continue daily medication regimen with Celexa. Hypertension Monitor vital signs and continue daily medication regimen with lisinopril. Hypertriglyceridemia Continue daily medication regimen with fenofibrate. History of previously diagnosed type 2 diabetes mellitus -Diet controlled with current hemoglobin A1c of 5.4%. Thank you for allowing us to participate in the care of this pleasant patient. Do not hesitate to contact us with questions. Someone can be reached from the [facility] hospitalist group all hours of the day at [phone] or via [employer]. Objective - Vital Signs Vital signs: Vital Signs Temp 98.8 F 11/19/21 08:00 Pulse 82 11/19/21 08:25 Resp 18 11/19/21 08:00 BP 95/60 11/19/21 08:00 Pulse Ox 97 11/19/21 08:00 Intake & Output 11/18/21 11/19/21 11/19/21 18:59 06:59 18:59 Intake Total 1080 Balance 1080 Intake: Oral 1080 Other: Voiding Method Bedpan # Voids 2 - Labs CBC & Chem 7: 11/18/21 03:49 11/18/21 03:49 Labs: Abnormal Lab Results - Last 24 Hours (Table) 11/18/21 11/18/21 11/18/21 Range/Units 11:13 16:51 20:57 POC Glucose (mg/dL) 179 H 104 H 178 H (75-99) mg/dL Urine Appearance (Clear) Ur Leukocyte Esterase (Negative) Urine RBC (0-5) /hpf Urine WBC (0-5) /hpf Urine Bacteria (None) /hpf Urine Mucus (None) /hpf Urine Yeast (Budding) (None) /hpf 11/19/21 Range/Units 04:20 POC Glucose (mg/dL) (75-99) mg/dL Urine Appearance Cloudy H (Clear) Ur Leukocyte Esterase Large H (Negative) Urine RBC 15 H (0-5) /hpf Urine WBC >182 H (0-5) /hpf Urine Bacteria Rare H (None) /hpf Urine Mucus Rare H (None) /hpf Urine Yeast (Budding) Occasional H (None) /hpf <Priti Bailon - Last Filed: 11/19/21 18:28> Subjective Bandar Hatch NP rendered care for this patient independently, reviewed the findings and plan as documented in the note above. I did not physically speak with or examine the patient on this date. Objective - Vital Signs Vital signs: Vital Signs Temp 98.5 F 11/19/21 14:00 Pulse 65 11/19/21 14:00 Resp 18 11/19/21 14:00 BP 102/67 11/19/21 14:00 Pulse Ox 95 11/19/21 14:00 Intake & Output 11/18/21 11/19/21 11/19/21 18:59 06:59 18:59 Intake Total 1080 Balance 1080 Intake: Oral 1080 Other: Voiding Method Bedpan # Voids 2 1 - Labs CBC & Chem 7: 11/18/21 03:49 11/18/21 03:49 Labs: Abnormal Lab Results - Last 24 Hours (Table) 11/18/21 11/19/21 11/19/21 Range/Units 20:57 04:20 11:55 POC Glucose (mg/dL) 178 H 110 H (75-99) mg/dL Urine Appearance Cloudy H (Clear) Ur Leukocyte Esterase Large H (Negative) Urine RBC 15 H (0-5) /hpf Urine WBC >182 H (0-5) /hpf Urine Bacteria Rare H (None) /hpf Urine Mucus Rare H (None) /hpf Urine Yeast (Budding) Occasional H (None) /hpf 11/19/21 Range/Units 16:40 POC Glucose (mg/dL) 108 H (75-99) mg/dL Urine Appearance (Clear) Ur Leukocyte Esterase (Negative) Urine RBC (0-5) /hpf Urine WBC (0-5) /hpf Urine Bacteria (None) /hpf Urine Mucus (None) /hpf Urine Yeast (Budding) (None) /hpf
[2021-11-19] MEDS ORDERED: FLUCONAZOLE 150 MG TAB PO SCH (10:45)
[2021-11-19] MEDS: bisacodyL 5 MG TABLET.DR PO PRN (11:02)
[2021-11-19 11:57] LABS: Glucose,Whole Blood 110 mg/dL (75-99)
[2021-11-19 16:42] LABS: Glucose,Whole Blood 108 mg/dL (75-99)
--- NOTE | 2021-11-19 17:02 | P.PN ---
Subjective Progress Note Date: 11/19/21 Principal diagnosis: Low back pain, radiculopathy, spondylolisthesis Patient seen and examined she is somewhat agitated this morning due to her pain. She however has been up walking up to bathroom and doing fairly well. She does require assistance to get up and move and when she called for this last night she does not feel that became severe enough for her she denies any fevers chills shortness of breath or chest pain. She lives at home alone and will need rehab Objective - Vital Signs Vital signs: Vital Signs Temp 98.5 F 11/19/21 14:00 Pulse 65 11/19/21 14:00 Resp 18 11/19/21 14:00 BP 102/67 11/19/21 14:00 Pulse Ox 95 11/19/21 14:00 Intake & Output 11/18/21 11/19/21 11/19/21 18:59 06:59 18:59 Intake Total 1080 Balance 1080 Intake: Oral 1080 Other: Voiding Method Bedpan # Voids 2 1 - Exam Exam today was repeated any changes noted below. Her dressing is mildly spotting however no erythema or ecchymosis or edema she has good strength in her lower extremities and upper extremity's bilaterally she is neurovascular intact she has no pathologic reflexes. Patient is alert and oriented 3 appears well-nourished well-hydrated is in no acute distress. They does not appear septic. On exam the patient has no tenderness to palpation of her thoracic or lumbar spine. There is no edema or ballottement sign. Lower extremities with 5 out of 5 strength in all major muscle groups Upper extremities show 5/5 strength in all major muscle groups. There is FROM that is painless of the b/l UE and LE in all major joints. They are intact to light touch sensation in L2 to S1 nerve distribution. Patient has palpable dorsalis pedis was posterior tibial pulses. Compartments are soft and compressible. Patient shows a negative Homans, Herrera's, negative Babinski's negative clonus bilaterally. negative straight leg raise bilaterally. No tensioning signs. Cranial nerves II through XII are grossly intact. Overall alignment is well-maintained in the sagittal coronal planes. Dressings clean and dry mild spotting no erythema - Labs CBC & Chem 7: 11/18/21 03:49 11/18/21 03:49 Labs: Abnormal Lab Results - Last 24 Hours (Table) 11/18/21 11/19/21 11/19/21 Range/Units 20:57 04:20 11:55 POC Glucose (mg/dL) 178 H 110 H (75-99) mg/dL Urine Appearance Cloudy H (Clear) Ur Leukocyte Esterase Large H (Negative) Urine RBC 15 H (0-5) /hpf Urine WBC >182 H (0-5) /hpf Urine Bacteria Rare H (None) /hpf Urine Mucus Rare H (None) /hpf Urine Yeast (Budding) Occasional H (None) /hpf 11/19/21 Range/Units 16:40 POC Glucose (mg/dL) 108 H (75-99) mg/dL Urine Appearance (Clear) Ur Leukocyte Esterase (Negative) Urine RBC (0-5) /hpf Urine WBC (0-5) /hpf Urine Bacteria (None) /hpf Urine Mucus (None) /hpf Urine Yeast (Budding) (None) /hpf Assessment and Plan Assessment: 56-year-old female postop day 4 L4 to S1 MIS T LIF 1. L4-5 Grade 1 spondylolisthesis 2. Left lower extremity radiculopathy 3. L5-S1 LArge Herniated Nucleus Pulposus, severe stenosis with spondylosis Plan: -Appreciate market intelligence consultant and team management. -Activity: Ambulate QID, OOB all meals, up and about, limit lifting bending twisting to less than 5 lbs. Use walker or cane if needed for stability. -Daily PT/OT, increase ambulation strength and balance. -Brace when up and about, not needed in bed or chair -Pain control: Adequate at this time -Meds: reviewed will shuffle pain medications for better pain control -GI ppx: senna, Miralax -DVT PPX: Heparin -Hygiene: Shower today. Maintain dressing clean and dry. Meticulous cleaning after BMs away from incision site -Encourage IS 10x/hr -Dispo: [facility] today versus tomorrow
[2021-11-19 20:31] LABS: Glucose,Whole Blood 123 mg/dL (75-99)
[2021-11-19] MEDS: DOXEPIN 25 MG CAP PO SCH (20:59)
[2021-11-19] MEDS: lisinopriL 10 MG TAB PO SCH (21:00)
[2021-11-19] MEDS: OXcarbazepine 300 MG TAB PO SCH (21:00)
[2021-11-19] MEDS: CITALOPRAM HYDROBROMIDE 10 MG TAB PO SCH (21:00)
[2021-11-19] MEDS: SENNOSIDES-DOCUSATE SODIUM 1 EACH TAB PO PRN (21:06)
[2021-11-20] MEDS ORDERED: HYDROmorphone 1 MG/ML 1 ML SYRINGE ONE (02:09)
[2021-11-20] MEDS: HYDROmorphone 1 MG/ML 1 ML SYRINGE IVP PRN ×3 (02:10→12:18)
[2021-11-20] MEDS: oxyCODONE-APAP 10-325MG 1 EACH TAB PO PRN ×3 (04:46→14:29)
[2021-11-20] MEDS: CYCLOBENZAPRINE 10 MG TAB PO PRN (04:46)
[2021-11-20 06:49] LABS: Glucose,Whole Blood 118 mg/dL (75-99)
[2021-11-20 07:52] VITALS: BP 101/65; PULSE 65; RESP 18; TEMP 98.4
[2021-11-20] MEDS: PANTOPRAZOLE 40 MG TABLET PO SCH (08:29)
[2021-11-20] MEDS: lamoTRIgine 100 MG TAB PO SCH (08:29)
[2021-11-20] MEDS: GABAPENTIN 300 MG CAP PO SCH (08:29)
[2021-11-20] MEDS: FENOFIBRATE 54 MG TAB PO SCH (08:29)
[2021-11-20] MEDS: INSULIN ASPART (NovoLOG) 100 UNIT/ML VIAL SQ SCH ×2 (08:48→12:23)
[2021-11-20] MEDS ORDERED: MAGNESIUM CITRATE 296 ML BOTTLE PO ONE (09:00)
[2021-11-20 09:37] LABS: HCT 30.2 % (37.2-46.3); HGB 9.9 g/dL (12.0-15.0); MCH 32.2 pg (27.0-32.0); MCHC 32.8 g/dL (32.0-37.0); MCV 98.4 fL (80.0-97.0); Mean Platelet Volume 10.7 fL (9.5-12.2); NRBC Per 100 WBC 0 /100 WBCS (0.0-0.0); Platelet Count 198 X 10*3/uL (140-440); RBC 3.07 X 10*6/uL (4.10-5.20); RDW 11.9 % (11.5-14.5); WBC 5.75 X 10*3/uL (4.50-10.00)
[2021-11-20 09:48] LABS: ALT 13 U/L (8-44); AST 27 U/L (13-35); African American GFR (CKD) 127.2 (60.0-200.0); Albumin 3.4 g/dL (3.8-4.9); Albumin/Globulin Ratio 1.62 (1.60-3.17); Alkaline Phosphatase 48 U/L (41-126); Blood Urea Nitrogen 7.8 mg/dL (9.0-27.0); Carbon Dioxide 27.5 mmol/L (20.0-27.5); Chloride 103 mmol/L (96-109); Globulin 2.1 g/dL (1.6-3.3); Glucose 90 mg/dL (70-110); Magnesium 1.5 mg/dL (1.5-2.4); Non-African American GFR(CKD) 109.7 (60.0-200.0); Potassium 3.8 mmol/L (3.5-5.5); Sodium 143 mmol/L (135-145); Total Bilirubin <0.15 mg/dL (0.30-1.20); Total Protein 5.5 g/dL (6.2-8.2)
--- NOTE | 2021-11-20 11:31 | P.PN ---
Subjective Progress Note Date: 11/20/21 Principal diagnosis: Status post L4-S1 minimally invasive laminectomy decompression with fusion Patient was examined today bedside, she is resting in her hospital chair. She states that the pain is about the same stair so. She has been ambulating with a walker. Patient admits to be very constipated, and they are working with the nursing staff on a bowel regimen to help with this. We did have a discussion today at bedside regarding working on discharge. Patient is prescribed Suboxone from a painter sign maintenance out of [facility]. I left a message with that office to discuss discharge options for pain control. Objective - Vital Signs Vital signs: Vital Signs Temp 98.4 F 11/20/21 07:51 Pulse 65 11/20/21 07:51 Resp 18 11/20/21 07:51 BP 101/65 11/20/21 07:51 Pulse Ox 92 L 11/20/21 07:51 Intake & Output 11/19/21 11/20/21 11/20/21 18:59 06:59 18:59 Intake Total 1080 Balance 1080 Intake: Oral 1080 Other: Voiding Method Toilet Toilet # Voids 1 2 - Exam Gen: AOx3, NAD VSS stable at this time Integument: Bandages in good position and condition, no active drainage Palpation: Mild tenderness to palpation in the midline and paraspinal region of the lumbar spine ROM: Full range of motion in all major muscle groups of bilateral upper and lower extremities Sensory Exam: Senory exam to light touch is intact C5-T1 Senosry exam to light touch is intact L2-S1 Motor: 5/5 strength appreciated in the bilateral upper extremity as well as shoulder elevation, shoulder abduction, elbow flexion, elbow extension, wrist flexion, wrist extension, manager culinary 5/5 strength is appreciated in the bilateral lower extremities with hip flexion, knee extension, knee flexion, plantar flexion, dorsiflexion, EHL, FHL Reflexes: 2/4 in all UE and LE Negative Christina's bilaterally Negative Babinski bilaterally Clonus bilaterally - Labs CBC & Chem 7: 11/20/21 04:20 11/20/21 04:20 Labs: Abnormal Lab Results - Last 24 Hours (Table) 11/19/21 11/19/21 11/19/21 Range/Units 11:55 16:40 20:30 RBC (4.10-5.20) X 10*6/uL Hgb (12.0-15.0) g/dL Hct (37.2-46.3) % MCV (80.0-97.0) fL MCH (27.0-32.0) pg BUN (9.0-27.0) mg/dL Creatinine (0.6-1.5) mg/dL POC Glucose (mg/dL) 110 H 108 H 123 H (75-99) mg/dL Total Bilirubin (0.30-1.20) mg/dL Total Protein (6.2-8.2) g/dL Albumin (3.8-4.9) g/dL 11/20/21 11/20/21 11/20/21 Range/Units 04:20 04:20 06:47 RBC 3.07 L (4.10-5.20) X 10*6/uL Hgb 9.9 L (12.0-15.0) g/dL Hct 30.2 L (37.2-46.3) % MCV 98.4 H (80.0-97.0) fL MCH 32.2 H (27.0-32.0) pg BUN 7.8 L (9.0-27.0) mg/dL Creatinine 0.5 L (0.6-1.5) mg/dL POC Glucose (mg/dL) 118 H (75-99) mg/dL Total Bilirubin <0.15 L (0.30-1.20) mg/dL Total Protein 5.5 L (6.2-8.2) g/dL Albumin 3.4 L (3.8-4.9) g/dL Assessment and Plan Assessment: Postoperative day #5 status post minimally invasive L4S1 decompression with fusion Plan: Had a very long talk with the patient today regarding pain control and discharge protocol with her narcotic history. Social work/case management has been working with a rehab facility where provider is available that would prescribe Suboxone. Patient is worried that the pain control was Suboxone will not be adequate, she has taken in the past other narcotics and then and start back on Suboxone. I have reached out to the pain management doctor in [place] that prescribes a Suboxone discuss this further. If able to I would like to prescribe the patient with Percocet 10 mg/325 mg with the plan to taper down during the postoperative period. I would then plan for the patient to follow-up with pain management to discuss restarting Suboxone and further pain management. Continue weightbearing as tolerated with walker, avoid any excess twisting or bending at the waist and lifting over 10 pounds GI and DVT prophylaxis, continue with current medication Other medical education manager and recommendations Further recommendations to follow discharge planning: Working with social work/6 management on proper discharge Time with Patient: Less than 30
[2021-11-20] MEDS ORDERED: NA PHOS,M-B/NA PHOS,DI-BA 133 ML ENEMA RECTAL STA (12:26)
--- NOTE | 2021-11-20 13:17 | P.PN ---
<Bandar Hatch - Last Filed: 11/20/21 13:01> Subjective Progress Note Date: 11/20/21 Hospital course: Patient is a pleasant 56-year-old female with a past medical history of hypertension, hyperlipidemia, type 2 diabetes mellitus diet controlled with most recent hemoglobin A1c of 5.4%, and GERD. She is currently admitted and underwent an elective L4 to S1 spinal fusion. Patient underwent surgical p rocedure with Dr. Moreau on 11/15/21. Patient currently admitted under orthospine team and we are following throughout hospitalization for continued medical management. Physical exam: Patient seen and fully evaluated at the bedside. Patient complaining of uncontrolled back pain and requesting increase in narcotic medications. Orthopedic team to discuss further with patient. Patient also states that she continues to be constipated, order placed for mag citrate unsuccessful patient being given enema at this time. Patient also educated that it is important to wean down from narcotics as this only if further aid in the slowing of peristalsis increasing risks of continued constipation. Patient remains on Rocephin for IV antibiotic. Social work working on subacute rehab for placement . Morning labs reviewed and stable. Vital signs stable. Patient is medically stable for discharge once rehab placement has been secured. Recommend patient being discharged home on cephalexin 500 mg every 8 hours upon discharge to complete a treatment course of 5 days of antibiotic therapy for treatment of her UTI. Patient also to receive second dose of Diflucan for treatment of her vulvovaginal candidiasis. Vital signs reviewed and stable. General: Nontoxic, no distress and appears stated age. Derm: Skin warm and dry, normal coloration for ethnicity. Dressing to mid lower back (lower lumbar/sacral spine region) is intact with no signs of drainage. No surrounding erythema. Head: Atraumatic, normocephalic and symmetric. Eyes: EOMs intact, no lid lag, and anicteric sclera Mouth: no lip lesions, mucus membranes moist Cardiovascular: regular rate and rhythm with normal S1S2, no murmur, positive posterior tibial pulses bilaterally, and cap refill < 2 seconds. Lungs: Respirations even, regular, and unlabored on room air. Lungs CTA bilaterally, no rhonchi, no rales, no wheezing, and no accessory muscle usage. Abdominal: soft, nontender to palpation, no guarding, no appreciable organomegaly Ext: ROM intact. No gross muscle atrophy, no edema, no contractures Neuro: Speech clear, face symmetrical and CN II-XII grossly intact with no noted focal neuro deficits Psych: Alert and oriented to person, place, time, and situation. Appropriate and pleasant affect. Assessment and Plan of Care: Status post L4 through S1 spinal fusion completed on 11/15/21 -Management per primary admitting orthospine surgery team including pain management, DVT prophylaxis, weightbearing, PT/OT, and postsurgical dressing changes. -Continue with safe and supportive care. -Fall precautions UTI -Follow up on urine culture. -Rocephin 1 g IVPB every 24 hours, we will discharge on cephalexin 500 mg every 8 hours upon discharge to total 5 days of antibiotic therapy. Vulvovaginal candidiasis -Diflucan 150 mg by mouth every 72 hours 2 doses. Depression Continue daily medication regimen with Celexa. Hypertension Monitor vital signs and continue daily medication regimen with lisinopril. Hypertriglyceridemia Continue daily medication regimen with fenofibrate. History of previously diagnosed type 2 diabetes mellitus -Diet controlled with current hemoglobin A1c of 5.4%. Thank you for allowing us to participate in the care of this pleasant patient. Do not hesitate to contact us with questions. Someone can be reached from the [facility] hospitalist group all hours of the day at [phone] or via [employer]. Objective - Vital Signs Vital signs: Vital Signs Temp 98.4 F 11/20/21 07:51 Pulse 65 11/20/21 07:51 Resp 18 11/20/21 07:51 BP 101/65 11/20/21 07:51 Pulse Ox 92 L 11/20/21 07:51 Intake & Output 11/19/21 11/20/21 11/20/21 18:59 06:59 18:59 Intake Total 1080 Balance 1080 Intake: Oral 1080 Other: Voiding Method Toilet # Voids 1 2 - Labs CBC & Chem 7: 11/20/21 04:20 11/20/21 04:20 Labs: Abnormal Lab Results - Last 24 Hours (Table) 11/19/21 11/19/21 11/19/21 Range/Units 11:55 16:40 20:30 POC Glucose (mg/dL) 110 H 108 H 123 H (75-99) mg/dL 11/20/21 Range/Units 06:47 POC Glucose (mg/dL) 118 H (75-99) mg/dL <AdamarisPriti Luis - Last Filed: 11/20/21 16:28> Subjective Bandar Hatch NP rendered care for this patient independently, reviewed the fin dings and plan as documented in the note above. I did not physically speak with or examine the patient on this date. Objective - Vital Signs Vital signs: Vital Signs Temp 98.4 F 11/20/21 07:51 Pulse 65 11/20/21 07:51 Resp 18 11/20/21 07:51 BP 101/65 11/20/21 07:51 Pulse Ox 92 L 11/20/21 07:51 Intake & Output 11/19/21 11/20/21 11/20/21 18:59 06:59 18:59 Intake Total 2160 Balance 2160 Intake: Oral 2160 Other: Voiding Method Toilet Toilet # Voids 1 2 - Labs CBC & Chem 7: 11/20/21 04:20 11/20/21 04:20 Labs: Abnormal Lab Results - Last 24 Hours (Table) 11/19/21 11/19/21 11/20/21 Range/Units 16:40 20:30 04:20 RBC 3.07 L (4.10-5.20) X 10*6/uL Hgb 9.9 L (12.0-15.0) g/dL Hct 30.2 L (37.2-46.3) % MCV 98.4 H (80.0-97.0) fL MCH 32.2 H (27.0-32.0) pg BUN (9.0-27.0) mg/dL Creatinine (0.6-1.5) mg/dL POC Glucose (mg/dL) 108 H 123 H (75-99) mg/dL Total Bilirubin (0.30-1.20) mg/dL Total Protein (6.2-8.2) g/dL Albumin (3.8-4.9) g/dL 11/20/21 11/20/21 Range/Units 04:20 06:47 RBC (4.10-5.20) X 10*6/uL Hgb (12.0-15.0) g/dL Hct (37.2-46.3) % MCV (80.0-97.0) fL MCH (27.0-32.0) pg BUN 7.8 L (9.0-27.0) mg/dL Creatinine 0.5 L (0.6-1.5) mg/dL POC Glucose (mg/dL) 118 H (75-99) mg/dL Total Bilirubin <0.15 L (0.30-1.20) mg/dL Total Protein 5.5 L (6.2-8.2) g/dL Albumin 3.4 L (3.8-4.9) g/dL
[2021-11-20] MEDS ORDERED: ASPIRIN 81 MG PO SCH (13:30)
--- NOTE | 2021-11-25 11:18 | P.DS ---
<Shivam Pereyra - Last Filed: 11/20/21 12:43> Providers Expected date of discharge: 11/19/21 Hospital Course: Date of admission: 11/15/2021 Date of discharge: 11/19/2021 Admission diagnosis: 1. L4-5 spondylolisthesis Grade I 2. L4-5 stenosis 3. L5-S1 spondylosis with stenosis 4. L5-S1 large HNP with stenosis 5. LE radiculopathy 6. LE weakness Discharge diagnosis: Same Attending physician: Dr. Moreau Surgical procedures: 1. L4-5 interbody fusion 2. L5-S1 interbody fusion 3. L4-S1 Segmental instrumentation 4. Use of intraoperative neuromonitoring 5. Interpretaion of intraoperative flouroscopy <1 hr Brief history: Patient is a 56-year-old female with a history of L4-L5 spondylolisthesis grade 1; L4-5 stenosis; L5-S1 spondylosis with stenosis; L5-S1 large herniated nucleus pulposus with stenosis; lower extremity radiculopathy. At this point patient has failed conservative treatment measures and has opted to proceed with a elective see surgical procedure above. Hospital course: Details of patient's surgery can be found in operative report. Patient tolerated the procedure well and was subsequently transported to orthopedic floor. Patient's orthopeidc and medical care was provided daily. Patient had daily laboratory tests performed for evaluation of overall blood counts. Patient had daily physical therapy to include strengthening range of motion as well as education with walker ambulation. Patient was noted to have a relatively uneventful postoperative course. Patient reported satisfactory pain control with oral pain medications by postoperative day 4. Patient showed satisfactory progress with physical therapy. Patient moved steadily through the program and had no difficulty meeting the goals by postoperative day 4. Given patient's otherwise satisfactory course and having met physical therapy goals, plan is to discharge patient to rehab on postoperative day 4. Discharge condition/disposition: Patient will be discharged to rehab in stable condition. Discharge medications: Instructions are given on resumption of patient's normal daily medications per primary care recommendation, in addition patient will be prescribed Percocet 10 mg/325 mg; gabapentin; Flexeril; Duricef; Colace. Spine Discharge and Recovery Instructions Date of Surgery: 11/15/2021 Diagnosis: 1. L4-5 spondylolisthesis Grade I 2. L4-5 stenosis 3. L5-S1 spondylosis with stenosis 4. L5-S1 large HNP with stenosis 5. LE radiculopathy 6. LE weakness Procedure: 1. L4-5 interbody fusion 2. L5-S1 interbody fusion 3. L4-S1 Segmental instrumentation 4. Use of intraoperative neuromonitoring 5. Interpretaion of intraoperative flouroscopy <1 hr Medications: See medication list All medication refills should be obtained through your primary care doctor or your clinic spine surgeon. Please discuss prescription refills at your follow up appointment. Do not call the hospital for medication refills. Dressing: Leave your dressing in place for a total of 5 days post operatively. Then you may remove your dressing and leave open to air. Keep the area clean and if not able to keep area clean, then cover with sterile gauze and tape. Showering: You may shower 3 days after your procedure allowing soap and water to run over incision. Do not scrub. Do not soak. Blot dry. Follow up: Please confirm a follow up appointment with your surgeon 3 weeks post operatively. Please make an appointment to follow up with your PCP in 1-2 weeks after surgery for evaluation 3 phase, 3-week plan POST OP WEEKS 1-3 1. Lifting/carrying/pushing/pulling limited to less than 5 pounds. 2. Do not sit for longer than 15 minutes at one time. Get up and walk around. Prolonged sitting is NOT advised. If you lay down, see if you can tolerate laying down on you front (belly side) 3. Walk for periods of 15 minutes = 1 mile but no longer; do it multiple times times each day. 4. Ice your low back after activity. POST OP WEEKS 3-6 1. Lifting limited to less than 20 pounds. 2. Do not sit for longer than 30 minutes at a time. Frequently change positions. Use a sit-to stand workstation or take frequent breaks from sitting if you have returned to work. 3. Walk for 30 minutes each day. If possible, do these three or more times a day POST OP WEEKS 6+ At your 6-week appointment we will give you a physical therapy referral to focus on a core stabilization and strengthening program. You should also work on leg & buttock strengthening, hamstring & quadriceps stretching, and continue a low impact aerobic activity program such as swimming, walking, or riding a stationary bicycle. During the initial 6 weeks after your surgery, you are at the highest risk of re-injuring your spine. You should generally avoid BLTs (bending, lifting and twisting combination motions) and follow the above guidelines to reduce the chance of reinjury. You can anticipate post op appointments in our office at approximately 3 weeks and 6 weeks after your surgery. INCISION CARE: If your incision is not draining you do NOT need to cover it with a dressing. Keep your incision clean, dry and intact. In most cases, we apply skin glue, jesse or sutures to the incision at the time of surgery. This will be like a crust or have the appearance of a scab and will fall off in time on its own. The stitches or jesse need to be removed at 3 weeks post op appointment. You may begin to shower 3 days after surgery (this allows the glue to cardenas well). However, please avoid scrubbing the incision site or peeling off any of the skin glue. This will ensure optimal healing of your incision. Also, during this time avoid soaking the incision area in water - this includes swimming pools, hot tubs or baths. No ointments, lotions or oils on the incision until your surgeon allows. Leave jesse, sutures or glue in place. Neurological dysfunction that comes on suddenly can also be a sign of a stroke. Below some common symptoms of a stroke are listed: B - balance difficulty such as sudden onset walking or leaning to one side - NEW E - eye problem such as sudden double vision or trouble seeing on one side - NEW F - Facial weakness or numbness on one side - NEW A - Arm or leg weakness or numbness on one side - NEW S - Slurred speech or difficulty with word finding - NEW T - Time is BRAIN! Call 911 as soon as you recognize these symptoms Diet: Consume a regular diet rich in vegetables and lean protein such as chicken or f tawanna. You should consume in a ratio of approximately 20% fats|40% carbohydrates|40%protein. Vegetables, sweet potatoes, brown rice or quinoa are examples of good carbohydrates. Chips, white bread, cookies and sweets/sugar are examples of bad carbohydrates. Limit your bad carbs, go wild with good carbs. "Life's Simple 7" Guidelines as per [place] [employer] These will help you reclaim your life after surgery and contact acid plant operator helper in your recovery, keeping in mind your restrictions. (1) Get Active. Physical activity can help people lose weight, control high blood pressure and cholesterol, feel emotionally better, and sleep better. (2) Control Cholesterol. Avoid a diet high in saturated fat, trans fat, & cholesterol. Limit whole milk & cream, ice cream, butter, egg yolks, processed meats (like sausage and hot dogs), and fatty meats. Choose healthy foods that are low in saturated fat, trans fat and cholesterol which include: Fruits and vegetables, fiber rich grain products (like whole grain pasta and brown rice), lean meat such as chicken, fish, nuts, seeds, and legumes. (3) Eat Better. Eat small portions. Shop at the grocery with a list and do not stray from it. Tips for a healthy diet include: Limit sodium intake to less than 1500mg daily, avoid prepackaged, processed, and fast foods, choose a diet rich in fruits, vegetables, and whole grain, high fiber foods, and limit saturated & cholesterol in your diet. (4) Manage Blood Pressure. If you have high blood pressure, you should have a cuff at home so that you can check your blood pressure regularly. Be sure you have a good cuff. An arm one is generally better than a wrist one. Bring the cuff to a doctor's appointment to validate that the measurements that your cuff are taking are accurate. Take your blood pressure twice daily when you are sitting down and relaxing. Record the numbers in a log and bring this log with you to your doctors' appointments. (5) Lose Weight if your BMI is above 25. A healthy BMI is between 19-25. To calculate Your BMI, you may use a Standard BMI Calculator on the NIH BMI website: <www.nhlbi.nih.gov/guidelines/obesity/BMI/bmicalc.htm>. Weigh oneself daily. If you are overweight, set a goal to lose weight. A pound a week loss if needed is a good target. (6) Reduce Blood Sugar. Limit foods and liquids with "added sugars." (Added sugars include sucrose, fructose, glucose, maltose, dextrose, high fructose corn syrup, corn syrup, concentrated fruit juice and honey). (7) Stop Smoking. If you smoke, quitting smoking is one of the best things that you can do for your health. Smoking increases your risk of heart attack, stroke, and peripheral vascular disease, which is a build-up of plaque in your arteries. Please discard all the cigarettes and lighters in your house. Have a plan for what you will do when you have the urge to smoke. Direct and second- hand smoke shortens your life as well as the lives of your family, friends and others around you. For your health and the health of those around you, please consider quitting! Proper Bending Body Mechanics: Maintain a wide stance with one foot slightly in front of the other. Keep your back straight. Bend utilizing the strength in your hips and knees. Do not bend at the waist. Maintain the lifted object at your waist-level close to your body. Avoid lifting weight that causes immediately pain or pain anywhere in the body afterwards. Smoking/Nicotine If there was ever one thing that you could do to increase your overall health, decrease your risk of cardiovascular problems by about 39% the second you make the choice, it is to STOP SMOKING. Your body's most instant gratification is the second you stop smoking. We have all heard the studies, read the articles but it is true, smoking is extremely bad for your overall health, and moreover it is detrimental to your bone health. Nicotine, IN ANY FORM, kills bone cells, prevents your body from healing fractures, and significantly prolongs healing after surgery. In spine surgery specifically, it increases your risk of not healing your bones to create a fusion and increases your risk of having a revision surgery due to this up to 60%. I know it is hard. I know it feels impossible. But there are ways. Take control of your life. We are here to help you through it. And when you are ready, ask us and we can direct you to help if you desire. Use the START Plan to Quit Smoking (please visit the Helpguide.org website listed below for more information): S = Set a quit date. Choose a date within the next 2 weeks, so you have enough time to prepare without losing your motivation to quit. If you mainly smoke at work, quit on the weekend, so you have a few days to adjust to the change. T = Tell family, friends, and co-workers that you plan to quit. Let your friends and family in on your plan to quit smoking and tell them you need their support and encouragement to stop. Look for a quit jose f who wants to stop smoking as well. You can help each other get through the rough times. A = Anticipate and plan for the challenges you'll face while quitting. Most people who begin smoking again do so within the first 3 months. You can help yourself make it through by preparing ahead for common challenges, such as nicotine withdrawal and cigarette cravings. R = Remove cigarettes and other tobacco products from your home, car, and work. Throw away all your cigarettes (no emergency pack!), lighters, ashtrays, and matches. Wash your clothes and freshen up anything that smells like smoke. Shampoo your car, clean your drapes and carpet, and steam your furniture. T = Talk to your doctor about getting help to quit. Your doctor can prescribe medication to help with withdrawal and suggest other alternatives. If you can't see a doctor, you can get many products over the counter at your local pharmacy or grocery store, including the nicotine patch, nicotine lozenges, and nicotine gum. Resources for Quitting Smoking: <https://www.[place].gov/documents/[facility]/Quit_Tobacco_R esources_for_patients_313480_7.pdf> Supplementation: Take recommended dosages of Vitamin D and Calcium to help fortify your bones and help them to heal. See your health maintenance packet for dosages and recommended levels. DVT/VTE prophylaxis: You will be given compression stockings from the hospital. Wear these daily for the first two weeks after surgery. You may take them off at night. You may be prescribed a medication to help thin your blood. Take this as directed. If you are not prescribed this medication, early and frequent ambulation has been shown to be the best prophylaxis to deep vein thrombosis and sequelae related to this event. Assessment: 1. L4-5 spondylolisthesis Grade I 2. L4-5 stenosis 3. L5-S1 spondylosis with stenosis 4. L5-S1 large HNP with stenosis 5. LE radiculopathy 6. LE weakness Procedures: 1. L4-5 interbody fusion 2. L5-S1 interbody fusion 3. L4-S1 Segmental instrumentation 4. Use of intraoperative neuromonitoring 5. Interpretaion of intraoperative flouroscopy <1 hr Patient Condition at Discharge: Good Plan - Discharge Summary Discharge Rx Participant: Yes New Discharge Prescriptions: New Gabapentin 300 mg PO TID #28 cap Fluconazole [Diflucan] 150 mg PO ONCE 1 Days #1 tab Docusate [Colace] 100 mg PO DAILY #30 capsule oxyCODONE HCL/ACETAMINOPHEN [Percocet 10-325 mg] 1 - 2 tab PO Q6HR PRN #28 tab PRN Reason: Pain cefaDROXiL [Duricef] 500 mg PO Q12HR 5 Days #10 cap Cyclobenzaprine [Flexeril] 10 mg PO TID #30 tab Cephalexin [Keflex] 500 mg PO Q6HR 3 Days #12 cap No Action lisinopriL [Zestril] 10 mg PO HS clonazePAM 0.5 mg PO TID PRN PRN Reason: Anxiety OXcarbazepine [Trileptal] 600 mg PO HS lamoTRIgine [LaMICtal Xr] 600 mg PO HS Doxepin HCl [SINEquan] 100 mg PO HS Nystatin 100,000 Unit/gm Powd [Mycostatin Powder] 1 applic TOPICAL DAILY PRN PRN Reason: Vaginal Irritation Albuterol Sulfate [Ventolin HFA] 1 - 2 puff INHALATION RT-Q6H PRN PRN Reason: Shortness Of Breath Pantoprazole Sodium [Protonix] 40 mg PO TID Fenofibrate 54 mg PO DAILY Triamcinolone 0.1% Cream [Kenalog 0.1% Cream] 1 applicatio TOPICAL BID PRN PRN Reason: eczema Diclofenac Sodium Gel [Voltaren Gel] 2 gm TOPICAL QID PRN PRN Reason: Pain Dextroamphetamine/Amphetamine [Adderall] 20 mg PO TID Naproxen 500 mg PO BID PRN PRN Reason: Pain Buprenorphine HCl/Naloxone HCl [Suboxone 8 mg-2 mg Sl Film] 1 each SL TID Ketoconazole [Ketoconazole 2%] 1 applic TOPICAL DIRECTED PRN PRN Reason: Skin Irritation Citalopram Hydrobromide [CeleXA] 10 mg PO HS Discharge Medication List lisinopriL [Zestril] 10 mg PO HS 12/12/17 [History] Doxepin HCl [SINEquan] 100 mg PO HS 10/20/19 [History] OXcarbazepine [Trileptal] 600 mg PO HS 10/20/19 [History] clonazePAM 0.5 mg PO TID PRN 10/20/19 [History] lamoTRIgine [LaMICtal Xr] 600 mg PO HS 10/20/19 [History] Nystatin 100,000 Unit/gm Powd [Mycostatin Powder] 1 applic TOPICAL DAILY PRN 09/12/20 [History] Albuterol Sulfate [Ventolin HFA] 1 - 2 puff INHALATION RT-Q6H PRN 12/01/20 [History] Fenofibrate 54 mg PO DAILY 10/18/21 [History] Pantoprazole Sodium [Protonix] 40 mg PO TID 10/18/21 [History] Buprenorphine HCl/Naloxone HCl [Suboxone 8 mg-2 mg Sl Film] 1 each SL TID 10/29/21 [History] Dextroamphetamine/Amphetamine [Adderall] 20 mg PO TID 10/29/21 [History] Diclofenac Sodium Gel [Voltaren Gel] 2 gm TOPICAL QID PRN 10/29/21 [History] Ketoconazole [Ketoconazole 2%] 1 applic TOPICAL DIRECTED PRN 10/29/21 [History] Naproxen 500 mg PO BID PRN 10/29/21 [History] Triamcinolone 0.1% Cream [Kenalog 0.1% Cream] 1 applicatio TOPICAL BID PRN 10/29/21 [History] Citalopram Hydrobromide [CeleXA] 10 mg PO HS 11/01/21 [History] Cyclobenzaprine [Flexeril] 10 mg PO TID #30 tab 11/19/21 [Rx] Docusate [Colace] 100 mg PO DAILY #30 capsule 11/19/21 [Rx] Gabapentin 300 mg PO TID #28 cap 11/19/21 [Rx] cefaDROXiL [Duricef] 500 mg PO Q12HR 5 Days #10 cap 11/19/21 [Rx] oxyCODONE HCL/ACETAMINOPHEN [Percocet 10-325 mg] 1 - 2 tab PO Q6HR PRN #28 tab 11/19/21 [Rx] Cephalexin [Keflex] 500 mg PO Q6HR 3 Days #12 cap 11/20/21 [Rx] Fluconazole [Diflucan] 150 mg PO ONCE 1 Days #1 tab 11/20/21 [Rx] Activity/Diet/Wound Care/Special Instructions: Spine Discharge and Recovery Instructions Date of Surgery: 11/15/2021 Diagnosis: 1. L4-5 spondylolisthesis Grade I 2. L4-5 stenosis 3. L5-S1 spondylosis with stenosis 4. L5-S1 large HNP with stenosis 5. LE radiculopathy 6. LE weakness Procedure: 1. L4-5 interbody fusion 2. L5-S1 interbody fusion 3. L4-S1 Segmental instrumentation 4. Use of intraoperative neuromonitoring 5. Interpretaion of intraoperative flouroscopy <1 hr Medications: See medication list All medication refills should be obtained through your primary care doctor or your clinic spine surgeon. Please discuss prescription refills at your follow up appointment. Do not call the hospital for medication refills. Dressing: Leave your dressing in place for a total of 5 days post operatively. Then you may remove your dressing and leave open to air. Keep the area clean and if not able to keep area clean, then cover with sterile gauze and tape. Showering: You may shower 3 days after your procedure allowing soap and water to run over incision. Do not scrub. Do not soak. Blot dry. Follow up: Please confirm a follow up appointment with your surgeon 3 weeks post operatively. Please make an appointment to follow up with your PCP in 1-2 weeks after surgery for evaluation 3 phase, 3-week plan POST OP WEEKS 1-3 1. Lifting/carrying/pushing/pulling limited to less than 5 pounds. 2. Do not sit for longer than 15 minutes at one time. Get up and walk around. Prolonged sitting is NOT advised. If you lay down, see if you can tolerate laying down on you front (belly side) 3. Walk for periods of 15 minutes = 1 mile but no longer; do it multiple t imes times each day. 4. Ice your low back after activity. POST OP WEEKS 3-6 1. Lifting limited to less than 20 pounds. 2. Do not sit for longer than 30 minutes at a time. Frequently change positions. Use a sit-to stand workstation or take frequent breaks from sitting if you have returned to work. 3. Walk for 30 minutes each day. If possible, do these three or more times a day POST OP WEEKS 6+ At your 6-week appointment we will give you a physical therapy referral to focus on a core stabilization and strengthening program. You should also work on leg & buttock strengthening, hamstring & quadriceps stretching, and continue a low impact aerobic activity program such as swimming, walking, or riding a stationary bicycle. During the initial 6 weeks after your surgery, you are at the highest risk of re-injuring your spine. You should generally avoid BLTs (bending, lifting and twisting combination motions) and follow the above guidelines to reduce the chance of reinjury. You can anticipate post op appointments in our office at approximately 3 weeks and 6 weeks after your surgery. INCISION CARE: If your incision is not draining you do NOT need to cover it with a dressing. Keep your incision clean, dry and intact. In most cases, we apply skin glue, jesse or sutures to the incision at the time of surgery. This will be like a crust or have the appearance of a scab and will fall off in time on its own. The stitches or jesse need to be removed at 3 weeks post op appointment. You may begin to shower 3 days after surgery (this allows the glue to cardenas well). However, please avoid scrubbing the incision site or peeling off any of the skin glue. This will ensure optimal healing of your incision. Also, during this time avoid soaking the incision area in water - this includes swimming pools, hot tubs or baths. No ointments, lotions or oils on the incision until your surgeon allows. Leave jesse, sutures or glue in place. Neurological dysfunction that comes on suddenly can also be a sign of a stroke. Below some common symptoms of a stroke are listed: B - balance difficulty such as sudden onset walking or leaning to one side - NEW E - eye problem such as sudden double vision or trouble seeing on one side - NEW F - Facial weakness or numbness on one side - NEW A - Arm or leg weakness or numbness on one side - NEW S - Slurred speech or difficulty with word finding - NEW T - Time is BRAIN! Call 911 as soon as you recognize these symptoms Diet: Consume a regular diet rich in vegetables and lean protein such as chicken or fish. You should consume in a ratio of approximately 20% fats|40% carbohydrates|40%protein. Vegetables, sweet potatoes, brown rice or quinoa are examples of good carbohydrates. Chips, white bread, cookies and sweets/sugar are examples of bad carbohydrates. Limit your bad carbs, go wild with good carbs. "Life's Simple 7" Guidelines as per [place] [employer] These will help you reclaim your life after surgery and contact acid plant operator helper in your recovery, keeping in mind your restrictions. (1) Get Active. Physical activity can help people lose weight, control high blood pressure and cholesterol, feel emotionally better, and sleep better. (2) Control Cholesterol. Avoid a diet high in saturated fat, trans fat, & cholesterol. Limit whole milk & cream, ice cream, butter, egg yolks, processed meats (like sausage and hot dogs), and fatty meats. Choose healthy foods that are low in saturated fat, trans fat and cholesterol which include: Fruits and vegetables, fiber rich grain products (like whole grain pasta and brown rice), lean meat such as chicken, fish, nuts, seeds, and legumes. (3) Eat Better. Eat small portions. Shop at the grocery with a list and do not stray from it. Tips for a healthy diet include: Limit sodium intake to less than 1500mg daily, avoid prepackaged, processed, and fast foods, choose a diet rich in fruits, vegetables, and whole grain, high fiber foods, and limit saturated & cholesterol in your diet. (4) Manage Blood Pressure. If you have high blood pressure, you should have a cuff at home so that you can check your blood pressure regularly. Be sure you have a good cuff. An arm one is generally better than a wrist one. Bring the cuff to a doctor's appointment to validate that the measurements that your cuff are taking are accurate. Take your blood pressure twice daily when you are sitting down and relaxing. Record the numbers in a log and bring this log with you to your doctors' appointments. (5) Lose Weight if your BMI is above 25. A healthy BMI is between 19-25. To calculate Your BMI, you may use a Standard BMI Calculator on the NIH BMI website: <www.nhlbi.nih.gov/guidelines/obesity/BMI/bmicalc.htm>. Weigh oneself daily. If you are overweight, set a goal to lose weight. A pound a week loss if needed is a good target. (6) Reduce Blood Sugar. Limit foods and liquids with "added sugars." (Added sugars include sucrose, fructose, glucose, maltose, dextrose, high fructose corn syrup, corn syrup, concentrated fruit juice and honey). (7) Stop Smoking. If you smoke, quitting smoking is one of the best things that you can do for your health. Smoking increases your risk of heart attack, stroke, and peripheral vascular disease, which is a build-up of plaque in your arteries. Please discard all the cigarettes and lighters in your house. Have a plan for what you will do when you have the urge to smoke. Direct and second- hand smoke shortens your life as well as the lives of your family, friends and others around you. For your health and the health of those around you, please consider quitting! Proper Bending Body Mechanics: Maintain a wide stance with one foot slightly in front of the other. Keep your back straight. Bend utilizing the strength in your hips and knees. Do not bend at the waist. Maintain the lifted object at your waist-level close to your body. Avoid lifting weight that causes immediately pain or pain anywhere in the body afterwards. Smoking/Nicotine If there was ever one thing that you could do to increase your overall health, decrease your risk of cardiovascular problems by about 39% the second you make the choice, it is to STOP SMOKING. Your body's most instant gratification is the second you stop smoking. We have all heard the studies, read the articles but it is true, smoking is extremely bad for your overall health, and moreover it is detrimental to your bone health. Nicotine, IN ANY FORM, kills bone cells, prevents your body from healing fractures, and significantly prolongs healing after surgery. In spine surgery specifically, it increases your risk of not healing your bones to create a fusion and increases your risk of having a revision surgery due to this up to 60%. I know it is hard. I know it feels impossible. But there are ways. Take control of your life. We are here to help you through it. And when you are ready, ask us and we can direct you to help if you desire. Use the START Plan to Quit Smoking (please visit the Helpguide.org website listed below for more information): S = Set a quit date. Choose a date within the next 2 weeks, so you have enough time to prepare without losing your motivation to quit. If you mainly smoke at work, quit on the weekend, so you have a few days to adjust to the change. T = Tell family, friends, and co-workers that you plan to quit. Let your friends and family in on your plan to quit smoking and tell them you need their support and encouragement to stop. Look for a quit jose f who wants to stop smoking as well. You can help each other get through the rough times. A = Anticipate and plan for the challenges you'll face while quitting. Most people who begin smoking again do so within the first 3 months. You can help yourself make it through by preparing ahead for common challenges, such as nicotine withdrawal and cigarette cravings. R = Remove cigarettes and other tobacco products from your home, car, and work. Throw away all your cigarettes (no emergency pack!), lighters, ashtrays, and matches. Wash your clothes and freshen up anything that smells like smoke. Shampoo your car, clean your drapes and carpet, and steam your furniture. T = Talk to your doctor about getting help to quit. Your doctor can prescribe medication to help with withdrawal and suggest other alternatives. If you can't see a doctor, you can get many products over the counter at your local pharmacy or grocery store, including the nicotine patch, nicotine lozenges, and nicotine gum. Resources for Quitting Smoking: <https://www.[place].gov/documents/[facility]/Quit_Tobacco_Resources_for_patients_313 480_7.pdf> Supplementation: Take recommended dosages of Vitamin D and Calcium to help fortify your bones and help them to heal. See your health maintenance packet for dosages and recommended levels. DVT/VTE prophylaxis: You will be given compression stockings from the hospital. Wear these daily for the first two weeks after surgery. You may take them off at night. You may be prescribed a medication to help thin your blood. Take this as directed. If you are not prescribed this medication, early and frequent ambulation has been shown to be the best prophylaxis to deep vein thrombosis and sequelae related to this event. Discharge Disposition: TRANSFER TO SNF/ECF Care Plan Goals (MU): [facility]erman[facility] phone [phone].. Will deliver [employer]. Any questions please call agency. <Abisai Moreau - Last Filed: 11/25/21 11:18> Providers Date of admission: 11/16/21 15:10 Attending physician: Abisai Moreau DO Consults: 11/15/21 19:03 Consult Physician Routine Consulting Provider: Priti Bailon Consult Reason/Comments: s/p L4-S1 TLIF Do you want consulting provider notified?: Yes 11/19/21 16:45 Consult Physician Routine Consulting Provider: Samira Rivera Consult Reason/Comments: Pain management Do you want consulting provider notified?: Yes Primary care physician: [facility]
== END 2021-11-20 15:00 | disposition left against medical advice (07) | DRG 454 ==
LOC: OR 11:21 → EDSTATUS 12:00 → 4SSUR 19:56 → OR 11-16 15:10 → 4SSUR 11-16 15:10
PROVIDERS: ADMIT Orthopaedic Surgery; ATTEND Orthopaedic Surgery
PROC: 0SG0071 Fusion of Lumbar Vertebral Joint with Autologous Tissue Substitute, Posterior Approach, Posterior Column, Open Approach (ICD-10-PCS; 2021-11-15)
PROC: 0SG00AJ Fusion of Lumbar Vertebral Joint with Interbody Fusion Device, Posterior Approach, Anterior Column, Open Approach (ICD-10-PCS; 2021-11-15)
PROC: 0SG3071 Fusion of Lumbosacral Joint with Autologous Tissue Substitute, Posterior Approach, Posterior Column, Open Approach (ICD-10-PCS; 2021-11-15)
PROC: 0SB20ZZ Excision of Lumbar Vertebral Disc, Open Approach (ICD-10-PCS; 2021-11-15)
PROC: 0SB40ZZ Excision of Lumbosacral Disc, Open Approach (ICD-10-PCS; 2021-11-15)
PROC: 01NR0ZZ Release Sacral Nerve, Open Approach (ICD-10-PCS; 2021-11-15)
PROC: 01NR0ZZ Release Sacral Nerve, Open Approach (ICD-10-PCS; 2021-11-15)
PROC: 4A11X4G Monitoring of Peripheral Nervous Electrical Activity, Intraoperative, External Approach (ICD-10-PCS; 2021-11-15)
PROC: 8E0WXBG Computer Assisted Procedure of Trunk Region, With Computerized Tomography (ICD-10-PCS; 2021-11-15)
PROC: 0SG30AJ Fusion of Lumbosacral Joint with Interbody Fusion Device, Posterior Approach, Anterior Column, Open Approach (ICD-10-PCS; principal; 2021-11-15 14:00)
DX: M47.27 Other spondylosis with radiculopathy, lumbosacral region (principal); N39.0 Urinary tract infection, site not specified; M43.16 Spondylolisthesis, lumbar region; M51.27 Other intervertebral disc displacement, lumbosacral region; Z20.822 Contact with and (suspected) exposure to COVID-19; Z87.891 Personal history of nicotine dependence; I10 Essential (primary) hypertension; E11.9 Type 2 diabetes mellitus without complications; B37.3 Candidiasis of vulva and vagina; E78.5 Hyperlipidemia, unspecified; F32.A Depression, unspecified; K59.00 Constipation, unspecified; M47.817 Spondylosis without myelopathy or radiculopathy, lumbosacral region; M48.061 Spinal stenosis, lumbar region without neurogenic claudication; Z79.899 Other long term (current) drug therapy; Z91.040 Latex allergy status; Z88.8 Allergy status to other drugs, medicaments and biological substances
CPT/HCPCS: 72100; 72131; 80053; 81001; 83036; 83735; 85025; 85027; 85610; 86850; 86900; 86901; 87635; 94640; 94760

== ENCOUNTER 2022-02-26 07:45 | Emergency (ER) | payer MEDICARE, OTHER ==
[2022-02-26 07:51] VITALS: BP 138/90; PULSE 70; RESP 16; TEMP 97.3
[2022-02-26] MEDS ORDERED: diphenhydrAMINE 50 MG/ML 1 ML VIAL IVP STA (08:04)
[2022-02-26] MEDS ORDERED: KETOROLAC 15 MG/ML 1 ML VIAL IVP STA (08:04)
[2022-02-26] MEDS ORDERED: METOCLOPRAMIDE 5 MG/ML 2 ML VIAL IVP STA (08:04)
[2022-02-26] MEDS ORDERED: SODIUM CHLORIDE 0.9% 500 ML 500 ML IV ONE (08:05)
--- NOTE | 2022-02-26 09:35 | ED ---
General Adult HPI - General Chief complaint: Nausea/Vomiting/Diarrhea Stated complaint: headache, nausea, vomiting Time Seen by Provider: 02/26/22 07:49 Source: patient, EMS, RN notes reviewed Mode of arrival: EMS Limitations: no limitations - History of Present Illness Initial comments: 56-year-old female presents emergency Department with chief complaint of migraine headache. Patient states that she has no migraine states his symptoms started primarily yesterday. Patient states she had nausea vomiting mild photophobia. Patient has no focal weakness denies any visual disturbances. Patient denies any other complaints. Patient has fevers chills neck pain neck stiffness or recent illnesses - Related Data Home Medications Medication Instructions Recorded Confirmed lisinopriL [Zestril] 10 mg PO HS 12/12/17 11/24/21 Doxepin HCl [SINEquan] 100 mg PO HS 10/20/19 11/24/21 OXcarbazepine [Trileptal] 600 mg PO HS 10/20/19 11/24/21 clonazePAM 0.5 mg PO TID PRN 10/20/19 11/24/21 lamoTRIgine [LaMICtal Xr] 600 mg PO HS 10/20/19 11/24/21 Nystatin 100,000 Unit/gm Powd 1 applic TOPICAL DAILY PRN 09/12/20 11/24/21 [Mycostatin Powder] Albuterol Sulfate [Ventolin HFA] 1 - 2 puff INHALATION RT-Q6H PRN 12/01/20 11/24/21 Fenofibrate 54 mg PO DAILY 10/18/21 11/24/21 Pantoprazole Sodium [Protonix] 40 mg PO TID 10/18/21 11/24/21 Buprenorphine HCl/Naloxone HCl 1 each SL TID 10/29/21 11/24/21 [Suboxone 8 mg-2 mg Sl Film] Dextroamphetamine/Amphetamine 20 mg PO TID 10/29/21 11/24/21 [Adderall] Diclofenac Sodium Gel [Voltaren 2 gm TOPICAL QID PRN 10/29/21 11/24/21 Gel] Ketoconazole [Ketoconazole 2%] 1 applic TOPICAL DIRECTED PRN 10/29/21 11/24/21 Naproxen 500 mg PO BID PRN 10/29/21 11/24/21 Triamcinolone 0.1% Cream [Kenalog 1 applicatio TOPICAL BID PRN 10/29/21 11/24/21 0.1% Cream] Citalopram Hydrobromide [CeleXA] 10 mg PO HS 11/01/21 11/24/21 Previous Rx's Medication Instructions Recorded Cyclobenzaprine [Flexeril] 10 mg PO TID #30 tab 11/19/21 Docusate [Colace] 100 mg PO DAILY #30 capsule 11/19/21 Gabapentin 300 mg PO TID #28 cap 11/19/21 cefaDROXiL [Duricef] 500 mg PO Q12HR 5 Days #10 cap 11/19/21 oxyCODONE HCL/ACETAMINOPHEN 1 - 2 tab PO Q6HR PRN #28 tab 11/19/21 [Percocet 10-325 mg] Cephalexin [Keflex] 500 mg PO Q6HR 3 Days #12 cap 11/20/21 Fluconazole [Diflucan] 150 mg PO ONCE 1 Days #1 tab 11/20/21 Allergies Allergy/AdvReac Type Severity Reaction Status Date / Time latex Allergy Rash/Hives Verified 11/24/21 18:22 ziprasidone [From Geodon] Allergy tongue Verified 11/24/21 18:22 Swelling, facial drooping Review of Systems ROS Statement: Those systems with pertinent positive or pertinent negative responses have been documented in the HPI. ROS Other: All systems not noted in ROS Statement are negative. Past Medical History Past Medical History: GERD/Reflux, Hyperlipidemia, Hypertension, Liver Disease, Musculoskeletal Disorder Additional Past Medical History / Comment(s): Chronic back pain, has hepatitis C antibodies, had hepatitis B years ago, UTI. NEUROPATHY, no longer considered diabetic since weight loss, kidney stone in past History of Any Multi-Drug Resistant Organisms: MRSA Date of last positivie culture/infection: 03/30/21 MDRO Source:: Left Hand Past Surgical History: Bariatric Surgery, Section, Cholecystectomy, Orthopedic Surgery, Tonsillectomy Additional Past Surgical History / Comment(s): 2 abortions, ortho surgery rt arm, gastric sleeve, right shoulder surg. Past Anesthesia/Blood Transfusion Reactions: No Reported Reaction Past Psychological History: ADD/ADHD, Anxiety, Bipolar, Schizoaffective Disorder Smoking Status: Current every day smoker Past Alcohol Use History: None Reported Past Drug Use History: Cocaine, Heroin, IV Drug Use, Prescription Drug Abuse - Past Family History Father History Unknown: Yes Additional Family Medical History / Comment(s): Patient is adopted Mother History Unknown: Yes Additional Family Medical History / Comment(s): Pt is adopted. General Exam Limitations: no limitations General appearance: alert, in no apparent distress Head exam: Present: atraumatic, normocephalic, normal inspection Eye exam: Present: normal appearance, PERRL, EOMI. Absent: scleral icterus, conjunctival injection, periorbital swelling ENT exam: Present: normal exam, normal oropharynx, mucous membranes moist Neck exam: Present: normal inspection, full ROM. Absent: tenderness, meningismus, lymphadenopathy Respiratory exam: Present: normal lung sounds bilaterally. Absent: respiratory distress, wheezes, rales, rhonchi, stridor Cardiovascular Exam: Present: regular rate, normal rhythm, normal heart sounds. Absent: systolic murmur, diastolic murmur, rubs, gallop, clicks Neurological exam: Present: alert, oriented X3, CN II-XII intact, reflexes normal, other (Finger to nose intact). Absent: motor sensory deficit Skin exam: Present: warm, dry, intact, normal color. Absent: rash Course Vital Signs 02/26/22 07:47 Temperature 97.3 F L Pulse Rate 70 Respiratory 16 Rate Blood Pressure 138/90 O2 Sat by Pulse 99 Oximetry Medical Decision Making - Medical Decision Making Patient was evaluated with no neural deficits. Patient migraine has resolved after migraine cocktail. Patient is requesting to be discharged. Patient discharged in stable condition return parameters were discussed. Disposition Clinical Impression: Migraine Disposition: HOME SELF-CARE Condition: Stable Instructions (If sedation given, give patient instructions): Migraine Headache (ED) Additional Instructions: Please return to the Emergency Department if symptoms worsen or any other concerns. Is patient prescribed a controlled substance at d/c from ED?: No Referrals: [facility] [Primary Care Provider] - 1-2 days Time of Disposition: 09:35
== END 2022-02-26 09:42 | disposition home or self-care (01) ==
LOC: EC 07:45
DX: G43.909 Migraine, unspecified, not intractable, without status migrainosus (principal); E78.5 Hyperlipidemia, unspecified; F17.200 Nicotine dependence, unspecified, uncomplicated; I10 Essential (primary) hypertension; K21.9 Gastro-esophageal reflux disease without esophagitis; Z91.040 Latex allergy status; Z90.49 Acquired absence of other specified parts of digestive tract; Z88.8 Allergy status to other drugs, medicaments and biological substances; Z79.899 Other long term (current) drug therapy
CPT/HCPCS: 99284; 96374; 96375; J1200; J2765; J1885; J1790

== ENCOUNTER 2022-03-11 07:01 | Observation (INO) | payer MEDICARE, OTHER ==
[2022-03-11] MEDS ORDERED: SODIUM CHLORIDE 0.9% 1,000 ML IV ONE (07:28)
[2022-03-11 07:29] VITALS: RESP 18
--- NOTE | 2022-03-11 07:43 | ED ---
General Adult HPI - General Stated complaint: Fall, Head Injury, Altered Mental Time Seen by Provider: 03/11/22 07:05 Source: patient, EMS, RN notes reviewed, old records reviewed Mode of arrival: EMS Limitations: altered mental status - History of Present Illness Initial comments: 56-year-old female presenting status post fall with head injury. Patient had complained of bilateral hand and bilateral foot numbness. Upon arrival paramedics found the patient be hyperventilating, anxious. She denies suicidal or homicidal thoughts. She states that the numbness is improved and was in fact in both hands both feet. Patient did have head injury and was placed in c- collar by paramedics. No central chest pain. No abdominal pain. No vomiting. Patient states she took her prescribed medications this morning. History is limited and the patient does have some nonsensical conversation. - Related Data Home Medications Medication Instructions Recorded Confirmed lisinopriL [Zestril] 10 mg PO HS 12/12/17 03/11/22 Doxepin HCl [SINEquan] 100 mg PO HS 10/20/19 03/11/22 clonazePAM 0.5 mg PO TID 10/20/19 03/11/22 lamoTRIgine [LaMICtal Xr] 600 mg PO HS 10/20/19 03/11/22 Albuterol Sulfate [Ventolin HFA] 1 - 2 puff INHALATION RT-Q6H PRN 12/01/20 03/11/22 Pantoprazole Sodium [Protonix] 40 mg PO BID 10/18/21 03/11/22 Dextroamphetamine/Amphetamine 20 mg PO TID 10/29/21 03/11/22 [Adderall] Naproxen 500 mg PO BID 10/29/21 03/11/22 Triamcinolone 0.1% Cream [Kenalog 1 applicatio TOPICAL BID 10/29/21 03/11/22 0.1% Cream] Budesonide [Pulmicort Flexhaler] 2 puff INHALATION RT-BID 03/11/22 03/11/22 Buprenorphine HCl/Naloxone HCl 1 film SUBLINGUAL TID 03/11/22 03/11/22 [Suboxone 8 mg-2 mg Sl Film] Cariprazine HCl [Vraylar] 1.5 mg PO HS 03/11/22 03/11/22 Citalopram Hydrobromide 20 mg PO HS 03/11/22 03/11/22 Cyclobenzaprine [Flexeril] 5 mg PO BID PRN 03/11/22 03/11/22 Diclofenac Sodium Gel [Voltaren 1 applic TOPICAL QID 03/11/22 03/11/22 Gel] Docusate [Colace] 100 mg PO BID 03/11/22 03/11/22 Ergocalciferol [Vitamin D2 (1250 1,250 mcg PO Q7D 03/11/22 03/11/22 Mcg = 70705 Iu)] Ibuprofen [Motrin] 600 mg PO QID 03/11/22 03/11/22 Multivitamins, Thera [Multivitamin 1 tab PO DAILY 03/11/22 03/11/22 (formulary)] polyethylene glycoL 3350 [Miralax] 17 gm PO DAILY 03/11/22 03/11/22 Allergies Allergy/AdvReac Type Severity Reaction Status Date / Time latex Allergy Rash/Hives Verified 11/24/21 18:22 ziprasidone [From Geodon] Allergy tongue Verified 11/24/21 18:22 Swelling, facial drooping Review of Systems ROS Statement: Those systems with pertinent positive or pertinent negative responses have been documented in the HPI. ROS Other: All systems not noted in ROS Statement are negative. Past Medical History Past Medical History: GERD/Reflux, Hyperlipidemia, Hypertension, Liver Disease, Musculoskeletal Disorder Additional Past Medical History / Comment(s): Chronic back pain, has hepatitis C antibodies, had hepatitis B years ago, UTI. NEUROPATHY, no longer considered diabetic since weight loss, kidney stone in past History of Any Multi-Drug Resistant Organisms: MRSA Date of last positivie culture/infection: 03/30/21 MDRO Source:: Left Hand Past Surgical History: Bariatric Surgery, Section, Cholecystectomy, Orthopedic Surgery, Tonsillectomy Additional Past Surgical History / Comment(s): 2 abortions, ortho surgery rt arm, gastric sleeve, right shoulder surg. Past Anesthesia/Blood Transfusion Reactions: No Reported Reaction Past Psychological History: ADD/ADHD, Anxiety, Bipolar, Schizoaffective Disorder Smoking Status: Current every day smoker Past Alcohol Use History: None Reported Past Drug Use History: Cocaine, Heroin, IV Drug Use, Prescription Drug Abuse - Past Family History Father History Unknown: Yes Additional Family Medical History / Comment(s): Patient is adopted Mother History Unknown: Yes Additional Family Medical History / Comment(s): Pt is adopted. General Exam Limitations: no limitations General appearance: alert, in no apparent distress Head exam: Present: atraumatic, normocephalic Eye exam: Present: normal appearance, PERRL ENT exam: Present: normal exam Neck exam: Present: normal inspection. Absent: tenderness, meningismus Respiratory exam: Present: normal lung sounds bilaterally. Absent: respiratory distress, wheezes Cardiovascular Exam: Present: regular rate, normal rhythm GI/Abdominal exam: Present: soft. Absent: distended, tenderness, guarding Extremities exam: Present: normal inspection, normal capillary refill. Absent: pedal edema Neurological exam: Present: alert, oriented X3, CN II-XII intact. Absent: motor sensory deficit Psychiatric exam: Present: flat affect. Absent: suicidal ideation Skin exam: Present: warm, dry, intact Course Vital Signs 03/11/22 03/11/22 07:19 07:29 Temperature 97.6 F Pulse Rate 71 71 Respiratory 18 18 Rate Blood Pressure 154/93 149/90 O2 Sat by Pulse 98 98 Oximetry Medical Decision Making - Medical Decision Making 56-year-old female presenting with fall, repetitive speech, history is limited. Paramedics had reported a fall with head and neck pain. CT was performed which is negative for traumatic injury. Additionally CT angiography was performed for this repetitive speech and change in mentation. The patient denies illicit drugs but does test positive for cocaine as well as marijuana and tricyclics. She has relatively normal laboratory testing. She does not appear to be focal in terms of her exam. I did discuss case with Dr. Kim, who will admit. Both neurology and psychiatry will be placed on consult. - Lab Data Result diagrams: 03/11/22 07:30 03/11/22 07:30 Lab Results 03/11/22 03/11/22 03/11/22 Range/Units 07:30 07:30 07:30 WBC 6.1 (3.8-10.6) k/uL RBC 3.59 L (3.80-5.40) m/uL Hgb 11.5 (11.4-16.0) gm/dL Hct 34.5 (34.0-46.0) % MCV 96.2 (80.0-100.0) fL MCH 32.2 (25.0-35.0) pg MCHC 33.4 (31.0-37.0) g/dL RDW 13.4 (11.5-15.5) % Plt Count 211 (150-450) k/uL MPV 7.3 Neutrophils % 60 % Lymphocytes % 28 % Monocytes % 4 % Eosinophils % 5 % Basophils % 1 % Neutrophils # 3.7 (1.3-7.7) k/uL Lymphocytes # 1.7 (1.0-4.8) k/uL Monocytes # 0.3 (0-1.0) k/uL Eosinophils # 0.3 (0-0.7) k/uL Basophils # 0.0 (0-0.2) k/uL Sodium 142 (137-145) mmol/L Potassium 4.1 (3.5-5.1) mmol/L Chloride 110 H (98-107) mmol/L Carbon Dioxide 25 (22-30) mmol/L Anion Gap 7 mmol/L BUN 18 H (7-17) mg/dL Creatinine 0.71 (0.52-1.04) mg/dL Est GFR (CKD-EPI)AfAm >90 (>60 ml/min/1.73 sqM) Est GFR (CKD-EPI)NonAf >90 (>60 ml/min/1.73 sqM) Glucose 101 H (74-99) mg/dL Calcium 8.9 (8.4-10.2) mg/dL Magnesium 1.6 (1.6-2.3) mg/dL Total Bilirubin 0.3 (0.2-1.3) mg/dL AST 19 (14-36) U/L ALT 9 (4-34) U/L Alkaline Phosphatase 56 (38-126) U/L Total Protein 7.0 (6.3-8.2) g/dL Albumin 4.1 (3.5-5.0) g/dL Salicylates <1.0 mg/dL Urine Opiates Screen Not Detected (NotDetected) Ur Oxycodone Screen Not Detected (NotDetected) Urine Methadone Screen Not Detected (NotDetected) Ur Propoxyphene Screen Not Detected (NotDetected) Acetaminophen <10.0 ug/mL Ur Barbiturates Screen Not Detected (NotDetected) U Tricyclic Antidepress Detected H (NotDetected) Ur Phencyclidine Scrn Not Detected (NotDetected) Ur Amphetamines Screen Not Detected (NotDetected) U Methamphetamines Scrn Not Detected (NotDetected) U Benzodiazepines Scrn Not Detected (NotDetected) Urine Cocaine Screen Detected H (NotDetected) U Marijuana (THC) Screen Detected H (NotDetected) Disposition Clinical Impression: AMS (altered mental status) Disposition: ADMITTED IP TO THIS [facility] Condition: Stable Is patient prescribed a controlled substance at d/c from ED?: No Referrals: [facility] [Primary Care Provider] - 1-2 days Time of Disposition: 10:59
[2022-03-11 07:45] LABS: Basophils % (A) 1 %; Eosinophils # (A) 0.3 k/uL (0-0.7); Eosinophils % (A) 5 %; HCT 34.5 % (34.0-46.0); HGB 11.5 gm/dL (11.4-16.0); Lymphocytes # (A) 1.7 k/uL (1.0-4.8); Lymphocytes % (A) 28 %; MCH 32.2 pg (25.0-35.0); MCHC 33.4 g/dL (31.0-37.0); MCV 96.2 fL (80.0-100.0); Mean Platelet Volume 7.3; Monocytes # (A) 0.3 k/uL (0-1.0); Monocytes % (A) 4 %; Neutrophils # (A) 3.7 k/uL (1.3-7.7); Neutrophils % (A) 60 %; Platelet Count 211 k/uL (150-450); RBC 3.59 m/uL (3.80-5.40); RDW 13.4 % (11.5-15.5); WBC 6.1 k/uL (3.8-10.6)
[2022-03-11 08:01] LABS: ALT 9 U/L (4-34); AST 19 U/L (14-36); Acetaminophen <10.0 ug/mL; African American GFR (CKD) >90 (>60 ml/min/1.73 sqM); Albumin 4.1 g/dL (3.5-5.0); Alkaline Phosphatase 56 U/L (38-126); Anion Gap 7 mmol/L; Blood Urea Nitrogen 18 mg/dL (7-17); Calcium 8.9 mg/dL (8.4-10.2); Carbon Dioxide 25 mmol/L (22-30); Chloride 110 mmol/L (98-107); Glucose 101 mg/dL (74-99); Magnesium 1.6 mg/dL (1.6-2.3); Non-African American GFR(CKD) >90 (>60 ml/min/1.73 sqM); Potassium 4.1 mmol/L (3.5-5.1); Salicylate <1.0 mg/dL; Sodium 142 mmol/L (137-145); Total Bilirubin 0.3 mg/dL (0.2-1.3)
[2022-03-11 08:09] LABS: Amphetamine Screen,Urine Not Detected (NotDetected); Barbiturate Screen,Urine Not Detected (NotDetected); Benzodiazepines Screen,Urine Not Detected (NotDetected); Cocaine Screen,Urine Detected (NotDetected); Methadone Screen, Urine Not Detected (NotDetected); Opiate Screen,Urine Not Detected (NotDetected); Oxycodone Screen, Urine Not Detected (NotDetected); Phencyclidine Screen,Urine Not Detected (NotDetected); Tricyclic Antidepressant,Urine Detected (NotDetected); Urn Cannabinoid Scrn Detected (NotDetected)
--- NOTE | 2022-03-11 08:53 | CT ---
EXAMINATION TYPE: CT brain cspine wo con DATE OF EXAM: 03/11/2022 COMPARISON: CT dated 06/25/2021 HISTORY: pain and numbness CT DLP: 1325.9 mGycm Automated exposure control for dose reduction was used. TECHNIQUE: CT scan of the head and cervical spine are performed without contrast. FINDINGS: There is no acute intracranial hemorrhage, mass effect, or midline shift identified. The ventricles and sulci are within normal limits in size. The globes are intact. Mild mucosal thickeni ng of the ethmoid air cells. Preserved cervical curvature. No significant anterolisthesis or retrolisthesis. No definite vertebral body collapse or acute displaced fracture. Unremarkable atlantoaxial and atlantooccipital articulati ons. Tiny multipurpose opposing endplate osteophytosis. Multilevel facet osteoarthropathy, most evident at T1-2, T2-3 and left C4-5 facets. Mild left C4-5 an d moderate right C5-6 neuroforamina stenosis. C3-4 central posterior disc protrusion causing mild jonathan tral spinal canal stenosis. No paraspinal region. IMPRESSION: 1. There is no acute fracture or dislocation evident in the cervical spine. 2. No acute intracranial hemorrhage, mass effect, or midline shift is seen. 3. Degenerative changes and incidental findings as described above.
--- NOTE | 2022-03-11 10:46 | CT ---
EXAMINATION TYPE: CT angio head neck DATE OF EXAM: 03/11/2022 HISTORY: Fall, head injury, AMS, aphasia COMPARISON: Unenhanced CT brain performed earlier same day CT DLP: 393 mGycm. Automated Exposure Control for Dose Reduction was Utilized. TECHNIQUE: CTA scan of the head and neck is performed with IV Contrast, patient injected with 80 mL of Isovue 370, axial images are obtained, coronal and sagittal reformatted images are reviewed. 3D re constructed images are created on an independent workstation and reviewed. FINDINGS: Carotid/Vascular Structures: Prominent left superior frontal cortical vein with subtle adjacent hyper enhancement which could represent a DVA or a small vascular malformation. Otherwise normal caliber an d enhancement of the neck arteries and intracranial arteries without significant stenosis, occlusion, dissection or aneurysm. Patent major intracranial venous sinuses. Other: No other intracranial abnormal enhancement. Questional COPD changes. Degenerative changes of t he cervical spine, detailed on the previous recent cervical spine CT report. 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 F urther elective MRI assessment can be considered. No significant arterial stenosis, occlusion, dissection or aneurysm. Other findings as described danaev e.
[2022-03-11] MEDS ORDERED: NALOXONE 0.4 MG/ML 1 ML VIAL IV PRN (10:55)
--- NOTE | 2022-03-11 11:57 | ED ---
Medical Decision Making - Lab Data Result diagrams: 03/11/22 07:30 03/11/22 07:30 Lab Results 03/11/22 03/11/22 03/11/22 Range/Units 07:30 07:30 07:30 WBC 6.1 (3.8-10.6) k/uL RBC 3.59 L (3.80-5.40) m/uL Hgb 11.5 (11.4-16.0) gm/dL Hct 34.5 (34.0-46.0) % MCV 96.2 (80.0-100.0) fL MCH 32.2 (25.0-35.0) pg MCHC 33.4 (31.0-37.0) g/dL RDW 13.4 (11.5-15.5) % Plt Count 211 (150-450) k/uL MPV 7.3 Neutrophils % 60 % Lymphocytes % 28 % Monocytes % 4 % Eosinophils % 5 % Basophils % 1 % Neutrophils # 3.7 (1.3-7.7) k/uL Lymphocytes # 1.7 (1.0-4.8) k/uL Monocytes # 0.3 (0-1.0) k/uL Eosinophils # 0.3 (0-0.7) k/uL Basophils # 0.0 (0-0.2) k/uL Sodium 142 (137-145) mmol/L Potassium 4.1 (3.5-5.1) mmol/L Chloride 110 H (98-107) mmol/L Carbon Dioxide 25 (22-30) mmol/L Anion Gap 7 mmol/L BUN 18 H (7-17) mg/dL Creatinine 0.71 (0.52-1.04) mg/dL Est GFR (CKD-EPI)AfAm >90 (>60 ml/min/1.73 sqM) Est GFR (CKD-EPI)NonAf >90 (>60 ml/min/1.73 sqM) Glucose 101 H (74-99) mg/dL Calcium 8.9 (8.4-10.2) mg/dL Magnesium 1.6 (1.6-2.3) mg/dL Total Bilirubin 0.3 (0.2-1.3) mg/dL AST 19 (14-36) U/L ALT 9 (4-34) U/L Alkaline Phosphatase 56 (38-126) U/L Total Protein 7.0 (6.3-8.2) g/dL Albumin 4.1 (3.5-5.0) g/dL Salicylates <1.0 mg/dL Urine Opiates Screen Not Detected (NotDetected) Ur Oxycodone Screen Not Detected (NotDetected) Urine Methadone Screen Not Detected (NotDetected) Ur Propoxyphene Screen Not Detected (NotDetected) Acetaminophen <10.0 ug/mL Ur Barbiturates Screen Not Detected (NotDetected) U Tricyclic Antidepress Detected H (NotDetected) Ur Phencyclidine Scrn Not Detected (NotDetected) Ur Amphetamines Screen Not Detected (NotDetected) U Methamphetamines Scrn Not Detected (NotDetected) U Benzodiazepines Scrn Not Detected (NotDetected) Urine Cocaine Screen Detected H (NotDetected) U Marijuana (THC) Screen Detected H (NotDetected) Disposition Clinical Impression: AMS (altered mental status) Disposition: HOME SELF-CARE Condition: Fair Is patient prescribed a controlled substance at d/c from ED?: No Time of Disposition: 11:56
[2022-03-11 12:12] VITALS: BP 141/87; PULSE 78; TEMP 98.4
== END 2022-03-11 12:11 | disposition left against medical advice (07) ==
LOC: EC 07:01 → 6NMEDSUR 10:59
PROVIDERS: ADMIT Internal Medicine; ATTEND Internal Medicine
DX: R41.82 Altered mental status, unspecified (principal); R51.9 Headache, unspecified; M54.2 Cervicalgia; W19.XXXA Unspecified fall, initial encounter; R20.0 Anesthesia of skin; R06.4 Hyperventilation; I10 Essential (primary) hypertension; E78.5 Hyperlipidemia, unspecified; K21.9 Gastro-esophageal reflux disease without esophagitis; B19.10 Unspecified viral hepatitis B without hepatic coma; G89.29 Other chronic pain; M54.9 Dorsalgia, unspecified; B19.20 Unspecified viral hepatitis C without hepatic coma; F25.9 Schizoaffective disorder, unspecified; F31.9 Bipolar disorder, unspecified; F90.9 Attention-deficit hyperactivity disorder, unspecified type; F41.9 Anxiety disorder, unspecified; F17.200 Nicotine dependence, unspecified, uncomplicated; Z79.51 Long term (current) use of inhaled steroids; Z79.1 Long term (current) use of non-steroidal anti-inflammatories (NSAID); Z79.899 Other long term (current) drug therapy; Z91.040 Latex allergy status; Z88.8 Allergy status to other drugs, medicaments and biological substances; Z87.440 Personal history of urinary (tract) infections; Z86.14 Personal history of Methicillin resistant Staphylococcus aureus infection; Z87.442 Personal history of urinary calculi; Z98.84 Bariatric surgery status; Z90.49 Acquired absence of other specified parts of digestive tract; Z98.891 History of uterine scar from previous surgery; Z98.890 Other specified postprocedural states; Z87.898 Personal history of other specified conditions
CPT/HCPCS: 96360; 99285; 36415; 80053; 83735; 85025; 80306; 80143; 80179; 72125; 70496; 70450; 70498; G0378; Q9967

== ENCOUNTER 2022-05-08 18:41 | Emergency (ER) | payer MEDICARE, OTHER ==
[2022-05-08 18:58] VITALS: BP 113/79; PULSE 77; RESP 20; TEMP 98.2
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
[2022-05-08] MEDS ORDERED: LORazepam 2 MG/ML INJ IV STA (21:01)
[2022-05-08 21:16] LABS: Basophils # (A) 0.1 k/uL (0-0.2); Basophils % (A) 1 %; Eosinophils # (A) 0.3 k/uL (0-0.7); Eosinophils % (A) 5 %; HCT 35.2 % (34.0-46.0); HGB 11.2 gm/dL (11.4-16.0); Lymphocytes # (A) 2.2 k/uL (1.0-4.8); Lymphocytes % (A) 29 %; MCH 31.1 pg (25.0-35.0); MCHC 31.7 g/dL (31.0-37.0); MCV 98.1 fL (80.0-100.0); Mean Platelet Volume 7.5; Monocytes # (A) 0.4 k/uL (0-1.0); Monocytes % (A) 6 %; Neutrophils # (A) 4.4 k/uL (1.3-7.7); Neutrophils % (A) 58 %; Platelet Count 236 k/uL (150-450); RBC 3.59 m/uL (3.80-5.40); RDW 12.9 % (11.5-15.5); WBC 7.5 k/uL (3.8-10.6)
[2022-05-08 21:23] LABS: African American GFR (CKD) >90 (>60 ml/min/1.73 sqM); Anion Gap 2 mmol/L; Blood Urea Nitrogen 15 mg/dL (7-17); Calcium 9.4 mg/dL (8.4-10.2); Carbon Dioxide 30 mmol/L (22-30); Chloride 107 mmol/L (98-107); Glucose 83 mg/dL (74-99); Non-African American GFR(CKD) 87 (>60 ml/min/1.73 sqM); Potassium 3.9 mmol/L (3.5-5.1); Sodium 139 mmol/L (137-145)
[2022-05-08 21:36] LABS: Partial Thromboplastin Time 23.9 sec (22.0-30.0); Prothrombin Time 10.7 sec (9.0-12.0)
== END 2022-05-08 21:30 | disposition other institution (70) ==
LOC: EC 18:41
DX: S09.90XA Unspecified injury of head, initial encounter (principal); M54.2 Cervicalgia; I10 Essential (primary) hypertension; E78.5 Hyperlipidemia, unspecified; K21.9 Gastro-esophageal reflux disease without esophagitis; F17.200 Nicotine dependence, unspecified, uncomplicated; Z91.09 Other allergy status, other than to drugs and biological substances; Z88.8 Allergy status to other drugs, medicaments and biological substances; Z79.899 Other long term (current) drug therapy; Z79.51 Long term (current) use of inhaled steroids; Z79.1 Long term (current) use of non-steroidal anti-inflammatories (NSAID); Y08.89XA Assault by other specified means, initial encounter; Y92.096 Garden or yard of other non-institutional residence as the place of occurrence of the external cause
CPT/HCPCS: 36415; 93005; 80048; 85025; 85610; 85730; 87635; 72125; 70486; 70450; 99285; 96374; J2060

== ENCOUNTER → 2023-03-20 | Outpatient (CLI) | payer MEDICARE, OTHER ==
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
== END | disposition home or self-care (01) ==
LOC: RADMRIMAIN 11:04
PROVIDERS: ATTEND Orthopaedic Surgery
DX: M43.12 Spondylolisthesis, cervical region (principal); M47.812 Spondylosis without myelopathy or radiculopathy, cervical region; M99.71 Connective tissue and disc stenosis of intervertebral foramina of cervical region
CPT/HCPCS: 72141

== ENCOUNTER 2023-05-20 18:58 | Emergency (ER) | payer MEDICARE, OTHER ==
[2023-05-20] MEDS ORDERED: KETOROLAC 15 MG/ML 1 ML VIAL IM STA (19:09)
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
--- NOTE | 2023-05-20 19:38 | XR ---
EXAMINATION TYPE: XR knee complete RT DATE OF EXAM: 05/20/2023 COMPARISON: 01/21/2020 HISTORY: Pain and swelling felt pop TECHNIQUE: 3 view right knee FINDINGS: There is narrowing of the medial compartment joint space. Medial and lateral femoral condyl ar and tibial plateau spurs are present. No acute fractures or dislocations are evident. Small joint effusion is present. Patellofemoral joint space narrowing is present with posterior patellar spurring superiorly and inferiorly. Findings appear somewhat progressive from 2019. IMPRESSION: 1. Moderate degenerative joint changes with a small joint effusion right knee. 2. No acute osseous abnormality radiographically apparent. Follow-up MRI can be performed as clinical ly indicated.
[2023-05-20 20:06] VITALS: BP 117/62; PULSE 60; RESP 16; TEMP 97.8
== END 2023-05-20 20:01 | disposition home or self-care (01) ==
LOC: EC 18:58
DX: M23.91 Unspecified internal derangement of right knee (principal); M25.461 Effusion, right knee; M17.11 Unilateral primary osteoarthritis, right knee; I10 Essential (primary) hypertension; K21.9 Gastro-esophageal reflux disease without esophagitis; F90.9 Attention-deficit hyperactivity disorder, unspecified type; F31.9 Bipolar disorder, unspecified; F25.9 Schizoaffective disorder, unspecified; F41.9 Anxiety disorder, unspecified; F17.210 Nicotine dependence, cigarettes, uncomplicated; F14.90 Cocaine use, unspecified, uncomplicated; F11.90 Opioid use, unspecified, uncomplicated; F15.90 Other stimulant use, unspecified, uncomplicated; Z91.040 Latex allergy status; Z88.8 Allergy status to other drugs, medicaments and biological substances; Z79.899 Other long term (current) drug therapy
CPT/HCPCS: 73562; 99284; 96372; 99406; J1885

== ENCOUNTER 2023-10-19 17:15 | Emergency (ER) | payer MEDICARE, OTHER ==
[2023-10-19 17:56] VITALS: BP 122/66; PULSE 70; RESP 16; TEMP 98.2
--- NOTE | 2023-10-19 17:59 | ED ---
Head Injury HPI - General Source: patient, RN notes reviewed Mode of arrival: ambulatory Limitations: no limitations <Peyton Alva - Last Filed: 10/19/23 18:04> <Darrell Delgadillo - Last Filed: 10/19/23 20:41> - General Chief complaint: Head Injury Stated complaint: Fall-week ago Time Seen by Provider: 10/19/23 17:59 - History of Present Illness Initial comments: Patient is a 58-year-old female presented ER with chief complaint of head injury. Patient states about a week ago she fell her. Patient states that she woke up a ground. Patient is also endorsing a black eye but is unsure how she got it. Denies being hit. No blood thinner use. (Peyton Alva) - Related Data Home Medications Medication Instructions Recorded Confirmed lisinopriL [Zestril] 10 mg PO HS 12/12/17 03/11/22 Doxepin HCl [SINEquan] 100 mg PO HS 10/20/19 03/11/22 clonazePAM 0.5 mg PO TID 10/20/19 03/11/22 lamoTRIgine [LaMICtal Xr] 600 mg PO HS 10/20/19 03/11/22 Albuterol Sulfate [Ventolin HFA] 1 - 2 puff INHALATION RT-Q6H PRN 12/01/20 03/11/22 Pantoprazole Sodium [Protonix] 40 mg PO BID 10/18/21 03/11/22 Dextroamphetamine/Amphetamine 20 mg PO TID 10/29/21 03/11/22 [Adderall] Naproxen 500 mg PO BID 10/29/21 03/11/22 Triamcinolone 0.1% Cream [Kenalog 1 applicatio TOPICAL BID 10/29/21 03/11/22 0.1% Cream] Budesonide [Pulmicort Flexhaler] 2 puff INHALATION RT-BID 03/11/22 03/11/22 Buprenorphine HCl/Naloxone HCl 1 film SUBLINGUAL TID 03/11/22 03/11/22 [Suboxone 8 mg-2 mg Sl Film] Cariprazine HCl [Vraylar] 1.5 mg PO HS 03/11/22 03/11/22 Citalopram Hydrobromide 20 mg PO HS 03/11/22 03/11/22 [Citalopram HBr] Cyclobenzaprine [Flexeril] 5 mg PO BID PRN 03/11/22 03/11/22 Diclofenac Sodium Gel [Voltaren 1 applic TOPICAL QID 03/11/22 03/11/22 Gel] Docusate [Colace] 100 mg PO BID 03/11/22 03/11/22 Ergocalciferol [Vitamin D2 (1250 1,250 mcg PO Q7D 03/11/22 03/11/22 Mcg = 54816 Iu)] Ibuprofen [Motrin] 600 mg PO QID 03/11/22 03/11/22 Multivitamins, Thera [Multivitamin 1 tab PO DAILY 03/11/22 03/11/22 (formulary)] polyethylene glycoL 3350 [Miralax] 17 gm PO DAILY 03/11/22 03/11/22 Allergies/Adverse reactions: Allergies Allergy/AdvReac Type Severity Reaction Status Date / Time latex Allergy Rash/Hives Verified 10/19/23 17:53 ziprasidone [From Geodon] Allergy tongue Verified 10/19/23 17:53 Swelling, facial drooping Review of Systems ROS Other: All systems not noted in ROS Statement are negative. <Peyton Alva - Last Filed: 10/19/23 18:04> ROS Other: All systems not noted in ROS Statement are negative. <Darrell Delgadillo - Last Filed: 10/19/23 20:41> ROS Statement: Those systems with pertinent positive or pertinent negative responses have been documented in the HPI. Past Medical History Past Medical History: GERD/Reflux, Hyperlipidemia, Hypertension, Liver Disease, Musculoskeletal Disorder Additional Past Medical History / Comment(s): Chronic back pain, has hepatitis C antibodies, had hepatitis B years ago, UTI. NEUROPATHY, no longer considered diabetic since weight loss, kidney stone in past History of Any Multi-Drug Resistant Organisms: MRSA Date of last positivie culture/infection: 03/30/21 MDRO Source:: Left Hand Past Surgical History: Bariatric Surgery, Section, Cholecystectomy, Orthopedic Surgery, Tonsillectomy Additional Past Surgical History / Comment(s): 2 abortions, ortho surgery rt arm, gastric sleeve, right shoulder surg. Past Anesthesia/Blood Transfusion Reactions: No Reported Reaction Past Psychological History: ADD/ADHD, Anxiety, Bipolar, Schizoaffective Disorder Smoking Status: Current every day smoker Past Alcohol Use History: None Reported Past Drug Use History: Cocaine, Heroin, IV Drug Use, Prescription Drug Abuse - Past Family History Father History Unknown: Yes Additional Family Medical History / Comment(s): Patient is adopted Mother History Unknown: Yes Additional Family Medical History / Comment(s): Pt is adopted. <Peyton Alva - Last Filed: 10/19/23 18:04> General Exam Limitations: no limitations <Peyton Alva - Last Filed: 10/19/23 18:04> General appearance: alert, in no apparent distress Eye exam: Present: normal appearance, PERRL, EOMI, periorbital swelling ENT exam: Present: normal exam Neck exam: Present: normal inspection. Absent: tenderness, meningismus Respiratory exam: Present: normal lung sounds bilaterally. Absent: respiratory distress, wheezes Cardiovascular Exam: Present: regular rate, normal rhythm GI/Abdominal exam: Present: soft. Absent: distended, tenderness Extremities exam: Present: normal inspection Neurological exam: Present: alert, oriented X3, CN II-XII intact, normal gait. Absent: motor sensory deficit Psychiatric exam: Present: normal affect, normal mood Skin exam: Present: warm, dry, intact <Darrell Delgadillo - Last Filed: 10/19/23 20:41> - General Exam Comments Initial Comments: Visual Physical Exam Vital signs reviewed General: Well-appearing, nontoxic, no acute distress. Head: Normocephalic, atraumatic Eyes: PERRLA, EOMI, contusion to right eye ENT: Airway patent Chest: Nonlabored breathing Skin: No visual rash, normal skin tone Neuro: Alert and oriented 3 Musculoskeletal: No gross abnormalities (Peyton Alva) Course Vital Signs 10/19/23 17:50 Temperature 98.2 F Pulse Rate 70 Respiratory 16 Rate Blood Pressure 122/66 O2 Sat by Pulse 99 Oximetry Medical Decision Making <Peyton Alva - Last Filed: 10/19/23 18:04> <Darrell Delgadillo - Last Filed: 10/19/23 20:41> - Medical Decision Making I performed the quick note portion of the exam. Electronically signed by Peyton Alva PA-C (Peyton Alva) Was pt. sent in by a medical professional or institution ([facility], PSYCH SALES SPECIALIST, urgent care, hospital, or penitentiary...) When possible be specific @ -No Did you speak to anyone other than the patient for history (EMS, parent, family, police, friend...)? What history was obtained from this source @ -No Did you review nursing and triage notes (agree or disagree)? Why? @ -I reviewed and agree with nursing and triage notes Were old charts reviewed (outside hosp., previous admission, EMS record, old EKG, old radiological studies, urgent care reports/EKG's, penitentiary records)? Report findings @ -No old charts were reviewed Differential Diagnosis (chest pain, altered mental status, abdominal pain women, abdominal pain men, vaginal bleeding, weakness, fever, dyspnea, syncope, headache, dizziness, GI bleed, back pain, seizure, CVA, palpatations, mental health, musculoskeletal)? @ -Concussion, intracranial hemorrhage EKG interpreted by me (3pts min.). @ -Sinus rhythm, ventricular rate is 64, TN interval 163, QRS duration 98, QTC [address] segment elevation X-rays interpreted by me (1pt min.). @ -None done CT interpreted by me (1pt min.). @ -None done U/S interpreted by me (1pt. min.). @ -None done What testing was considered but not performed or refused? (CT, X-rays, U/S, labs)? Why? @ -None What meds were considered but not given or refused? Why? @ -None Did you discuss the management of the patient with other professionals (professionals i.e. [facility], PSYCH SALES SPECIALIST, lab, RT, psych nurse, director social service, personal computer specialist, teacher, multisensor intelligence officer, case assembler)? Give summary @ -No Was smoking cessation discussed for >3mins.? @ -No Was critical care preformed (if so, how long)? @ -No Were there social determinants of health that impacted care today? How? (Homelessness, low income, unemployed, alcoholism, drug addiction, transportation, low edu. Level, literacy, decrease access to med. care, senior living, rehab)? @ -No Was there de-escalation of care discussed even if they declined (Discuss DNR or withdrawal of care, Hospice)? DNR status @ -No What co-morbidities impacted this encounter? (DM, HTN, Smoking, COPD, CAD, Cancer, CVA, ARF, Chemo, Hep., AIDS, mental health diagnosis, sleep apnea, morbid obesity)? @ -None Was patient admitted / discharged? Hospital course, mention meds given and route, prescriptions, significant lab abnormalities, going to OR and other pertinent info. @ 58 yo female with a fall which occurred one week ago with head injury. Brain CT negative for intracranial hemorrhage or mass effect. Fall was one week ago. She has a right periorbital ecchymosis. Undiagnosed new problem with uncertain prognosis? @ -No Drug Therapy requiring intensive monitoring for toxicity (Heparin, Nitro, Insulin, Cardizem)? @ -No Were any procedures done? @ -No Diagnosis/symptom? @ -[Concussion Acute, or Chronic, or Acute on Chronic? @ Acute Uncomplicated (without systemic symptoms) or Complicated (systemic symptoms)? @ -default Side effects of treatment? @ -No Exacerbation, Progression, or Severe Exacerbation? @ -No Poses a threat to life or bodily function? How? (Chest pain, [place], [place], pneumonia, PE, COPD, DKA, ARF, appy, cholecystitis, CVA, Diverticulitis, Homicidal, Suicidal, threat to staff... and all critical care pts) @ -No (Darrell Delgadillo) Disposition <Peyton Alva - Last Filed: 10/19/23 18:04> Is patient prescribed a controlled substance at d/c from ED?: No Time of Disposition: 20:20 <Darrell Delgadillo - Last Filed: 10/19/23 20:41> Clinical Impression: Concussion with loss of consciousness Disposition: HOME SELF-CARE Condition: Good Instructions (If sedation given, give patient instructions): Concussion (ED) Referrals: [facility] [Primary Care Provider] - 1-2 days
--- NOTE | 2023-10-19 19:25 | CT ---
EXAMINATION TYPE: CT brain cspine wo con CT DLP: 1267.1 mGycm, Automated exposure control for dose reduction was used. DATE OF EXAM: 10/19/2023 6:37 PM COMPARISON: None. CLINICAL INDICATION:Female, 58 years old with history of pain; fell 1 week ago hitting head TECHNIQUE: Brain: Multiple axial CT images of the brain were obtained without IV contrast. Cspine: Axial CT images from the skull base to the inferior aspect of T2 we obtained without intraven ous contrast. Coronal and sagittal reformatted images were also reviewed. FINDINGS: Brain: Extra-axial spaces: No abnormal extra-axial fluid collections. Ventricular system: Within normal limits Cerebral parenchyma: No acute intraparenchymal hemorrhage or mass effect. The ayala-white junction is well differentiated. Cerebellum: Unremarkable. Mass effect: No evidence of midline shift. Intracranial vasculature: Atherosclerotic calcifications of the intracranial vessels. Soft tissues: Normal. Calvarium/osseous structures: No depressed skull fracture. Paranasal sinuses and mastoid air cells: Clear. Visualized orbits: Orbital contents are intact. Cervical spine: Fracture: None. Osseous structures: Unremarkable Vertebral alignment: Within normal limits. Spinal canal/Neural Foramina: No evidence of significant spinal canal narrowing. No evidence for sign ificant neural foraminal stenosis. Neck soft tissues: Prevertebral soft tissues are within normal limits. Other: The airway is patent. The lung apices are clear. IMPRESSION: 1. No acute intracranial process. 2. No evidence of cervical spine fracture. 3. Mild multilevel degenerative disc disease.
== END 2023-10-19 20:42 | disposition home or self-care (01) ==
LOC: EC 17:15
DX: S06.0XAA Concussion with loss of consciousness status unknown, initial encounter (principal); K21.9 Gastro-esophageal reflux disease without esophagitis; I10 Essential (primary) hypertension; F41.9 Anxiety disorder, unspecified; F90.9 Attention-deficit hyperactivity disorder, unspecified type; F31.9 Bipolar disorder, unspecified; F17.200 Nicotine dependence, unspecified, uncomplicated; F14.90 Cocaine use, unspecified, uncomplicated; F15.90 Other stimulant use, unspecified, uncomplicated; Z79.899 Other long term (current) drug therapy; Z91.040 Latex allergy status; Z88.8 Allergy status to other drugs, medicaments and biological substances; R40.2410 Glasgow coma scale score 13-15, unspecified time; W18.30XA Fall on same level, unspecified, initial encounter
CPT/HCPCS: 70450; 72125; 93005; 99284

== ENCOUNTER 2023-12-22 13:24 | Emergency (ER) | payer MEDICARE, OTHER ==
[2023-12-22 13:42] VITALS: RESP 18
--- NOTE | 2023-12-22 13:54 | ED ---
Lower Extremity Injury HPI - General Chief Complaint: Extremity Injury, Lower Stated Complaint: Fall-Right Knee/Back Injury Time Seen by Provider: 12/22/23 13:40 Source: patient, RN notes reviewed Mode of arrival: ambulatory Limitations: no limitations - History of Present Illness Initial Comments: 58-year-old female presents emergency department chief complaint of right knee pain after fall. She states she was waiting for the bus this morning around 10 AM when she tripped over part of the sidewalk and fell. Patient denies loss of consciousness, hitting her head or dizziness at time of the fall, she states that she just slipped. Patient denies any wrist pain, numbness or tingling to the right knee. she has not taken anything for the pain. - Related Data Home Medications Medication Instructions Recorded Confirmed lisinopriL [Zestril] 10 mg PO HS 12/12/17 03/11/22 Doxepin HCl [SINEquan] 100 mg PO HS 10/20/19 03/11/22 clonazePAM 0.5 mg PO TID 10/20/19 03/11/22 lamoTRIgine [LaMICtal Xr] 600 mg PO HS 10/20/19 03/11/22 Albuterol Sulfate [Ventolin HFA] 1 - 2 puff INHALATION RT-Q6H PRN 12/01/2004/25 Pantoprazole Sodium [Protonix] 40 mg PO BID 10/18/21 03/11/22 Dextroamphetamine/Amphetamine 20 mg PO TID 10/29/21 03/11/22 [Adderall] Naproxen 500 mg PO BID 10/29/21 03/11/22 Triamcinolone 0.1% Cream [Kenalog 1 applicatio TOPICAL BID 10/29/21 03/11/22 0.1% Cream] Budesonide [Pulmicort Flexhaler] 2 puff INHALATION RT-BID 03/11/22 03/11/22 Buprenorphine HCl/Naloxone HCl 1 film SUBLINGUAL TID 03/11/22 03/11/22 [Suboxone 8 mg-2 mg Sl Film] Cariprazine HCl [Vraylar] 1.5 mg PO HS 03/11/22 03/11/22 Citalopram Hydrobromide 20 mg PO HS 03/11/22 03/11/22 [Citalopram HBr] Cyclobenzaprine [Flexeril] 5 mg PO BID PRN 03/11/22 03/11/22 Diclofenac Sodium Gel [Voltaren 1 applic TOPICAL QID 03/11/22 03/11/22 Gel] Docusate [Colace] 100 mg PO BID 03/11/22 03/11/22 Ergocalciferol [Vitamin D2 (1250 1,250 mcg PO Q7D 03/11/22 03/11/22 Mcg = 92992 Iu)] Ibuprofen [Motrin] 600 mg PO QID 03/11/22 03/11/22 Multivitamins, Thera [Multivitamin 1 tab PO DAILY 03/11/22 03/11/22 (formulary)] polyethylene glycoL 3350 [Miralax] 17 gm PO DAILY 03/11/22 03/11/22 Allergies Allergy/AdvReac Type Severity Reaction Status Date / Time latex Allergy Rash/Hives Verified 12/22/23 13:39 ziprasidone [From Geodon] Allergy tongue Verified 12/22/23 13:39 Swelling, facial drooping Review of Systems ROS Statement: Those systems with pertinent positive or pertinent negative responses have been documented in the HPI. ROS Other: All systems not noted in ROS Statement are negative. Past Medical History Past Medical History: GERD/Reflux, Hyperlipidemia, Hypertension, Liver Disease, Musculoskeletal Disorder Additional Past Medical History / Comment(s): Chronic back pain, has hepatitis C antibodies, had hepatitis B years ago, UTI. NEUROPATHY, no longer considered diabetic since weight loss, kidney stone in past History of Any Multi-Drug Resistant Organisms: MRSA Date of last positivie culture/infection: 03/30/21 MDRO Source:: Left Hand Past Surgical History: Bariatric Surgery, Section, Cholecystectomy, Orthopedic Surgery, Tonsillectomy Additional Past Surgical History / Comment(s): 2 abortions, ortho surgery rt arm, gastric sleeve, right shoulder surg. Past Anesthesia/Blood Transfusion Reactions: No Reported Reaction Past Psychological History: ADD/ADHD, Anxiety, Bipolar, Depression, Schizoaffective Disorder Smoking Status: Current every day smoker Past Alcohol Use History: None Reported Past Drug Use History: Cocaine, Heroin, IV Drug Use, Marijuana, Prescription Drug Abuse - Past Family History Father History Unknown: Yes Additional Family Medical History / Comment(s): Patient is adopted Mother History Unknown: Yes Additional Family Medical History / Comment(s): Pt is adopted. General Exam Limitations: no limitations Course Vital Signs 12/22/23 13:33 Temperature 98.6 F Pulse Rate 59 L Respiratory 18 Rate Blood Pressure 144/75 O2 Sat by Pulse 99 Oximetry Medical Decision Making - Medical Decision Making Was pt. sent in by a medical professional or institution (, [facility], STATE FEDERAL RELATIONS DEPUTY DIRECTOR, urgent care, hospital, or [place] health care facility...) When possible be specific @ -No Did you speak to anyone other than the patient for history (EMS, parent, family, police, friend...)? What history was obtained from this source @ -No Did you review nursing and triage notes (agree or disagree)? Why? @ -I reviewed and agree with nursing and triage notes Were old charts reviewed (outside hosp., previous admission, EMS record, old EK G, old radiological studies, urgent care reports/EKG's, [place] health care facility records)? Report findings @ -No old charts were reviewed Differential Diagnosis (chest pain, altered mental status, abdominal pain women, abdominal pain men, vaginal bleeding, weakness, fever, dyspnea, syncope, headache, dizziness, GI bleed, back pain, seizure, CVA, palpatations, mental health, musculoskeletal)? @ -Differential Musculoskeletal Muscular strain, contusion, ligament sprain, fracture, arthritis, septic arthritis, bursitis, cellulitis, muscle spasm, nerve compression, DVT, arterial occlusion, herpes zoster, electrolyte abnormality, tumor.... This is not meant to be in all inclusive list EKG interpreted by me (3pts min.). @ -None X-rays interpreted by me (1pt min.). @ -None done CT interpreted by me (1pt min.). @ -None done U/S interpreted by me (1pt. min.). @ -None done What testing was considered but not performed or refused? (CT, X-rays, U/S, labs)? Why? @ -None What meds were considered but not given or refused? Why? @ -None Did you discuss the management of the patient with other professionals (professionals i.e. , [facility], STATE FEDERAL RELATIONS DEPUTY DIRECTOR, lab, RT, psych nurse, social studies teacher, division roadmaster, teacher, head correction officer, ed case manager)? Give summary @ -No Was smoking cessation discussed for >3mins.? @ -No Was critical care preformed (if so, how long)? @ -No Were there social determinants of health that impacted care today? How? (Homelessness, low income, unemployed, alcoholism, drug addiction, transportation, low edu. Level, literacy, decrease access to med. care, custodial, rehab)? @ -No Was there de-escalation of care discussed even if they declined (Discuss DNR or withdrawal of care, Hospice)? DNR status @ -No What co-morbidities impacted this encounter? (DM, HTN, Smoking, COPD, CAD, Cancer, CVA, ARF, Chemo, Hep., AIDS, mental health diagnosis, sleep apnea, morbid obesity)? @ -None Was patient admitted / discharged? Hospital course, mention meds given and route, prescriptions, significant lab abnormalities, going to OR and other pertinent info. @ -Charge. 58-year-old female with chief complaint of right knee pain. Patient given 1 g tablet Tylenol for pain relief. X-ray right knee reveals no acute fracture. Patient placed in Matt wrap and feels comfortable discharge. Discussed that patient will most likely have swelling and bruising over the next few days. Symptomatic pain relief at home with Tylenol Motrin. Rest the affected knee, elevate and ice. Undiagnosed new problem with uncertain prognosis? @ -No Drug Therapy requiring intensive monitoring for toxicity (Heparin, Nitro, Insulin, Cardizem)? @ -No Were any procedures done? @ -No Diagnosis/symptom? @ -knee Sprain Acute, or Chronic, or Acute on Chronic? @ -acute Uncomplicated (without systemic symptoms) or Complicated (systemic symptoms)? @ -Default Side effects of treatment? @ -No Exacerbation, Progression, or Severe Exacerbation? @ -No Poses a threat to life or bodily function? How? (Chest pain, USA, CT, pneumonia, PE, COPD, DKA, ARF, appy, cholecystitis, CVA, Diverticulitis, Homicidal, Suicidal, threat to staff... and all critical care pts) @ -No Disposition Clinical Impression: Knee sprain Narrative: Please return to the Emergency Department if symptoms worsen or any other concerns. Continue symptomatic treatment at home cycling Tylenol and Motrin. Use lidocaine patch as needed for pain. Rest the affected knee, elevate, ice. Disposition: HOME SELF-CARE Condition: Good Instructions (If sedation given, give patient instructions): Knee Sprain (ED) Is patient prescribed a controlled substance at d/c from ED?: No Referrals: None,Stated [Primary Care Provider] - 1-2 days Time of Disposition: 14:33
[2023-12-22] MEDS: ACETAMINOPHEN TAB 500 MG TAB PO STA (14:12)
--- NOTE | 2023-12-22 14:18 | XR ---
EXAMINATION TYPE: XR knee complete RT DATE OF EXAM: 12/22/2023 COMPARISON: NONE HISTORY: Pain TECHNIQUE: Three views are submitted. FINDINGS: There is moderate to severe tricompartmental osteoarthritis with marginal spurring. Diffuse osteopeni a. Small ossified densities anterior to the tibia likely in the basis of remote trauma or soft tissue dystrophic ossification. Mild generalized demineralization.. Osseous structures are intact. No acu te fracture seen. IMPRESSION: 1. Moderate to severe osteoarthritis with no definite acute fracture..
[2023-12-22 15:27] VITALS: BP 125/74; PULSE 58; TEMP 98
== END 2023-12-22 14:57 | disposition home or self-care (01) ==
LOC: EC 13:24
DX: S83.91XA Sprain of unspecified site of right knee, initial encounter (principal); F17.200 Nicotine dependence, unspecified, uncomplicated; F19.10 Other psychoactive substance abuse, uncomplicated; F12.90 Cannabis use, unspecified, uncomplicated; F11.90 Opioid use, unspecified, uncomplicated; F14.90 Cocaine use, unspecified, uncomplicated; Z91.040 Latex allergy status; Z88.8 Allergy status to other drugs, medicaments and biological substances; W01.0XXA Fall on same level from slipping, tripping and stumbling without subsequent striking against object, initial encounter; Y92.480 Sidewalk as the place of occurrence of the external cause
CPT/HCPCS: 73562; 99283; L1830

== ENCOUNTER 2023-12-24 18:24 | Emergency (ER) | payer MEDICARE ==
--- NOTE | 2023-12-24 18:43 | ED ---
General Adult HPI - General Stated complaint: Leg pain Time Seen by Provider: 12/24/23 18:30 Source: patient, RN notes reviewed, old records reviewed - History of Present Illness Initial comments: This is a 58-year-old female presents to the emergency department stating that she fell 2 days ago and came in for x-rays she had hurt her knee with the x-rays were negative. Patient states she been wearing the knee brace and she got some tingling on the anterior aspect of her toes when she was wearing the brace but she took it off and she want to come in and be reevaluated. Patient states the knee pain is the same as it was patient denies any other injury. Patient Nuys any ankle or foot pain. Patient states she can feel when she touches her toes but it is tingly with the brace on. - Related Data Home Medications Medication Instructions Recorded Confirmed lisinopriL [Zestril] 10 mg PO HS 12/12/17 03/11/22 Doxepin HCl [SINEquan] 100 mg PO HS 10/20/19 03/11/22 clonazePAM 0.5 mg PO TID 10/20/19 03/11/22 lamoTRIgine [LaMICtal Xr] 600 mg PO HS 10/20/19 03/11/22 Albuterol Sulfate [Ventolin HFA] 1 - 2 puff INHALATION RT-Q6H PRN 12/01/20 03/11/22 Pantoprazole Sodium [Protonix] 40 mg PO BID 10/18/21 03/11/22 Dextroamphetamine/Amphetamine 20 mg PO TID 10/29/21 03/11/22 [Adderall] Naproxen 500 mg PO BID 10/29/21 03/11/22 Triamcinolone 0.1% Cream [Kenalog 1 applicatio TOPICAL BID 10/29/21 03/11/22 0.1% Cream] Budesonide [Pulmicort Flexhaler] 2 puff INHALATION RT-BID 03/11/22 03/11/22 Buprenorphine HCl/Naloxone HCl 1 film SUBLINGUAL TID 03/11/22 03/11/22 [Suboxone 8 mg-2 mg Sl Film] Cariprazine HCl [Vraylar] 1.5 mg PO HS 03/11/22 03/11/22 Citalopram Hydrobromide 20 mg PO HS 03/11/22 03/11/22 [Citalopram HBr] Cyclobenzaprine [Flexeril] 5 mg PO BID PRN 03/11/22 03/11/22 Diclofenac Sodium Gel [Voltaren 1 applic TOPICAL QID 03/11/22 03/11/22 Gel] Docusate [Colace] 100 mg PO BID 03/11/22 03/11/22 Ergocalciferol [Vitamin D2 (1250 1,250 mcg PO Q7D 03/11/22 03/11/22 Mcg = 47498 Iu)] Ibuprofen [Motrin] 600 mg PO QID 03/11/22 03/11/22 Multivitamins, Thera [Multivitamin 1 tab PO DAILY 03/11/22 03/11/22 (formulary)] polyethylene glycoL 3350 [Miralax] 17 gm PO DAILY 03/11/22 03/11/22 Allergies Allergy/AdvReac Type Severity Reaction Status Date / Time latex Allergy Rash/Hives Verified 12/22/23 13:39 ziprasidone [From Geodon] Allergy tongue Verified 12/22/23 13:39 Swelling, facial drooping Review of Systems ROS Statement: Those systems with pertinent positive or pertinent negative responses have been documented in the HPI. ROS Other: All systems not noted in ROS Statement are negative. Past Medical History Past Medical History: GERD/Reflux, Hyperlipidemia, Hypertension, Liver Disease, Musculoskeletal Disorder Additional Past Medical History / Comment(s): Chronic back pain, has hepatitis C antibodies, had hepatitis B years ago, UTI. NEUROPATHY, no longer considered diabetic since weight loss, kidney stone in past History of Any Multi-Drug Resistant Organisms: MRSA Date of last positivie culture/infection: 03/30/21 MDRO Source:: Left Hand Past Surgical History: Bariatric Surgery, Section, Cholecystectomy, Orthopedic Surgery, Tonsillectomy Additional Past Surgical History / Comment(s): 2 abortions, ortho surgery rt arm, gastric sleeve, right shoulder surg. Past Anesthesia/Blood Transfusion Reactions: No Reported Reaction Past Psychological History: ADD/ADHD, Anxiety, Bipolar, Depression, Schizoaffective Disorder Smoking Status: Current every day smoker Past Alcohol Use History: None Reported Past Drug Use History: Cocaine, Heroin, IV Drug Use, Marijuana, Prescription Drug Abuse - Past Family History Father History Unknown: Yes Additional Family Medical History / Comment(s): Patient is adopted Mother History Unknown: Yes Additional Family Medical History / Comment(s): Pt is adopted. General Exam - General Exam Comments Initial Comments: GENERAL Patient is well-developed and well-nourished. Patient is in mild distress. EYES Patient's pupils are equal and round. Extraocular motion is intact SKIN Unremarkable NEURO The patient is alert and oriented -3 PYSCH Patient has normal interpersonal interactions. MUSCULOSKELETAL Examination of the knee shows a small abrasion on the top of the knee knee Is moved around without eliciting any pain. Patient has no ligamental laxity of the knee. Patient has no swelling of the ankle or tenderness of the ankle. Patient has no foot pain. Patient has good sensation at all the toes good cap refill of all the toes patient has good DP pulse Medical Decision Making - Medical Decision Making Was pt. sent in by a medical professional or institution (, PA, ROUTE SALES MANAGER, urgent care, hospital, or halfway...) When possible be specific @ -No Did you speak to anyone other than the patient for history (EMS, parent, family, police, friend...)? What history was obtained from this source @ -No Did you review nursing and triage notes (agree or disagree)? Why? @ -I reviewed and agree with nursing and triage notes Were old charts reviewed (outside hosp., previous admission, EMS record, old EKG, old radiological studies, urgent care reports/EKG's, halfway records)? Report findings @ -No old charts were reviewed Differential Diagnosis (chest pain, altered mental status, abdominal pain women, abdominal pain men, vaginal bleeding, weakness, fever, dyspnea, syncope, headache, dizziness, GI bleed, back pain, seizure, CVA, palpatations, mental health, musculoskeletal)? @ -Differential Musculoskeletal Muscular strain, contusion, ligament sprain, fracture, arthritis, septic arthritis, bursitis, cellulitis, muscle spasm, nerve compression, DVT, arterial occlusion, herpes zoster, electrolyte abnormality, tumor.... This is not meant to be in all inclusive list EKG interpreted by me (3pts min.). @ -As above X-rays interpreted by me (1pt min.). @ -None done CT interpreted by me (1pt min.). @ -None done U/S interpreted by me (1pt. min.). @ -None done What testing was considered but not performed or refused? (CT, X-rays, U/S, labs)? Why? @ -None What meds were considered but not given or refused? Why? @ -None Did you discuss the management of the patient with other professionals (professionals i.e. , PA, ROUTE SALES MANAGER, lab, RT, psych nurse, social services technician, personal vehicle advisor, teacher, sewage reticulation drafting officer, case packer)? Give summary @ -No Was smoking cessation discussed for >3mins.? @ -No Was critical care preformed (if so, how long)? @ -No Were there social determinants of health that impacted care today? How? (Homelessness, low income, unemployed, alcoholism, drug addiction, transportation, low edu. Level, literacy, decrease access to med. care, [facility], rehab)? @ -No Was there de-escalation of care discussed even if they declined (Discuss DNR or withdrawal of care, Hospice)? DNR status @ -No What co-morbidities impacted this encounter? (DM, HTN, Smoking, COPD, CAD, Cancer, CVA, ARF, Chemo, Hep., AIDS, mental health diagnosis, sleep apnea, morbid obesity)? @ -None Was patient admitted / discharged? Hospital course, mention meds given and route, prescriptions, significant lab abnormalities, going to OR and other pertinent info. @ -Patient was having some paresthesias on the tip of her toes while she was wearing the brace I told her not to keep the brace on so tight aside from that patient had no new pain no swelling and was able to ambulate Undiagnosed new problem with uncertain prognosis? @ -No Drug Therapy requiring intensive monitoring for toxicity (Heparin, Nitro, Insulin, Cardizem)? @ -No Were any procedures done? @ -No Diagnosis/symptom? @ -Paresthesias Acute, or Chronic, or Acute on Chronic? @ -Acute Uncomplicated (without systemic symptoms) or Complicated (systemic symptoms)? @ -Uncomplicated Side effects of treatment? @ -No Exacerbation, Progression, or Severe Exacerbation? @ -No Poses a threat to life or bodily function? How? (Chest pain, [place], [place], pneumonia, PE, COPD, DKA, ARF, appy, cholecystitis, CVA, Diverticulitis, Homicidal, Suicidal, threat to staff... and all critical care pts) @ -No Disposition Clinical Impression: Paresthesia Disposition: HOME SELF-CARE Condition: Good Additional Instructions: Patient can follow-up with orthopedics Is patient prescribed a controlled substance at d/c from ED?: No Referrals: None,Stated [Primary Care Provider] - 1-2 days Time of Disposition: 18:41
[2023-12-24] MEDS: KETOROLAC 15 MG/ML 1 ML VIAL IM STA (18:49)
[2023-12-24 19:01] VITALS: TEMP 98.4
[2023-12-24 19:33] VITALS: BP 116/78; PULSE 78; RESP 16
== END 2023-12-24 19:19 | disposition home or self-care (01) ==
LOC: EC 18:24
DX: S80.211A Abrasion, right knee, initial encounter (principal); R20.2 Paresthesia of skin; F17.200 Nicotine dependence, unspecified, uncomplicated; Z91.040 Latex allergy status; Z88.8 Allergy status to other drugs, medicaments and biological substances; W19.XXXA Unspecified fall, initial encounter
CPT/HCPCS: 99283; 96372; J1885

== ENCOUNTER 2023-12-27 12:44 | Emergency (ER) | payer MEDICARE ==
[2023-12-27 12:54] VITALS: RESP 18
--- NOTE | 2023-12-27 13:33 | ED ---
Extremity Problem HPI - General Chief complaint: Extremity Problem,Nontraumatic Stated complaint: R leg pain Time Seen by Provider: 12/27/23 13:11 Source: patient, RN notes reviewed Mode of arrival: wheelchair Limitations: physical limitation - History of Present Illness Initial comments: This is a 58-year-old female who presents to the emergency department for right leg pain and swelling. Patient had a fall on 12/21 and injured her right knee. She had x-rays done that were negative. She was given a knee immobilizer and then followed up 2 days later due to numbness in her toes. She was advised not to wear the knee immobilizer so tight. States that when sitting still she is not having any pain, however if she tries to walk, the pain becomes severe and she is unable to walk. She has tried to loosen the knee immobilizer, but still has numbness and tingling in her feet. She has noticed that the knee and ankle are both painful and swollen. She is using lidocaine patches at night for pain, which was not helpful. MD Complaint: extremity pain, extremity swelling - Related Data Home Medications Medication Instructions Recorded Confirmed lisinopriL [Zestril] 10 mg PO HS 12/12/17 03/11/22 Doxepin HCl [SINEquan] 100 mg PO HS 10/20/19 03/11/22 clonazePAM 0.5 mg PO TID 10/20/19 03/11/22 lamoTRIgine [LaMICtal Xr] 600 mg PO HS 10/20/19 03/11/22 Albuterol Sulfate [Ventolin HFA] 1 - 2 puff INHALATION RT-Q6H PRN 12/01/20 03/11/22 Pantoprazole Sodium [Protonix] 40 mg PO BID 10/18/21 03/11/22 Dextroamphetamine/Amphetamine 20 mg PO TID 10/29/21 03/11/22 [Adderall] Naproxen 500 mg PO BID 10/29/21 03/11/22 Triamcinolone 0.1% Cream [Kenalog 1 applicatio TOPICAL BID 10/29/21 03/11/22 0.1% Cream] Budesonide [Pulmicort Flexhaler] 2 puff INHALATION RT-BID 03/11/22 03/11/22 Buprenorphine HCl/Naloxone HCl 1 film SUBLINGUAL TID 03/11/22 03/11/22 [Suboxone 8 mg-2 mg Sl Film] Cariprazine HCl [Vraylar] 1.5 mg PO HS 03/11/22 03/11/22 Citalopram Hydrobromide 20 mg PO HS 03/11/22 03/11/22 [Citalopram HBr] Cyclobenzaprine [Flexeril] 5 mg PO BID PRN 03/11/22 03/11/22 Diclofenac Sodium Gel [Voltaren 1 applic TOPICAL QID 03/11/22 03/11/22 Gel] Docusate [Colace] 100 mg PO BID 03/11/22 03/11/22 Ergocalciferol [Vitamin D2 (1250 1,250 mcg PO Q7D 03/11/22 03/11/22 Mcg = 16301 Iu)] Ibuprofen [Motrin] 600 mg PO QID 03/11/22 03/11/22 Multivitamins, Thera [Multivitamin 1 tab PO DAILY 03/11/22 03/11/22 (formulary)] polyethylene glycoL 3350 [Miralax] 17 gm PO DAILY 03/11/22 03/11/22 Previous Rx's Medication Instructions Recorded Acetaminophen Tab [Tylenol Tab] 1,000 mg PO Q6HR PRN #30 tablet 12/27/23 methocarbamoL [Robaxin-750] 1,500 mg PO TID PRN #30 tab 12/27/23 Allergies Allergy/AdvReac Type Severity Reaction Status Date / Time latex Allergy Rash/Hives Verified 12/27/23 12:53 ziprasidone [From Geodon] Allergy tongue Verified 12/27/23 12:53 Swelling, facial drooping Review of Systems ROS Statement: Those systems with pertinent positive or pertinent negative responses have been documented in the HPI. ROS Other: All systems not noted in ROS Statement are negative. Past Medical History Past Medical History: GERD/Reflux, Hyperlipidemia, Hypertension, Liver Disease, Musculoskeletal Disorder Additional Past Medical History / Comment(s): Chronic back pain, has hepatitis C antibodies, had hepatitis B years ago, UTI. NEUROPATHY, no longer considered diabetic since weight loss, kidney stone in past History of Any Multi-Drug Resistant Organisms: MRSA Date of last positivie culture/infection: 03/30/21 MDRO Source:: Left Hand Past Surgical History: Bariatric Surgery, Section, Cholecystectomy, Orthopedic Surgery, Tonsillectomy Additional Past Surgical History / Comment(s): 2 abortions, ortho surgery rt arm, gastric sleeve, right shoulder surg. Past Anesthesia/Blood Transfusion Reactions: No Reported Reaction Past Psychological History: ADD/ADHD, Anxiety, Bipolar, Depression, Schizoaffective Disorder Smoking Status: Current every day smoker Past Alcohol Use History: None Reported Past Drug Use History: Cocaine, Heroin, IV Drug Use, Marijuana, Prescription Drug Abuse - Past Family History Father History Unknown: Yes Additional Family Medical History / Comment(s): Patient is adopted Mother History Unknown: Yes Additional Family Medical History / Comment(s): Pt is adopted. General Exam Limitations: physical limitation General appearance: alert, in no apparent distress Head exam: Present: atraumatic, normocephalic, normal inspection Respiratory exam: Present: normal lung sounds bilaterally. Absent: respiratory distress, wheezes, rales, rhonchi, stridor Cardiovascular Exam: Present: regular rate, normal rhythm, normal heart sounds. Absent: systolic murmur, diastolic murmur, rubs, gallop, clicks Extremities exam: Present: other (Right knee ecchymosis, swelling, and tenderness as well as swelling and tenderness to the right lateral malleolus. Full range of motion. Negative anterior posterior drawer test. 2+ DP and PT pulses.) Neurological exam: Present: alert, oriented X3, CN II-XII intact Psychiatric exam: Present: normal affect, normal mood Skin exam: Present: warm, dry, intact, normal color. Absent: rash Course Vital Signs 12/27/23 12/27/23 12:49 16:42 Temperature 98.4 F 98.2 F Pulse Rate 103 H 98 Respiratory 18 18 Rate Blood Pressure 100/66 102/64 O2 Sat by Pulse 98 98 Oximetry Medical Decision Making - Medical Decision Making This is a 58 year old female who presents to the emergency department for right knee pain. Was pt. sent in by a medical professional or institution? @ -No Did you speak to anyone other than the patient for history? @ -No Did you review nursing and triage notes? @ -Yes, and I agree, it is accurate with regards to the patient's symptoms. Were old charts reviewed? @ -X-ray of the right knee from 12/21 demonstrating no acute fractures. Differential Diagnosis? @ -Differential Musculoskeletal: Muscular strain, contusion, ligament sprain, fracture, arthritis, septic arthritis, bursitis, cellulitis, muscle spasm, nerve compression, DVT, arterial occlusion, herpes zoster, electrolyte abnormality, tumor.... This is not meant to be in all inclusive list EKG interpreted by me (3pts min.)? @ -Not obtained X-rays interpreted by me (1pt min.)? @ -X-ray of the right knee and ankle obtained. My interpretation identifies no acute fractures. CT interpreted by me (1pt min.)? @ -Not obtained U/S interpreted by me (1pt. min.)? @ -Duplex ultrasound of the right lower extremity obtained. My interpretation identifies no evidence of a DVT. What testing was considered but not performed? (CT, X-rays, U/S, labs)? Why? @ -None What meds were considered but not given? Why? @ -None Did you discuss the management of the patient with other professionals? @ -No Did you reconcile home meds? @ -No Was smoking cessation discussed for >3mins.? @ -I discussed smoking cessation for greater than 3 minutes. The risk of smoking were discussed with the patient including but not limited to risks of cancer, stroke, coronary artery disease and COPD. Also discussed with patient were multiple methods of quitting smoking. Lastly we discussed the financial cost of smoking. Was critical care preformed (if so, how long)? @ -No Were there social determinants of health that impacted care today? How? (Homelessness, low income, unemployed, alcoholism, drug addiction, transportation, low edu. Level, literacy, decrease access to med. care, [facility], rehab)? @ -No Was there de-escalation of care discussed even if they declined? (Discuss DNR or withdrawal of care, Hospice)? @ -No What co-morbidities impacted this encounter? (DM, HTN, Smoking, COPD, CAD, Cancer, CVA, Hep., AIDS, mental health diagnosis, sleep apnea, morbid obesity)? @ -Smoking, osteoarthritis Was patient admitted / discharged? @ -Discharged. X-ray of the right knee and ankle obtained demonstrating a small knee joint effusion and osteoarthritis without other acute process. Duplex ultrasound of the right lower extremity obtained demonstrating no evidence of a DVT. Pain controlled in the emergency department. She is currently taking ibuprofen for pain relief. Prescription for Robaxin and Tylenol provided with dosing instructions reviewed. She will otherwise follow- up with orthopedics as scheduled. Patient discharged home in stable condition. Undiagnosed new problem with uncertain prognosis? @ -None Drug Therapy requiring intensive monitoring for toxicity (Heparin, Nitro, Insulin, Cardizem)? @ -None Were any procedures done? @ -None Diagnosis/symptom? @ -Right knee pain, fall, joint effusion Acute, or Chronic, or Acute on Chronic? @ -Acute Uncomplicated (without systemic symptoms) or Complicated (systemic symptoms)? @ -Uncomplicated Side effects of treatment? @ -None Exacerbation, Progression, or Severe Exacerbation] @ -Not applicable Poses a threat to life or bodily function? @ -No Return precautions reviewed in depth, the patient is instructed to return to the emergency department with any new, worsening, or concerning symptoms. Patient verbalized understanding. This case was discussed in detail with the attending ED physician, Dr. Delgadillo. Presentation, findings, and treatment plan discussed in detail as well. - Radiology Data Radiology results: report reviewed, image reviewed Disposition Clinical Impression: Nicotine dependence, Right leg pain, Joint effusion of knee Disposition: HOME SELF-CARE Instructions (If sedation given, give patient instructions): Osteoarthritis (ED), Swollen Knee Joint (ED), Knee Pain (ED) Additional Instructions: Return to the emergency department with any new, worsening, or concerning symptoms. Alternate with ibuprofen and Tylenol as needed for pain relief. You can take the Robaxin as 1 to 2 tablets 3-4 times daily as needed. Follow up with orthopedics as scheduled. Prescriptions: methocarbamoL [Robaxin-750] 1,500 mg PO TID PRN #30 tab PRN Reason: Pain Acetaminophen Tab [Tylenol Tab] 1,000 mg PO Q6HR PRN #30 tablet PRN Reason: Pain Is patient prescribed a controlled substance at d/c from ED?: No Referrals: None,Stated [Primary Care Provider] - 1-2 days Time of Disposition: 16:00
--- NOTE | 2023-12-27 13:46 | XR ---
Right ankle. HISTORY: Pain and swollen COMPARISON: None TECHNIQUE: 3 views right ankle were obtained. There is mild swelling over the lateral malleolus. There is no fracture, dislocation or focal intraos seous abnormality. Ankle mortise is intact. There is an os trigonum. There is a small plantar calcaneal spur. There is no abnormal soft tissue ca lcification. IMPRESSION: 1. Mild swelling over the lateral malleolus. 2. No fracture, dislocation or focal intraosseous abnormality.
--- NOTE | 2023-12-27 13:48 | XR ---
Right knee HISTORY: Pain and swelling. COMPARISON: None. TECHNIQUE: 3 views right knee were obtained. FINDINGS: There is no fracture, dislocation or focal intraosseous abnormality. There is marked narrowing of the medial compartment of the knee hypertrophic spurring consistent with marked osteoarthritis. There is mild hypertrophic spurring of the patellofemoral compartment and lat eral compartment indicative of mild osteoarthritic change. There is a small joint effusion. IMPRESSION: 1. No acute fracture or dislocation. 2. small joint effusion. 3. Tricompartment osteoarthritis severe in the medial compartment and mild in the lateral and patello femoral compartments.
--- NOTE | 2023-12-27 14:29 | US ---
EXAMINATION TYPE: US venous doppler duplex LE RT DATE OF EXAM: 12/27/2023 1:23 PM COMPARISON: NONE CLINICAL INDICATION: Female, 58 years old with history of Pain and swelling; fell Thursday, rt leg roman n SIDE PERFORMED: Right TECHNIQUE: The lower extremity deep venous system is examined utilizing real time linear array sonog ely with graded compression, doppler sonography and color-flow sonography. VESSELS IMAGED: Common Femoral Vein Deep Femoral Vein Greater Saphenous Vein * Femoral Vein Popliteal Vein Small Saphenous Vein * Proximal Calf Veins (* superficial vessels) Grayscale, color doppler, spectral doppler imaging performed of the deep veins of the lower extremiti es. There is normal flow, compressibility, vascular waveforms. Right Leg: Negative for DVT IMPRESSION: No evidence of deep venous thrombosis
[2023-12-27] MEDS: ORPHENADRINE 30 MG/ML 2 ML VIAL IM STA (15:28)
[2023-12-27] MEDS: KETOROLAC 15 MG/ML 1 ML VIAL IM STA (15:35)
[2023-12-27] MEDS: DEXAMETHASONE SOD PHOSPHATE 10 MG/ML 1 ML VIAL IM STA (15:35)
[2023-12-27] MEDS: CYCLOBENZAPRINE 10MG STARTER 3 TAB BTL PO STA (16:39)
[2023-12-27] MEDS: ACET/COD 300 MG/30 MG STARTER PACK 6 TAB BTL PO STA (16:40)
[2023-12-27 17:02] VITALS: BP 102/64; PULSE 98; TEMP 98.2
== END 2023-12-27 16:49 | disposition home or self-care (01) ==
LOC: EC 12:44
DX: M25.461 Effusion, right knee (principal); F17.200 Nicotine dependence, unspecified, uncomplicated; Z91.040 Latex allergy status; Z88.8 Allergy status to other drugs, medicaments and biological substances
CPT/HCPCS: 99284; 96372 ×3; 73562; 73610; 93971; J1100; J2360; J1885

== ENCOUNTER → 2024-01-26 | Outpatient (CLI) | payer MEDICARE ==
--- NOTE | 2024-01-28 16:42 | MR ---
EXAMINATION TYPE: MR knee RT wo con DATE OF EXAM: 01/26/2024 COMPARISON: Radiograph 12/27/2023 HISTORY: 58-year-old female M25.561, M23.91, Right knee pain, S/P fall. TECHNIQUE: Multiplanar, multisequence imaging of the right knee is performed without IV contrast. FINDINGS: The ACL and PCL are intact. There is edema on either side of the intact MCL. Area of heterogeneous signal at the femoral attachment of the LCL proper. LCL complex are otherwise i ntact. There is severe, full-thickness cartilage loss throughout the medial compartment. Bulky marginal spur ring and some reactive degenerative subchondral marrow signal change especially along the periphery o f the medial compartment. There is a complex multidirectional tear of the posterior horn and body medial meniscus with a large radial component through the posterior horn. Extrusion of the meniscal body. Degenerative signal within the anterior horn of the lateral meniscus. Mild superficial cartilage irre gularity about the lateral compartment with marginal spurring. Moderate to severe irregular cartilage loss throughout the patellofemoral compartment especially karthik g the medial facets. Prominent marginal spurring is present. Extensor mechanism is intact. There is moderate to large knee joint effusion with mild chronic synovi tis. A couple posterior loose bodies measuring up to 8 mm. There appears to be moderate distention of the semimembranosus bursa measuring 4.9 cm craniocaudal by 1.4 cm AP. Generalized subcutaneous soft tissue swelling. Normal popliteal artery anatomy and mild generalized muscle atrophy. No suspicious bone marrow replac ement. IMPRESSION: 1. Severe medial compartmental OA with a degenerative, torn, and extruded medial meniscus. 2. Moderate to severe patellofemoral compartmental OA especially along the medial facets. 3. Grade 1 MCL sprain. Grade 1 sprain femoral attachment of the LCL proper. 4. Moderate distention of the semimembranosus bursa measuring 4.9 cm x 1.4 cm. 5. Moderate to large joint effusion with mild chronic synovitis. Posterior loose bodies measuring up to 8 mm.
== END | disposition home or self-care (01) ==
LOC: RADMRIMAIN 10:15
PROVIDERS: ATTEND Orthopaedic Surgery
DX: M17.11 Unilateral primary osteoarthritis, right knee (principal); M23.91 Unspecified internal derangement of right knee; M25.461 Effusion, right knee; M23.631 Other spontaneous disruption of medial collateral ligament of right knee; M23.641 Other spontaneous disruption of lateral collateral ligament of right knee; M23.41 Loose body in knee, right knee; M65.88 Other synovitis and tenosynovitis, other site; M23.303 Other meniscus derangements, unspecified medial meniscus, right knee

== ENCOUNTER → 2024-03-22 | Outpatient (CLI) | payer MEDICARE ==
--- NOTE | 2024-03-22 15:09 | XR ---
EXAMINATION TYPE: XR chest 2V DATE OF EXAM: 03/22/2024 2:06 PM CLINICAL INDICATION:Female, 58 years old with history of Z01.818 PRE SURGIAL; [facility] COMPARISON: Chest radiographs from 11/09/2022 TECHNIQUE: XR chest 2V Frontal and lateral views of the chest. FINDINGS: Lungs/Pleura: There is no evidence of pleural effusion, focal consolidation, or pneumothorax. Pulmonary vascularity: Unremarkable. Heart/mediastinum: Cardiomediastinal silhouette is unremarkable. Musculoskeletal: No acute osseous pathology. IMPRESSION: No acute cardiopulmonary disease/process.
== END | disposition home or self-care (01) ==
LOC: RADXRMAIN 13:46
PROVIDERS: ATTEND Orthopaedic Surgery
DX: Z01.818 Encounter for other preprocedural examination (principal); M17.11 Unilateral primary osteoarthritis, right knee
CPT/HCPCS: 71046

== ENCOUNTER → 2024-03-22 | Outpatient (CLI) | payer MEDICARE ==
[2024-03-22 19:11] LABS: BUN/Creat Ratio 18.67 Ratio (12.00-20.00); Blood Urea Nitrogen 11.2 mg/dL (9.0-27.0); Calcium 9.3 mg/dL (8.7-10.3); Carbon Dioxide 28.5 mmol/L (21.6-31.8); Chloride 103 mmol/L (96-109); Glucose 88 mg/dL (70-110); Potassium 3.9 mmol/L (3.5-5.5); Sodium 143 mmol/L (135-145)
[2024-03-22 19:13] LABS: Basophils # (A) 0.06 X 10*3/uL (0.00-0.10); Basophils % (A) 0.9 %; Eosinophils % (A) 4.7 %; HCT 35.7 % (37.2-46.3); HGB 10.8 g/dL (12.0-15.0); Lymphocytes # (A) 2.07 X 10*3/uL (0.90-5.00); Lymphocytes % (A) 32.6 %; MCHC 30.3 g/dL (32.0-37.0); Mean Platelet Volume 11.3 FL (9.5-12.2); Monocytes # (A) 0.45 X 10*3/uL (0.20-1.00); Monocytes % (A) 7.1 %; NRBC Per 100 WBC 0 X 10*3/uL (0.00-0.01); Neutrophils # (A) 3.45 X 10*3/uL (1.80-7.70); Neutrophils % (A) 54.4 %; Platelet Count 225 X 10*3/uL (140-440); RBC 3.72 X 10*6/uL (4.10-5.20); RDW 14.4 % (11.5-14.5); WBC 6.35 X 10*3/uL (4.50-10.00)
== END | disposition home or self-care (01) ==
LOC: LABPAT 13:39
PROVIDERS: ATTEND Orthopaedic Surgery
DX: Z01.812 Encounter for preprocedural laboratory examination (principal); M17.11 Unilateral primary osteoarthritis, right knee; Z22.322 Carrier or suspected carrier of Methicillin resistant Staphylococcus aureus
CPT/HCPCS: 80048; 85025; 87070

== ENCOUNTER 2024-04-06 10:13 | Day surgery (SDC) | payer MEDICARE, OTHER ==
--- NOTE | 2024-04-04 13:04 | P.HPOR ---
History of Present Illness H&P Date: 04/04/24 Chief Complaint: Right knee pain The patient is a 58-year-old female who presents with progressive right knee pain for the past several years worsening over the past 2 months. She notes diffuse pain along with swelling and stiffness. She has intermittent buckling and giving way. She is having nighttime pain. She's tried medications along with bracing without much relief. She does use a walker. Review of Systems Per HPI Past Medical History Past Medical History: Cancer, GERD/Reflux, Hyperlipidemia, Hypertension, Liver Disease, Musculoskeletal Disorder Additional Past Medical History / Comment(s): Chronic back pain, has hepatitis C antibodies, had hepatitis B years ago, UTI. NEUROPATHY, no longer considered diabetic since weight loss, kidney stone in past. skin cancer History of Any Multi-Drug Resistant Organisms: MRSA Date of last positivie culture/infection: 03/30/21 MDRO Source:: Left Hand Past Surgical History: Back Surgery, Bariatric Surgery, Section, Cholecystectomy, Orthopedic Surgery, Tonsillectomy Additional Past Surgical History / Comment(s): 3 abortions, ortho surgery rt arm, gastric sleeve, right shoulder surg. lithotripsy, lumbar surgery Past Anesthesia/Blood Transfusion Reactions: No Reported Reaction Smoking Status: Current every day smoker - Past Family History Father History Unknown: Yes Additional Family Medical History / Comment(s): Patient is adopted Mother History Unknown: Yes Additional Family Medical History / Comment(s): Pt is adopted. Medications and Allergies Home Medications Medication Instructions Recorded Confirmed Type Doxepin HCl [SINEquan] 150 mg PO HS 10/20/19 04/01/24 History clonazePAM 0.5 mg PO TID 10/20/19 04/01/24 History Pantoprazole Sodium [Protonix] 40 mg PO BID 10/18/21 04/01/24 History Dextroamphetamine/Amphetamine 20 mg PO TID 10/29/21 04/01/24 History [Adderall] Cariprazine HCl [Vraylar] 4.5 mg PO HS 03/11/22 04/01/24 History Citalopram Hydrobromide 40 mg PO HS 03/11/22 04/01/24 History [Citalopram HBr] Allergies Allergy/AdvReac Type Severity Reaction Status Date / Time latex Allergy Rash/Hives Verified 04/01/24 13:09 ziprasidone [From Geodon] Allergy tongue Verified 04/01/24 13:09 Swelling, facial drooping Physical Examination - Knee right Appearance: effusion Effusion grade: grade 1 Tenderness with palpation: anterior, medial ROM: extension: -15 degrees ROM: flexion: 90 degrees Crepitus with motion: Yes Strength: extension: 5/5 Strength: flexion: 5/5 Meniscal tests: medial meniscal tests: positive, medial joint line pain: positive Results Patient is a well-developed well-nourished female, approximately 5 foot 7, 140 pounds of mesomorphic habitus. HEENT exam is nonfocal, neck is supple. She has painless passive motion of the right hip. Straight leg raise is negative. She is tender about the medial joint line of the right knee. Collaterals are stable, Jayesh was negative, Poncho's is equivocal. She has genu varum alignment. She has an antalgic gait pattern. Her distal neurovascular appears intact in the right lower extremity. - Diagnostic results Knee x-ray: image reviewed (3 views of the right knee obtained the office show severe medial and patellofemoral compartment osteoarthrosis with subchondral sclerosis and [id number] changes.) Assessment and Plan Assessment: Right knee severe medial and patellofemoral compartment osteoarthrosis Plan: I talked to the patient at length regarding her condition along with treatment options. At this point she is quite symptomatic and limited because of pain related to her right knee osteoarthrosis despite previous conservative measures. After a thorough discussion she opts to proceed with surgery. We will plan to proceed with right total knee arthroplasty. Risks and benefits were discussed at length in layman's terms. We will institute DVT prophylaxis postoperatively.
[~2024-04-06 10:13] MED LIST changes: -ACETAMINOPHEN TAB 500 MG TAB PO PRN; -DEXAMETHASONE SOD PHOSPHATE 4 MG/ML 1 ML VIAL IV ONE; -GABAPENTIN 300 MG CAP PO PRN; -ONDANSETRON 4 MG/2 ML VIAL IVP ONE; -ONDANSETRON 4 MG/2 ML VIAL IVP PRN; +TRANEXAMIC 1,000 MG/100ML-NACL 1,000 MG in SALINE 1 100ML.BAG IVPB PRN; -TRANEXAMIC ACID 1,000 MG in SODIUM CHLORIDE 0.9% 100 ML IVPB PRN; -VANCOMYCIN 1,000 MG in SODIUM CHLORIDE 0.9% 250 ML IVPB PRN
[2024-04-06] MEDS: IV FLUID CONTINUATION 1,000 ML IV ONE (11:03)
[2024-04-06] MEDS: MELOXICAM 7.5 MG TAB PO PRN (11:13)
[2024-04-06] MEDS: LACTATED RINGERS 1,000 ML IV SCH (11:14)
[2024-04-06] MEDS: ONDANSETRON 4 MG/2 ML VIAL IVP ONE (11:14)
[2024-04-06] MEDS: ACETAMINOPHEN TAB 500 MG TAB PO PRN (11:14)
[2024-04-06] MEDS: DEXAMETHASONE SOD PHOSPHATE 4 MG/ML 1 ML VIAL IV ONE (11:14)
[2024-04-06] MEDS: MIDAZOLAM 2 MG/2 ML VIAL IV ONE (11:47)
[2024-04-06] MEDS ORDERED: KETAMINE HCL IN 0.9 % NACL 50 MG/5 ML SYRINGE ONE (13:26)
[2024-04-06] MEDS ORDERED: NEOSTIGMINE 1 MG/ML 10 ML VIAL ONE (13:26)
[2024-04-06] MEDS ORDERED: PROPOFOL 10 MG/ML 20 ML VIAL IV ONE (13:26)
[2024-04-06] MEDS ORDERED: MIDAZOLAM 2 MG/2 ML VIAL ONE (13:26)
[2024-04-06] MEDS ORDERED: SUCCINYLCHOLINE CHLORIDE 200 MG/10 ML VIAL IV ONE (13:26)
[2024-04-06] MEDS ORDERED: GLYCOPYRROLATE 0.2 MG/ML 2 ML VIAL ONE (13:26)
[2024-04-06] MEDS ORDERED: DEXAMETHASONE SOD PHOSPHATE 4 MG/ML 1 ML VIAL ONE (13:26)
[2024-04-06] MEDS ORDERED: ROCURONIUM 10 MG/ML (5 ML VIAL) IV ONE (13:26)
[2024-04-06] MEDS ORDERED: fentaNYL (PF) 50 MCG/ML 2 ML AMP ONE (13:26)
[2024-04-06] MEDS ORDERED: LIDOCAINE 1% INJ 10MG/ML (20 ML MDV) ONE (13:26)
[2024-04-06] MEDS ORDERED: TRANEXAMIC 1,000 MG/100ML-NACL PREMIX BAG ONE (13:26)
[2024-04-06] MEDS ORDERED: ROPIVACAINE 5 MG/ML 30 ML VIAL ONE (13:26)
[2024-04-06] MEDS: ceFAZolin 1,000 MG in SODIUM CHLORIDE 0.9% 1,000 ML IRRIGATION ONE (13:31)
[2024-04-06] MEDS ORDERED: HYDROmorphone 0.5 MG/0.5 ML SYRINGE IVP PRN (15:03)
[2024-04-06] MEDS ORDERED: HYDROcodone/APAP 5-325MG 1 EACH TAB PO PRN (15:03)
[2024-04-06] MEDS ORDERED: MAGNESIUM HYDROXIDE 2,400 MG/30 ML CUP PO PRN (15:03)
[2024-04-06] MEDS ORDERED: NALOXONE 0.4 MG/ML 1 ML VIAL IV PRN (15:03)
--- NOTE | 2024-04-06 15:28 | P.OP ---
Date of Procedure: 04/06/24 Preoperative Diagnosis: Right knee severe tricompartmental osteoarthrosis Postoperative Diagnosis: Same Procedure(s) Performed: Right total knee arthroplastycementedposterior stabilized Implants: [employer] size 5 cemented femoral component, size 4 cemented tibial component, 9 mm articular surface, 32 mm cemented patellar component. This is a cruciate retaining implant. [facility] Sur[facility]: Anibal Canada Esl Teacher #1: Shivam Pereyra Estimated Blood Loss (ml): 50 Pathology: none sent Condition: stable Disposition: PACU Indications for Procedure: The patient is a 58-year-old female who presents with progressive right knee pain secondary to osteoarthrosis despite conservative measures. A discussion of the risks and benefits of operative intervention versus continued conservative measures was made with the patient. She opted to proceed with surgery. Operative risks include infection, neurovascular injury, fracture, development of blood clots, possible component loosening/failure and need for subsequent procedures was discussed. Informed consent was obtained. Operative Findings: As below Description of Procedure: The patient was brought to the operating room, and after induction of spinal anesthesia the right lower extremity was prepped and draped in a normal fashion. The tourniquet was inflated to 270 mmHg. A longitudinal incision extending 3 finger breaths above the superior pole of the patella extending to the medial aspect the tibial tubercle was then made. The skin and subcutaneous tissues were divided sharply. Electrocautery was used for hemostasis. A medial parapatellar arthrotomy was then performed. The medial soft tissues to include the superficial and deep portions of the medial collateral ligament as well as the medial hamstring tendons were elevated subperiosteally. The proximal medial tibia osteophytes were carefully removed. The patella was everted. The knee was flexed. A portion of the retropatellar fat pad was excised sharply. The anterior cruciate ligament was sacrificed. A starting hole was made in the distal femur 1 cm anterior to the posterior cruciate origin. An intramedullary femoral guide was gently inserted planning on 5 valgus distal cut with 9 mm distal resection. The cutting block was pinned in place. The distal cut was then made. The posterior referencing sizing guide was utilized. 3 of external rotation was built into the system and verified off the trans- epicondylar axis and the posterior condyles. I felt size 5 was most appropriate. The cutting block was pinned in place. The anterior, posterior, and chamfer cuts were then made. The bone fragments were removed. A sulcus cut was then made with the appropriate guide. The trial size 5 femoral component was then placed and was fully seated. There was good anterior to posterior and medial to lateral fit. The distal peg holes were then drilled. The trial component was then removed. Attention was then paid towards preparing the proximal tibia. An extra medullary guide was utilized in line with the tibial shaft and second metatarsal distally. A 3 posterior slope was planned. I planned on 2 mm resection from the medial compartment. The cutting block was pinned in place. The proximal tibial cut was then made. The bone was removed in one fragment. The remnants of the medial and lateral menisci were excised the capsule junction with electrocautery. The tibia sized most appropriately at size 4. The posterior osteophytes off the distal femur were carefully removed with a curved osteotome. The trial tibial and femoral components were placed along with a 9 millimeters articular surface. I was able to obtain full flexion and extension with good stability with varus and valgus stress. After several flexion and extension cycles, the tibial rotation was marked with electrocautery in line with the medial one third of the tibial tubercle. Attention was then paid towards preparing the patella. A patella reamer was utilized taking this down to 14 mm of bone stock. A good flush cut was made. The patella sized most appropriately at 32 millimeters. The peg holes were then drilled. The trial component was placed. The knee was taken through a range of motion. I had good patellofemoral tracking with no hands technique. The trial components were then removed. The tibia was prepared in the appropriate rotation with appropriate drill and keel punch. The flexion and extension gaps were checked and felt to be symmetric. The bony surfaces were prepared with pulsatile lavage and dried. The deep tibial component was then cemented in place and was fully seated. Excess cement was removed. The femoral component was cemented in place and was fully seated. Again excess cement was removed. The trial 9 millimeters surface was then inserted in the knee was put in full extension. The patella component was cemented in place. After the cement had sufficiently hardened, the knee was again taken through a range of motion. Again there was good stability in flexion and extension with varus and valgus stress. The trial articular surface was then removed. The final articular surface was placed and was impacted. Care was taken to avoid any soft tissue interposition. Pulsatile lavage was again utilized. The tourniquet was deflated with approximately 60 minutes total tourniquet time. There was minimal drainage therefore a deep drain was not placed. The medial parapatellar arthrotomy was then closed with #2 Ethibond suture. The subcutaneous tissues were reapproximated interrupted 2- 0 Vicryl sutures. The skin was reapproximated with 3-0 subarticular strata fix suture. Skin tape and adhesive was applied. A sterile dressing was applied. The patient was then awoken from sedation and transferred to recovery room in good condition. Blood loss was estimated at 50 milliliters. No complications were incurred. Sponge and needle counts were correct at the end the case. Shivam CHAUDHARI assisted during the major components this case to include exposure, bone resection, and implantation.
[2024-04-06] MEDS: HYDROmorphone 0.5 MG/0.5 ML SYRINGE IVP PRN (15:41)
[2024-04-06] MEDS: ROPIVACAINE 1,100 MG, SODIUM CHLORIDE 0.9% 500 ML 330 ML, EMPTY PAIN BALL 1 EACH MISCELLANE PRN (15:47)
--- NOTE | 2024-04-06 16:01 | XR ---
EXAMINATION TYPE: XR knee limited RT DATE OF EXAM: 04/06/2024 3:47 PM CLINICAL INDICATION:Female, 58 years old with history of Evaluation for Postop abnormality and alignm ent; [facility] COMPARISON: 12/27/2023 TECHNIQUE: XR knee limited RT; examined in Frontal, lateral and oblique projections. FINDINGS: Status post total knee arthroplasty changes with hardware in appropriate alignment and in tact. No evidence of fracture. Subcutaneous lucencies and lucencies within the joint consistent with surgical changes. IMPRESSION: Status post total knee arthroplasty changes with hardware intact and appropriate alignment. No fractu res identified.
[2024-04-06] MEDS: HYDROcodone/APAP 7.5-325MG 1 EACH TAB PO PRN (17:55)
[2024-04-06] MEDS: HYDROmorphone 1 MG/ML 1 ML SYRINGE IVP PRN (18:54)
--- NOTE | 2024-04-06 19:48 | P.ANPRN ---
Procedure Note - Anesthesia - Nerve Block Performed Right Adductor Canal Infusion Time Out Performed: Yes Date of Procedure: 04/06/24 Procedure Start Time: 11:47 Procedure Stop Time: 12:00 Location of Patient: PreOp Indication: Acute Post-Operative Pain, Requested by Surgeon Sedation Type: Sedate with meaningful contact maintained Preparation: Sterile Prep, Sterile Dressing Position: Supine Catheter: Indwelling Needle Types: Pajunk Needle Gauge: 21 Ultrasound used to visualize needle placement: Yes Ultrasound used to observe medication spread: Yes Blood Aspirated: No Pain Paresthesia on Injection Noted: No Resistance on Injection: Normal Image Stored and Saved: Yes Events: Uneventful and Well Tolerated (Ropivacaine 0.5% 20 cc plus dexamethasone 4 mg)
--- NOTE | 2024-04-06 19:50 | P.ANPRN ---
Procedure Note - Anesthesia - Nerve Block Performed Right Tanck Single Time Out Performed: Yes Date of Procedure: 04/06/24 Procedure Start Time: 12:01 Procedure Stop Time: 12:04 Location of Patient: PreOp Indication: Acute Post-Operative Pain, Requested by Surgeon Sedation Type: Sedate with meaningful contact maintained Preparation: Sterile Prep Position: Supine Needle Types: Pajunk Needle Gauge: 21 Ultrasound used to visualize needle placement: Yes Ultrasound used to observe medication spread: Yes Blood Aspirated: No Pain Paresthesia on Injection Noted: No Resistance on Injection: Normal Image Stored and Saved: Yes Events: Uneventful and Well Tolerated (Ropivacaine 0.5% 20 cc plus dexamethasone 4 mg)
[2024-04-06] MEDS: DOXEPIN 25 MG CAP PO SCH (20:23)
[2024-04-06] MEDS: PANTOPRAZOLE 40 MG TABLET PO SCH (20:23)
[2024-04-06] MEDS: SENNOSIDES-DOCUSATE SODIUM 1 EACH TAB PO SCH (20:24)
[2024-04-06] MEDS: lamoTRIgine 100 MG TAB PO SCH (20:24)
[2024-04-06] MEDS: CITALOPRAM HYDROBROMIDE 20 MG TAB PO SCH (20:24)
[2024-04-06] MEDS: clonazePAM 0.5 MG TAB PO SCH (20:24)
[2024-04-06] MEDS: PATIENT'S OWN (Cariprazine Hcl [Vraylar] 1.5 MG Capsule) PO SCH (20:25)
[2024-04-07] MEDS: oxyCODONE-APAP 5-325MG 1 EACH TAB PO PRN (00:05)
--- NOTE | 2024-04-07 06:48 | P.PN ---
Progress Note - Text 04/07/24 642am 58-year-old female status post total knee replacement by Dr. Smith. Patient has an On-Q pump for postop pain control, she had developed a leak around the connection and I went up to her room last night and tightening up the connection and reinforce dressing. No leak was noted this morning. Patient claims to have a VAS of 8 or 9 even though when I walked in she was sitting there looking just fine. Patient is also receiving oral pain medications. I was very clear with her to keep the right at 8 cc an hour so that she can get lasting relief
--- NOTE | 2024-04-07 07:31 | P.DS ---
Providers Date of admission: 04/06/2024 Expected date of discharge: 04/07/24 Attending physician: Anibal Canada Consults: 04/06/24 15:03 Consult Physician Routine Consulting Provider: Jamil Geller Consult Reason/Comments: medical management s/p right total knee arthroplasty Do you want consulting provider notified?: Yes Primary care physician: Stated None Hospital Course: Date of admission: 04/06/2024 Date of discharge: 04/07/2024 Admission diagnosis: Right knee osteoarthritis Discharge diagnosis: Same Attending physician: Dr. Canada Surgical procedures: Right total knee arthroplasty Brief history: Patient is a 58-year-old female with a history of progressive primary right knee osteoarthritis. At this point patient has failed conservative treatment measures and has opted to proceed with a elective right total knee arthroplasty. Hospital course: Details of patient's surgery can be found in operative report. Patient tolerated the procedure well and was subsequently transported to orthopedic floor. Patient's orthopeidc and medical care was provided daily. Patient had daily laboratory tests performed for evaluation of overall blood counts. Patient had daily physical therapy to include strengthening range of motion as well as education with walker ambulation. Patient was treated with Xarelto for their postoperative DVT prophylaxis during their inpatient stay. Patient was noted to have a relatively uneventful postoperative course. Patient reported satisfactory pain control with oral pain medications by postoperative day 1. Patient showed satisfactory progress with physical therapy. Patient moved steadily through the program and had no difficulty meeting the goals by postoperative day 1. Given patient's otherwise satisfactory course and having met physical therapy goals, plan is to discharge patient home with health services on postoperative day 1. Discharge condition/disposition: Patient will be discharged home with health services in stable condition. Discharge medications: Instructions are given on resumption of patient's normal daily medications per primary care recommendation, in addition patient will be prescribed oxycodone; Vistaril; senna; Eliquis 2.5 mg twice daily x 2 weeks. Discharge instructions: 1. Wound care and infection precautions, keep incision dry and covered while showering, no lotions, creams, moisturizers. No soaking, tubs, pools, hottubs. Do not scrub over the incision. 2. Weight-bear as tolerated with walker / cane until follow-up. 3. Ice and elevate when necessary. Do not exceed 20 minutes per hour with ice pack. 4. Utilize compression sleeve until seen at first follow up appointment. 5. Visiting nursing care. 6. Home physical therapy including home CPM. 7. Pain meds and anticoagulants per prescription. 8. Pain medication has potential to cause constipation. Increase oral fluid and fiber intake. Contact primary care provider if you have not had a bowel movement within 48 hours after discharge 9. No anti-inflammatory medication until discussed at first post operative visit, this including Motrin, Aleve, Mobic, Diclofenac. 10. Follow up in office at 2 weeks postop with Robe Cardenas PA-C / Shivam Pereyra PA-C 11. Follow up with your primary care doctor 7-10 days after discharge. 12. Contact [facility] with any questions, . Assessment: Right knee osteoarthritis Procedures: Right total knee arthroplasty Patient Condition at Discharge: Good Plan - Discharge Summary Discharge Rx Participant: Yes New Discharge Prescriptions: New Apixaban [Eliquis] 2.5 mg PO BID #60 tab Sennosides/Docusate Sodium [Senna Plus 8.6-50 mg Softgel] 1 each PO DAILY #20 capsule oxyCODONE-APAP 7.5-325MG [Percocet 7.5-325 mg] 1 tab PO Q6HR PRN #28 tab PRN Reason: pain hydrOXYzine pamoate [Vistaril] 25 mg PO TID PRN #21 cap PRN Reason: Pain No Action clonazePAM 0.5 mg PO TID Doxepin HCl [SINEquan] 150 mg PO HS Pantoprazole Sodium [Protonix] 40 mg PO BID Dextroamphetamine/Amphetamine [Adderall] 20 mg PO TID Cariprazine HCl [Vraylar] 4.5 mg PO HS lamoTRIgine [LaMICtal Xr] 300 mg PO DAILY Citalopram Hydrobromide [Citalopram HBr] 40 mg PO HS Discharge Medication List Doxepin HCl [SINEquan] 150 mg PO HS 10/20/19 [History] clonazePAM 0.5 mg PO TID 10/20/19 [History] Pantoprazole Sodium [Protonix] 40 mg PO BID 10/18/21 [History] Dextroamphetamine/Amphetamine [Adderall] 20 mg PO TID 10/29/21 [History] Cariprazine HCl [Vraylar] 4.5 mg PO HS 03/11/22 [History] Citalopram Hydrobromide [Citalopram HBr] 40 mg PO HS 03/11/22 [History] lamoTRIgine [LaMICtal Xr] 300 mg PO DAILY 04/06/24 [History] Apixaban [Eliquis] 2.5 mg PO BID #60 tab 04/07/24 [Rx] Sennosides/Docusate Sodium [Senna Plus 8.6-50 mg Softgel] 1 each PO DAILY #20 capsule 04/07/24 [Rx] hydrOXYzine pamoate [Vistaril] 25 mg PO TID PRN #21 cap 04/07/24 [Rx] oxyCODONE-APAP 7.5-325MG [Percocet 7.5-325 mg] 1 tab PO Q6HR PRN #28 tab 04/07/24 [Rx] Follow up Appointment(s)/Referral(s): Shivam Pereyra, PAC [PHYSICIAN [employer] SUPERVISOR] - 2 Weeks [facility],Equipment [NON-STAFF] - As Needed (*Please call [facility] once home to arrange delivery of the Continuous Passive Motion (CPM) machine. ) Patient Instructions/Handouts: Knee Replacement (DC), Knee Replacement (GEN) Activity/Diet/Wound Care/Special Instructions: Orthopedic Discharge Instructions: 1. Wound care and infection precautions, keep incision dry and covered while showering, no lotions, creams, moisturizers. No soaking, pools, hot tubs. Do not scrub over incision. 2. Weight-bear as tolerated with walker / cane until follow-up. 3. Ice and elevate when necessary. Do not exceed 20 minutes per hour with ice pack. 4. Utilize compression sleeve until seen at first follow up appointment. 5. Pain meds and anticoagulants per prescription. 6. Pain medication has potential to cause constipation. Increase oral fluid and fiber intake. Contact primary care provider if you have not had a bowel movement within 48 hours after discharge. 7. No anti-inflammatory medication until discussed at first post operative visit, this including Motrin, Aleve, Mobic, Diclofenac. 8. Follow up in office at 2 weeks postop with Robe Cardenas PA-C / Shivam Pereyra PA-C 9. Follow up with your primary care doctor 7-10 days after discharge. 10. Contact [facility] with any questions, . Keep incision clean, dry, intact. While showering, cover fusion tape with saran wrap. Keep fusion tape on until follow-up appointment in office in 2 weeks Discharge Disposition: HOME WITH HOME HEALTH SERVICES
--- NOTE | 2024-04-07 07:34 | P.PN ---
Subjective Progress Note Date: 04/07/24 Principal diagnosis: Right knee osteoarthritis Patient was seen at bedside this morning lying in semirecumbent position with dressing present over right knee. Patient says she has been up walking a little bit since surgery yesterday under her own power using a walker into the ba throom. Patient is hoping to go home later today. Patient is eager to work with therapy this morning. Patient says she does have a walker at home. Patient says she has not had a bowel movement yet, however, patient says she has been passing gas. Patient says she has been urinating since surgery yesterday without issue. Patient denies chest pain, fever, shortness of breath, nausea, vomiting, change in vision, loss of bowel/bladder control. Objective - Vital Signs Vital signs: Vital Signs Temp 98.1 F 04/07/24 01:08 Pulse 78 04/07/24 01:08 Resp 18 04/07/24 01:08 BP 118/71 04/07/24 01:08 Pulse Ox 95 04/07/24 01:08 FiO2 Intake & Output 04/06/24 04/07/24 04/07/24 18:59 06:59 18:59 Intake Total 951 Output Total 50 Balance 901 Weight 65.2 kg Intake: IV 951 Output: Estimated Blood Loss 50 Other: Voiding Method Toilet # Voids 1 # Bowel Movements 1 - Exam Right knee: Incision is clean, dry, and intact. The exofin fusion tape is in good condition. There is minimal soft tissue swelling and ecchymosis surrounding the medial and lateral aspects of the incision. Calf is soft, no tenderness with palpation. Plantar flexion, dorsiflexion, EHL, FHL are intact. Sensory exam to light touch throughout the extremity is intact, dorsal pedis pulses 2+. Assessment and Plan Assessment: 1. Right knee osteoarthritis -Postop day 1 status post right total knee arthroplasty Plan: 1. Right knee osteoarthritis -right total knee arthroplasty form yesterday, 04/06/2024. Patient stable bedside this morning with dressing present over right knee. Pain medication as needed. Weightbearing as tolerated with walker pending approval from PT/OT, discharge home today with health services. 2. Appreciate medical management 3. Pain management -oxycodone 4. DVT prophylaxis -Xarelto in hospital. Going home with Eliquis 2.5 mg twice daily x 2 weeks 5. GI prophylaxis -senna 6. PT/OT -weightbearing as tolerated with walker 7. Encourage incentive spirometer use 8. Discharge planning -discharge home today with health services pending approval from PT/OT Time with Patient: Less than 30
[2024-04-07] MEDS: RIVAROXABAN 10 MG TAB PO SCH (08:16)
[2024-04-07 09:55] VITALS: BP 118/75; PULSE 74; RESP 15; TEMP 98.3
[2024-04-07 10:59] LABS: Basophils # (A) 0.03 X 10*3/uL (0.00-0.10); Basophils % (A) 0.3 %; Eosinophils # (A) 0.01 X 10*3/uL (0.04-0.35); Eosinophils % (A) 0.1 %; HGB 9.5 g/dL (12.0-15.0); Lymphocytes # (A) 1.48 X 10*3/uL (0.90-5.00); Lymphocytes % (A) 13.7 %; MCH 28.6 pg (27.0-32.0); MCHC 30.6 g/dL (32.0-37.0); MCV 93.4 FL (80.0-97.0); Mean Platelet Volume 10.7 FL (9.5-12.2); Monocytes # (A) 0.91 X 10*3/uL (0.20-1.00); Monocytes % (A) 8.4 %; NRBC Per 100 WBC 0 X 10*3/uL (0.00-0.01); Neutrophils % (A) 76.9 %; Platelet Count 212 X 10*3/uL (140-440); RBC 3.32 X 10*6/uL (4.10-5.20); RDW 14.2 % (11.5-14.5); WBC 10.79 X 10*3/uL (4.50-10.00)
--- NOTE | 2024-04-07 13:57 | P.CONS ---
History of Present Illness - Reason for Consult Consult date: 04/07/24 Medical management - History of Present Illness History of present illness; patient 58-year-old lady with past medical history significant for ADHD, GERD presented to hospital for elective right total knee arthroplasty. Patient has been following up outpatient with orthopedic surgery for right knee pain, all conservative measures had failed so patient need to proceed with right knee arthroplasty. Postoperatively internal medicine team were consulted REVIEW OF SYSTEMS: CONSTITUTIONAL: No fever, no malaise, no fatigue. HEENT: No recent visual problems or hearing problems. Denied any sore throat. CARDIOVASCULAR: No chest pain, orthopnea, PND, no palpitations, no syncope. PULMONARY: No shortness of breath, no cough, no hemoptysis. GASTROINTESTINAL: No diarrhea, no nausea, no vomiting, no abdominal pain. NEUROLOGICAL: No headaches, no weakness, no numbness. HEMATOLOGICAL: Denies any bleeding or petechiae. GENITOURINARY: Denies any burning micturition, frequency, or urgency. MUSCULOSKELETAL/RHEUMATOLOGICAL: Right knee pain ENDOCRINE: Denies any polyuria or polydipsia. The rest of the 14-point review of systems is negative. PHYSICAL EXAMINATION: GENERAL: The patient is alert and oriented x3, not in any acute distress. Well developed, well nourished. HEENT: Pupils are round and equally reacting to light. EOMI. No scleral icterus. No conjunctival pallor. Normocephalic, atraumatic. No pharyngeal erythema. No thyromegaly. CARDIOVASCULAR: S1 and S2 present. No murmurs, rubs, or gallops. PULMONARY: Chest is clear to auscultation, no wheezing or crackles. ABDOMEN: Soft, nontender, nondistended, normoactive bowel sounds. No palpable organomegaly. MUSCULOSKELETAL: Right knee surgical incision EXTREMITIES: No cyanosis, clubbing, or pedal edema. NEUROLOGICAL: Gross neurological examination did not reveal any focal deficits. SKIN: No rashes. Assessment and plan Right knee osteoarthritis s/p right total knee arthroplasty GERD, ADHD Monitor vital signs Continue pain management per orthopedics Continue DVT prophylaxis per orthopedics Resume home meds PT and OT consulted Labs and medication were reviewed.. Continue same treatment. Continue with symptomatic treatment. Resume home medication. Monitor labs and vitals. DVT and GI prophylaxis. Further recommendations as per clinical course of the patient Dictation was produced using [employer] dictation software. please excuse any grammatical, word or spelling errors. Past Medical History Past Medical History: Cancer, GERD/Reflux, Hyperlipidemia, Hypertension, Liver Disease, Musculoskeletal Disorder Additional Past Medical History / Comment(s): Chronic back pain, has hepatitis C antibodies, had hepatitis B years ago, UTI. NEUROPATHY, no longer considered diabetic since weight loss, kidney stone in past. skin cancer History of Any Multi-Drug Resistant Organisms: MRSA Year Discovered:: 03/30/21 MDRO Source:: Left Hand Past Surgical History: Back Surgery, Bariatric Surgery, Section, Cholecystectomy, Orthopedic Surgery, Tonsillectomy Additional Past Surgical History / Comment(s): 3 abortions, ortho surgery rt arm, gastric sleeve, right shoulder surg. lithotripsy, lumbar surgery Past Anesthesia/Blood Transfusion Reactions: No Reported Reaction Past Psychological History: ADD/ADHD, Anxiety, Bipolar, Depression, Schizoaffective Disorder Additional Psychological History / Comment(s): Pt resides alone. She uses no assistive device. She does not drive, she walks or arranges rides with [employer]. She has a sponser for her past alcoholism and another sponser for her past crack and heroin addiction. She is disabled and retired. Smoking Status: Current every day smoker Past Alcohol Use History: None Reported Additional Past Alcohol Use History / Comment(s): Pt states she hasn't abused alcohol since adolescents. Reports being clean from heroin for 40+ years and cl catherine from crack cocaine for 11 years. Pt states previous abuse of vicodin 20 years ago. down to 3 cigarettes per day Past Drug Use History: Cocaine, Heroin, IV Drug Use, Marijuana, Prescription Drug Abuse Additional Drug Use History / Comment(s): Pt states she usually smokes about 1 joint a day FOR ANXIETY. She states she has past addiction to crack and heroin but has been clean for almost 5 years RELASPED 06/2018-ONCE. NONE SINCE - Past Family History Father History Unknown: Yes Additional Family Medical History / Comment(s): Patient is adopted Mother History Unknown: Yes Additional Family Medical History / Comment(s): Pt is adopted. Medications and Allergies Home Medications Medication Instructions Recorded Confirmed Type Doxepin HCl [SINEquan] 150 mg PO HS 10/20/19 04/06/24 History clonazePAM 0.5 mg PO TID 10/20/19 04/06/24 History Pantoprazole Sodium [Protonix] 40 mg PO BID 10/18/21 04/01/24 History Dextroamphetamine/Amphetamine 20 mg PO TID 10/29/21 04/06/24 History [Adderall] Cariprazine HCl [Vraylar] 4.5 mg PO HS 03/11/22 04/06/24 History Citalopram Hydrobromide 40 mg PO HS 03/11/22 04/06/24 History [Citalopram HBr] lamoTRIgine [LaMICtal Xr] 300 mg PO DAILY 04/06/24 04/06/24 History Apixaban [Eliquis] 2.5 mg PO BID #60 tab 04/07/24 Rx Sennosides/Docusate Sodium [Senna 1 each PO DAILY #20 capsule 04/07/24 Rx Plus 8.6-50 mg Softgel] hydrOXYzine pamoate [Vistaril] 25 mg PO TID PRN #21 cap 04/07/24 Rx oxyCODONE-APAP 7.5-325MG [Percocet 1 tab PO Q6HR PRN #28 tab 04/07/24 Rx 7.5-325 mg] Allergies Allergy/AdvReac Type Severity Reaction Status Date / Time latex Allergy Rash/Hives Verified 04/01/24 13:09 ziprasidone [From Geodon] Allergy tongue Verified 04/01/24 13:09 Swelling, facial drooping Physical Exam Vitals: Vital Signs Temp Pulse Resp BP Pulse Ox 04/07/24 07:18 98.3 F 74 15 118/75 93 L 04/07/24 01:08 98.1 F 78 18 118/71 95 04/06/24 19:02 98.0 F 100 18 122/75 97 04/06/24 16:58 97.8 F 79 18 147/81 100 04/06/24 16:33 75 14 163/94 98 04/06/24 16:20 72 15 156/90 99 04/06/24 16:05 73 17 156/87 93 L 04/06/24 15:50 77 15 165/101 99 04/06/24 15:27 98.5 F 77 14 180/100 100 04/06/24 12:05 59 L 16 131/70 96 07/03/24 11:12 98.0 F 68 18 137/72 98 Intake and Output 04/06/24 04/07/24 04/07/24 22:59 06:59 14:59 Intake Total 400 Output Total 50 Balance 350 Intake: IV 400 Output: Estimated Blood Loss 50 Other: Voiding Method Toilet # Voids 1 # Bowel Movements 1 Weight 65.2 kg
== END 2024-04-07 12:03 | disposition home health service (06) ==
LOC: OR 10:13 → 4SSUR 15:22 → OR 04-07 12:03
PROVIDERS: ATTEND Orthopaedic Surgery
DX: M17.11 Unilateral primary osteoarthritis, right knee (principal); E78.5 Hyperlipidemia, unspecified; F90.9 Attention-deficit hyperactivity disorder, unspecified type; G89.18 Other acute postprocedural pain; I10 Essential (primary) hypertension; K21.9 Gastro-esophageal reflux disease without esophagitis; F17.210 Nicotine dependence, cigarettes, uncomplicated; Z79.01 Long term (current) use of anticoagulants; Z79.899 Other long term (current) drug therapy; Z90.89 Acquired absence of other organs; Z91.040 Latex allergy status
CPT/HCPCS: 27447; 97161; 64999; 64448; 85025; 73560; C1713; C1776; C1751; J2250; J0330; J1100; J2710; J0690 ×3; J2405; J2001; J3010; J1170 ×3; J2795; J2704; J1596

== ENCOUNTER 2024-05-02 14:50 | Inpatient (IN) | payer MEDICARE, OTHER ==
--- NOTE | 2024-05-02 15:32 | ED ---
General Adult HPI - General Source: patient, RN notes reviewed Mode of arrival: ambulatory Limitations: no limitations <Jennifer Cueva - Last Filed: 05/02/24 15:31> <Soledad Castro - Last Filed: 05/02/24 21:12> - General Chief complaint: Syncope Stated complaint: vomiting Time Seen by Provider: 05/02/24 15:05 - History of Present Illness Initial comments: Quick Note-is a 58-year-old female presents emergency department chief complaint of symptoms of nausea vomiting over the past few days. Patient states that she feels like she is unable to swallow food. The food becomes lodged in her throat. She denies abdominal pain, symptoms of fevers or chills. Patient has a history of gastric sleeve surgery. (Jennifer Cueva) - Related Data Home Medications Medication Instructions Recorded Confirmed clonazePAM 0.5 mg PO TID 10/20/19 05/02/24 Dextroamphetamine/Amphetamine 20 mg PO TID 10/29/21 05/02/24 [Adderall] lamoTRIgine [LaMICtal Xr] 300 mg PO HS 04/06/24 05/02/24 Budesonide [Pulmicort Flexhaler] 2 puff INHALATION RT-BID 05/02/24 05/02/24 Buprenorphine HCl/Naloxone HCl 1 film SL TID 05/02/24 05/02/24 [Suboxone 8 mg-2 mg Sl Film] Cariprazine HCl [Vraylar] 4.5 mg PO HS 05/02/24 05/02/24 Citalopram Hydrobromide [CeleXA] 10 mg PO HS 05/02/24 05/02/24 Citalopram Hydrobromide [CeleXA] 40 mg PO HS 05/02/24 05/02/24 Cyclobenzaprine [Flexeril] 5 mg PO TID 05/02/24 05/02/24 Doxepin HCl [SINEquan] 150 mg PO HS 05/02/24 05/02/24 Naproxen [Naprosyn] 500 mg PO TID 05/02/24 05/02/24 Pantoprazole Sodium [Protonix] 20 mg PO TID 05/02/24 05/02/24 Previous Rx's Medication Instructions Recorded Apixaban [Eliquis] 2.5 mg PO BID #60 tab 04/07/24 hydrOXYzine pamoate [Vistaril] 25 mg PO TID PRN #21 cap 04/07/24 Allergies Allergy/AdvReac Type Severity Reaction Status Date / Time latex Allergy Rash/Hives Verified 05/02/24 20:31 ziprasidone [From Geodon] Allergy tongue Verified 05/02/24 20:31 Swelling, facial drooping Review of Systems ROS Other: All systems not noted in ROS Statement are negative. <Jennifer Cueva - Last Filed: 05/02/24 15:31> ROS Other: All systems not noted in ROS Statement are negative. <Soledad Castro - Last Filed: 05/02/24 21:12> ROS Statement: Those systems with pertinent positive or pertinent negative responses have been documented in the HPI. Past Medical History Past Medical History: Cancer, GERD/Reflux, Hyperlipidemia, Hypertension, Liver Disease, Musculoskeletal Disorder Additional Past Medical History / Comment(s): Chronic back pain, has hepatitis C antibodies, had hepatitis B years ago, UTI. NEUROPATHY, no longer considered diabetic since weight loss, kidney stone in past. skin cancer History of Any Multi-Drug Resistant Organisms: MRSA Date of last positivie culture/infection: 03/30/21 MDRO Source:: Left Hand Past Surgical History: Back Surgery, Bariatric Surgery, Section, Cholecystectomy, Orthopedic Surgery, Tonsillectomy Additional Past Surgical History / Comment(s): 3 abortions, ortho surgery rt arm, gastric sleeve, right shoulder surg. lithotripsy, lumbar surgery Past Anesthesia/Blood Transfusion Reactions: No Reported Reaction Past Psychological History: ADD/ADHD, Anxiety, Bipolar, Depression, Schizoaffe ctive Disorder Smoking Status: Current every day smoker Past Alcohol Use History: None Reported Past Drug Use History: Cocaine, Heroin, IV Drug Use, Marijuana, Prescription Drug Abuse - Past Family History Father History Unknown: Yes Additional Family Medical History / Comment(s): Patient is adopted Mother History Unknown: Yes Additional Family Medical History / Comment(s): Pt is adopted. <Jennifer Cueva - Last Filed: 05/02/24 15:31> General Exam Limitations: no limitations <Jennifer Cueva - Last Filed: 05/02/24 15:31> - General Exam Comments Initial Comments: Visual Physical Exam Vital signs reviewed General: Well-appearing, nontoxic, no acute distress. Head: Normocephalic, atraumatic Eyes: PERRLA, EOMI ENT: Airway patent Chest: Nonlabored breathing Skin: No visual rash, normal skin tone Neuro: Alert and oriented 3 Musculoskeletal: No gross abnormalities (Jennifer Cueva) Course Vital Signs 05/02/24 05/02/24 05/02/24 14:55 17:58 20:03 Temperature 97.3 F L 98.3 F Pulse Rate 110 H 85 78 Respiratory 18 16 16 Rate Blood Pressure 145/87 158/75 153/89 O2 Sat by Pulse 100 100 100 Oximetry Medical Decision Making <Jennifer Cueva - Last Filed: 05/02/24 15:31> - Lab Data Result diagrams: 05/02/24 17:09 05/02/24 17:09 <Soledad Castro - Last Filed: 05/02/24 21:12> - Medical Decision Making I completed the quick note portion of this chart signed Jennifer Cueva PA-C (Jennifer Cueva) - Lab Data Lab Results 05/02/24 05/02/24 05/02/24 Range/Units 17:09 17:09 17:09 WBC 8.0 (3.8-10.6) k/uL RBC 3.82 (3.80-5.40) m/uL Hgb 11.5 (11.4-16.0) gm/dL Hct 35.0 (34.0-46.0) % MCV 91.7 (80.0-100.0) fL MCH 30.0 (25.0-35.0) pg MCHC 32.8 (31.0-37.0) g/dL RDW 15.2 (11.5-15.5) % Plt Count 296 (150-450) k/uL MPV 7.3 Neutrophils % 72 % Lymphocytes % 17 % Monocytes % 5 % Eosinophils % 5 % Basophils % 1 % Neutrophils # 5.7 (1.3-7.7) k/uL Lymphocytes # 1.3 (1.0-4.8) k/uL Monocytes # 0.4 (0-1.0) k/uL Eosinophils # 0.4 (0-0.7) k/uL Basophils # 0.0 (0-0.2) k/uL Hypochromasia Slight Sodium 140 (137-145) mmol/L Potassium 3.2 L (3.5-5.1) mmol/L Chloride 104 (98-107) mmol/L Carbon Dioxide 29 (22-30) mmol/L Anion Gap 7 mmol/L BUN 11 (7-17) mg/dL Creatinine 0.58 (0.52-1.04) mg/dL Est GFR (CKD-EPI)AfAm >90 (>60 ml/min/1.73 sqM) Est GFR (CKD-EPI)NonAf >90 (>60 ml/min/1.73 sqM) Glucose 94 (74-99) mg/dL Plasma Lactic Acid Andrei 0.9 (0.7-2.0) mmol/L Calcium 10.5 H (8.4-10.2) mg/dL Total Bilirubin 0.5 (0.2-1.3) mg/dL AST 23 (14-36) U/L ALT 7 (4-34) U/L Alkaline Phosphatase 95 (38-126) U/L Total Protein 7.5 (6.3-8.2) g/dL Albumin 4.4 (3.5-5.0) g/dL Lipase 114 (23-300) U/L Disposition <Jennifer Cueva - Last Filed: 05/02/24 15:31> Is patient prescribed a controlled substance at d/c from ED?: No Time of Disposition: 21:09 Decision to Admit Reason: Admit from EC Decision Date: 05/02/24 Decision Time: 21:10 <Soledad Castro - Last Filed: 05/02/24 21:12> Clinical Impression: Dehydration, Pain, postoperative, acute, Syncope, Esophageal obstruction Disposition: ADMITTED IP TO THIS [facility] Condition: Stable Referrals: None,Stated [Primary Care Provider] - 1-2 days
[2024-05-02 17:29] LABS: Basophils % (A) 1 %; Eosinophils # (A) 0.4 k/uL (0-0.7); Eosinophils % (A) 5 %; HGB 11.5 gm/dL (11.4-16.0); Hypochromasia Slight; Lymphocytes # (A) 1.3 k/uL (1.0-4.8); Lymphocytes % (A) 17 %; MCHC 32.8 g/dL (31.0-37.0); MCV 91.7 fL (80.0-100.0); Mean Platelet Volume 7.3; Monocytes # (A) 0.4 k/uL (0-1.0); Monocytes % (A) 5 %; Neutrophils # (A) 5.7 k/uL (1.3-7.7); Neutrophils % (A) 72 %; Platelet Count 296 k/uL (150-450); RBC 3.82 m/uL (3.80-5.40); RDW 15.2 % (11.5-15.5)
[2024-05-02 17:48] LABS: ALT 7 U/L (4-34); AST 23 U/L (14-36); African American GFR (CKD) >90 (>60 ml/min/1.73 sqM); Albumin 4.4 g/dL (3.5-5.0); Alkaline Phosphatase 95 U/L (38-126); Anion Gap 7 mmol/L; Blood Urea Nitrogen 11 mg/dL (7-17); Calcium 10.5 mg/dL (8.4-10.2); Carbon Dioxide 29 mmol/L (22-30); Chloride 104 mmol/L (98-107); Glucose 94 mg/dL (74-99); Lipase 114 U/L (23-300); Non-African American GFR(CKD) >90 (>60 ml/min/1.73 sqM); Potassium 3.2 mmol/L (3.5-5.1); Sodium 140 mmol/L (137-145); Total Bilirubin 0.5 mg/dL (0.2-1.3); Total Protein 7.5 g/dL (6.3-8.2)
[2024-05-02 17:59] VITALS: RESP 16
[2024-05-02] MEDS: SODIUM CHLORIDE 0.9% 1,000 ML IV ONE (19:57)
[2024-05-02] MEDS: HYDROmorphone 1 MG/ML 1 ML SYRINGE IVP STA (19:59)
[2024-05-02] MEDS: clonazePAM 0.5 MG TAB PO STA (20:01)
--- NOTE | 2024-05-02 20:09 | XR ---
EXAMINATION TYPE: XR knee complete RT DATE OF EXAM: 05/02/2024 7:48 PM CLINICAL INDICATION:Female, 58 years old with history of fall on knee; [facility] COMPARISON: 04/06/2024. TECHNIQUE: XR knee complete RT; examined in Frontal, lateral and oblique projections. FINDINGS/IMPRESSION: Total knee arthroplasty changes with Prepatellar soft tissue swelling without definitive fracture ashley e visualized. Hardware appears intact no fracture definitely visualized.
--- NOTE | 2024-05-02 20:14 | CT ---
EXAMINATION TYPE: CT abdomen pelvis w con CT DLP: 712 mGycm, Automated exposure control for dose reduction was used. DATE OF EXAM: 05/02/2024 7:54 PM COMPARISON: None CLINICAL INDICATION:Female, 58 years old with history of inability to swallow food, hx gastric sleeve ; TECHNIQUE: Axial CT abdomen pelvis w con;Sagittal and coronal reformats were created on a separate w orkstation. Contrast used: mL of , (none if empty) Oral contrast used: (none if empty) FINDINGS: LOWER CHEST: Unremarkable ABDOMEN LIVER: Unremarkable GALLBLADDER AND BILE DUCTS: Gallbladder is surgically absent with mild intrahepatic and extra hepatic biliary dilatation likely physiologic and a postcholecystectomy change. No evidence of choledocholit hiasis. PANCREAS: Unremarkable. SPLEEN: Unremarkable. ADRENAL GLANDS: Unremarkable. KIDNEYS AND URETERS: No evidence of hydronephrosis or renal calculus. The ureters are unremarkable. PELVIS BLADDER: Unremarkable REPRODUCTIVE: Single focus of gas within the uterus. ABDOMEN & PELVIS STOMACH AND BOWEL: No evidence of bowel obstruction. Moderate amount stool throughout the colon. The appendix is normal. Postsurgical changes with gastric sleeve change. Minimal ingested contents within the stomach. PERITONEUM/RETROPERITONEUM: No evidence of pneumoperitoneum or free fluid. VASCULATURE: No evidence of aortic aneurysm. MUSCULOSKELETAL: No acute osseous abnormalities, postsurgical changes to the spine at L4-L5 and S1. H ardware appears intact. Discectomy at L4-L5 and L5-S1. Multilevel minimal degeneration with osteophyt e formation disc space narrowing. LYMPH NODES: No gross evidence for lymphadenopathy. SOFT TISSUE/ABDOMINAL WALL: Unremarkable IMPRESSION: 1. No definitive acute abdominal process. No evidence for bowel obstruction. 2. Postsurgical changes to the gastric wall. There is stool seen throughout the colon. There is mini mal amount of ingested contents within the stomach.
[2024-05-02] MEDS ORDERED: NALOXONE 0.4 MG/ML 1 ML VIAL IV PRN (21:12)
[2024-05-02] MEDS ORDERED: hydrOXYzine pamoate 25 MG CAP PO PRN (21:15)
[2024-05-02] MEDS: clonazePAM 0.5 MG TAB PO SCH (21:46)
[2024-05-02] MEDS: SODIUM CHLORIDE 0.9% 1,000 ML IV SCH (22:04)
[2024-05-02] MEDS: ONDANSETRON 4 MG/2 ML VIAL IVP PRN (22:04)
[2024-05-02] MEDS: PANTOPRAZOLE 40 MG/10 ML VIAL IVP STA (22:06)
[2024-05-02] MEDS: CITALOPRAM HYDROBROMIDE 20 MG TAB PO SCH (22:10)
[2024-05-02] MEDS: APIXABAN 2.5 MG TABLET PO SCH (22:10)
[2024-05-02] MEDS: CYCLOBENZAPRINE 5 MG TAB PO SCH (22:11)
[2024-05-02] MEDS: CITALOPRAM HYDROBROMIDE 10 MG TAB PO SCH (22:11)
[2024-05-02] MEDS: lamoTRIgine 100 MG TAB PO SCH (22:11)
[2024-05-02] MEDS: PANTOPRAZOLE 40 MG TABLET PO SCH (22:12)
[2024-05-02] MEDS: NAPROXEN 250 MG TAB PO SCH (22:15)
[2024-05-03] MEDS: NON FORMULARY DRUG (Cariprazine Hcl [Vraylar] 4.5 MG Capsule) PO SCH (01:10)
[2024-05-03] MEDS: DOXEPIN HCL 150 MG PO SCH (01:11)
[2024-05-03] MEDS: NON FORMULARY DRUG (Dextroamphetamine/Amphetamine [Adderall] 20 MG Tablet) PO SCH (01:11)
[2024-05-03 07:13] LABS: HCT 32.4 % (34.0-46.0); HGB 10.2 gm/dL (11.4-16.0); Hypochromasia Marked; MCHC 31.6 g/dL (31.0-37.0); MCV 91.8 fL (80.0-100.0); Mean Platelet Volume 10.2; Platelet Count 214 k/uL (150-450); Poikilocytosis Slight; RBC 3.53 m/uL (3.80-5.40); RDW 15.5 % (11.5-15.5)
[2024-05-03] MEDS ORDERED: Potassium Replacement Protocol 1 EACH MISC MISCELLANE PRN (07:23)
[2024-05-03] MEDS: FLUTICASONE 110 MCG INHALER INHALATION SCH (08:25)
[2024-05-03] MEDS: PANTOPRAZOLE 40 MG/10 ML VIAL IVP SCH (08:36)
[2024-05-03] MEDS: POTASSIUM CHLORIDE 10 MEQ in WATER FOR INJECTION 1 100ML.BAG IVPB SCH (08:40)
[2024-05-03] MEDS: MORPHINE SULFATE 4 MG/ML SYRINGE IV PRN (08:42)
[2024-05-03 08:57] LABS: Eosinophils # (M) 0.75 k/uL (0-0.7); Lymphocytes # (M) 1.05 k/uL (1.0-4.8); Neutrophils % (M) 56 %; Nucleated Red Blood Cells 0 /100 WBC (0-0); Total Cells Counted 100
[2024-05-03 08:58] LABS: Hypochromasia (M) Present
[2024-05-03] MEDS ORDERED: PANTOPRAZOLE 40 MG/10 ML VIAL IV SCH (09:00)
[2024-05-03 09:56] LABS: African American GFR (CKD) >90 (>60 ml/min/1.73 sqM); Anion Gap 3 mmol/L; Blood Urea Nitrogen 7 mg/dL (7-17); Calcium 9.2 mg/dL (8.4-10.2); Carbon Dioxide 27 mmol/L (22-30); Chloride 110 mmol/L (98-107); Glucose 85 mg/dL (74-99); Non-African American GFR(CKD) >90 (>60 ml/min/1.73 sqM); Potassium 3.4 mmol/L (3.5-5.1); Sodium 140 mmol/L (137-145)
--- NOTE | 2024-05-03 11:47 | P.CONS ---
History of Present Illness - Reason for Consult Consult date: 05/03/24 Dysphagia, history esophageal sleeve Requesting physician: Soledad Castro - Chief Complaint dysphagia - History of Present Illness This is a pleasant 58-year-old female who presented to the emergency department with complaints of unable to keep food or drink down over the last 5 days duration. States symptoms started about 6 days ago where she would swallow down her liquids or her food and it would pretty much come right back up. She has a history of a gastric sleeve done about 7 years ago in [place]. States she has had similar feelings in the past however was secondary to not chewing her food well and would resolve spontaneously. States that she feels that it gets lodged in her esophagus and then comes back up. States that she has no abdominal pain, no nausea just vomiting her food back up and water. 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 She currently denies any abdominal pain, nausea or vomiting at this time. She denies use of NSAIDs she is stated that she is not on anticoagulation but after reviewing her medication list it does appear that she takes Eliquis. Unknown reason. Review of Systems REVIEW OF SYSTEMS: CARDIOPULMONARY: No chest pain or shortness of breath. Gastrointestinal: No abdominal pain. No nausea. Complains of dysphagia with vomiting liquids and solid foods. History of gastric sleeve. No hematemesis, coffee-ground emesis. No rectal bleeding, or melena. GENITOURINARY: No dysuria or hematuria. MUSCULOSKELETAL: Reports normal range of motion., Joint pain. SKIN: No rashes. No jaundice. ENDOCRINE: No chills, fevers. No excessive weight gain or loss. No polydipsia or polyuria. PSYCHIATRIC: Unremarkable. History of IV drug use NEUROLOGY: No change in mental status. Denies dizziness, headache. ENT: Vision unremarkable. CONSTITUTIONAL: No recent weight loss. No fever, chills, night sweats. Past Medical History Past Medical History: Cancer, Hyperlipidemia, Hypertension, Liver Disease, Musculoskeletal Disorder Additional Past Medical History / Comment(s): Chronic back pain, has hepatitis C antibodies, had hepatitis B years ago, UTI. NEUROPATHY, no longer considered diabetic since weight loss, kidney stone in past. skin cancer History of Any Multi-Drug Resistant Organisms: MRSA Year Discovered:: 03/30/21 MDRO Source:: Left Hand Past Surgical History: Back Surgery, Bariatric Surgery, Section, Cholecystectomy, Orthopedic Surgery, Tonsillectomy Additional Past Surgical History / Comment(s): 3 abortions, ortho surgery rt arm, gastric sleeve, right shoulder surg. lithotripsy, lumbar surgery Past Anesthesia/Blood Transfusion Reactions: No Reported Reaction Past Psychological History: ADD/ADHD, Anxiety, Bipolar, Depression, Schizoaffective Disorder Additional Psychological History / Comment(s): Pt resides alone. She uses no assistive device. She does not drive, she walks or arranges rides with [facility]. She has a sponser for her past alcoholism and another sponser for her past crack and heroin addiction. She is disabled and retired. Smoking Status: Current every day smoker Past Alcohol Use History: None Reported Additional Past Alcohol Use History / Comment(s): Pt states she hasn't abused alcohol since adolescents. Reports being clean from heroin for 40+ years and clean from crack cocaine for 11 years. Pt states previous abuse of vicodin 20 years ago. down to 3 cigarettes per day Past Drug Use History: Cocaine, Heroin, IV Drug Use, Marijuana, Prescription Drug Abuse Additional Drug Use History / Comment(s): Pt states she usually smokes about 1 joint a day FOR ANXIETY. She states she has past addiction to crack and heroin but has been clean for almost 5 years RELASPED 06/2018-ONCE. NONE SINCE - Past Family History Father History Unknown: Yes Additional Family Medical History / Comment(s): Patient is adopted Mother History Unknown: Yes Additional Family Medical History / Comment(s): Pt is adopted. Medications and Allergies Home Medications Medication Instructions Recorded Confirmed Type clonazePAM 0.5 mg PO TID 10/20/19 05/02/24 History Dextroamphetamine/Amphetamine 20 mg PO TID 10/29/21 05/02/24 History [Adderall] lamoTRIgine [LaMICtal Xr] 300 mg PO HS 04/06/24 05/02/24 History Apixaban [Eliquis] 2.5 mg PO BID #60 tab 04/07/24 05/02/24 Rx hydrOXYzine pamoate [Vistaril] 25 mg PO TID PRN #21 cap 04/07/24 05/02/24 Rx Budesonide [Pulmicort Flexhaler] 2 puff INHALATION RT-BID 05/02/24 05/02/24 History Buprenorphine HCl/Naloxone HCl 1 film SL TID 05/02/24 05/02/24 History [Suboxone 8 mg-2 mg Sl Film] Cariprazine HCl [Vraylar] 4.5 mg PO HS 05/02/24 05/02/24 History Citalopram Hydrobromide [CeleXA] 10 mg PO HS 05/02/24 05/02/24 History Citalopram Hydrobromide [CeleXA] 40 mg PO HS 05/02/24 05/02/24 History Cyclobenzaprine [Flexeril] 5 mg PO TID 05/02/24 05/02/24 History Doxepin HCl [SINEquan] 150 mg PO HS 05/02/24 05/02/24 History Naproxen [Naprosyn] 500 mg PO TID 05/02/24 05/02/24 History Pantoprazole Sodium [Protonix] 20 mg PO TID 05/02/24 05/02/24 History Allergies Allergy/AdvReac Type Severity Reaction Status Date / Time latex Allergy Rash/Hives Verified 05/02/24 20:31 ziprasidone [From Geodon] Allergy tongue Verified 05/02/24 20:31 Swelling, facial drooping Physical Exam Vitals: Vital Signs Temp Pulse Resp BP BP Pulse Ox 05/03/24 08:37 98.4 F 98 16 135/99 100 05/03/24 02:11 16 146/103 05/02/24 22:22 66 16 164/89 91 L 05/02/24 20:03 98.3 F 78 16 153/89 100 05/02/24 17:58 85 16 158/75 100 05/02/24 14:55 97.3 F L 110 H 18 145/87 100 Intake and Output 05/02/24 05/03/24 05/03/24 22:59 06:59 14:59 Other: # Voids 1 Weight 64.41 kg General appearance: The patient is alert, oriented, appears in no acute distress. HET: Head is normocephalic and atraumatic. Conjunctiva pink. Sclera anicteric. Neck: Supple without lymphadenopathy. Trachea midline. Heart: Regular. Lungs: Equal expansion, normal respiratory effort. Abdomen: Soft, nontender, nondistended. Skin: No rashes. No jaundice. Extremities: Normal skin color and turgor. No pedal edema. Neurological: No focal deficits. Alert and oriented x3. Results CBC & Chem 7: 05/03/24 06:24 05/03/24 09:10 Labs: Abnormal Lab Results - Last 24 Hours (Table) 05/02/24 05/03/24 Range/Units 17:09 06:24 RBC 3.53 L (3.80-5.40) m/uL Hgb 10.2 L (11.4-16.0) gm/dL Hct 32.4 L (34.0-46.0) % Potassium 3.2 L (3.5-5.1) mmol/L Calcium 10.5 H (8.4-10.2) mg/dL Comments: CT abdomen pelvis with contrast reports no definitive acute abdominal process. No evidence for bowel obstruction. Postsurgical changes to the gastric wall. There is stool seen throughout the colon. There is minimal amount of ingested contents within the stomach. Assessment and Plan (1) Dysphagia Narrative/Plan: 58-year-old female coming in with vomiting over the last 5 days duration after drinking and eating. Patient believes that she has possible esophageal stricture or narrowing secondary to gastric sleeve. CT abdomen pelvis with no acute findings. This has been ongoing for 5 days likely secondary to possible esophageal stricture. Recommend direct visualization with upper endoscopy. This will be planned for tomorrow. Continue PPI and antiemetics as needed. Current Visit: Yes Status: Acute Code(s): R13.10 - DYSPHAGIA, UNSPECIFIED SNOMED Code(s): 73565965 (2) Hypokalemia Current Visit: Yes Status: Acute Code(s): E87.6 - HYPOKALEMIA SNOMED Code(s): 41752142 (3) H/O gastric sleeve Current Visit: Yes Status: Acute Code(s): Z90.3 - ACQUIRED ABSENCE OF STOMACH [PART OF] SNOMED Code(s): 028772658735465 Plan: 1. Continue symptomatic and supportive care 2. Protonix 40 mg twice daily 3. Hold Eliquis 4. Clear liquid diet as tolerated 5. N.p.o. after midnight 6. Plan for upper endoscopy tomorrow with possible esophageal dilation Thank you for this consultation, we will continue to follow. Dr. Rich Petersen I agree with the dictator's note, documented as a scribe by Juana Auguste.
[2024-05-03] MEDS: LORazepam 2 MG/ML INJ IV PRN (11:57)
[2024-05-03] MEDS ORDERED: 0.9% NACL WITH KCL 40 MEQ/L 1,000 ML IV SCH (12:30)
--- NOTE | 2024-05-03 13:51 | HP ---
HISTORY AND PHYSICAL CHIEF COMPLAINT: Abdominal discomfort and dysphagia and vomiting. HISTORY OF PRESENT ILLNESS: This is a 58-year-old woman with a past medical history of multiple medical problems including gastric sleeve surgery, complaining of some dysphagia and some abdominal discomfort. The patient also has some vomiting and unable to keep anything down. The patient came to [facility]. The patient also had extensive psychiatric history. Also, the patient is extremely anxious. CAT scan has been reviewed. Gastroenterology has seen the patient, recommended EGD tomorrow. No chest pain. No palpitation. PAST MEDICAL HISTORY: Reviewed include hypertension, hyperlipidemia, liver disease, history of bariatric surgery. Rest of the history and rest of the chart is also reviewed. HOME MEDICATIONS: Reviewed include in the history of extent substance abuse. HOME MEDICATIONS: Reviewed include Lamictal. Dose and rest of medications reviewed. ALLERGIES: Latex. FAMILY HISTORY: The patient is adopted. SOCIAL HISTORY: Substance abuse history. Substance abuse previously. REVIEW OF SYSTEMS: A 14-point review is negative except as mentioned earlier. PHYSICAL EXAMINATION: VITAL SIGNS: Pulse is 98, blood pressure 137/90, respirations 16. HEENT: Conjunctivae normal. NECK: No jugular venous distention. RESPIRATIONS: Diminished at the bases, scattered rhonchi. ABDOMEN: Soft, nontender. LEGS: No edema, no swelling. NERVOUS SYSTEM: Nonfocal. LABORATORY DATA: Reviewed. ASSESSMENT: 1. Significant dysphagia and vomiting, possibly esophageal stenosis. 2. Status post gastric sleeve surgery remotely. 3. Severe anxiety. 4. Anxiety, bipolar depression, schizophrenia, schizoaffective disorder history. 5. History of bariatric surgery. 6. Hypertension. 7. Hyperlipidemia. 8. History of polysubstance abuse including IV drug use, heroin, cocaine, prescription, and THC. RECOMMENDATIONS AND DISCUSSION: This 58-year-old woman presented with multiple complex medical issues, we will monitor the patient closely. I would recommend to resume the home medications, p.r.n. Ativan. Otherwise, I would recommend Gastroenterology evaluation possible scopes. Continue the IV fluids. Prognosis guarded because of multiple complex medical issues. See orders for details. Symptomatic treatment will be provided. MMODL / IJN: [id number] / MTDD
[2024-05-03] MEDS: NON FORMULARY DRUG (Buprenorphine Hcl/Naloxone Hcl [Suboxone 8 Mg-2 Mg Sl Film] 1 EACH Fil SUBLINGUAL SCH (14:19)
[2024-05-03 16:14] VITALS: TEMP 98.1
[2024-05-03 16:16] VITALS: BP 150/87; PULSE 90
[2024-05-03] MEDS ORDERED: DOXEPIN HCL PO SCH (21:00)
[2024-05-03] MEDS ORDERED: VRAYLAR 4.5 MG PO SCH (21:00)
[2024-05-03] MEDS ORDERED: HEPARIN SODIUM,PORCINE 5,000 UNIT/ML 1 ML VIAL SQ SCH (21:00)
== END 2024-05-03 18:30 | disposition left against medical advice (07) | DRG 392 ==
LOC: EC 14:50 → 4SSUR 21:15 → OBSVTOIN 05-03 13:13 → 1SOBS 05-03 15:53
PROVIDERS: ADMIT Internal Medicine; ATTEND Internal Medicine
DX: K22.2 Esophageal obstruction (principal); R13.10 Dysphagia, unspecified; Z98.84 Bariatric surgery status; F41.9 Anxiety disorder, unspecified; E78.5 Hyperlipidemia, unspecified; E86.0 Dehydration; E87.6 Hypokalemia; F10.21 Alcohol dependence, in remission; F11.11 Opioid abuse, in remission; F14.11 Cocaine abuse, in remission; K21.9 Gastro-esophageal reflux disease without esophagitis; F17.200 Nicotine dependence, unspecified, uncomplicated; F25.9 Schizoaffective disorder, unspecified; I10 Essential (primary) hypertension; Z79.01 Long term (current) use of anticoagulants; Z79.899 Other long term (current) drug therapy; Z86.19 Personal history of other infectious and parasitic diseases; K76.9 Liver disease, unspecified; Z91.040 Latex allergy status; G89.29 Other chronic pain; M54.9 Dorsalgia, unspecified; Z87.440 Personal history of urinary (tract) infections; Z79.51 Long term (current) use of inhaled steroids
CPT/HCPCS: 36415; 74177; 80048; 80053; 83605; 83690; 84132; 85025; 94640; 96361; 96365; 96366; 96375; 96376; 99285

== ENCOUNTER 2024-12-12 10:29 | Emergency (ER) | payer MEDICARE ==
[2024-12-12 10:37] VITALS: TEMP 97.5
--- NOTE | 2024-12-12 10:53 | ED ---
Nausea/Vomiting/Diarrhea HPI - General Chief complaint: Nausea/Vomiting/Diarrhea Stated complaint: dizziness Time Seen by Provider: 12/12/24 10:32 Source: patient, EMS, RN notes reviewed Mode of arrival: EMS Limitations: no limitations - History of Present Illness Initial comments: This is a 59-year-old female who presents to the emergency department for nausea and vomiting. States that it started 2 days ago. She has tried [id number] medication without any relief. Her abdomen is sore from all of the vomiting, however she denies any severe localized pain. Denies any changes in bowel or bladder habits. States that she feels very weak and is worried she is going to pass out. MD complaint: nausea, vomiting - Related Data Home Medications Medication Instructions Recorded Confirmed clonazePAM 0.5 mg PO TID 10/20/19 05/02/24 Dextroamphetamine/Amphetamine 20 mg PO TID 10/29/21 05/02/24 [Adderall] lamoTRIgine [LaMICtal Xr] 300 mg PO HS 04/06/24 05/02/24 Budesonide [Pulmicort Flexhaler] 2 puff INHALATION RT-BID 05/02/24 05/02/24 Buprenorphine HCl/Naloxone HCl 1 film SL TID 05/02/24 05/02/24 [Suboxone 8 mg-2 mg Sl Film] Cariprazine HCl [Vraylar] 4.5 mg PO HS 05/02/24 05/02/24 Citalopram Hydrobromide [CeleXA] 10 mg PO HS 05/02/24 05/02/24 Citalopram Hydrobromide [CeleXA] 40 mg PO HS 05/02/24 05/02/24 Cyclobenzaprine [Flexeril] 5 mg PO TID 05/02/24 05/02/24 Doxepin HCl [SINEquan] 150 mg PO HS 05/02/24 05/02/24 Naproxen [Naprosyn] 500 mg PO TID 05/02/24 05/02/24 Pantoprazole Sodium [Protonix] 20 mg PO TID 05/02/24 05/02/24 Previous Rx's Medication Instructions Recorded Apixaban [Eliquis] 2.5 mg PO BID #60 tab 04/07/24 hydrOXYzine pamoate [Vistaril] 25 mg PO TID PRN #21 cap 04/07/24 Metoclopramide [Reglan] 5 - 10 mg PO Q6H PRN #30 tab 12/12/24 Ondansetron Odt [Zofran Odt] 4 mg PO Q8HR PRN #20 tab 12/12/24 Allergies Allergy/AdvReac Type Severity Reaction Status Date / Time latex Allergy Rash/Hives Verified 05/02/24 20:31 ziprasidone [From Geodon] Allergy tongue Verified 05/02/24 20:31 Swelling, facial drooping Review of Systems ROS Statement: Those systems with pertinent positive or pertinent negative responses have been documented in the HPI. ROS Other: All systems not noted in ROS Statement are negative. Past Medical History Past Medical History: Cancer, Hyperlipidemia, Hypertension, Liver Disease, Musculoskeletal Disorder Additional Past Medical History / Comment(s): Chronic back pain, has hepatitis C antibodies, had hepatitis B years ago, UTI. NEUROPATHY, no longer considered diabetic since weight loss, kidney stone in past. skin cancer History of Any Multi-Drug Resistant Organisms: MRSA Date of last positivie culture/infection: 03/30/21 MDRO Source:: Left Hand Past Surgical History: Back Surgery, Bariatric Surgery, Section, Cholecystectomy, Orthopedic Surgery, Tonsillectomy Additional Past Surgical History / Comment(s): 3 abortions, ortho surgery rt arm, gastric sleeve, right shoulder surg. lithotripsy, lumbar surgery Past Anesthesia/Blood Transfusion Reactions: No Reported Reaction Past Psychological History: ADD/ADHD, Anxiety, Bipolar, Depression, Schizoaffective Disorder Smoking Status: Current every day smoker Past Alcohol Use History: None Reported Past Drug Use History: Cocaine, Heroin, IV Drug Use, Marijuana, Prescription Drug Abuse - Past Family History Father History Unknown: Yes Additional Family Medical History / Comment(s): Patient is adopted Mother History Unknown: Yes Additional Family Medical History / Comment(s): Pt is adopted. General Exam Limitations: no limitations General appearance: alert, in no apparent distress Head exam: Present: atraumatic, normocephalic, normal inspection Respiratory exam: Present: normal lung sounds bilaterally. Absent: respiratory distress, wheezes, rales, rhonchi, stridor Cardiovascular Exam: Present: regular rate, normal rhythm GI/Abdominal exam: Present: soft, normal bowel sounds. Absent: distended, tenderness, guarding, rebound, rigid Neurological exam: Present: alert, oriented X3, CN II-XII intact Psychiatric exam: Present: normal affect, normal mood Skin exam: Present: warm, dry, intact, normal color. Absent: rash Course Vital Signs 12/12/24 12/12/24 12/12/24 10:31 12:08 13:00 Temperature 97.5 F L Pulse Rate 64 69 54 L Respiratory 18 18 16 Rate Blood Pressure 80/51 77/51 97/54 O2 Sat by Pulse 100 100 Oximetry 12/12/24 14:33 Temperature Pulse Rate 52 L Respiratory 18 Rate Blood Pressure 149/64 O2 Sat by Pulse 98 Oximetry Medical Decision Making - Medical Decision Making This is a 59-year-old female who presents to the emergency department for nausea and vomiting. Was pt. sent in by a medical professional or institution? @ -No Did you speak to anyone other than the patient for history? @ -No Did you review nursing and triage notes? @ -Yes, and I agree, it is accurate with regards to the patient's symptoms. Were old charts reviewed? @ -No Differential Diagnosis? @ -Differential Nausea and Vomiting: Gastroenteritis, cholecystitis, appendicitis, pancreatitis, migraine, benign positional vertigo, food borne illness, pyelonephritis, irritable bowel syndrome, influenza, Covid, GERD, incarcerated hernia, intestinal obstruction, this is not meant to be an all-inclusive list. EKG interpreted by me (3pts min.)? @ -EKG interpreted by me demonstrating the following: Sinus bradycardia. Ventricular rate 56 bpm, WI interval 112 ms, QRS duration 86 ms, QTc 485 ms. X-rays interpreted by me (1pt min.)? @ -Not obtained CT interpreted by me (1pt min.)? @ -Not obtained U/S interpreted by me (1pt. min.)? @ -Not obtained What testing was considered but not performed? (CT, X-rays, U/S, labs)? Why? @ -None What meds were considered but not given? Why? @ -None Did you discuss the management of the patient with other professionals? @ -No Did you reconcile home meds? @ -No Was smoking cessation discussed for >3mins.? @ -I discussed smoking cessation for greater than 3 minutes. The risk of smoking were discussed with the patient including but not limited to risks of cancer, stroke, coronary artery disease and COPD. Also discussed with patient were multiple methods of quitting smoking. Lastly we discussed the financial cost of smoking. Was critical care preformed (if so, how long)? @ -No Were there social determinants of health that impacted care today? How? (Homelessness, low income, unemployed, alcoholism, drug addiction, transportation, low edu. Level, literacy, decrease access to med. care, nursing home, rehab)? @ -No Was there de-escalation of care discussed even if they declined? (Discuss DNR or withdrawal of care, Hospice)? @ -No What co-morbidities impacted this encounter? (DM, HTN, Smoking, COPD, CAD, Cancer, CVA, Hep., AIDS, mental health diagnosis, sleep apnea, morbid obesity)? @ -Smoking Was patient admitted / discharged? @ -Discharged. Lab work demonstrates signs of dehydration with decreased renal function when compared with prior. Lactic acid mildly elevated at 2.5. COVID, influenza, and RSV testing negative. Patient hypotensive on arrival with a BP of 80/51. She was given 2 L of IV fluids in addition to the small amount she had been given by EMS prior. We continued to monitor her blood pressure and it did eventually increase to 149/64. Symptoms were well-controlled and she was tolerating oral intake. States that she overall felt significantly better and longer felt like she was going to pass out. Given the dehydration on lab work and hypotensive episodes, I did strongly recommend admission for blood pressure monitoring and IV fluids. However, patient refused and states that she would rather go home. Zofran and Reglan were prescribed and she was given very strict return parameters. Also advised close follow-up with her PCP. Patient discharged home in stable condition. Case discussed with ED attending Dr. Caro. Return precautions reviewed in depth, the patient is instructed to return to the emergency department with any new, worsening, or concerning symptoms. Patient verbalized understanding. Undiagnosed new problem with uncertain prognosis? @ -None Drug Therapy requiring intensive monitoring for toxicity (Heparin, Nitro, Insulin, Cardizem)? @ -None Were any procedures done? @ -None Diagnosis/symptom? @ -Nausea and vomiting, hypotension, dehydration Acute, or Chronic, or Acute on Chronic? @ -Acute Uncomplicated (without systemic symptoms) or Complicated (systemic symptoms)? @ -Uncomplicated Side effects of treatment? @ -None Exacerbation, Progression, or Severe Exacerbation] @ -Not applicable Poses a threat to life or bodily function? @ -This will depend on how she progresses - Lab Data Result diagrams: 12/12/24 10:51 12/12/24 10:51 Lab Results 12/12/24 12/12/24 12/12/24 Range/Units 10:51 10:51 10:51 WBC 9.1 (3.8-10.6) k/uL RBC 4.51 (3.80-5.40) m/uL Hgb 12.6 (11.4-16.0) gm/dL Hct 40.2 (34.0-46.0) % MCV 89.1 (80.0-100.0) fL MCH 27.9 (25.0-35.0) pg MCHC 31.3 (31.0-37.0) g/dL RDW 15.0 (11.5-15.5) % Plt Count 285 (150-450) k/uL MPV 7.6 Neutrophils % 66 % Lymphocytes % 26 % Monocytes % 5 % Eosinophils % 2 % Basophils % 0 % Neutrophils # 6.0 (1.3-7.7) k/uL Lymphocytes # 2.3 (1.0-4.8) k/uL Monocytes # 0.4 (0-1.0) k/uL Eosinophils # 0.2 (0-0.7) k/uL Basophils # 0.0 (0-0.2) k/uL Sodium 139 (137-145) mmol/L Potassium 3.9 (3.5-5.1) mmol/L Chloride 106 (98-107) mmol/L Carbon Dioxide 21 L (22-30) mmol/L Anion Gap 12 mmol/L BUN 30 H (7-17) mg/dL Creatinine 1.37 H (0.52-1.04) mg/dL Est GFR (CKD-EPI)AfAm 50 (>60 ml/min/1.73 sqM) Est GFR (CKD-EPI)NonAf 43 (>60 ml/min/1.73 sqM) Glucose 102 H (74-99) mg/dL Lactic Ac Sepsis Rflx Plasma Lactic Acid Andrei 2.5 H* (0.7-2.0) mmol/L Calcium 9.7 (8.4-10.2) mg/dL Total Bilirubin 0.6 (0.2-1.3) mg/dL AST 20 (14-36) U/L ALT 10 (4-34) U/L Alkaline Phosphatase 59 (38-126) U/L Total Protein 7.1 (6.3-8.2) g/dL Albumin 4.1 (3.5-5.0) g/dL Amylase 63 (30-110) U/L Lipase 60 (23-300) U/L Influenza Type A (PCR) (Not Detectd) Influenza Type B (PCR) (Not Detectd) RSV (PCR) (Not Detectd) SARS-CoV-2 (PCR) (Not Detectd) 12/12/24 12/12/24 Range/Units 10:51 11:47 WBC (3.8-10.6) k/uL RBC (3.80-5.40) m/uL Hgb (11.4-16.0) gm/dL Hct (34.0-46.0) % MCV (80.0-100.0) fL MCH (25.0-35.0) pg MCHC (31.0-37.0) g/dL RDW (11.5-15.5) % Plt Count (150-450) k/uL MPV Neutrophils % % Lymphocytes % % Monocytes % % Eosinophils % % Basophils % % Neutrophils # (1.3-7.7) k/uL Lymphocytes # (1.0-4.8) k/uL Monocytes # (0-1.0) k/uL Eosinophils # (0-0.7) k/uL Basophils # (0-0.2) k/uL Sodium (137-145) mmol/L Potassium (3.5-5.1) mmol/L Chloride (98-107) mmol/L Carbon Dioxide (22-30) mmol/L Anion Gap mmol/L BUN (7-17) mg/dL Creatinine (0.52-1.04) mg/dL Est GFR (CKD-EPI)AfAm (>60 ml/min/1.73 sqM) Est GFR (CKD-EPI)NonAf (>60 ml/min/1.73 sqM) Glucose (74-99) mg/dL Lactic Ac Sepsis Rflx Y Plasma Lactic Acid Andrei (0.7-2.0) mmol/L Calcium (8.4-10.2) mg/dL Total Bilirubin (0.2-1.3) mg/dL AST (14-36) U/L ALT (4-34) U/L Alkaline Phosphatase (38-126) U/L Total Protein (6.3-8.2) g/dL Albumin (3.5-5.0) g/dL Amylase (30-110) U/L Lipase (23-300) U/L Influenza Type A (PCR) Not Detected (Not Detectd) Influenza Type B (PCR) Not Detected (Not Detectd) RSV (PCR) Not Detected (Not Detectd) SARS-CoV-2 (PCR) Not Detected (Not Detectd) Disposition Clinical Impression: Nausea and vomiting, Hypotension, Nicotine dependence, Dehydration Disposition: HOME SELF-CARE Instructions (If sedation given, give patient instructions): Acute Nausea and Vomiting (ED) Additional Instructions: Return to the emergency department with any new, worsening, or concerning symptoms. Take the Zofran up to every 8 hours and the Reglan up to every 6 hours as needed for nausea and vomiting. Slowly advance your diet as tolerated and remain well-hydrated. Follow up with your primary care provider in 1-2 days. Prescriptions: Metoclopramide [Reglan] 5 - 10 mg PO Q6H PRN #30 tab PRN Reason: Nausea And Vomiting Ondansetron Odt [Zofran Odt] 4 mg PO Q8HR PRN #20 tab PRN Reason: Nausea And Vomiting Is patient prescribed a controlled substance at d/c from ED?: No Referrals: Connie Contreras DO [Primary Care Provider] - 1-2 days Time of Disposition: 14:38
[2024-12-12] MEDS: SODIUM CHLORIDE 0.9% 2,000 ML IV STA (11:03)
[2024-12-12] MEDS: ONDANSETRON 4 MG/2 ML VIAL IVP STA (11:04)
[2024-12-12] MEDS: FAMOTIDINE 20 MG/2 ML VIAL IV STA (11:04)
[2024-12-12 11:12] LABS: Basophils % (A) 0 %; Eosinophils # (A) 0.2 k/uL (0-0.7); Eosinophils % (A) 2 %; HCT 40.2 % (34.0-46.0); HGB 12.6 gm/dL (11.4-16.0); Lymphocytes # (A) 2.3 k/uL (1.0-4.8); Lymphocytes % (A) 26 %; MCH 27.9 pg (25.0-35.0); MCHC 31.3 g/dL (31.0-37.0); MCV 89.1 fL (80.0-100.0); Mean Platelet Volume 7.6; Monocytes # (A) 0.4 k/uL (0-1.0); Monocytes % (A) 5 %; Neutrophils % (A) 66 %; Platelet Count 285 k/uL (150-450); RBC 4.51 m/uL (3.80-5.40); WBC 9.1 k/uL (3.8-10.6)
[2024-12-12 11:26] LABS: ALT 10 U/L (4-34); African American GFR (CKD) 50 (>60 ml/min/1.73 sqM); Albumin 4.1 g/dL (3.5-5.0); Amylase 63 U/L (30-110); Anion Gap 12 mmol/L; Blood Urea Nitrogen 30 mg/dL (7-17); Calcium 9.7 mg/dL (8.4-10.2); Carbon Dioxide 21 mmol/L (22-30); Chloride 106 mmol/L (98-107); Glucose 102 mg/dL (74-99); Lipase 60 U/L (23-300); Non-African American GFR(CKD) 43 (>60 ml/min/1.73 sqM); Sodium 139 mmol/L (137-145); Total Bilirubin 0.6 mg/dL (0.2-1.3); Total Protein 7.1 g/dL (6.3-8.2)
[2024-12-12 11:32] LABS: AST 20 U/L (14-36); Alkaline Phosphatase 59 U/L (38-126); Potassium 3.9 mmol/L (3.5-5.1)
[2024-12-12 11:43] LABS: Influenza A Not Detected (Not Detectd); Influenza B Not Detected (Not Detectd); RSV Not Detected (Not Detectd)
[2024-12-12] MEDS: SODIUM CHLORIDE 0.9% 1,000 ML IV STA (12:18)
[2024-12-12] MEDS: METOCLOPRAMIDE 5 MG/ML 2 ML VIAL IVP STA (13:05)
[2024-12-12 14:33] VITALS: BP 149/64; PULSE 52; RESP 18
[2024-12-12] MEDS: ONDANSETRON 4 MG ODT STARTER PACK 2 TAB BTL PO STA (14:42)
== END 2024-12-12 14:46 | disposition home or self-care (01) ==
LOC: EC 10:29
DX: R11.2 Nausea with vomiting, unspecified (principal); I95.9 Hypotension, unspecified; E86.0 Dehydration; F17.200 Nicotine dependence, unspecified, uncomplicated
CPT/HCPCS: 36415; 93005; 80053; 82150; 83605; 83690; 85025; 87636; 99284; 96374; 96375 ×2; 96361 ×3; 99406; J2765; J2405; J3490; S0119

== ENCOUNTER 2025-03-12 17:14 | Emergency (ER) | payer MEDICARE ==
[2025-03-12 17:27] VITALS: RESP 18; TEMP 98.2
--- NOTE | 2025-03-12 17:41 | ED ---
Neuro HPI - General Chief Complaint: Extremity Problem,Nontraumatic Stated Complaint: Left hand weakness Time Seen by Provider: 03/12/25 17:19 Source: EMS, RN notes reviewed, old records reviewed Mode of arrival: EMS Limitations: no limitations - History of Present Illness Is the patient presenting with stroke symptoms?: Yes -: awoke with symptoms Initial Comments: This is a 59-year-old female to the ER for evaluation she woke up today with complete left hand paralysis. Unable to extend left hand unable to move left hand and decreased sensation left arm left hand. Again patient awoke with the symptoms today. Denies drug or alcohol use. Patient states he had a normal last night went to bed with normal use of the left hand and woke up with the symptoms today. No other neurological symptoms noted no headaches Location: left arm (Left hand) Place: home Severity: severe Quality: weak, numb, tingling Improves With: none Worsens With: none On Anticoagulants: No Context: sudden onset (Awoke with symptoms today) Associated Symptoms: denies other symptoms Treatments Prior to Arrival: none - Related Data Home Medications: Home Medications Medication Instructions Recorded Confirmed clonazePAM 0.5 mg PO TID 10/20/19 05/02/24 Dextroamphetamine/Amphetamine 20 mg PO TID 10/29/21 05/02/24 [Adderall] lamoTRIgine [LaMICtal Xr] 300 mg PO HS 04/06/24 05/02/24 Budesonide [Pulmicort Flexhaler] 2 puff INHALATION RT-BID 05/02/24 05/02/24 Buprenorphine HCl/Naloxone HCl 1 film SL TID 05/02/24 05/02/24 [Suboxone 8 mg-2 mg Sl Film] Cariprazine HCl [Vraylar] 4.5 mg PO HS 05/02/24 05/02/24 Citalopram Hydrobromide [CeleXA] 10 mg PO HS 05/02/24 05/02/24 Citalopram Hydrobromide [CeleXA] 40 mg PO HS 05/02/24 05/02/24 Cyclobenzaprine [Flexeril] 5 mg PO TID 05/02/24 05/02/24 Doxepin HCl [SINEquan] 150 mg PO HS 05/02/24 05/02/24 Naproxen [Naprosyn] 500 mg PO TID 05/02/24 05/02/24 Pantoprazole Sodium [Protonix] 20 mg PO TID 05/02/24 05/02/24 Previous Rx's Medication Instructions Recorded Apixaban [Eliquis] 2.5 mg PO BID #60 tab 04/07/24 hydrOXYzine pamoate [Vistaril] 25 mg PO TID PRN #21 cap 04/07/24 Metoclopramide [Reglan] 5 - 10 mg PO Q6H PRN #30 tab 12/12/24 Ondansetron Odt [Zofran Odt] 4 mg PO Q8HR PRN #20 tab 12/12/24 Allergies/Adverse Reactions: Allergies Allergy/AdvReac Type Severity Reaction Status Date / Time latex Allergy Rash/Hives Verified 05/02/24 20:31 ziprasidone [From Geodon] Allergy tongue Verified 05/02/24 20:31 Swelling, facial drooping Review of Systems ROS Statement: Those systems with pertinent positive or pertinent negative responses have been documented in the HPI. ROS Other: All systems not noted in ROS Statement are negative. General Exam Limitations: no limitations General appearance: alert, in no apparent distress Head exam: Present: atraumatic, normocephalic, normal inspection Eye exam: Present: normal appearance, PERRL, EOMI. Absent: scleral icterus, conjunctival injection, periorbital swelling ENT exam: Present: normal exam, mucous membranes moist Neck exam: Present: normal inspection. Absent: tenderness, meningismus, lymphadenopathy Respiratory exam: Present: normal lung sounds bilaterally. Absent: respiratory distress, wheezes, rales, rhonchi, stridor Cardiovascular Exam: Present: regular rate, normal rhythm, normal heart sounds. Absent: systolic murmur, diastolic murmur, rubs, gallop, clicks GI/Abdominal exam: Present: soft, normal bowel sounds. Absent: distended, tenderness, guarding, rebound, rigid Extremities exam: Present: normal inspection, full ROM, normal capillary refill. Absent: tenderness, pedal edema, joint swelling, calf tenderness Back exam: Present: normal inspection Neurological exam: Present: alert, oriented X3, CN II-XII intact Psychiatric exam: Present: normal affect, normal mood Skin exam: Present: warm, dry, intact, normal color. Absent: rash Stroke MDM - Lab Data Result diagrams: 03/12/25 17:47 03/12/25 17:47 Lab Results 03/12/25 03/12/25 03/12/25 Range/Units 17:47 17:47 17:47 WBC 4.86 (4.50-10.00) 10*3/uL RBC 3.31 L (4.10-5.20) 10*6/uL Hgb 9.9 L (12.0-15.0) g/dL Hct 29.6 L (37.2-46.3) % MCV 89.4 (80.0-97.0) fL MCH 29.9 (27.0-32.0) pg MCHC 33.4 (32.0-37.0) g/dL Plt Count 195 (140-440) 10*3/uL MPV 10.0 (9.5-12.2) fL Immature Gran % (Auto) 0.2 % Neutrophils % 50.3 % Lymphocytes % 33.1 % Monocytes % 6.0 % Eosinophils % 8.8 % Basophils % 1.6 % Immature Gran # 0.01 (0.00-0.04) 10*3/uL Neutrophils # 2.44 (1.80-7.70) 10*3/uL Lymphocytes # 1.61 (0.90-5.00) 10*3/uL Monocytes # 0.29 (0.20-1.00) 10*3/uL Eosinophils # 0.43 H (0.04-0.35) 10*3/uL Basophils # 0.08 (0.00-0.10) 10*3/uL PT 11.3 (10.0-12.5) sec INR 1.0 (<1.2) APTT 20.8 L (22.0-30.0) sec Sodium (137-145) mmol/L Potassium (3.5-5.1) mmol/L Chloride (98-107) mmol/L Carbon Dioxide (22-30) mmol/L Anion Gap mmol/L BUN (7-17) mg/dL Creatinine (0.52-1.04) mg/dL Est GFR (CKD-EPI)AfAm (>60 ml/min/1.73 sqM) Est GFR (CKD-EPI)NonAf (>60 ml/min/1.73 sqM) Glucose (74-99) mg/dL Plasma Lactic Acid Andrei (0.7-2.0) mmol/L Calcium (8.4-10.2) mg/dL Phosphorus (2.5-4.5) mg/dL Magnesium (1.6-2.3) mg/dL Total Bilirubin (0.2-1.3) mg/dL AST (14-36) U/L ALT (4-34) U/L Alkaline Phosphatase (38-126) U/L Troponin I (0.000-0.034) ng/mL Total Protein (6.3-8.2) g/dL Albumin (3.5-5.0) g/dL Urine Color Yellow Urine Appearance Cloudy H (Clear) Urine pH 6.0 (5.0-8.0) Ur Specific [place] 1.022 (1.001-1.035) Urine Protein Trace H (Negative) Urine Glucose (UA) Negative (Negative) Urine Ketones Negative (Negative) Urine Blood Negative (Negative) Urine Nitrite Negative (Negative) Urine Bilirubin Negative (Negative) Urine Urobilinogen 3.0 (<2.0) mg/dL Ur Leukocyte Esterase Large H (Negative) Urine WBC 15 H (0-5) /hpf Ur Squamous Epith Cells 25 H (0-4) /hpf Urine Bacteria Rare H (None) /hpf Urine Mucus Rare H (None) /hpf 03/12/25 03/12/25 03/12/25 Range/Units 17:47 17:47 17:47 WBC (4.50-10.00) 10*3/uL RBC (4.10-5.20) 10*6/uL Hgb (12.0-15.0) g/dL Hct (37.2-46.3) % MCV (80.0-97.0) fL MCH (27.0-32.0) pg MCHC (32.0-37.0) g/dL Plt Count (140-440) 10*3/uL MPV (9.5-12.2) fL Immature Gran % (Auto) % Neutrophils % % Lymphocytes % % Monocytes % % Eosinophils % % Basophils % % Immature Gran # (0.00-0.04) 10*3/uL Neutrophils # (1.80-7.70) 10*3/uL Lymphocytes # (0.90-5.00) 10*3/uL Monocytes # (0.20-1.00) 10*3/uL Eosinophils # (0.04-0.35) 10*3/uL Basophils # (0.00-0.10) 10*3/uL PT (10.0-12.5) sec INR (<1.2) APTT (22.0-30.0) sec Sodium 140 (137-145) mmol/L Potassium 3.6 (3.5-5.1) mmol/L Chloride 111 H (98-107) mmol/L Carbon Dioxide 24 (22-30) mmol/L Anion Gap 5 mmol/L BUN 15 (7-17) mg/dL Creatinine 0.71 (0.52-1.04) mg/dL Est GFR (CKD-EPI)AfAm >90 (>60 ml/min/1.73 sqM) Est GFR (CKD-EPI)NonAf >90 (>60 ml/min/1.73 sqM) Glucose 127 H (74-99) mg/dL Plasma Lactic Acid Andrei 1.6 (0.7-2.0) mmol/L Calcium 9.2 (8.4-10.2) mg/dL Phosphorus 2.9 (2.5-4.5) mg/dL Magnesium 1.4 L (1.6-2.3) mg/dL Total Bilirubin 0.4 (0.2-1.3) mg/dL AST 25 (14-36) U/L ALT 12 (4-34) U/L Alkaline Phosphatase 56 (38-126) U/L Troponin I <0.012 (0.000-0.034) ng/mL Total Protein 6.0 L (6.3-8.2) g/dL Albumin 3.5 (3.5-5.0) g/dL Urine Color Urine Appearance (Clear) Urine pH (5.0-8.0) Ur Specific [place] (1.001-1.035) Urine Protein (Negative) Urine Glucose (UA) (Negative) Urine Ketones (Negative) Urine Blood (Negative) Urine Nitrite (Negative) Urine Bilirubin (Negative) Urine Urobilinogen (<2.0) mg/dL Ur Leukocyte Esterase (Negative) Urine WBC (0-5) /hpf Ur Squamous Epith Cells (0-4) /hpf Urine Bacteria (None) /hpf Urine Mucus (None) /hpf - NIH Stroke Scale 1a. Level of Consciousness: (0) alert 1b. LOC Questions: (0) answers correctly 1c. LOC Commands: (0) performs tasks correctly 2. Best Gaze: (0) normal 3. Visual: (0) no visual loss 4. Facial Palsy: (0) normal symmetrical movement 5a. Motor Arm Left: (3) no gravity effort 5b. Motor Arm Right: (0) no drift 6a. Motor Leg Left: (0) no drift 6b. Motor Leg Right: (0) no drift 7. Limb Ataxia: (0) absent 8. Sensory: (0) normal 9. Best Language: (0) no aphasia 10. Dysarthria: (0) normal 11. Extinction/Inattention: (0) no abnormality - Thrombolytic Inclusion/Exclusion Thrombolytic Exclusion Criteria: Symptom Onset > 4.5 Hours - Medical Decision Making 59 female to ER for evaluation of symptoms of radial nerve palsy left upper extremity. Imaging otherwise negative patient symptoms are improved and can be discharged home - Radiology Data Radiology results: report reviewed (CT brain and CTA head neck negative for acute disease), image reviewed - EKG Data -: EKG Interpreted by Me (EKG is sinus bradycardia 51 OK 146 QRS 91 QTc 397) Past Medical History Past Medical History: Cancer, Hyperlipidemia, Hypertension, Liver Disease, Musculoskeletal Disorder Additional Past Medical History / Comment(s): Chronic back pain, has hepatitis C antibodies, had hepatitis B years ago, UTI. NEUROPATHY, no longer considered diabetic since weight loss, kidney stone in past. skin cancer History of Any Multi-Drug Resistant Organisms: MRSA Date of last positivie culture/infection: 03/30/21 MDRO Source:: Left Hand Past Surgical History: Back Surgery, Bariatric Surgery, Section, Cholecystectomy, Orthopedic Surgery, Tonsillectomy Additional Past Surgical History / Comment(s): 3 abortions, ortho surgery rt arm, gastric sleeve, right shoulder surg. lithotripsy, lumbar surgery Past Anesthesia/Blood Transfusion Reactions: No Reported Reaction Past Psychological History: ADD/ADHD, Anxiety, Bipolar, Depression, Schizoaff ective Disorder Smoking Status: Current every day smoker Past Alcohol Use History: None Reported Past Drug Use History: Cocaine, Heroin, IV Drug Use, Marijuana, Prescription Drug Abuse - Past Family History Father History Unknown: Yes Additional Family Medical History / Comment(s): Patient is adopted Mother History Unknown: Yes Additional Family Medical History / Comment(s): Pt is adopted. Course Vital Signs 03/12/25 03/12/25 17:21 19:54 Temperature 98.2 F 98.2 F Pulse Rate 75 72 Respiratory 18 18 Rate Blood Pressure 112/52 120/60 O2 Sat by Pulse 100 97 Oximetry - Reevaluation(s) Reevaluation #1: medical records reviewed Reevaluation #2: No improvement in symptoms here in the ER Reevaluation #3: Patient informed of results questions answered Reevaluation #4: Was pt. sent in by a medical professional or institution (, [facility], [facility], urgent care, hospital, or long term...) When possible be specific @ -no Did you speak to anyone other than the patient for history (EMS, parent, family, police, friend...)? What history was obtained from this source @ -no Did you review nursing and triage notes (agree or disagree)? Why? @ -agree Are old charts reviewed (outside hosp., previous admission, EMS record, old EKG, old radiological studies, urgent care reports/EKG's, long term records)? Report findings @ -yes Differential Diagnosis (chest pain, altered mental status, abdominal pain women, abdominal pain men, vaginal bleeding, weakness, fever, dyspnea, syncope, headache, dizziness, GI bleed, back pain, seizure, CVA, palpatations, mental health, musculoskeletal)? @ -prior EKG interpreted by me (3pts min.). @ -yes X-rays interpreted by me (1pt min.). @ -no CT interpreted by me (1pt min.). @ -yes negative for acute disease U/S interpreted by me (1pt. min.). @ -no What testing was considered but not performed or refused? (CT, X-rays, U/S, labs)? Why? @ -none What meds were considered but not given or refused? Why? @ -none Did you discuss the management of the patient with other professionals (professionals i.e. [facility], [facility], lab, RT, psych nurse, social research assistant, real estate lawyer, teacher, court collections officer, case finishing machine adjuster)? Give summary @ -no Was smoking cessation discussed for >3mins.? @ -no Was critical care preformed (if so, how long)? @ -no Were there social determinants of health that impacted care today? How? (Homelessness, low income, unemployed, alcoholism, drug addiction, transportation, low edu. Level, literacy, decrease access to med. care, longterm, rehab)? @ -none Was there de-escalation of care discussed even if they declined (Discuss DNR or withdrawal of care, Hospice)? DNR status @ -no What co-morbidities impacted this encounter? (DM, HTN, Smoking, COPD, CAD, Cancer, CVA, ARF, Chemo, Hep., AIDS, mental health diagnosis, sleep apnea, morbid obesity)? @ -none Was patient admitted / discharged? Hospital course, mention meds given and route, prescriptions, significant lab abnormalities, going to OR and other pertinent info. @ - 59 female to ER for evaluation of symptoms of radial nerve palsy left upper extremity. Imaging otherwise negative patient symptoms are improved and can be discharged home Discharge Undiagnosed new problem with uncertain prognosis? @ -no Drug Therapy requiring intensive monitoring for toxicity (Heparin, Nitro, Insul in, Cardizem)? @ -no Were any procedures done? @ -no Diagnosis/symptom? @ -Radial nerve palsy Acute, or Chronic, or Acute on Chronic? @ -Acute Uncomplicated (without systemic symptoms) or Complicated (systemic symptoms)? @ -Complicated Side effects of treatment? @ -no Exacerbation, Progression, or Severe Exacerbation? @ -exacerbation Poses a threat to life or bodily function? How? (Chest pain, [place], [place], pneumonia, PE, COPD, DKA, ARF, appy, cholecystitis, CVA, Diverticulitis, Homicidal, Heydi cidal, threat to staff... and all critical care pts) @ -yes Disposition Clinical Impression: Thursday night palsy, Acute radial nerve palsy of left upper extremity Disposition: HOME SELF-CARE Condition: Good Instructions (If sedation given, give patient instructions): Radial Nerve Palsy (ED) Is patient prescribed a controlled substance at d/c from ED?: No Referrals: Jenaro Flowers MD [Primary Care Provider] - 1-2 days Time of Disposition: 19:00
[2025-03-12 17:52] LABS: Basophils # (A) 0.08 10*3/uL (0.00-0.10); Basophils % (A) 1.6 %; Eosinophils # (A) 0.43 10*3/uL (0.04-0.35); Eosinophils % (A) 8.8 %; HCT 29.6 % (37.2-46.3); HGB 9.9 g/dL (12.0-15.0); Lymphocytes # (A) 1.61 10*3/uL (0.90-5.00); Lymphocytes % (A) 33.1 %; MCH 29.9 pg (27.0-32.0); MCHC 33.4 g/dL (32.0-37.0); MCV 89.4 fL (80.0-97.0); Monocytes # (A) 0.29 10*3/uL (0.20-1.00); Neutrophils # (A) 2.44 10*3/uL (1.80-7.70); Neutrophils % (A) 50.3 %; Platelet Count 195 10*3/uL (140-440); RBC 3.31 10*6/uL (4.10-5.20); WBC 4.86 10*3/uL (4.50-10.00)
[2025-03-12] MEDS: SODIUM CHLORIDE 0.9% 1,000 ML IV ONE (17:54)
[2025-03-12 17:57] LABS: Appearance,Urine Cloudy (Clear); Bilirubin,Urine Negative (Negative); Blood,Urine Negative (Negative); Color,Urine Yellow; Glucose,Urine (UA) Negative (Negative); Ketones,Urine Negative (Negative); Leukocyte Esterase,Urine Large (Negative); Nitrite,Urine Negative (Negative); Protein,Urine Trace (Negative); Specific Gravity,Urine 1.022 (1.001-1.035)
[2025-03-12 17:58] LABS: Bacteria,Urine Rare /hpf; Mucus,Urine Rare /hpf; Squamous Epithelial Cell,Urine 25 /hpf (0-4); WBC,Urine 15 /hpf (0-5)
[2025-03-12 18:03] LABS: ALT 12 U/L (4-34); AST 25 U/L (14-36); African American GFR (CKD) >90 (>60 ml/min/1.73 sqM); Albumin 3.5 g/dL (3.5-5.0); Alkaline Phosphatase 56 U/L (38-126); Anion Gap 5 mmol/L; Blood Urea Nitrogen 15 mg/dL (7-17); Calcium 9.2 mg/dL (8.4-10.2); Carbon Dioxide 24 mmol/L (22-30); Chloride 111 mmol/L (98-107); Glucose 127 mg/dL (74-99); Magnesium 1.4 mg/dL (1.6-2.3); Non-African American GFR(CKD) >90 (>60 ml/min/1.73 sqM); Phosphorus 2.9 mg/dL (2.5-4.5); Potassium 3.6 mmol/L (3.5-5.1); Sodium 140 mmol/L (137-145); Total Bilirubin 0.4 mg/dL (0.2-1.3)
[2025-03-12 18:07] LABS: Prothrombin Time 11.3 sec (10.0-12.5)
[2025-03-12 18:10] LABS: Partial Thromboplastin Time 20.8 sec (22.0-30.0)
[2025-03-12] MEDS: MAGNESIUM SULFATE-D5W PMX 1 GM in DEXTROSE/WATER 1 100ML.BAG IVPB ONE (18:57)
[2025-03-12] MEDS: MAGNESIUM OXIDE 400 MG TAB PO STA ×2 (18:57)
--- NOTE | 2025-03-12 19:15 | CT ---
EXAMINATION TYPE: CT brain wo con DATE OF EXAM: 03/12/2025 6:45 PM COMPARISON: 08/19/2024 CLINICAL INDICATION: Female, 59 years old with history of L hand weakness, weakness to left hand TECHNIQUE: CT of the brain is performed utilizing 3 mm thick sections through the posterior fossa and 3 mm thick sections through the remaining calvarium. Study is performed within 24 hours of arrival to the hospital. Contrast used: mL of , (none if empty) CT DLP: 1108.6 mGycm, Automated exposure control for dose reduction was used. FINDINGS: No abnormal hyperdensity is present to suggest an acute intracranial hemorrhage. No mass lesion is evident. No acute infarcts are evident. Ventricles and sulci are appropriate for the patient age. Paranasal sinuses and mastoid air cells within the [id number] are clear. IMPRESSION: 1. No acute intracranial process. Follow up MRI can be performed as clinically indicated. [facility], , 03/12/2025 7:13 PM
--- NOTE | 2025-03-12 19:34 | CT ---
EXAMINATION TYPE: CT angio head neck DATE OF EXAM: 03/12/2025 6:59 PM COMPARISON: None. CLINICAL INDICATION: Female, 59 years old with history of L hand weakness, weakness to left hand TECHNIQUE: CTA scan is performed with axial images are obtained, coronal and sagittal reformatted vera ges are reviewed. MIP images created on a separate workstation and submitted for review. 3-D reconstr ucted images are created on an independent workstation and reviewed. Source images are reviewed. PHILIPPE CET criteria was used in interpretation of this exam? Contrast used:65 ml mL of Isovue 370 with IV Contrast, (none if empty) Oral contrast used: (none if empty) CT DLP: 313.3 mGycm, Automated exposure control for dose reduction was used. FINDINGS: Carotid/Vascular Structures: There is a 3 vessel arch. Common carotid arteries bifurcate into internal and external carotid arteries without significant bigg w limiting stenosis. Vertebral arteries are codominant. Internal carotid arteries and vertebral arteries are patent to the skull base. Cervical of [place]: Vertebral basilar system appears normal. Posterior cerebral vasculature is unrema rkable. Internal carotid arteries bifurcate normally into A1 and M1 segments. A2 segments are normal. The anterior communicating artery is patent. The right posterior communicating artery is patent. The left posterior communicating artery is patent. Other: Within the left anterior frontal region there is a cluster of increased vascular structures. E xample image series 406 image 44. Couple of larger caliber vessel within the left frontal lobe. Vascu lar malformation appears to be present at this level. Venous angioma or arteriovenous malformation co uld be considered. Additional workup with MRI with contrast is recommended. IMPRESSION: 1. No flow-limiting stenosis bilateral carotid bifurcations. 2. Normal [place] of [place]. 3. 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 Additional evaluation with contrast-enhanced MR I is recommended [facility], , 03/12/2025 7:32 PM
[2025-03-12 19:57] VITALS: BP 120/60; PULSE 72
== END 2025-03-12 19:54 | disposition home or self-care (01) ==
LOC: EC 17:14 → SUPCPDRO 17:14 → EC 19:54
DX: G56.32 Lesion of radial nerve, left upper limb (principal); R00.1 Bradycardia, unspecified; F17.200 Nicotine dependence, unspecified, uncomplicated; Z91.040 Latex allergy status; Z88.8 Allergy status to other drugs, medicaments and biological substances
CPT/HCPCS: 36415; 93005; 80053; 83605; 83735; 84100; 84484; 85025; 85610; 85730; 81001; 70496; 70450; 70498; 99285; 96365; 96361; J3475; Q9967